=== PATIENT | female | born 1965 | race African-American/Black ===

== ENCOUNTER 2017-03-15 23:24 | Inpatient (IN) | payer MEDICARE, OTHER ==
[~2017-03-15] VITALS: Ht 180.3 cm; Wt 97.7 kg
[~2017-03-15 23:24] MED LIST: BUTA1CAP29 PO; CARV25TA2 PO; CLOP75TA PO; DIAZEPAM10 MG PO; FAMO20TA5 PO; FENO134C PO; HYDR-2666 PO; HYDR-971 PO; OXYC1TAB9 PO; PENI500T PO; PROM25TA10 PO
[2017-03-16 00:22] LABS: BASO # 0.1 x10^3/uL (0.0-0.2); BASO % 1 % (0-3); EOS % 1 % (0-3); HEMATOCRIT 33.8 % (36.0-47.0); HEMOGLOBIN 10.9 g/dL (12.0-15.5); LYMPH # 2.9 x10^3/uL (1.0-4.8); LYMPH % 29 % (24-48); MEAN CORPUSCULAR HEMOGLOBIN 25 pg (25-35); MEAN CORPUSCULAR HGB CONC 32 g/dL (31-37); MEAN CORPUSCULAR VOLUME 76 fL (79-100); MONO % 11 % (0-9); NEUT % 58 % (31-73); PLATELET COUNT 177 x10^3/uL (140-400); RED BLOOD COUNT 4.42 x10^6/uL (3.50-5.40); RED CELL DISTRIBUTION WIDTH 19.2 % (11.5-14.5); WHITE BLOOD COUNT 10.1 x10^3/uL (4.0-11.0)
[2017-03-16] MEDS ORDERED: HYDROmorphone 2 MG/ML VIAL IV ONE ×3 (00:30→07:45)
[2017-03-16] MEDS ORDERED: IV NORMAL SALINE 1000ML BAG 1,000 ML IV ONE (00:30)
[2017-03-16] MEDS ORDERED: ONDANSETRON PF 4 MG/2 ML VIAL. IV ONE (00:30)
[2017-03-16 00:36] LABS: CALCIUM 8.9 mg/dL (8.5-10.1); CREATININE 0.8 mg/dL (0.6-1.0); GFR 91.9; POTASSIUM 3.9 mmol/L (3.5-5.1)
[2017-03-16 00:44] LABS: ALBUMIN 3.5 g/dL (3.4-5.0); ALBUMIN/GLOBULIN RATIO 0.9 (1.0-1.7); TOTAL BILIRUBIN 0.2 mg/dL (0.2-1.0); TOTAL PROTEIN 7.5 g/dL (6.4-8.2)
[2017-03-16] MEDS ORDERED: NITROGLYCERIN SUBLINGUAL 0.4 MG BOTTLE OF 25. SL PRN (01:30)
[2017-03-16] MEDS ORDERED: ASPIRIN CHEWABLE 81 MG TABLET. PO ONE (01:30)
[2017-03-16] MEDS ORDERED: ONDANSETRON PF 4 MG/2 ML VIAL. IV PRN (01:30)
[2017-03-16] MEDS ORDERED: ACETAMINOPHEN 325 MG TABLET. PO PRN (01:30)
[2017-03-16 02:48] VITALS: BP 138/97
--- NOTE | 2017-03-16 03:15 | PHYS DOC ---
Past Medical History Past Medical History: CAD, High Cholesterol, Hypertension, PA, Other Additional Past Medical Histor: DJD Past Surgical History: , Other Additional Past Surgical Histo: BREAST BIOPSY, stent placement with mi nov 2015 Alcohol Use: None Drug Use: None Adult General Chief Complaint Chief Complaint: CHEST PAIN-CARDIAC NATURE HPI HPI Patient is a 52 year old female who presents here today complaining of chest pain. Patient reports the pain that she's having today is similar to her prior PA type pain. Patient has any fevers shakes chills. Patient has a cough melena bright red blood per rectum dysuria frequency or urgency. Patient reports her primary care physician is Dr. Jiménez. Patient reports she has a history of coronary artery disease hypertension diabetes and CHF. Patient reports she is a smoker. Patient reports that she had an abnormal catheter in the past. Patient denies any other surgeries. Patient reports her last sexual activity was approximately 2 years ago last menstrual period was last week. Patient reports pain to the mid sternum increases with exertion. Positive shortness of breath positive diaphoresis. Positive nausea. Physical exam was unremarkable. Patient has some reputes tenderness to palpation to her midsternal area however she reports that the pain that she can complaining of. Patient's heart was regular rate and rhythm lungs are clear abdomen benign. His EKG revealed normal sinus rhythm without any evidence of STEMI. Patient's labs were all within normal limits. Plan is a 52-year-old female with significant cardiac risk factors for hypertension diabetes CHF and coronary artery disease. Patient will be admitted to the hospital for further cardiac evaluation. Case was discussed with the hospitalist and they're in agreement. Review of Systems Review of Systems Constitutional: Denies fever or chills [] Eyes: Denies change in visual acuity, redness, or eye pain [] HENT: Denies nasal congestion or sore throat [] All other review systems are negative except as documented in history of present illness portion. Current Medications Current Medications Current Medications Medications (Trade) Dose Ordered Sig/Santos Start Time Stop Time Status Last Admin Dose Admin Hydromorphone HCl (Dilaudid) 1 mg 1X ONCE 03/16/17 00:30 03/16/17 00:31 DC 03/16/17 00:30 1 MG Ondansetron HCl (Zofran) 4 mg 1X ONCE 03/16/17 00:30 03/16/17 00:31 DC 03/16/17 00:30 4 MG Sodium Chloride 1,000 ml @ 1,000 mls/hr 1X ONCE 03/16/17 00:30 03/16/17 01:29 DC 03/16/17 00:30 1,000 MLS/HR Allergies Allergies Allergies Coded Allergies Type Severity Reaction Last Updated Verified atorvastatin Allergy Intermediate 05/11/16 Yes codeine Allergy Intermediate 03/16/17 Yes heparin Allergy Intermediate 05/11/16 Yes morphine Allergy Intermediate 05/11/16 Yes oxycodone Allergy Intermediate 03/16/17 Yes Physical Exam Physical Exam Constitutional: Well developed, well nourished, no acute distress, non-toxic appearance. [] HENT: Normocephalic, atraumatic, bilateral external ears normal, oropharynx moist, no oral exudates, nose normal. [] Eyes: PERRLA, EOMI, conjunctiva normal, no discharge. [] Neck: Normal range of motion, no tenderness, supple, no stridor. [] Cardiovascular:Heart rate regular rhythm, Lungs & Thorax: Bilateral breath sounds clear to auscultation [] Abdomen: Bowel sounds normal, soft, no tenderness, no masses, no pulsatile masses. [] Skin: Warm, dry, no erythema, no rash. [] Back: No tenderness, no CVA tenderness. [] Extremities: No tenderness, no cyanosis, no clubbing, ROM intact, no edema. [] Neurologic: Alert and oriented X 3, normal motor function, normal sensory function, no focal deficits noted. [] Psychologic: Affect normal, judgement normal, mood normal. [] Current Patient Data Vital Signs Vital Signs Date Time Temp Pulse Resp B/P (MAP) Pulse Ox O2 Delivery O2 Flow Rate FiO2 03/16/17 00:00 98.3 74 14 140/93 (109) 97 Room Air 98.3 Lab Values Laboratory Tests Test 03/16/17 00:13 White Blood Count 10.1 x10^3/uL (4.0-11.0) Red Blood Count 4.42 x10^6/uL (3.50-5.40) Hemoglobin 10.9 g/dL (12.0-15.5) L Hematocrit 33.8 % (36.0-47.0) L Mean Corpuscular Volume 76 fL (79-100) L Mean Corpuscular Hemoglobin 25 pg (25-35) Mean Corpuscular Hemoglobin Concent 32 g/dL (31-37) Red Cell Distribution Width 19.2 % (11.5-14.5) H Platelet Count 177 x10^3/uL (140-400) Neutrophils (%) (Auto) 58 % (31-73) Lymphocytes (%) (Auto) 29 % (24-48) Monocytes (%) (Auto) 11 % (0-9) H Eosinophils (%) (Auto) 1 % (0-3) Basophils (%) (Auto) 1 % (0-3) Neutrophils # (Auto) 5.8 x10^3uL (1.8-7.7) Lymphocytes # (Auto) 2.9 x10^3/uL (1.0-4.8) Monocytes # (Auto) 1.1 x10^3/uL (0.0-1.1) Eosinophils # (Auto) 0.1 x10^3/uL (0.0-0.7) Basophils # (Auto) 0.1 x10^3/uL (0.0-0.2) Sodium Level 140 mmol/L (136-145) Potassium Level 3.9 mmol/L (3.5-5.1) Chloride Level 105 mmol/L (98-107) Carbon Dioxide Level 26 mmol/L (21-32) Anion Gap 9 (6-14) Blood Urea Nitrogen 8 mg/dL (7-20) Creatinine 0.8 mg/dL (0.6-1.0) Estimated GFR (Cockcroft-Gault) 91.9 BUN/Creatinine Ratio 10 (6-20) Glucose Level 131 mg/dL (70-99) H Calcium Level 8.9 mg/dL (8.5-10.1) Total Bilirubin 0.2 mg/dL (0.2-1.0) Aspartate Amino Transferase (AST) 11 U/L (15-37) L Alanine Aminotransferase (ALT) 13 U/L (14-59) L Alkaline Phosphatase 74 U/L (46-116) Troponin I Quantitative 0.109 ng/mL (0.000-0.055) OS-Lbv-H-Type Natriuretic Peptide 280 pg/mL (0-124) H Total Protein 7.5 g/dL (6.4-8.2) Albumin 3.5 g/dL (3.4-5.0) Albumin/Globulin Ratio 0.9 (1.0-1.7) L Laboratory Tests 03/16/17 00:13 Laboratory Tests 03/16/17 00:13 EKG EKG [] Radiology/Procedures Radiology/Procedures [] Course & Med Decision Making Course & Med Decision Making Pertinent Labs and Imaging studies reviewed. (See chart for details) [] Dragon Disclaimer Dragon Disclaimer This electronic medical record was generated, in whole or in part, using a voice recognition dictation system. Departure Departure Impression: Primary Impression: Chest pain Additional Impressions: Elevated troponin Non-STEMI (non-ST elevated myocardial infarction) Disposition: ADMITTED INPATIENT Admitting Physician: Shilpa Cortes Condition: STABLE Referrals: RUPESH JIMÉNEZ (PCP) Problem Qualifiers ALEXUS VELÁSQUEZ MD March 16, 2017 03:15
[2017-03-16] MEDS ORDERED: AMLO10TA4 PO (03:40)
[2017-03-16] MEDS ORDERED: POTA20TA4 PO (03:40)
[2017-03-16] MEDS ORDERED: CRESTOR20 MG PO (03:40)
[2017-03-16] MEDS ORDERED: CLON0.2T PO (03:40)
[2017-03-16] MEDS ORDERED: OXYC1TAB8 (03:44)
[2017-03-16] MEDS ORDERED: DIAZ5TAB4 (03:44)
[2017-03-16 07:00] VITALS: BP 146/92
--- NOTE | 2017-03-16 08:07 | RAD ---
Indication chest pain. A single view of the chest was obtained and is compared to an examination 10/27/2016. Heart size is mildly enlarged but unchanged. There is no congestive heart failure. There is a Cardiac stent. No acute finding in the chest is seen. The pulmonary vasculature is normal. There is no significant pleural fluid or pneumothorax. IMPRESSION: No acute or focal process seen in the chest
[2017-03-16] MEDS ORDERED: diazePAM 5 MG TABLET PO PRN (10:00)
[2017-03-16] MEDS ORDERED: BUTALB/APAP/CAFEIN 50/325/40MG TABLET. PO PRN (10:15)
[2017-03-16] MEDS ORDERED: PROMETHAZINE 12.5 MG TABLET. PO PRN (10:15)
[2017-03-16 11:00] VITALS: BP 133/80
[2017-03-16] MEDS: FENOFIBRATE,MICRONIZED 134 MG CAPSULE PO SCH (11:21)
[2017-03-16] MEDS: FAMOTIDINE 20 MG TABLET. PO SCH ×2 (11:21→21:37)
[2017-03-16] MEDS: cloNIDine HCL 0.2 MG TABLET PO SCH ×2 (11:22→21:38)
[2017-03-16] MEDS: CARVEDILOL 12.5 MG TABLET. PO SCH ×2 (11:22→16:59)
[2017-03-16] MEDS: POTASSIUM CHLORIDE 20 MEQ TABLET.ER. PO SCH (11:23)
--- NOTE | 2017-03-16 11:29 | PDOC ---
Provider Note Provider Note Pt seen.H&P dictated. #[id number]. SHARMAINE SAEED MD March 16, 2017 11:29
[2017-03-16 11:35] LABS: CHOLESTEROL/HDL RATIO 3.5
[2017-03-16] MEDS: HYDROcodone/APAP 5/325MG 1 TAB TABLET PO PRN ×2 (11:46→17:57)
--- NOTE | 2017-03-16 12:09 | EKG ---
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
--- NOTE | 2017-03-16 13:27 | PDOC2 ---
CONSULT Date of Consult Date of Consult DATE: 03/16/17 TIME: 13:21 Reason for Consult Reason for Consult: chest pain Referring Physician Referring Physician: Dr. Cortes Identification/Chief Complaint Chief Complaint chest pain Source Source: Patient History of Present Illness Reason for Visit: The patient is a 52-year-old female who was admitted through the emergency room for episodes of chest pain. She states she has had several episodes of pain usually with exertion over the past 3 weeks. Her EKG has shown no acute changes. Troponin peak was 0.179. She has been pain-free overnight. She states she receives her cardiac care at and received a stent in early 2015 after a heart attack. She also states that she had a reportedly normal stress test at last week. Past Medical History Cardiovascular: CAD, HTN, [place], Hyperlipidemia Pulmonary: COPD CENTRAL NERVOUS SYSTEM: Other GI: Peptic Ulcer disease Heme/Onc: No pertinent hx Hepatobiliary: No pertinent hx Psych: No pertinent hx Musculoskeletal: Osteoarthritis Rheumatologic: No pertinent hx Renal/: No pertinent hx, Other Endocrine: No pertinent hx Past Surgical History Past Surgical History: , Other (coronary stent at in 2015) Family History Family History: Coronary Artery Disease Social History No ALCOHOL: none Drugs: None Lives: with Family Domestic Violence: Neg Current Problem List Problem List Problems Medical Problems: (1) Chest pain Status: Acute (2) Elevated troponin Status: Acute (3) Non-STEMI (non-ST elevated myocardial infarction) Status: Acute Current Medications Current Medications Current Medications Hydromorphone HCl (Dilaudid) 1 mg 1X ONCE IV Last administered on 03/16/17 00: 30; Start 03/16/17 at 00:30; Stop 03/16/17 at 00:31; Status DC Ondansetron HCl (Zofran) 4 mg 1X ONCE IV Last administered on 03/16/17 00:30; Start 03/16/17 at 00:30; Stop 03/16/17 at 00:31; Status DC Sodium Chloride 1,000 ml @ 1,000 mls/hr 1X ONCE IV Last administered on 00:30; Start 03/16/17 at 00:30; Stop 03/16/17 at 01:29; Status DC Ondansetron HCl (Zofran) 4 mg PRN Q8HRS PRN IV NAUSEA/VOMITING; Start 03/16/17 at 01:30; Stop 03/17/17 at 01:29 Acetaminophen (Tylenol) 650 mg PRN Q4HRS PRN PO FEVER; Start 03/16/17 at 01:30; Stop 03/17/17 at 01:29 Nitroglycerin (Nitrostat) 0.4 mg PRN Q5MIN PRN SL CHEST PAIN Last administered on 03/16/17 02:01; Start 03/16/17 at 01:30; Stop 03/17/17 at 01:29 Aspirin (Children'S Aspirin) 324 mg 1X ONCE PO Last administered on 03/16/17 01:30; Start 03/16/17 at 01:30; Stop 03/16/17 at 01:31; Status DC Hydromorphone HCl (Dilaudid) 1 mg 1X ONCE IV Last administered on 03/16/17 03: 03; Start 03/16/17 at 02:30; Stop 03/16/17 at 02:31; Status DC Hydromorphone HCl (Dilaudid) 1 mg 1X ONCE IV Last administered on 03/16/17 08: 15; Start 03/16/17 at 07:45; Stop 03/16/17 at 07:46; Status DC Amlodipine Besylate (Norvasc) 10 mg BID PO ; Start 03/16/17 at 21:00 Clonidine HCl (Catapres) 0.2 mg BID PO Last administered on 03/16/17 11:22; Start 03/16/17 at 10:00 Clopidogrel Bisulfate (Plavix) 75 mg DAILY PO ; Start 03/17/17 at 09:00 Diazepam (Valium) 5 mg PRN BID PRN PO ANXIETY; Start 03/16/17 at 10:00 Famotidine (Pepcid) 20 mg BID PO Last administered on 03/16/17 11:21; Start 03/16/17 at 10:00 Fenofibrate (Lofibra) 134 mg DAILY PO Last administered on 03/16/17 11:21; Start 03/16/17 at 10:00 Acetaminophen/ Hydrocodone Bitart (Lortab 5/325) 1 tab PRN Q6HRS PRN PO PAIN Last administered on 03/16/17 11:46; Start 03/16/17 at 10:00 Potassium Chloride (Klor-Con) 20 meq DAILYWBKFT PO Last administered on 11:23; Start 03/16/17 at 11:00 Acetaminophen/ Butalbital/ Caffeine (Fioricet) 1 tab PRN Q4HRS PRN PO MIGRAINE HEADACHE; Start 03/16/17 at 10:15 Carvedilol (Coreg) 25 mg BIDWMEALS PO Last administered on 03/16/17 11:22; Start 03/16/17 at 10:15 Promethazine HCl (Phenergan) 25 mg PRN Q6HRS PRN PO NAUSEA/VOMITING; Start 03/16 at 10:15 Non-Formulary Medication 1 tab DAILY PO ; Start 03/17/17 at 09:00; Status UNV Active Scripts Active Fioricet 50-300-40 Mg Capsule (Butalb/Acetaminophen/Caffeine) 1 Each Capsule 1 Each PO PRN Q4HRS PRN Penicillin V Potassium 500 Mg Tablet 500 Mg PO TID [place] 5-325 Tablet (Acetaminophen/Hydrocodone Bitart) 1 Each Tablet 1 Tab PO PRN Q6HRS PRN [place] 5-325 Tablet (Acetaminophen/Hydrocodone Bitart) 1 Each Tablet 1 Tab PO PRN Q6HRS PRN Famotidine 20 Mg Tablet 20 Mg PO BID Promethazine Hcl 25 Mg Tablet 1 Tab PO PRN Q6HRS Penicillin V Potassium 500 Mg Tablet 1 Tab PO TID Reported Oxycodon-Acetaminophen 7.5-325 (Oxycodone Hcl/Acetaminophen) 1 Each Tablet Diazepam 5 Mg Tablet Norvasc (Amlodipine Besylate) 10 Mg Tablet 10 Mg PO BID Clonidine Hcl 0.2 Mg Tablet 1 Tab PO BID Crestor (Rosuvastatin Calcium) 20 Mg Tablet 1 Tab PO DAILY Klor-Con M20 (Potassium Chloride) 20 Meq Tab.er.prt 1 Tab PO DAILYWBKFT Oxycodone-Acetaminophen 10-325 (Oxycodone Hcl/Acetaminophen) 1 Each Tablet 1 Each PO PRN Q6HRS PRN Carvedilol 25 Mg Tablet 1 Tab PO BID Diazepam 10 Mg Tablet 1 Tab PO BID PRN Clopidogrel (Clopidogrel Bisulfate) 75 Mg Tablet 1 Tab PO DAILY Fenofibrate (Fenofibrate,Micronized) 134 Mg Capsule 1 Cap PO DAILY Allergies Allergies: Coded Allergies: atorvastatin (Verified Allergy, Intermediate, 05/11/16) codeine (Verified Allergy, Intermediate, 03/16/17) heparin (Verified Allergy, Intermediate, 05/11/16) morphine (Verified Allergy, Intermediate, 05/11/16) Tolerates hydromorphone oxycodone (Verified Allergy, Intermediate, 03/16/17) ROS Cardiovascular: yes Chest Pain, yes Palpitations Physical Exam General: No acute distress HEENT: Atraumatic Lungs: Clear to auscultation Heart: Regular rate Abdomen: Normal bowel sounds Extremities: No clubbing Vitals VITALS Vital Signs Date Time Temp Pulse Resp B/P (MAP) Pulse Ox O2 Delivery O2 Flow Rate FiO2 03/16/17 13:07 98 Room Air 03/16/17 11:22 77 133/80 03/16/17 11:00 99.5 17 99.5 Labs Labs Laboratory Tests Test 03/16/17 00:13 03/16/17 10:25 White Blood Count 10.1 x10^3/uL (4.0-11.0) Red Blood Count 4.42 x10^6/uL (3.50-5.40) Hemoglobin 10.9 g/dL (12.0-15.5) Hematocrit 33.8 % (36.0-47.0) Mean Corpuscular Volume 76 fL (79-100) Mean Corpuscular Hemoglobin 25 pg (25-35) Mean Corpuscular Hemoglobin Concent 32 g/dL (31-37) Red Cell Distribution Width 19.2 % (11.5-14.5) Platelet Count 177 x10^3/uL (140-400) Neutrophils (%) (Auto) 58 % (31-73) Lymphocytes (%) (Auto) 29 % (24-48) Monocytes (%) (Auto) 11 % (0-9) Eosinophils (%) (Auto) 1 % (0-3) Basophils (%) (Auto) 1 % (0-3) Neutrophils # (Auto) 5.8 x10^3uL (1.8-7.7) Lymphocytes # (Auto) 2.9 x10^3/uL (1.0-4.8) Monocytes # (Auto) 1.1 x10^3/uL (0.0-1.1) Eosinophils # (Auto) 0.1 x10^3/uL (0.0-0.7) Basophils # (Auto) 0.1 x10^3/uL (0.0-0.2) Sodium Level 140 mmol/L (136-145) Potassium Level 3.9 mmol/L (3.5-5.1) Chloride Level 105 mmol/L (98-107) Carbon Dioxide Level 26 mmol/L (21-32) Anion Gap 9 (6-14) Blood Urea Nitrogen 8 mg/dL (7-20) Creatinine 0.8 mg/dL (0.6-1.0) Estimated GFR (Cockcroft-Gault) 91.9 BUN/Creatinine Ratio 10 (6-20) Glucose Level 131 mg/dL (70-99) Calcium Level 8.9 mg/dL (8.5-10.1) Total Bilirubin 0.2 mg/dL (0.2-1.0) Aspartate Amino Transf (AST/SGOT) 11 U/L (15-37) Alanine Aminotransferase (ALT/SGPT) 13 U/L (14-59) Alkaline Phosphatase 74 U/L (46-116) Troponin I Quantitative 0.109 ng/mL (0.000-0.055) 0.179 ng/mL (0.000-0.055) CF-Wop-O-Type Natriuretic Peptide 280 pg/mL (0-124) Total Protein 7.5 g/dL (6.4-8.2) Albumin 3.5 g/dL (3.4-5.0) Albumin/Globulin Ratio 0.9 (1.0-1.7) Triglycerides Level 141 mg/dL (0-150) Cholesterol Level 111 mg/dL (0-200) LDL Cholesterol, Calculated 51 mg/dL (0-100) VLDL Cholesterol, Calculated 28 mg/dL (0-40) Non-HDL Cholesterol Calculated 79 mg/dL (0-129) HDL Cholesterol 32 mg/dL (40-60) Cholesterol/HDL Ratio 3.5 Thyroid Stimulating Hormone (TSH) 0.671 uIU/mL (0.358-3.74) Laboratory Tests Test 03/16/17 00:13 03/16/17 10:25 White Blood Count 10.1 x10^3/uL (4.0-11.0) Red Blood Count 4.42 x10^6/uL (3.50-5.40) Hemoglobin 10.9 g/dL (12.0-15.5) Hematocrit 33.8 % (36.0-47.0) Mean Corpuscular Volume 76 fL (79-100) Mean Corpuscular Hemoglobin 25 pg (25-35) Mean Corpuscular Hemoglobin Concent 32 g/dL (31-37) Red Cell Distribution Width 19.2 % (11.5-14.5) Platelet Count 177 x10^3/uL (140-400) Neutrophils (%) (Auto) 58 % (31-73) Lymphocytes (%) (Auto) 29 % (24-48) Monocytes (%) (Auto) 11 % (0-9) Eosinophils (%) (Auto) 1 % (0-3) Basophils (%) (Auto) 1 % (0-3) Neutrophils # (Auto) 5.8 x10^3uL (1.8-7.7) Lymphocytes # (Auto) 2.9 x10^3/uL (1.0-4.8) Monocytes # (Auto) 1.1 x10^3/uL (0.0-1.1) Eosinophils # (Auto) 0.1 x10^3/uL (0.0-0.7) Basophils # (Auto) 0.1 x10^3/uL (0.0-0.2) Sodium Level 140 mmol/L (136-145) Potassium Level 3.9 mmol/L (3.5-5.1) Chloride Level 105 mmol/L (98-107) Carbon Dioxide Level 26 mmol/L (21-32) Anion Gap 9 (6-14) Blood Urea Nitrogen 8 mg/dL (7-20) Creatinine 0.8 mg/dL (0.6-1.0) Estimated GFR (Cockcroft-Gault) 91.9 BUN/Creatinine Ratio 10 (6-20) Glucose Level 131 mg/dL (70-99) Calcium Level 8.9 mg/dL (8.5-10.1) Total Bilirubin 0.2 mg/dL (0.2-1.0) Aspartate Amino Transf (AST/SGOT) 11 U/L (15-37) Alanine Aminotransferase (ALT/SGPT) 13 U/L (14-59) Alkaline Phosphatase 74 U/L (46-116) Troponin I Quantitative 0.109 ng/mL (0.000-0.055) 0.179 ng/mL (0.000-0.055) VD-Evz-E-Type Natriuretic Peptide 280 pg/mL (0-124) Total Protein 7.5 g/dL (6.4-8.2) Albumin 3.5 g/dL (3.4-5.0) Albumin/Globulin Ratio 0.9 (1.0-1.7) Triglycerides Level 141 mg/dL (0-150) Cholesterol Level 111 mg/dL (0-200) LDL Cholesterol, Calculated 51 mg/dL (0-100) VLDL Cholesterol, Calculated 28 mg/dL (0-40) Non-HDL Cholesterol Calculated 79 mg/dL (0-129) HDL Cholesterol 32 mg/dL (40-60) Cholesterol/HDL Ratio 3.5 Thyroid Stimulating Hormone (TSH) 0.671 uIU/mL (0.358-3.74) Images Images Chest x-ray with no acute changes. Assessment/Plan Assessment/Plan 1. Chest pain. Patient has been pain-free overnight. She has no acute ischemic EKG changes. Peak troponin 0.179. Reports a history of coronary artery disease with stenting at in 2016. She also reports a normal stress test at last week. At the present time the patient appears clinically stable. We'll continue present medical treatment. Will obtain records from . We will keep nothing by mouth overnight. We'll reevaluate in the morning to determine if the patient would most appropriately be treated with a repeat heart catheterization. This was discussed with the patient. 2. Hyperlipidemia. Continue statin medication. Check lipid panel. 3. Hypertension. We'll continue on medical treatment. Thank you for allowing us to participate in the care of your patient. HAYDEN IRAHETA MD March 16, 2017 13:26
[2017-03-16 14:35] LABS: BILIRUBIN,URINE NEGATIVE (NEG); GLUCOSE,URINE NEGATIVE (NEG); NITRITE,URINE POSITIVE (NEG); PH,URINE 6.5; PROTEIN,URINE NEGATIVE (NEG-TRACE); UROBILINOGEN,URINE 0.2 mg/dL (0.2 mg/dL)
[2017-03-16 14:41] LABS: BACTERIA,URINE MANY /HPF (0-FEW); RBC,URINE 0 /HPF (0-2); SQUAMOUS EPITHELIAL CELL,UR MANY /LPF
[2017-03-16 15:00] VITALS: BP 133/89
--- NOTE | 2017-03-16 15:29 | HP ---
ADMIT DATE: 03/16/2017 LOCATION: 209. REASON FOR ADMISSION TO THE HOSPITAL: Chest pain. The patient has a known history of coronary artery disease, slightly elevated troponin. HISTORY OF PRESENT ILLNESS: The patient is a 52-year-old female, patient of Dr. Douglas with history of hypertension, hyperlipidemia, coronary artery disease. She had a total of 5 stents so far, the last stent was 1 year ago. The patient in fact was admitted to [facility] last week, Dr. Bernard. The patient had a stress test and MRI of the chest as per the patient and she was told there were no blockages. She did not have heart catheterization at that time. She came because she noticed chest pain with retrosternal going to the back, was seen by the ER and was admitted to the hospital. The patient is scheduled to see Cardiology today, may be taken to cardiac catheterization. PAST MEDICAL HISTORY: As mentioned, CAD, hypertension, hyperlipidemia, DC. PAST SURGICAL HISTORY: Stents at least 5, last one 1 year ago, had a breast biopsy, had a . ALLERGIES: ATORVASTATIN, CODEINE, HEPARIN, MORPHINE AND OXYCODONE. MEDICATIONS AT HOME: Hydrocodone q. 6, amlodipine 10 mg daily, Fioricet 1 q. 6, Coreg 25 mg twice a day, clonidine 0.2 twice a day, Plavix 75 mg daily, Pepcid 20 mg twice a day, fenofibrate 135 mg daily, hydrocodone p.r.n., potassium 20 mEq daily, Phenergan daily and Crestor 20 mg daily. PERSONAL HISTORY: Smoked half a pack to 1 pack for 30 years, trying to cut down. Denies alcohol or street drugs. FAMILY HISTORY: Positive for hypertension and heart disease. REVIEW OF SYMPTOMS: CARDIAC: Chest pain, easing up now. GASTROINTESTINAL: No nausea or vomiting. NEUROLOGICAL: No weakness. The rest of the 14-system was reviewed and negative. PHYSICAL EXAMINATION: VITAL SIGNS: At the time of admission shows temperature 98, pulse 74, respirations 14, blood pressure 140/93, 97 on room air. HEENT: Head is atraumatic. Pupils equal. Oral cavity: No congestion. NECK: Supple. Thyroid not enlarged. JVD not elevated. IV in the neck. CHEST: Symmetrical. CARDIOVASCULAR: S1, S2. LUNGS: Clear to auscultation. ABDOMEN: Soft, bowel sounds present, no mass palpable. EXTERNAL GENITALIA: No De Sou[place]. RECTAL: Deferred. EXTREMITIES: No calf tenderness or edema. Pulses 1+. NEUROLOGIC: Cranial nerves intact. Power 5/5 in all extremities. LABORATORY DATA: Shows a white count of 10, hemoglobin 11, platelets 177. Electrolytes show sodium 140, potassium 3.9, chloride 105, bicarbonate 26, BUN 8, creatinine 0.8, glucose 131 and troponin was 0.10, second was 0.179. Chest x-ray was negative. EKG done, report is not available. FINAL IMPRESSION: 1. Chest pain. The patient has a known history of coronary artery disease,h/o 5 cardiac stents so far. 2. Slightly elevated troponin, possible non-ST elevation myocardial infarction. 3. The patient was recently discharged from , had extensive workup including MRI of the chest as well as stress test, as per the patient it was negative for any ischemia. 4. Hypertension. 5. Hyperlipidemia. 6. Smoking addiction. PLAN: At this time, admit to the hospital. The patient cannot take heparin. Lovenox. Serial cardiac enzymes. Cardiology is consulted and the patient may probably go to cardiac catheterization and see how the patient's condition improves. Smoking counseling was done and continue aspirin and check cholesterol and thyroid. SHARMAINE SAEED MD DR: YURIY/trent JOB#: [id number] / [id number] RUPESH Amezcua
[2017-03-16 19:59] VITALS: BP 153/97
[2017-03-16] MEDS ORDERED: ROSUVASTATIN 20 MG PO SCH (21:00)
[2017-03-16] MEDS: amLODIPine BESYLATE 10 MG TABLET PO SCH (21:38)
[2017-03-16 23:06] VITALS: BP 155/97
[2017-03-17] MEDS: HYDROcodone/APAP 5/325MG 1 TAB TABLET PO PRN (02:29)
[2017-03-17 03:17] VITALS: BP 136/89
[2017-03-17 04:06] LABS: BASO # 0.1 x10^3/uL (0.0-0.2); BASO % 1 % (0-3); EOS % 1 % (0-3); HEMATOCRIT 33.4 % (36.0-47.0); HEMOGLOBIN 10.5 g/dL (12.0-15.5); LYMPH % 38 % (24-48); MEAN CORPUSCULAR HEMOGLOBIN 24 pg (25-35); MEAN CORPUSCULAR HGB CONC 31 g/dL (31-37); MEAN CORPUSCULAR VOLUME 77 fL (79-100); MONO % 12 % (0-9); NEUT % 49 % (31-73); PLATELET COUNT 172 x10^3/uL (140-400); RED BLOOD COUNT 4.35 x10^6/uL (3.50-5.40); RED CELL DISTRIBUTION WIDTH 18.9 % (11.5-14.5); WHITE BLOOD COUNT 7.8 x10^3/uL (4.0-11.0)
[2017-03-17 04:19] LABS: CREATININE 0.8 mg/dL (0.6-1.0); GFR 91.9; POTASSIUM 3.8 mmol/L (3.5-5.1)
--- NOTE | 2017-03-17 04:45 | ACF ---
Admission Forms Criteria MYOCARDIAL INFARCTION Clinical Indications for Admission to Inpatient Care (Place 'X' for any and all applicable criteria): Admission is indicated for 1 or more of the following (1)(2)(3)(4): [X]I. Acute MS [ ]II. Contraindications and/or Inappropriate clinical situations for Observational Care in patients with Myocardial Infarction, when ANY ONE of the following is required: [ ]a) Patient with High risk of cardiac embolism (e.g, patients with previous cardiac embolism, LVEF < 40%, age >75 and patients with prosthetic valve) 18 [ ]b) Patient with Moderate risk including DM patient, CAD and patient aged 65-75 18 [ ]c) Patient with any change in cardiac biomarker especially troponin should be managed as high risk in an inpatient setting 19 [ ]d) Physician judgement irrespective of ECG and other diagnostic findings 20 [ ]III.General contraindications and/or Inappropriate clinical situations for Observational Care in patients with Myocardial Infarction, when ANY ONE of the following is required: [ ]a) Prediction of prolongation of LOS based on ANY ONE of the following may be considered as a contraindication for observational care 2, 3, 4, 5, 6, 7, 8, 9, 10, 11 [ ]i) Age > 65 yrs. [ ]ii) Patient arriving by ambulance [ ]iii) Patient with high acuity [ ]iv) Patient requiring vital sign monitoring [ ]v) Patient on IV medication [ ]b) Systolic blood pressures greater than or equal to 180mmHg 3,12 [ ]c) Patient with altered mental status including delirium and other alteration of consciousness, (3) [ ]d) Patient whose discharge disposition will be to a fdc home or rehabilitation home should not be managed in Emergency Department Observation Unit. CMS rule requires 3 days hospital stay before such placement. 3,13 [ ]e) Patient with failure to thrive due to broad array of etiologies 3 ,16,17 [ ]f) Inability to ambulate 3,14 Extended stay beyond goal length of stay may be needed for (1)(18)(20)(24)(25): [ ]a) Hemodynamic instability, persisting symptoms after intensive medical management, or recurring severe, prolonged symptoms [ ]b) Intravascular procedural complications such as acute vessel closure, stent thrombosis, stent malposition, or vessel dissection (26)(27)(28) [ ]c) Extravascular procedural complications such as retroperitoneal hematoma , pericardial effusion, or cardiac tamponade [ ]d) Entry site complications causing bleeding, hematoma or distal ischemia and requiring ongoing monitoring, surgical repair or surgical thrombectomy. Dangerous arrhythmia [ ]e) Complicated percutaneous coronary intervention (e.g., unsuccessful percutaneous coronary intervention or percutaneous coronary intervention of non- gambell vessel) [ ]f) Urgent or emergent surgery for complications of MS (e.g., ventricular rupture, valvular insufficiency) [ ]g) Surgical revascularization via coronary artery bypass graft [ ]h) Heart failure (e.g., pulmonary edema) [ ]i) Unstable pulmonary comorbidities, including COPD or pneumonia (31) [ ]j) Acute renal failure The original [employer] content created by [employer] has been revised. The portions of the content which have been revised are identified through the use of italic text or in bold, and [facility] [email or web address] has neither reviewed nor approved the modified material. All other unmodified content is copyright [facility] [email or web address] Please see references footnoted in the original [employer] [facility] edition 2016 Admission Criteria Met?: Yes CRYS COLON March 17, 2017 04:45
[2017-03-17 07:56] VITALS: BP 142/89
[2017-03-17] MEDS: FAMOTIDINE 20 MG TABLET. PO SCH (08:41)
[2017-03-17] MEDS: cloNIDine HCL 0.2 MG TABLET PO SCH (08:42)
[2017-03-17] MEDS: POTASSIUM CHLORIDE 20 MEQ TABLET.ER. PO SCH (08:42)
[2017-03-17] MEDS: FENOFIBRATE,MICRONIZED 134 MG CAPSULE PO SCH (08:42)
[2017-03-17] MEDS: amLODIPine BESYLATE 10 MG TABLET PO SCH (08:42)
[2017-03-17] MEDS: CARVEDILOL 12.5 MG TABLET. PO SCH (08:43)
[2017-03-17] MEDS ORDERED: CLOPIDOGREL BISULFATE 75 MG TABLET PO SCH (09:00)
--- NOTE | 2017-03-17 10:17 | PDOC ---
PROGRESS NOTES Subjective Subjective feels better ,want to go home, no chest pain Objective Objective Vital Signs Date Time Temp Pulse Resp B/P (MAP) Pulse Ox O2 Delivery O2 Flow Rate FiO2 03/17/17 08:43 77 142/89 03/17/17 08:10 Room Air 03/17/17 07:56 99.3 18 96 99.3 Intake and Output 03/17/17 07:00 Intake Total 1140 ml Balance 1140 ml Intake Oral 1140 ml # Voids 2 Physical Exam Abdomen: Normal bowel sounds Heart: Regular rate, Normal S1, Normal S2 Extremities: No clubbing General: No acute distress HEENT: Atraumatic Lungs: Clear to auscultation MUSCULOSKELETAL: Osteoarthritic changes both hands Neck: Supple Neuro: Normal speech Psych/Mental Status: Mental status NL Skin: No breakdown Diagnosis Problem List Problems Medical Problems: (1) Chest pain Status: Acute (2) Elevated troponin Status: Acute (3) Non-STEMI (non-ST elevated myocardial infarction) Status: Acute Assessment Assessment Problems Medical Problems: (1) Chest pain Status: Acute (2) Elevated troponin Status: Acute (3) Non-STEMI (non-ST elevated myocardial infarction) Status: Acute FINAL IMPRESSION: 1. Chest pain. The patient has a known history of coronary artery disease 5 stents so far. 2. Slightly elevated troponin, possible non-ST elevation myocardial infarction.troponin same,not trending up or down 3. The patient was recently discharged from , had extensive workup including MRI of the chest as well as stress test, as per the patient it was negative for any ischemia. 4. Hypertension. 5. Hyperlipidemia. 6. Smoking addiction. PLAN: seen by cardiology . pt donot want heart cath, want to go home and f/u cardiology today. labs ok. At this time, admit to the hospital. The patient cannot take heparin. Lovenox. Serial cardiac enzymes. Cardiology is consulted and the patient may probably go to cardiac catheterization and see how the patient's condition improves. Smoking counseling was done and continue aspirin and check cholesterol and thyroid. Problems: Plan Plan of Care Problems Medical Problems: (1) Chest pain Status: Acute (2) Elevated troponin Status: Acute (3) Non-STEMI (non-ST elevated myocardial infarction) Status: Acute Comment Review of Relevant I have reviewed the following items dina (where applicable) has been applied. Labs Laboratory Tests Test 03/16/17 10:25 5/8/17 03:22 Troponin I Quantitative 0.179 ng/mL (0.000-0.055) 0.169 ng/mL (0.000-0.055) Triglycerides Level 141 mg/dL (0-150) Cholesterol Level 111 mg/dL (0-200) LDL Cholesterol, Calculated 51 mg/dL (0-100) VLDL Cholesterol, Calculated 28 mg/dL (0-40) Non-HDL Cholesterol Calculated 79 mg/dL (0-129) HDL Cholesterol 32 mg/dL (40-60) Cholesterol/HDL Ratio 3.5 Thyroid Stimulating Hormone (TSH) 0.671 uIU/mL (0.358-3.74) White Blood Count 7.8 x10^3/uL (4.0-11.0) Red Blood Count 4.35 x10^6/uL (3.50-5.40) Hemoglobin 10.5 g/dL (12.0-15.5) Hematocrit 33.4 % (36.0-47.0) Mean Corpuscular Volume 77 fL (79-100) Mean Corpuscular Hemoglobin 24 pg (25-35) Mean Corpuscular Hemoglobin Concent 31 g/dL (31-37) Red Cell Distribution Width 18.9 % (11.5-14.5) Platelet Count 172 x10^3/uL (140-400) Neutrophils (%) (Auto) 49 % (31-73) Lymphocytes (%) (Auto) 38 % (24-48) Monocytes (%) (Auto) 12 % (0-9) Eosinophils (%) (Auto) 1 % (0-3) Basophils (%) (Auto) 1 % (0-3) Neutrophils # (Auto) 3.8 x10^3uL (1.8-7.7) Lymphocytes # (Auto) 3.0 x10^3/uL (1.0-4.8) Monocytes # (Auto) 0.9 x10^3/uL (0.0-1.1) Eosinophils # (Auto) 0.1 x10^3/uL (0.0-0.7) Basophils # (Auto) 0.1 x10^3/uL (0.0-0.2) Sodium Level 141 mmol/L (136-145) Potassium Level 3.8 mmol/L (3.5-5.1) Chloride Level 105 mmol/L (98-107) Carbon Dioxide Level 27 mmol/L (21-32) Anion Gap 9 (6-14) Blood Urea Nitrogen 8 mg/dL (7-20) Creatinine 0.8 mg/dL (0.6-1.0) Estimated GFR (Cockcroft-Gault) 91.9 Glucose Level 105 mg/dL (70-99) Calcium Level 9.0 mg/dL (8.5-10.1) Medications Current Medications Acetaminophen/ Butalbital/ Caffeine (Fioricet) 1 tab PRN Q4HRS PRN PO MIGRAINE HEADACHE; Start 03/16/17 at 10:15 Amlodipine Besylate (Norvasc) 10 mg BID PO Last administered on 03/17/17 08:42 ; Start 03/16/17 at 21:00 Carvedilol (Coreg) 25 mg BIDWMEALS PO Last administered on 03/17/17 08:43; Start 03/16/17 at 10:15 Clopidogrel Bisulfate (Plavix) 75 mg DAILY PO Last administered on 03/17/17 08: 42; Start 03/17/17 at 09:00 Non-Formulary Medication 1 tab QHS PO Last administered on 03/16/17 21:38; Start 03/16/17 at 21:00 Potassium Chloride (Klor-Con) 20 meq DAILYWBKFT PO Last administered on 08:42; Start 03/16/17 at 11:00 Promethazine HCl (Phenergan) 25 mg PRN Q6HRS PRN PO NAUSEA/VOMITING; Start 03/16 at 10:15 Vitals/I & O Vital Sign - Last 24 Hours 03/16/17 03/16/17 03/16/17 03/16/17 11:00 11:22 11:22 11:46 Temp 99.5 99.5 Pulse 73 77 77 Resp 17 B/P (MAP) 133/80 (97) 146/92 133/80 Pulse Ox 98 98 O2 Delivery Room Air Room Air 03/16/17 03/16/17 03/16/17 03/16/17 15:00 16:59 17:57 19:10 Temp 99.2 99.2 Pulse 85 85 Resp 18 B/P (MAP) 133/89 (104) 133/89 Pulse Ox 96 96 96 O2 Delivery Room Air Room Air 03/16/17 03/16/17 03/16/17 03/16/17 19:59 20:00 21:38 21:38 Temp 99.8 99.8 Pulse 85 85 Resp 17 B/P (MAP) 153/97 (115) 153/97 153/97 Pulse Ox 97 O2 Delivery Room Air Room Air 03/16/17 03/17/17 03/17/17 03/17/17 23:06 02:29 03:17 03:29 Temp 99.6 99.4 99.6 99.4 Pulse 80 69 Resp 18 18 20 16 B/P (MAP) 155/97 (116) 136/89 (105) Pulse Ox 96 97 O2 Delivery Room Air Room Air Room Air Room Air 03/17/17 03/17/17 03/17/17 03/17/17 07:56 08:10 08:42 08:42 Temp 99.3 99.3 Pulse 77 77 77 Resp 18 B/P (MAP) 142/89 (106) 142/89 142/89 Pulse Ox 96 O2 Delivery Room Air Room Air 03/17/17 08:43 Pulse 77 B/P (MAP) 142/89 Intake and Output 03/16/17 03/16/17 03/17/17 15:00 23:00 07:00 Intake Total 900 ml 240 ml Balance 900 ml 240 ml SHARMAINE SAEED MD March 17, 2017 10:17
[2017-03-17 10:48] VITALS: BP 127/93
--- NOTE | 2017-03-17 15:28 | PDOC ---
Provider Note Provider Note Discharge summary dictated. #[id number]. SHARMAINE SAEED MD March 17, 2017 15:28
--- NOTE | 2017-03-18 | DS ---
DATE OF DISCHARGE: 03/17/2017 REASON FOR ADMISSION TO THE HOSPITAL: Chest pain. The patient has a known history of coronary artery disease, had cardiac stents at least 5. CONSULTATIONS: . PROCEDURES DONE: None. COMPLICATIONS NOTED: None. HOSPITAL COURSE: The patient is a 52-year-old female patient who has a history of coronary artery disease, had a couple of cardiac stents, at least five, the last one was 1 year ago, goes to see Dr. Bernard of Cardiology. In fact, she was at [facility] earlier this week, was admitted, and was in the hospital, had an MRI and stress test as per the patient and was told no blockages and the patient was discharged. The patient was having chest discomfort, retrosternal, going to the back. EKG was negative for ischemia. Chest x-ray was negative. Troponin was just borderline at 0.1, elevated. THE PATIENT IS ALLERGIC TO HEPARIN AND DERIVATIVES AND CHOLESTEROL MEDICATIONS. The patient was seen by Cardiology. The patient was chest pain-free, and since she got most of her treatment at , she is wanting to be discharged from here and she is going to check with her shoe sprayer in the next 24 hours and for further recommendations. We tried to get records from [facility], but so far none was available. Discussed with Dr. Bernard, her primary shoe sprayer, and he is going to set up to see her in the next 24-48 hours. FINAL DIAGNOSES: 1. Chest pain.?GERD. 2. Slight elevation of troponin.(0.1) 3. Known history of coronary artery disease, previous cardiac stents, at least 5 4. Hypertension. 5. Hyperlipidemia. 6. Smoking history. PLAN: At this time, discharged home. Activity as tolerated, not to do rigorous activity, and continue to follow up with primary shoe sprayer at , Dr. Bernard in the next 24 hours and to come to the ER at [place] or if continues to have chest pain. SHARMAINE SAEED MD DR: YURIY/trent JOB#: [id number] / [id number] RUPESH Amezcua
== END 2017-03-17 10:50 | disposition home or self-care (01) | DRG 392 ==
LOC: ER 23:24 → 2 NORTH 03-16 01:19
PROVIDERS: ADMIT Internal Medicine; ATTEND Internal Medicine
DX: K21.9 Gastro-esophageal reflux disease without esophagitis (principal); I25.10 Atherosclerotic heart disease of native coronary artery without angina pectoris; I10 Essential (primary) hypertension; M19.90 Unspecified osteoarthritis, unspecified site; E78.5 Hyperlipidemia, unspecified; J44.9 Chronic obstructive pulmonary disease, unspecified; I25.2 Old myocardial infarction; Z88.6 Allergy status to analgesic agent; Z88.8 Allergy status to other drugs, medicaments and biological substances; Z95.5 Presence of coronary angioplasty implant and graft; Z82.49 Family history of ischemic heart disease and other diseases of the circulatory system; Z87.11 Personal history of peptic ulcer disease; Z87.891 Personal history of nicotine dependence; E78.00 Pure hypercholesterolemia, unspecified
CPT/HCPCS: 36415; 71010; 80048; 80053; 80061; 81001; 83880; 84443; 84484; 85027; 87086; 87186; 93005; 96361; 96374; 96375; 99406; J1170; J2405; J7030; 99285-25

== ENCOUNTER 2019-07-10 17:14 | Emergency (ER) | payer MEDICARE, OTHER ==
[~2019-07-10] VITALS: Ht 180.3 cm; Wt 96.6 kg
[~2019-07-10 17:14] MED LIST changes: +AMLO10TA4 PO; +CLON0.2T PO; +CRESTOR20 MG PO; +DIAZ5TAB4; -HYDR-2666 PO; +HYDR-2761 PO; +HYDR-3164 PO; -HYDR-971 PO; +OXYC-411 PO; +OXYC1TAB8; -OXYC1TAB9 PO; +POTA20TA4 PO
[2019-07-10] MEDS ORDERED: DEXAMETHASONE SOD PHOS 20 MG/5 ML VIAL. IV ONE (18:15)
[2019-07-10] MEDS ORDERED: IV NORMAL SALINE 1000ML BAG 1,000 ML IV ONE (18:15)
[2019-07-10] MEDS ORDERED: diphenhydrAMINE 50 MG/ML VIAL IVP ONE (18:15)
[2019-07-10] MEDS ORDERED: KETOROLAC 15 MG/ML VIAL. IV ONE (18:15)
[2019-07-10] MEDS ORDERED: ONDANSETRON PF 4 MG/2 ML VIAL. IV ONE (18:15)
[2019-07-10 18:32] LABS: BASO # 0.1 x10^3/uL (0.0-0.2); BASO % 1 % (0-3); EOS # 0.1 x10^3/uL (0.0-0.7); EOS % 1 % (0-3); HEMATOCRIT 42.2 % (36.0-47.0); HEMOGLOBIN 14.2 g/dL (12.0-15.5); LYMPH # 2.9 x10^3/uL (1.0-4.8); LYMPH % 35 % (24-48); MEAN CORPUSCULAR HEMOGLOBIN 30 pg (25-35); MEAN CORPUSCULAR HGB CONC 34 g/dL (31-37); MEAN CORPUSCULAR VOLUME 89 fL (79-100); MONO # 0.8 x10^3/uL (0.0-1.1); MONO % 10 % (0-9); NEUT # 4.5 x10^3/uL (1.8-7.7); NEUT % 54 % (31-73); PLATELET COUNT 143 x10^3/uL (140-400); RED BLOOD COUNT 4.77 x10^6/uL (3.50-5.40); RED CELL DISTRIBUTION WIDTH 13.7 % (11.5-14.5); WHITE BLOOD COUNT 8.3 x10^3/uL (4.0-11.0)
[2019-07-10 18:52] LABS: CREATINE KINASE 81 U/L (26-192)
--- NOTE | 2019-07-10 18:55 | PHYS DOC ---
Past Medical History Past Medical History: CAD, High Cholesterol, Hypertension, [place], Other Additional Past Medical Histor: DJD. CARDIAC STENTS X 5, Past Surgical History: , Other Additional Past Surgical Histo: BREAST BIOPSY, stent placement with mi nov 2015 Smoking: Cigarettes Alcohol Use: None Drug Use: None Adult General Chief Complaint Chief Complaint: DIZZY/LIGHT HEADED HPI HPI Patient is a 54 year old female with hx of migraine and ACS s/p PCI who presents with dizziness and arm shakiness. Pt reports having dizziness for about a month. Her PCP diagnosed her with otitis media and prescribed her Ciprofloxacin 2 weeks ago and changed to Augmentin last week. Pt's symptom has not improved since her course of antibiotics. Pt continues having some left air pain and trouble hearing out of her left ear. Around 2pm today pt experiences some left arm shakiness for the first time while sitting in her chair. She also has a generalized LOO and photophobia symptom. She rates her LOO as 8/10. Her dizziness is worsen with lying flat and has prevented her from getting a good night sleep. Denies any LOC, trauma or hx of seizure. She also denies any chest pain, SOB, N/V, UTI symptoms. [] Review of Systems Review of Systems Constitutional: Denies fever or chills Eyes: Denies redness or eye pain HENT: Denies nasal congestion or sore throat. Positive decrease in hearing in left ear Respiratory: Denies cough or shortness of breath Cardiovascular: Denies chest pain or palpitations GI: Denies abdominal pain, nausea, or vomiting : Denies dysuria or hematuria Musculoskeletal: Denies back pain or joint pain Integument: Denies rash or skin lesions Neurologic: Denies headache, focal weakness or sensory changes Complete systems were reviewed and found to be within normal limits, except as documented in this note. Current Medications Current Medications Current Medications Medications (Trade) Dose Ordered Sig/Santos Start Time Stop Time Status Last Admin Dose Admin Dexamethasone Sodium Phosphate (Decadron) 10 mg 1X ONCE 07/10/19 18:15 07/10/19 18:30 DC 07/10/19 18:32 10 MG Diphenhydramine HCl (Benadryl) 25 mg 1X ONCE 07/10/19 18:15 07/10/19 18:29 DC 07/10/19 18:32 25 MG Hydralazine HCl (Apresoline Inj) 10 mg 1X ONCE 07/10/19 20:00 07/10/19 20:03 DC 07/10/19 20:08 10 MG Ketorolac Tromethamine (Toradol 15mg Vial) 15 mg 1X ONCE 07/10/19 18:15 07/10/19 18:30 DC 07/10/19 18:31 15 MG Ondansetron HCl (Zofran) 4 mg 1X ONCE 07/10/19 18:15 07/10/19 18:30 DC 07/10/19 18:31 4 MG Potassium Chloride (Klor-Con) 40 meq 1X ONCE 07/10/19 20:30 07/10/19 20:31 DC 07/10/19 20:25 40 MEQ Sodium Chloride 1,000 ml @ 1,000 mls/hr 1X ONCE 07/10/19 18:15 07/10/19 19:14 DC 07/10/19 18:31 1,000 MLS/HR Allergies Allergies Allergies Coded Allergies Type Severity Reaction Last Updated Verified atorvastatin Allergy Intermediate 07/10/19 Yes codeine Allergy Intermediate 07/10/19 Yes heparin Allergy Intermediate 07/10/19 Yes morphine Allergy Intermediate 07/10/19 Yes oxycodone Allergy Intermediate 07/10/19 Yes Physical Exam Physical Exam Constitutional: Well developed, well nourished, no acute distress, non-toxic appearance HENT: Normocephalic, atraumatic, oropharynx moist. TM intact, mild erythema in left ear canal. Eyes: PERRL, EOMI, conjunctiva normal, no discharge Neck: Normal range of motion, no tenderness, supple Cardiovascular: Heart rate normal, regular rhythm Lungs & Thorax: Bilateral breath sounds clear to auscultation, no wheezing Abdomen: Soft, no tenderness Skin: Warm, dry, no erythema, no rash Back: No tenderness, no CVA tenderness Extremities: No tenderness, ROM intact, no edema Neurologic: Alert and oriented X 3, normal motor function, normal sensory function, no focal deficits noted Psychologic: Affect normal, judgement normal, mood normal Current Patient Data Vital Signs Vital Signs Date Time Temp Pulse Resp B/P (MAP) Pulse Ox O2 Delivery O2 Flow Rate FiO2 07/10/19 20:27 80 18 97 07/10/19 20:08 191/112 07/10/19 17:23 99.4 99.4 Lab Values Laboratory Tests Test 07/10/19 17:25 07/10/19 17:30 07/10/19 18:47 White Blood Count 8.3 x10^3/uL (4.0-11.0) Red Blood Count 4.77 x10^6/uL (3.50-5.40) Hemoglobin 14.2 g/dL (12.0-15.5) Hematocrit 42.2 % (36.0-47.0) Mean Corpuscular Volume 89 fL (79-100) Mean Corpuscular Hemoglobin 30 pg (25-35) Mean Corpuscular Hemoglobin Concent 34 g/dL (31-37) Red Cell Distribution Width 13.7 % (11.5-14.5) Platelet Count 143 x10^3/uL (140-400) Neutrophils (%) (Auto) 54 % (31-73) Lymphocytes (%) (Auto) 35 % (24-48) Monocytes (%) (Auto) 10 % (0-9) H Eosinophils (%) (Auto) 1 % (0-3) Basophils (%) (Auto) 1 % (0-3) Neutrophils # (Auto) 4.5 x10^3/uL (1.8-7.7) Lymphocytes # (Auto) 2.9 x10^3/uL (1.0-4.8) Monocytes # (Auto) 0.8 x10^3/uL (0.0-1.1) Eosinophils # (Auto) 0.1 x10^3/uL (0.0-0.7) Basophils # (Auto) 0.1 x10^3/uL (0.0-0.2) Creatine Kinase 81 U/L (26-192) Creatine Kinase MB (Mass) < 0.5 ng/mL (0.0-3.6) Creatine Kinase MB Relative Index % (0-4) Troponin I Quantitative < 0.017 ng/mL (0.000-0.055) Glucose (Fingerstick) 136 mg/dL (70-99) H Sodium Level 144 mmol/L (136-145) Potassium Level 3.2 mmol/L (3.5-5.1) L Chloride Level 106 mmol/L (98-107) Carbon Dioxide Level 29 mmol/L (21-32) Anion Gap 9 (6-14) Blood Urea Nitrogen 14 mg/dL (7-20) Creatinine 0.9 mg/dL (0.6-1.0) Estimated GFR (Cockcroft-Gault) 79.6 BUN/Creatinine Ratio 16 (6-20) Glucose Level 127 mg/dL (70-99) H Calcium Level 8.3 mg/dL (8.5-10.1) L Magnesium Level 1.9 mg/dL (1.8-2.4) Total Bilirubin 0.2 mg/dL (0.2-1.0) Aspartate Amino Transferase (AST) 8 U/L (15-37) L Alanine Aminotransferase (ALT) 11 U/L (14-59) L Alkaline Phosphatase 80 U/L (46-116) Total Protein 7.0 g/dL (6.4-8.2) Albumin 3.1 g/dL (3.4-5.0) L Albumin/Globulin Ratio 0.8 (1.0-1.7) L Laboratory Tests 07/10/19 17:25 Laboratory Tests 07/10/19 18:47 EKG EKG []17:21 Sinus rhythm with the rate of 76. Left axis deviation. Inverted T waves noted in I, aVL. Inverted p waves in V1. [] 19:09 Sinus rhythm with the rate of 68. Left axia deviation. Inverted p waves in V1. and T waves inverted in I Radiology/Procedures Radiology/Procedures [] Course & Med Decision Making Course & Med Decision Making Pertinent Labs and Imaging studies reviewed. (See chart for details) [] Dragon Disclaimer Dragon Disclaimer This electronic medical record was generated, in whole or in part, using a voice recognition dictation system. Departure Departure Impression: Primary Impression: Head ache Additional Impressions: Hypokalemia Otitis externa Dizziness Disposition: 01 HOME, SELF-CARE Condition: STABLE Referrals: RUPESH JIMÉNEZ (PCP) MERCEDES PALMER MD Patient Instructions: Dizziness, Lehf-dz-Chtz, General Headache Without Cause, Dbat-zh-Bsno, Hypokalemia-Brief, Otitis Externa, Wnzl-hw-Lply, Potassium Content of Foods Additional Instructions: For Systolic BP >185 or Diastolic BP >110, take additional 0.1mg dose of Clonidine. Please keep a record of your daily BP to give it to your primary care physician. Scripts Butalb/Acetaminophen/Caffeine (WEMLLS-CDERTYJX-TZQR 50-325-40) 1 Each Tablet 1 EACH PO Q6HRS PRN for HEADACHE, #10 TAB Prov: LILIBETH HAYWOOD DO 07/10/19 Neomycin/Polymyxin B Sulf/Hc (MGTIIKOA-YDBIEQWKO-BW EAR SUSP) 10 Ml Drops.susp 4 DROP LEFT EAR QID, #10 ML Prov: LILIBETH HAYWOOD DO 07/10/19 Problem Qualifiers LILIBETH HAYWOOD DO Jul 10, 2019 18:55
[2019-07-10 19:05] LABS: CALCIUM 8.3 mg/dL (8.5-10.1); CREATININE 0.9 mg/dL (0.6-1.0); GFR 79.6; POTASSIUM 3.2 mmol/L (3.5-5.1)
[2019-07-10 19:11] LABS: ALBUMIN 3.1 g/dL (3.4-5.0); ALBUMIN/GLOBULIN RATIO 0.8 (1.0-1.7); MAGNESIUM 1.9 mg/dL (1.8-2.4); TOTAL BILIRUBIN 0.2 mg/dL (0.2-1.0)
[2019-07-10] MEDS ORDERED: hydrALAZINE 20 MG/ML VIAL. IVP ONE (20:00)
--- NOTE | 2019-07-10 20:03 | RAD ---
INDICATION: Dizziness and headache with weakness and left-sided tremor COMPARISON: October 24, 2016 TECHNIQUE: Axial CT images obtained through the head. One or more of the following individualized dose reduction techniques were utilized for this examination: 1. Automated exposure control; 2. Adjustment of the mA and/or kV according to patient size; 3. Use of iterative reconstruction technique. FINDINGS: No midline shift. Suprasellar cistern is not effaced. Scattered foci of low density within the white matter. Calcific atherosclerosis. No acute intracranial hemorrhage. There is some S-shaped curvature of the nasal septum. IMPRESSION: 1. No acute intracranial hemorrhage. 2. Mild scattered foci of low density of the white matter. Nonspecific but frequently from chronic small vessel ischemic disease. This is a common finding. Electronically signed by: Bora Goramn MD (07/10/2019 8:00 PM) [id number]
[2019-07-10 20:27] VITALS: BP 170/112
[2019-07-10] MEDS ORDERED: POTASSIUM CHLORIDE 20 MEQ TABLET.ER. PO ONE (20:30)
[2019-07-10] MEDS ORDERED: BUTA1TAB23 PO (20:44)
[2019-07-10] MEDS ORDERED: NEOM10DR32 LEFT EAR (20:44)
--- NOTE | 2019-07-12 04:41 | EKG ---
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
--- NOTE | 2019-07-12 04:44 | EKG ---
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
== END 2019-07-10 20:56 | disposition home or self-care (01) ==
LOC: ER 17:14
DX: R42 Dizziness and giddiness (principal); E87.6 Hypokalemia; H60.92 Unspecified otitis externa, left ear; R51 Headache; E78.00 Pure hypercholesterolemia, unspecified; I10 Essential (primary) hypertension; I25.10 Atherosclerotic heart disease of native coronary artery without angina pectoris; I25.2 Old myocardial infarction; F17.210 Nicotine dependence, cigarettes, uncomplicated; Z95.5 Presence of coronary angioplasty implant and graft; Z88.5 Allergy status to narcotic agent; Z88.8 Allergy status to other drugs, medicaments and biological substances
CPT/HCPCS: 36415; 70450; 80053; 82553; 82962; 83735; 84484; 85025; 93005; 96361; 96374; 96375; 99285; J0360; J1100; J1200; J1885; J2405; J7030

== ENCOUNTER 2019-08-01 17:44 | Emergency (ER) | payer MEDICARE, OTHER ==
[~2019-08-01 17:44] MED LIST changes: +BUTA1TAB23 PO; +NEOM10DR32 LEFT EAR
[2019-08-02] MEDS ORDERED: SULF1TAB24 PO (17:11)
== END 2019-08-01 19:08 | disposition left against medical advice (07) ==
LOC: ER 17:44
DX: H92.09 Otalgia, unspecified ear (principal); Z53.21 Procedure and treatment not carried out due to patient leaving prior to being seen by health care provider

== ENCOUNTER 2019-08-02 13:13 | Inpatient (IN) | payer MEDICARE, OTHER ==
[~2019-08-02] VITALS: Ht 180.3 cm; Wt 96.6 kg
[2019-08-02] MEDS ORDERED: IV NORMAL SALINE 1000ML BAG 1,000 ML IV ONE (13:30)
[2019-08-02 13:46] LABS: BILIRUBIN,URINE SMALL (NEG); CLARITY,URINE TURBID; NITRITE,URINE POSITIVE (NEG); PROTEIN,URINE >=300 mg/dL (NEG-TRACE)
--- NOTE | 2019-08-02 13:49 | RAD ---
Examination: PORTABLE CHEST 1V History: Dizziness and headache Comparison/Correlation: 03/16/2017 AP view of the chest Findings: Portable upright frontal view of the chest was obtained. Heart size is enlarged but this may be in part technique related. Pulmonary vasculature is normal. No pneumothorax. Bony structures are unremarkable. Impression: No active disease. Electronically signed by: Osito Martinez MD (08/02/2019 1:46 PM) [facility]
[2019-08-02 13:53] LABS: COLOR,URINE DK YELLOW
[2019-08-02 13:55] LABS: RBC,URINE TNTC /HPF (0-2)
[2019-08-02 13:56] LABS: BACTERIA,URINE MANY /HPF (0-FEW); SQUAMOUS EPITHELIAL CELL,UR MANY /LPF; WBC,URINE TNTC /HPF (0-4)
[2019-08-02 14:00] LABS: BARBITURATES NEG (NEG); BENZODIAZEPINES NEG (NEG); CANNABINOIDS NEG (NEG); COCAINE NEG (NEG); METHADONE NEG (NEG); OPIATES POS (NEG); PHENCYCLIDINE NEG (NEG)
[2019-08-02 14:01] LABS: AMPHETAMINE/METHAMPHETAMINE NEG (NEG)
[2019-08-02 14:16] LABS: BASO # 0.1 x10^3/uL (0.0-0.2); BASO % 1 % (0-3); EOS # 0.1 x10^3/uL (0.0-0.7); EOS % 1 % (0-3); HEMATOCRIT 45.8 % (36.0-47.0); HEMOGLOBIN 15.2 g/dL (12.0-15.5); LYMPH # 2.8 x10^3/uL (1.0-4.8); LYMPH % 35 % (24-48); MEAN CORPUSCULAR HEMOGLOBIN 29 pg (25-35); MEAN CORPUSCULAR HGB CONC 33 g/dL (31-37); MEAN CORPUSCULAR VOLUME 88 fL (79-100); MONO # 0.6 x10^3/uL (0.0-1.1); MONO % 8 % (0-9); NEUT # 4.4 x10^3/uL (1.8-7.7); NEUT % 56 % (31-73); PLATELET COUNT 156 x10^3/uL (140-400); RED BLOOD COUNT 5.23 x10^6/uL (3.50-5.40); WHITE BLOOD COUNT 7.9 x10^3/uL (4.0-11.0)
[2019-08-02 14:27] LABS: PROTHROMBIN TIME PATIENT 12.4 SEC (11.7-14.0)
[2019-08-02 14:33] LABS: CALCIUM 9.4 mg/dL (8.5-10.1); GFR 70.5; POTASSIUM 3.7 mmol/L (3.5-5.1)
--- NOTE | 2019-08-02 14:34 | RAD ---
Examination: CT HEAD WO CONTRAST History: Dizziness and headache Comparison/Correlation: 07/10/2019 CT head without contrast Findings: Axial images of the head were obtained without contrast. Coronal reformatted images were provided. Ventricles are normal size. No intracranial hemorrhage, shift, or mass effect. Globes appears unremarkable. Mucosal thickening of ethmoid air cells noted. Impression: No suspicious process. PQRS Compliance Statement: One or more of the following individualized dose reduction techniques were utilized for this examination: 1. Automated exposure control 2. Adjustment of the mA and/or kV according to patient size 3. Use of iterative reconstruction technique Electronically signed by: Osito Martinez MD (08/02/2019 2:31 PM) [facility]
[2019-08-02 14:40] LABS: ALBUMIN 3.7 g/dL (3.4-5.0); TOTAL BILIRUBIN 0.5 mg/dL (0.2-1.0); TOTAL PROTEIN 7.5 g/dL (6.4-8.2)
--- NOTE | 2019-08-02 15:07 | EKG ---
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
[2019-08-02] MEDS ORDERED: cefTRIAXone IV Push 1 GM VIAL. IVP ONE (15:45)
[2019-08-02] MEDS ORDERED: fentaNYL PF VIAL 100 MCG/2 ML VIAL IV ONE (15:45)
--- NOTE | 2019-08-02 15:46 | PHYS DOC ---
Past Medical History Past Medical History: CAD, High Cholesterol, Hypertension, [place], Other Additional Past Medical Histor: DJD. CARDIAC STENTS X 5, Past Surgical History: , Other Additional Past Surgical Histo: BREAST BIOPSY, stent placement with mi nov 2015 Alcohol Use: None Drug Use: None Adult General Chief Complaint Chief Complaint: HEADACHE HPI HPI Patient is a 54 year old female who presents with complaining of headache and dizziness. Patient complaining of left frontal headache for months as a constant pain associated constant dizziness that getting worse with standing up and change of position. Patient complaining of change of hearing of left ear without drainage. Patient denies head injury, fever and chills, neck pain, vomiting and diarrhea, urinary symptoms, focal neuro deficit. Patient had negative CT of head on 07/11/2019 and sent by her primary care physician for treatment of dehydration. Review of Systems Review of Systems Constitutional: Denies fever or chills [] Eyes: Denies change in visual acuity, redness, or eye pain [] HENT: Denies nasal congestion or sore throat [] Respiratory: Denies cough or shortness of breath [] Cardiovascular: No additional information not addressed in HPI [] GI: Denies abdominal pain, nausea, vomiting, bloody stools or diarrhea [] : Denies dysuria or hematuria [] Musculoskeletal: Denies back pain or joint pain [] Integument: Denies rash or skin lesions [] Neurologic: Reports dizziness and headache, denies focal weakness or sensory changes [] Endocrine: Denies polyuria or polydipsia [] All other systems were reviewed and found to be within normal limits, except as documented in this note. Current Medications Current Medications Current Medications Medications (Trade) Dose Ordered Sig/Santos Start Time Stop Time Status Last Admin Dose Admin Ceftriaxone Sodium (Rocephin) 1 gm 1X ONCE 08/02/19 15:45 08/02/19 15:46 DC 08/02/19 15:43 1 GM Fentanyl Citrate (Fentanyl 2ml Vial) 50 mcg 1X ONCE 08/02/19 15:45 08/02/19 15:46 DC 08/02/19 15:44 50 MCG Sodium Chloride 1,000 ml @ 1,000 mls/hr 1X ONCE 08/02/19 13:30 08/02/19 14:29 DC 08/02/19 14:09 1,000 MLS/HR Allergies Allergies Allergies Coded Allergies Type Severity Reaction Last Updated Verified atorvastatin Allergy Intermediate 07/10/19 Yes codeine Allergy Intermediate 07/10/19 Yes heparin Allergy Intermediate 07/10/19 Yes morphine Allergy Intermediate 07/10/19 Yes oxycodone Allergy Intermediate 07/10/19 Yes spironolactone Allergy Unknown 08/02/19 Yes Physical Exam Physical Exam Constitutional: Well developed, well nourished, mild distress, non-toxic appearance. [] HENT: Normocephalic, atraumatic. Eyes: PERRLA, EOMI, conjunctiva normal, no discharge. [] Neck: Normal range of motion, no tenderness, supple, no stridor. [] Cardiovascular:Heart rate regular rhythm, no murmur [] Lungs & Thorax: Bilateral breath sounds clear to auscultation [] Abdomen: Bowel sounds normal, soft, no tenderness, no masses, no pulsatile masses. [] Skin: Warm, dry, no erythema, no rash. [] Back: No tenderness, no CVA tenderness. [] Extremities: No tenderness, no cyanosis, no clubbing, ROM intact, no edema. [] Neurologic: Alert and oriented X 3, no focal deficits noted. [] Psychologic: Affect anxious, judgement normal, mood normal. [] Current Patient Data Vital Signs Vital Signs Date Time Temp Pulse Resp B/P (MAP) Pulse Ox O2 Delivery O2 Flow Rate FiO2 08/02/19 15:44 16 94 Room Air 08/02/19 13:20 98.6 82 149/71 (97) 98.6 Lab Values Laboratory Tests Test 08/02/19 13:27 08/02/19 13:58 Urine Collection Type Void Urine Color Dk yellow Urine Clarity Turbid Urine pH 6.0 Urine Specific [place] 1.020 Urine Protein >=300 mg/dL (NEG-TRACE) Urine Glucose (UA) Negative mg/dL (NEG) Urine Ketones (Stick) Negative mg/dL (NEG) Urine Blood Large (NEG) Urine Nitrite Positive (NEG) Urine Bilirubin Small (NEG) Urine Urobilinogen Dipstick 1.0 mg/dL (0.2 mg/dL) Urine Leukocyte Esterase Large (NEG) Urine RBC Tntc /HPF (0-2) Urine WBC Tntc /HPF (0-4) Urine Squamous Epithelial Cells Many /LPF Urine Bacteria Many /HPF (0-FEW) Urine Mucus Marked /LPF Urine Opiates Screen Pos (NEG) Urine Methadone Screen Neg (NEG) Urine Barbiturates Neg (NEG) Urine Phencyclidine Screen Neg (NEG) Urine Amphetamine/Methamphetamine Neg (NEG) Urine Benzodiazepines Screen Neg (NEG) Urine Cocaine Screen Neg (NEG) Urine Cannabinoids Screen Neg (NEG) Urine Ethyl Alcohol Neg (NEG) White Blood Count 7.9 x10^3/uL (4.0-11.0) Red Blood Count 5.23 x10^6/uL (3.50-5.40) Hemoglobin 15.2 g/dL (12.0-15.5) Hematocrit 45.8 % (36.0-47.0) Mean Corpuscular Volume 88 fL (79-100) Mean Corpuscular Hemoglobin 29 pg (25-35) Mean Corpuscular Hemoglobin Concent 33 g/dL (31-37) Red Cell Distribution Width 14.0 % (11.5-14.5) Platelet Count 156 x10^3/uL (140-400) Neutrophils (%) (Auto) 56 % (31-73) Lymphocytes (%) (Auto) 35 % (24-48) Monocytes (%) (Auto) 8 % (0-9) Eosinophils (%) (Auto) 1 % (0-3) Basophils (%) (Auto) 1 % (0-3) Neutrophils # (Auto) 4.4 x10^3/uL (1.8-7.7) Lymphocytes # (Auto) 2.8 x10^3/uL (1.0-4.8) Monocytes # (Auto) 0.6 x10^3/uL (0.0-1.1) Eosinophils # (Auto) 0.1 x10^3/uL (0.0-0.7) Basophils # (Auto) 0.1 x10^3/uL (0.0-0.2) Prothrombin Time 12.4 SEC (11.7-14.0) Prothrombin Time INR 1.0 (0.8-1.1) Sodium Level 142 mmol/L (136-145) Potassium Level 3.7 mmol/L (3.5-5.1) Chloride Level 104 mmol/L (98-107) Carbon Dioxide Level 26 mmol/L (21-32) Anion Gap 12 (6-14) Blood Urea Nitrogen 10 mg/dL (7-20) Creatinine 1.0 mg/dL (0.6-1.0) Estimated GFR (Cockcroft-Gault) 70.5 BUN/Creatinine Ratio 10 (6-20) Glucose Level 119 mg/dL (70-99) H Lactic Acid Level 1.6 mmol/L (0.4-2.0) Calcium Level 9.4 mg/dL (8.5-10.1) Magnesium Level 2.0 mg/dL (1.8-2.4) Total Bilirubin 0.5 mg/dL (0.2-1.0) Aspartate Amino Transferase (AST) 10 U/L (15-37) L Alanine Aminotransferase (ALT) 13 U/L (14-59) L Alkaline Phosphatase 93 U/L (46-116) Creatine Kinase 36 U/L (26-192) Troponin I Quantitative < 0.017 ng/mL (0.000-0.055) LL-Nol-U-Type Natriuretic Peptide 273 pg/mL (0-124) H Total Protein 7.5 g/dL (6.4-8.2) Albumin 3.7 g/dL (3.4-5.0) Albumin/Globulin Ratio 1.0 (1.0-1.7) Laboratory Tests 08/02/19 13:58 Laboratory Tests 08/02/19 13:58 EKG EKG EKG interpreted by me. EKG at 1344 showed normal sinus rhythm at rate of 76, left atrial abnormality, left brown axis, LVH with repolarization abnormality, no acute ST and T-wave elevation., Unchanged EKG from previous EKG dated 07/10/2019 Radiology/Procedures Radiology/Procedures [][facility] [address] [place], [place] [id number] IMAGING REPORT Signed PATIENT: VENU PALMER JACCOUNT: [id number] : 1965 LOCATION: ER AGE: 54 SEX: F EXAM STATUS: PRE ER ORD. PHYSICIAN: KRYTSLE TORRES MD REASON: dizziness and headache PROCEDURE: PORTABLE CHEST 1V Examination: PORTABLE CHEST 1V History: Dizziness and headache Comparison/Correlation: 03/16/2017 AP view of the chest Findings: Portable upright frontal view of the chest was obtained. Heart size is enlarged but this may be in part technique related. Pulmonary vasculature is normal. No pneumothorax. Bony structures are unremarkable. Impression: No active disease. Electronically signed by: Osito Bender MD (08/02/2019 1:46 PM) [facility] DICTATED and SIGNED BY: OSITO BENDER MD DATE: 08/02/19 1346 [facility] [address] [place] [address] IMAGING REPORT Signed PATIENT: VENU PALMER JACCOUNT: [id number] : 1965 LOCATION: ER AGE: 54 SEX: F EXAM STATUS: PRE ER ORD. PHYSICIAN: KRYSTLE TORRES MD REASON: dizziness and headache PROCEDURE: CT HEAD WO CONTRAST Examination: CT HEAD WO CONTRAST History: Dizziness and headache Comparison/Correlation: 07/10/2019 CT head without contrast Findings: Axial images of the head were obtained without contrast. Coronal reformatted images were provided. Ventricles are normal size. No intracranial hemorrhage, shift, or mass effect. Globes appears unremarkable. Mucosal thickening of ethmoid air cells noted. Impression: No suspicious process. PQRS Compliance Statement: One or more of the following individualized dose reduction techniques were utilized for this examination: 1. Automated exposure control 2. Adjustment of the mA and/or kV according to patient size 3. Use of iterative reconstruction technique Electronically signed by: Osito Bender MD (08/02/2019 2:31 PM) [facility] DICTATED and SIGNED BY: OSITO BENDER MD DATE: 08/02/19 1431 Course & Med Decision Making Course & Med Decision Making Pertinent Labs and Imaging studies reviewed. (See chart for details) [] Dragon Disclaimer Dragon Disclaimer This electronic medical record was generated, in whole or in part, using a voice recognition dictation system. Departure Departure Impression: Primary Impression: Dizziness Additional Impressions: Headache UTI (urinary tract infection) Anxiety about health Disposition: ADMITTED INPATIENT (at 1601) Admitting Physician: Madi. Hopper (accepted admission at 1600) Condition: IMPROVED Referrals: RUPESH JIMÉNEZ (PCP) Problem Qualifiers Additional Impressions: Headache Headache type: unspecified Headache chronicity pattern: unspecified pattern Intractability: not intractable Qualified Codes: R51 - Headache UTI (urinary tract infection) Urinary tract infection type: site unspecified Hematuria presence: without hematuria Qualified Codes: N39.0 - Urinary tract infection, site not specified KRYSTLE TORRES MD Aug 02, 2019 15:46
[2019-08-02] MEDS ORDERED: IV NORMAL SALINE 1000ML BAG 1,000 ML IV SCH (16:43)
[2019-08-02] MEDS ORDERED: SULF1TAB24 PO (17:11)
[2019-08-02 17:18] VITALS: BP 137/70
== END 2019-08-02 18:00 | disposition left against medical advice (07) | DRG 690 ==
LOC: ER 13:13 → 6 SOUTH 15:43
PROVIDERS: ADMIT Internal Medicine; ATTEND Internal Medicine
DX: N39.0 Urinary tract infection, site not specified (principal); R51 Headache; E78.00 Pure hypercholesterolemia, unspecified; F41.9 Anxiety disorder, unspecified; I10 Essential (primary) hypertension; M19.90 Unspecified osteoarthritis, unspecified site; I25.10 Atherosclerotic heart disease of native coronary artery without angina pectoris; Z53.21 Procedure and treatment not carried out due to patient leaving prior to being seen by health care provider; I25.2 Old myocardial infarction; Z95.5 Presence of coronary angioplasty implant and graft
CPT/HCPCS: 36415; 70450; 71045; 80053; 80307; 81001; 82550; 83605; 83735; 83880; 84484; 85025; 85610; 87086; 93005; 96374; 96375; J0696; J3010; J7030; 99285-25; G0378

== ENCOUNTER 2019-12-29 17:37 | Emergency (ER) | payer MEDICARE, OTHER ==
[~2019-12-29] VITALS: Ht 180.3 cm; Wt 97.0 kg
[~2019-12-29 17:37] MED LIST changes: +SULF1TAB24 PO
[2019-12-29] MEDS ORDERED: IV NORMAL SALINE 1000ML BAG 1,000 ML IV SCH (18:43)
--- NOTE | 2019-12-29 18:57 | PHYS DOC ---
Past Medical History Past Medical History: CAD, High Cholesterol, Hypertension, [place], Other Additional Past Medical Histor: DJD. CARDIAC STENTS X 5, Past Surgical History: , Other Additional Past Surgical Histo: BREAST BIOPSY, stent placement with mi nov 2015 Smoking Status: Current Every Day Smoker Alcohol Use: None Drug Use: None Adult General Chief Complaint Chief Complaint: FLU SYMPTOM HPI HPI 54-year-old female with history of hypertension, hyperlipidemia, history of stent placement in November 2019 presents to the emergency Department complaints of cough chest pain worse with deep breath and cough, nasal congestion, fever, nausea, vomiting, shortness of breath 2 days. Anus sharp again increases with deep breath and cough. She denies any abdominal pain or diarrhea. She denies any headache or visual changes on examination. Heart rate is 102, blood pressure 171/138. Patient states she has had sick contacts primarily with her family, her grandkids are here as well to be seen. Nothing makes her symptoms better. Patient is febrile in the ER. Review of Systems Review of Systems Constitutional: + fever/chills HENT: + nasal congestion Respiratory: + Cough/SOB Cardiovascular: No additional information not addressed in HPI [] GI: Denies abdominal pain, nausea, vomiting, bloody stools or diarrhea [] : Denies dysuria or hematuria [] Musculoskeletal: Denies back pain or joint pain [] Integument: Denies rash or skin lesions [] Neurologic: Denies headache, focal weakness or sensory changes [] All other systems were reviewed and found to be within normal limits, except as documented in this note. Current Medications Current Medications Current Medications Medications (Trade) Dose Ordered Sig/Santos Start Time Stop Time Status Last Admin Dose Admin Acetaminophen (Tylenol) 1,000 mg 1X ONCE 12/29/19 19:00 12/29/19 19:01 DC 12/29/19 19:31 1,000 MG Potassium Chloride (Klor-Con) 40 meq 1X ONCE 12/29/19 19:45 12/29/19 19:46 DC 12/29/19 19:48 40 MEQ Sodium Chloride 1,000 ml @ 1,000 mls/hr Q1H 12/29/19 18:43 12/29/19 19:42 DC 12/29/19 19:08 1,000 MLS/HR Allergies Allergies Allergies Coded Allergies Type Severity Reaction Last Updated Verified atorvastatin Allergy Intermediate 07/10/19 Yes codeine Allergy Intermediate 07/10/19 Yes heparin Allergy Intermediate 07/10/19 Yes morphine Allergy Intermediate 07/10/19 Yes oxycodone Allergy Intermediate 07/10/19 Yes spironolactone Allergy Unknown 08/02/19 Yes Physical Exam Physical Exam Constitutional: Well developed, well nourished, no acute distress, non-toxic appearance. [] HENT: Normocephalic, atraumatic, bilateral external ears normal, oropharynx moist, no oral exudates, nose normal. [] Eyes: PERRLA, EOMI, conjunctiva normal, no discharge. [] Neck: Normal range of motion, no tenderness, supple, no stridor. [] Cardiovascular: Tachycardia Lungs & Thorax: Bilateral breath sounds clear to auscultation [] Abdomen: Bowel sounds normal, soft, no tenderness, no masses, no pulsatile masses. [] Skin: Warm, dry, no erythema, no rash. [] Back: No tenderness, no CVA tenderness. [] Extremities: No tenderness, no edema. [] Neurologic: Alert and oriented X 3, no focal deficits noted. [] Psychologic: Affect normal, judgement normal, mood normal. [] Current Patient Data Vital Signs Vital Signs Date Time Temp Pulse Resp B/P (MAP) Pulse Ox O2 Delivery O2 Flow Rate FiO2 12/29/19 18:42 103.2 100 20 156/111 (126) 92 Room Air 103.2 Lab Values Laboratory Tests Test 12/29/19 18:41 12/29/19 18:52 Influenza Type A Antigen Positive (NEGATIVE) Influenza Type B Antigen Negative (NEGATIVE) White Blood Count 8.1 x10^3/uL (4.0-11.0) Red Blood Count 4.95 x10^6/uL (3.50-5.40) Hemoglobin 13.9 g/dL (12.0-15.5) Hematocrit 42.2 % (36.0-47.0) Mean Corpuscular Volume 85 fL (79-100) Mean Corpuscular Hemoglobin 28 pg (25-35) Mean Corpuscular Hemoglobin Concent 33 g/dL (31-37) Red Cell Distribution Width 14.0 % (11.5-14.5) Platelet Count 139 x10^3/uL (140-400) L Neutrophils (%) (Auto) 70 % (31-73) Lymphocytes (%) (Auto) 14 % (24-48) L Monocytes (%) (Auto) 15 % (0-9) H Eosinophils (%) (Auto) 0 % (0-3) Basophils (%) (Auto) 1 % (0-3) Neutrophils # (Auto) 5.7 x10^3/uL (1.8-7.7) Lymphocytes # (Auto) 1.1 x10^3/uL (1.0-4.8) Monocytes # (Auto) 1.2 x10^3/uL (0.0-1.1) H Eosinophils # (Auto) 0.0 x10^3/uL (0.0-0.7) Basophils # (Auto) 0.1 x10^3/uL (0.0-0.2) Sodium Level 137 mmol/L (136-145) Potassium Level 3.4 mmol/L (3.5-5.1) L Chloride Level 99 mmol/L (98-107) Carbon Dioxide Level 26 mmol/L (21-32) Anion Gap 12 (6-14) Blood Urea Nitrogen 11 mg/dL (7-20) Creatinine 1.0 mg/dL (0.6-1.0) Estimated GFR (Cockcroft-Gault) 70.5 BUN/Creatinine Ratio 11 (6-20) Glucose Level 126 mg/dL (70-99) H Lactic Acid Level 0.8 mmol/L (0.4-2.0) Calcium Level 8.8 mg/dL (8.5-10.1) Total Bilirubin 0.4 mg/dL (0.2-1.0) Aspartate Amino Transferase (AST) 19 U/L (15-37) Alanine Aminotransferase (ALT) 16 U/L (14-59) Alkaline Phosphatase 91 U/L (46-116) Troponin I Quantitative < 0.017 ng/mL (0.000-0.055) Total Protein 7.9 g/dL (6.4-8.2) Albumin 3.5 g/dL (3.4-5.0) Albumin/Globulin Ratio 0.8 (1.0-1.7) L Laboratory Tests 12/29/19 18:52 Laboratory Tests 12/29/19 18:52 EKG EKG EKG 1904, Sinus Tachycardia, LAD, No STEMI, HR 100[] Radiology/Procedures Radiology/Procedures [facility] [address] [place] [address] IMAGING REPORT Signed PATIENT: VENU PALMERUNT: [id number] : 1965 LOCATION: ER AGE: 54 SEX: F EXAM STATUS: REG ER ORD. PHYSICIAN: JEFERSON DAVIS MD REASON: Cough/Chest Pain PROCEDURE: PORTABLE CHEST 1V PORTABLE CHEST 1V INDICATION: Cough, chest pain. COMPARISON STUDY: 08/02/2019. CT chest 04/25/2008 FINDINGS: Lungs: Normal lung volume. No pulmonary mass or consolidation. The tracheobronchial tree and hilar structures are normal. Pleura: No pleural effusion or pneumothorax. Heart and Mediastinum: Cardiomegaly. Mild tortuosity of the thoracic aorta. Stable mild fullness of the superior mediastinum, probably related to patient's enlarged thyroid. IMPRESSION: No acute cardiopulmonary process. Electronically signed by: Melonie Arias MD (12/29/2019 7:21 PM) [id number] DICTATED and SIGNED BY: MELONIE ARIAS MD DATE: 12/29/191920 [] Course & Med Decision Making Course & Med Decision Making Pertinent Labs and Imaging studies reviewed. (See chart for details) []54-year-old female with history of hypertension, hyperlipidemia, history of stent placement in November 2019 presents to the emergency Department complaints of cough chest pain worse with deep breath and cough, nasal congestion, fever, nausea, vomiting, shortness of breath 2 days. Anus sharp again increases with deep breath and cough. She denies any abdominal pain or diarrhea. She denies any headache or visual changes on examination. Heart rate is 102, blood pressure 171/138. Patient states she has had sick contacts primarily with her family, her grandkids are here as well to be seen. Nothing makes her symptoms better. Patient is febrile in the ER. Labs/Imaging reveiwed Influenza A + Trop negative, K 3.4 with replacement in the ER Lactic Acid negative Recommend Tamiflu 75mg BID Ambulatory oxygenation 93% on RA Discussed dc home Return precautions provided Discussed with family Marialuisa Disclaimer Marialuisa Disclaimer This electronic medical record was generated, in whole or in part, using a voice recognition dictation system. Departure Departure Impression: Primary Impression: Influenza A Disposition: HOME, SELF-CARE Condition: IMPROVED Referrals: RUPESH JIMÉNEZ (PCP) Patient Instructions: Influenza, Adult Additional Instructions: Recommend Tamiflu 75mg BID Recommend follow up with PCP in 3 days Chest xray without evidence of acute process Labs reviewed with hypokalemia - replaced in the ER Ambulatory oxygenation 93% Tylenol/Motrin as needed for fever/pain Scripts Oseltamivir Phosphate (TAMIFLU) 75 Mg Capsule 1 CAP PO BID, #10 CAP Prov: JEFERSON DAVIS MD 12/29/19 JEFERSON DAVIS MD Dec 29, 2019 18:57
[2019-12-29] MEDS ORDERED: ACETAMINOPHEN 500 MG TABLET PO ONE (19:00)
[2019-12-29 19:04] LABS: BASO # 0.1 x10^3/uL (0.0-0.2); BASO % 1 % (0-3); EOS % 0 % (0-3); HEMATOCRIT 42.2 % (36.0-47.0); HEMOGLOBIN 13.9 g/dL (12.0-15.5); LYMPH # 1.1 x10^3/uL (1.0-4.8); LYMPH % 14 % (24-48); MEAN CORPUSCULAR HEMOGLOBIN 28 pg (25-35); MEAN CORPUSCULAR HGB CONC 33 g/dL (31-37); MEAN CORPUSCULAR VOLUME 85 fL (79-100); MONO # 1.2 x10^3/uL (0.0-1.1); MONO % 15 % (0-9); NEUT # 5.7 x10^3/uL (1.8-7.7); NEUT % 70 % (31-73); PLATELET COUNT 139 x10^3/uL (140-400); RED BLOOD COUNT 4.95 x10^6/uL (3.50-5.40); WHITE BLOOD COUNT 8.1 x10^3/uL (4.0-11.0)
--- NOTE | 2019-12-29 19:23 | RAD ---
PORTABLE CHEST 1V INDICATION: Cough, chest pain. COMPARISON STUDY: 08/02/2019. CT chest 04/25/2008 FINDINGS: Lungs: Normal lung volume. No pulmonary mass or consolidation. The tracheobronchial tree and hilar structures are normal. Pleura: No pleural effusion or pneumothorax. Heart and Mediastinum: Cardiomegaly. Mild tortuosity of the thoracic aorta. Stable mild fullness of the superior mediastinum, probably related to patient's enlarged thyroid. IMPRESSION: No acute cardiopulmonary process. Electronically signed by: London Arias MD (12/29/2019 7:21 PM) [id number]
[2019-12-29 19:29] LABS: CALCIUM 8.8 mg/dL (8.5-10.1); GFR 70.5; POTASSIUM 3.4 mmol/L (3.5-5.1)
[2019-12-29 19:35] LABS: ALBUMIN 3.5 g/dL (3.4-5.0); ALBUMIN/GLOBULIN RATIO 0.8 (1.0-1.7); TOTAL BILIRUBIN 0.4 mg/dL (0.2-1.0); TOTAL PROTEIN 7.9 g/dL (6.4-8.2)
[2019-12-29 19:36] LABS: INFLUENZA A PATIENT POSITIVE (NEGATIVE)
[2019-12-29 19:37] LABS: INFLUENZA B PATIENT NEGATIVE (NEGATIVE)
[2019-12-29] MEDS ORDERED: POTASSIUM CHLORIDE 20 MEQ TABLET.ER. PO ONE (19:45)
[2019-12-29 20:33] VITALS: BP 162/80
[2019-12-29] MEDS ORDERED: OSEL75CA PO (20:47)
--- NOTE | 2019-12-30 06:10 | EKG ---
[facility] [address] [place] [address] Test Date: 2019-12-29 Test Time: 19:01:15 Pat Name: VENU PALMER Department: Room: Gender: F Android Developer: : 1965 Requested By: JEFERSON DAVIS Order Number: [id number] Reading MD: Measurements Intervals [place] Rate: 98 P: 49 [place]: 172 QRS: -26 QRSD: 104 T: 100 QT: 334 QTc: 428 Interpretive Statements SINUS RHYTHM LEFT ATRIAL ABNORMALITY LEFTWARD AXIS LVH WITH REPOLARIZATION ABNORMALITY ABNORMAL ECG No previous ECG available for comparison
== END 2019-12-29 20:55 | disposition home or self-care (01) ==
LOC: ER 17:37
DX: J10.1 Influenza due to other identified influenza virus with other respiratory manifestations (principal); R11.2 Nausea with vomiting, unspecified; I10 Essential (primary) hypertension; E78.00 Pure hypercholesterolemia, unspecified; I25.10 Atherosclerotic heart disease of native coronary artery without angina pectoris; I25.2 Old myocardial infarction; F17.200 Nicotine dependence, unspecified, uncomplicated; Z95.5 Presence of coronary angioplasty implant and graft; Z88.5 Allergy status to narcotic agent; Z88.8 Allergy status to other drugs, medicaments and biological substances
CPT/HCPCS: 36415; 71045; 80053; 83605; 84484; 85025; 87040; 87804; 93005; 96360; 96361; 99285; J7030

== ENCOUNTER 2020-03-15 08:25 | Outpatient (CLI) | payer MEDICARE, OTHER ==
[2020-03-15] VITALS (16 sets, daily range): BP systolic 125–176; BP diastolic 84–112
[~2020-03-15] VITALS: Ht 180.3 cm; Wt 95.3 kg
[~2020-03-15 08:25] MED LIST changes: +ACET500T68 PO; +AMLO5TAB10 PO; +ASPI-630 PO; +D-ME473S14 PO; +DIPH25CA23 PO; +HYDR-2868 PO; +ISOS60TA2 PO; +NITR0.4T22 SL; +OSEL75CA PO; +OXYC-317 PO; +TORS20TA2 PO
[2020-03-15] MEDS ORDERED: ASPI-630 PO (08:56)
[2020-03-15] MEDS ORDERED: CLOP75TA PO (08:57)
[2020-03-15 09:09] LABS: BASO % 1 % (0-3); EOS % 0 % (0-3); HEMATOCRIT 39.2 % (36.0-47.0); HEMOGLOBIN 12.8 g/dL (12.0-15.5); LYMPH # 1.6 x10^3/uL (1.0-4.8); LYMPH % 15 % (24-48); MEAN CORPUSCULAR HEMOGLOBIN 26 pg (25-35); MEAN CORPUSCULAR HGB CONC 33 g/dL (31-37); MEAN CORPUSCULAR VOLUME 81 fL (79-100); MONO # 0.7 x10^3/uL (0.0-1.1); MONO % 7 % (0-9); NEUT # 8.1 x10^3/uL (1.8-7.7); NEUT % 77 % (31-73); PLATELET COUNT 271 x10^3/uL (140-400); RED BLOOD COUNT 4.88 x10^6/uL (3.50-5.40); WHITE BLOOD COUNT 10.6 x10^3/uL (4.0-11.0)
[2020-03-15 09:22] LABS: PROTHROMBIN TIME PATIENT 12.6 SEC (11.7-14.0)
[2020-03-15] MEDS ORDERED: fentaNYL PF VIAL 100 MCG/2 ML VIAL ONE ×2 (09:43→10:00)
[2020-03-15] MEDS ORDERED: LIDOCAINE WITH 8.4% SOD BICARB 3 ML DISP.SYRIN. ONE (09:57)
[2020-03-15] MEDS ORDERED: MIDAZOLAM HCL/PF 5 MG/5 ML VIAL. ONE (09:59)
[2020-03-15] MEDS ORDERED: NALOXONE 0.4 MG/ML VIAL. ONE (10:00)
[2020-03-15] MEDS ORDERED: FLUMAZENIL 0.5 MG/5 ML VIAL. IV ONE (10:00)
[2020-03-15] MEDS ORDERED: fentaNYL PF VIAL 100 MCG/2 ML VIAL IV ONE ×2 (10:00→10:30)
[2020-03-15] MEDS ORDERED: MIDAZOLAM HCL/PF 5 MG/5 ML VIAL. IV ONE (10:30)
[2020-03-15] MEDS ORDERED: LIDOCAINE WITH 8.4% SOD BICARB 3 ML DISP.SYRIN. IJ ONE (10:30)
[2020-03-15] MEDS ORDERED: GELATIN SPONGE SIZE 12-7MM SPONGE. ONE (10:41)
[2020-03-15] MEDS ORDERED: oxyCODONE/APAP 5/325 1 TAB TABLET ONE (11:05)
[2020-03-15] MEDS ORDERED: oxyCODONE/APAP 5/325 1 TAB TABLET PO ONE (11:15)
--- NOTE | 2020-03-15 11:30 | RAD ---
03/15/2020 9:24 AM Procedure: CT-guided biopsy, left adrenal mass. Clinical Indication: 55-year-old female with left lung mass, mediastinal adenopathy, and new left adrenal mass, most likely metastatic lung cancer. L LUNG MASS/L ADRENAL MASS Discussion: The procedure was explained in its entirety to the patient or the patients designated territory service representative by a member of the treatment team, including a discussion of the risks, benefits and commonly accepted alternatives to the procedure, as well as the expected consequences of no therapy whatsoever. Discussion of the risks included, but was not limited to, those that are most frequent and those that are rare but possibly severe or life-threatening, as well as the possibility of unforeseen complications. All elements of maximal sterile barrier technique including the use of a cap, mask, sterile gown, sterile gloves, large sterile sheet, appropriate hand hygiene, and 2% chlorhexidine for cutaneous antisepsis (or acceptable alternative antiseptic per current guidelines) were followed for this procedure. The procedures performed under conscious sedation including continuous cardiopulmonary monitoring via dedicated sedation nurse. [id number] sedation time: 30 minutes. The left flank was prepped and draped using sterile barrier technique as described. 1% lidocaine was administered for local anesthesia. Under intermittent CT guidance 17-gauge needles advanced into left renal mass. Core biopsy samples were obtained. The needle was removed. Manual pressure was held. No immediate complications were identified. Impression: CT-guided biopsy left adrenal mass PQRS Compliance Statement: One or more of the following individualized dose reduction techniques were utilized for this examination: 1. Automated exposure control 2. Adjustment of the mA and/or kV according to patient size 3. Use of iterative reconstruction technique
[2020-03-15] MEDS ORDERED: OXYC1TAB15 PO (12:55)
--- NOTE | 2020-03-15 13:10 | NUR ---
Discharge Note: VENU PALMER Discharge instructions and discharge home medications reviewed with Patient and a copy given. All questions have been answered and understanding verbalized. Dressing site remains clean and dry RX for Percocet and colace provided to pt The following instructions and handouts were given: biopsy care and moderate sedation Discontinued lines and drains: Peripheral IV intact. Patient discharged to Home or Self Care with Family Member via Wheelchair OTONIEL HERNÁNDEZ Addendum: 03/15/20 at 1357 by SABA PALOMINO RN Amended: Links added.
--- NOTE | 2020-03-16 18:06 | PATHOLOGY ---
[facility] Accession Number: [id number] . 01 Material submitted: . adrenal gland - LEFT ADRENAL MASS CORE BX. Modifiers: left . 01 Clinical history: . Left lung mass; left adrenal mass . 02 Diagnosis: Adrenal tissue, left adrenal mass CT guided needle biopsies: - METASTATIC SQUAMOUS CELL CARCINOMA, POORLY DIFFERENTIATED. SEE COMMENT. (JPM:henrique; 03/16/2020) S 03/16/2020 0935 Local . 02 Comment: Sections of the left adreal mass CT guided needle biopsy show near complete replacement of adrenal tissue by a malignant epithelial neoplasm. The malignant cells are present in irregular solid nests within a reactive desmoplastic stroma. The malignant cells have a polygonal squamoid appearance and have ample amounts of eosinophilic to focally clear cytoplasm. There are intercellular bridges. The malignant cells show focal marked nuclear pleomorphism. There are malignant dyskeratotic cells present. Mitotic figures are readily demonstrated. There is no evidence of glandular differentiation. There are strands of attenuated adrenocortical cells at one end of one of the biopsies. The morphologic findings are supportive of the diagnosis of metastatic poorly differentiated squamous cell carcinoma. The case is also examined by Dr. Dorantes, who concurs with the diagnosis. (JPM:henrique; 03/16/2020) . 02 Electronically signed: . Cheko Roque MD, Pathologist NPI- [id number] . 01 Gross description: . The specimen is received in formalin, labeled "Sarah Gorman, left adrenal mass". Received are two needle cores of pale beal soft tissue ranging in length from 0.8 to 1.4 cm in length by 0.1 cm in diameter. The specimen is submitted entirely in cassette A1 and A2. (CAA; 03/15/2020) QAC/QAC 03/15/2020 1507 [facility] . 02 Pathologist provided ICD-10: C79.72 . 02 CPT . 192842 Specimen Comment: A courtesy copy of this report has been sent to [phone], [phone] Specimen Comment: [id number] Specimen Comment: Report sent to / DR JIMÉNEZ Performed at: 01 [facility] [address] [place] [address] [address], [place], [place] [id number] MD Tino Doan MD Phone: [phone] Performed at: 02 [facility] [address] [place], [place] [id number] MD Cheko Roque MD Phone: [phone]
== END 2020-03-15 13:10 | disposition home or self-care (01) ==
LOC: INTRAD 08:25
PROVIDERS: ATTEND Family Medicine
DX: E27.8 Other specified disorders of adrenal gland (principal); C79.72 Secondary malignant neoplasm of left adrenal gland; R59.9 Enlarged lymph nodes, unspecified; Z85.118 Personal history of other malignant neoplasm of bronchus and lung; Z88.8 Allergy status to other drugs, medicaments and biological substances; Z88.6 Allergy status to analgesic agent; Z79.82 Long term (current) use of aspirin; Z79.899 Other long term (current) drug therapy
CPT/HCPCS: 36415; 49180; 77012; 85025; 85610; J2250; J3010; J3490; 88305; 99152; 99153

== ENCOUNTER → 2020-03-24 | Outpatient (CLI) | payer MEDICARE, OTHER ==
[2020-03-15 13:00] VITALS: BP 146/101
[~2020-03-24] MED LIST changes: +OXYC1TAB15 PO
--- NOTE | 2020-03-24 13:23 | RAD ---
Examination: Bone Scintigraphy - Whole Body: . Radiopharmaceutical: 25.8 mCi Tc-99m HDP I.V. History: Lung cancer. Findings: Delayed anterior and posterior whole body bone scintigraphy was performed. There is faint radiotracer uptake identified in the medial cortex of the distal femur. Foci of radiotracer uptake identified in the right knee region. IMPRESSION: 1. Faint radiotracer uptake identified in the medial cortex of the distal femur, nonspecific could be stress reactive changes or metastasis. Recommend plain film radiographs or MRI for better evaluation. 2. Foci of radiotracer uptake identified in the right knee region probably degenerative changes. Electronically signed by: Nigel Farias MD (03/24/2020 1:20 PM) [id number]
== END ==
LOC: NM 08:26
PROVIDERS: ATTEND Family Medicine
DX: C34.92 Malignant neoplasm of unspecified part of left bronchus or lung (principal)
CPT/HCPCS: 78306; A9503

== ENCOUNTER 2020-04-07 20:50 | Emergency (ER) | payer MEDICARE, OTHER ==
[~2020-04-07] VITALS: Ht 180.3 cm; Wt 87.2 kg
[~2020-04-07 20:50] MED LIST changes: +CEFP200T PO; +HYDR2TAB31 PO; +HYDR4TAB45 PO; +ONDA8TAB9 PO
[2020-04-07] MEDS ORDERED: IV NORMAL SALINE 1000ML BAG 1,000 ML IV SCH (21:30)
[2020-04-07] MEDS ORDERED: HYDROmorphone 2 MG/ML VIAL IV ONE ×2 (21:30→22:45)
[2020-04-07] MEDS ORDERED: ONDANSETRON PF 4 MG/2 ML VIAL. IVP ONE (21:30)
[2020-04-07 21:34] LABS: BASO # 0.1 x10^3/uL (0.0-0.2); BASO % 1 % (0-3); EOS % 0 % (0-3); HEMATOCRIT 39.7 % (36.0-47.0); HEMOGLOBIN 12.9 g/dL (12.0-15.5); LYMPH # 1.9 x10^3/uL (1.0-4.8); LYMPH % 20 % (24-48); MEAN CORPUSCULAR HEMOGLOBIN 26 pg (25-35); MEAN CORPUSCULAR HGB CONC 33 g/dL (31-37); MEAN CORPUSCULAR VOLUME 79 fL (79-100); MONO # 0.9 x10^3/uL (0.0-1.1); MONO % 9 % (0-9); NEUT # 6.9 x10^3/uL (1.8-7.7); NEUT % 70 % (31-73); PLATELET COUNT 278 x10^3/uL (140-400); RED BLOOD COUNT 5.02 x10^6/uL (3.50-5.40); RED CELL DISTRIBUTION WIDTH 17.4 % (11.5-14.5); WHITE BLOOD COUNT 9.8 x10^3/uL (4.0-11.0)
[2020-04-07 23:23] LABS: BILIRUBIN,URINE NEGATIVE (NEG); CLARITY,URINE CLEAR; COLOR,URINE YELLOW; NITRITE,URINE NEGATIVE (NEG); PH,URINE 6.5 (<5.0-8.0); PROTEIN,URINE NEGATIVE (NEG-TRACE)
[2020-04-07 23:32] LABS: CALCIUM 8.4 mg/dL (8.5-10.1); CREATININE 0.8 mg/dL (0.6-1.0); GFR 90.8; POTASSIUM 3.3 mmol/L (3.5-5.1)
[2020-04-07 23:37] LABS: ALBUMIN 2.5 g/dL (3.4-5.0); ALBUMIN/GLOBULIN RATIO 0.5 (1.0-1.7); TOTAL BILIRUBIN 0.3 mg/dL (0.2-1.0); TOTAL PROTEIN 7.1 g/dL (6.4-8.2)
[2020-04-07 23:37] LABS: BACTERIA,URINE MODERATE /HPF (0-FEW); RBC,URINE RARE /HPF (0-2); SQUAMOUS EPITHELIAL CELL,UR MANY /LPF
[2020-04-08] MEDS ORDERED: METO10TA81 PO (00:21)
--- NOTE | 2020-04-08 00:21 | PHYS DOC ---
Past Medical History Past Medical History: CAD, CHF, High Cholesterol, Hypertension Additional Past Medical Histor: DJD. CARDIAC STENTS X 5, Past Surgical History: Other Additional Past Surgical Histo: cardiac stent, Smoking Status: Former Smoker Alcohol Use: None Drug Use: None General Adult EDM: Chief Complaint: BACK PAIN - NO INJURY HPI: HPI: Patient is a 55 year old female who presents with complaint of continued lower back pain. Patient had been admitted a few days ago with acute exacerbation of chronic back pain and was discharged yesterday. Patient states that she was prescribed Dilaudid and last took her dose about 6 hours ago. She states that she does not like taking it because it tears her stomach up. Patient states that her pain is at a 10 out of 10 again. She denies any radiation of the pain. She denies any loss of bowel or bladder control. She denies any saddle anesthesia. [] Review of Systems: Review of Systems: Constitutional: Denies fever or chills. [] Respiratory: Denies cough or shortness of breath. [] Cardiovascular: Denies chest pain or edema. [] GI: Denies abdominal pain, nausea, vomiting or diarrhea. [] Musculoskeletal: Complains of lower back pain. [] Integument: Denies rash. [] Neurologic: Denies headache, focal weakness or sensory changes. [] Heart Score: Risk Factors: Risk Factors: DM, Current or recent (<one month) smoker, HTN, HLP, family history of CAD, obesity. Risk Scores: Score 0 - 3: 2.5% MACE over next 6 weeks - Discharge Home Score 4 - 6: 20.3% MACE over next 6 weeks - Admit for Clinical Observation Score 7 - 10: 72.7% MACE over next 6 weeks - Early Invasive Strategies Current Medications: Current Medications Medications (Trade) Dose Ordered Sig/Santos Start Time Stop Time Status Last Admin Dose Admin Hydromorphone HCl (Dilaudid) 1 mg 1X ONCE 04/07/20 22:45 04/07/20 22:46 DC 04/07/20 22:55 1 MG Ondansetron HCl (Zofran) 4 mg 1X ONCE 04/07/20 21:30 04/07/20 21:31 DC 04/07/20 21:29 4 MG Sodium Chloride 1,000 ml @ 1,000 mls/hr Q1H 04/07/20 21:30 04/07/20 22:29 DC 04/07/20 21:29 1,000 MLS/HR Allergies: Allergies: Allergies Coded Allergies Type Severity Reaction Last Updated Verified atorvastatin Allergy Intermediate 04/03/20 Yes codeine Allergy Intermediate 04/03/20 Yes heparin Allergy Intermediate 04/03/20 Yes morphine Allergy Intermediate 04/03/20 Yes spironolactone Allergy Intermediate 04/03/20 Yes fentanyl Adverse Reaction Intermediate "makes me burn" 04/03/20 Yes Physical Exam: PE: Constitutional: Well developed, well nourished, no acute distress, non-toxic appearance. [] HENT: Normocephalic, atraumatic, bilateral external ears normal, oropharynx moist, no oral exudates, nose normal. [] Eyes: PERRLA, EOMI, conjunctiva normal, no discharge. [] Neck: Normal range of motion, no tenderness, supple, no stridor. [] Cardiovascular: Regular rate and rhythm [] Lungs & Thorax: Bilateral breath sounds clear to auscultation [] Abdomen: Bowel sounds normal, soft, no tenderness. [] Skin: Warm, dry, no erythema, no rash. [] Back: There is tenderness to palpation in the lower lumbar paraspinal musculature primarily on the left. [] Extremities: No tenderness, no cyanosis, no clubbing, ROM intact. [] Neurologic: Alert and oriented X 3, no focal deficits noted. [] Current Patient Data: Labs: Laboratory Tests Test 04/07/20 21:20 04/07/20 23:08 04/07/20 23:15 White Blood Count 9.8 x10^3/uL (4.0-11.0) Red Blood Count 5.02 x10^6/uL (3.50-5.40) Hemoglobin 12.9 g/dL (12.0-15.5) Hematocrit 39.7 % (36.0-47.0) Mean Corpuscular Volume 79 fL (79-100) Mean Corpuscular Hemoglobin 26 pg (25-35) Mean Corpuscular Hemoglobin Concent 33 g/dL (31-37) Red Cell Distribution Width 17.4 % (11.5-14.5) H Platelet Count 278 x10^3/uL (140-400) Neutrophils (%) (Auto) 70 % (31-73) Lymphocytes (%) (Auto) 20 % (24-48) L Monocytes (%) (Auto) 9 % (0-9) Eosinophils (%) (Auto) 0 % (0-3) Basophils (%) (Auto) 1 % (0-3) Neutrophils # (Auto) 6.9 x10^3/uL (1.8-7.7) Lymphocytes # (Auto) 1.9 x10^3/uL (1.0-4.8) Monocytes # (Auto) 0.9 x10^3/uL (0.0-1.1) Eosinophils # (Auto) 0.0 x10^3/uL (0.0-0.7) Basophils # (Auto) 0.1 x10^3/uL (0.0-0.2) Sodium Level 141 mmol/L (136-145) Potassium Level 3.3 mmol/L (3.5-5.1) L Chloride Level 101 mmol/L (98-107) Carbon Dioxide Level 32 mmol/L (21-32) Anion Gap 8 (6-14) Blood Urea Nitrogen 7 mg/dL (7-20) Creatinine 0.8 mg/dL (0.6-1.0) Estimated GFR (Cockcroft-Gault) 90.8 BUN/Creatinine Ratio 9 (6-20) Glucose Level 107 mg/dL (70-99) H Calcium Level 8.4 mg/dL (8.5-10.1) L Total Bilirubin 0.3 mg/dL (0.2-1.0) Aspartate Amino Transferase (AST) 13 U/L (15-37) L Alanine Aminotransferase (ALT) 10 U/L (14-59) L Alkaline Phosphatase 92 U/L (46-116) Total Protein 7.1 g/dL (6.4-8.2) Albumin 2.5 g/dL (3.4-5.0) L Albumin/Globulin Ratio 0.5 (1.0-1.7) L Lipase 71 U/L (73-393) L Urine Collection Type Unknown Urine Color Yellow Urine Clarity Clear Urine pH 6.5 (<5.0-8.0) Urine Specific [place] 1.010 (1.000-1.030) Urine Protein Negative mg/dL (NEG-TRACE) Urine Glucose (UA) Negative mg/dL (NEG) Urine Ketones (Stick) Negative mg/dL (NEG) Urine Blood Negative (NEG) Urine Nitrite Negative (NEG) Urine Bilirubin Negative (NEG) Urine Urobilinogen Dipstick 1.0 mg/dL (0.2 mg/dL) Urine Leukocyte Esterase Negative (NEG) Urine RBC Rare /HPF (0-2) Urine WBC 5-10 /HPF (0-4) Urine Squamous Epithelial Cells Many /LPF Urine Bacteria Moderate /HPF (0-FEW) Urine Mucus Slight /LPF Laboratory Tests 04/07/20 21:20 Laboratory Tests 04/07/20 23:08 Vital Signs: Vital Signs Date Time Temp Pulse Resp B/P (MAP) Pulse Ox O2 Delivery O2 Flow Rate FiO2 04/07/20 22:55 20 95 Room Air 04/07/20 21:30 98.5 94 127/89 (102) 98.5 EKG: EKG: [] Radiology/Procedures: Radiology/Procedures: [] Course & Med Decision Making: Course & Med Decision Making Pertinent Labs and Imaging studies reviewed. (See chart for details) [] Dragon Disclaimer: Dragon Disclaimer: This electronic medical record was generated, in whole or in part, using a voice recognition dictation system. Departure Departure Impression: Primary Impression: Acute exacerbation of chronic low back pain Disposition: HOME, SELF-CARE Condition: STABLE Referrals: RUPESH JIMÉNEZ (PCP) Patient Instructions: Chronic Back Pain Scripts Metoclopramide Hcl (REGLAN) 10 Mg Tablet 1 TAB PO TID PRN for NAUSEA for 5 Days, #15 TAB 0 Refills before food and bedtime Prov: REECE BUSH Jr. DO 04/08/20 REECE BUSH Jr. DO April 08, 2020 00:21
[2020-04-08 00:39] VITALS: BP 133/73
== END 2020-04-08 00:46 | disposition home or self-care (01) ==
LOC: ER 20:50
DX: G89.29 Other chronic pain (principal); M54.5 Low back pain; I11.0 Hypertensive heart disease with heart failure; I50.9 Heart failure, unspecified; E78.00 Pure hypercholesterolemia, unspecified; I25.10 Atherosclerotic heart disease of native coronary artery without angina pectoris; Z98.890 Other specified postprocedural states; Z87.891 Personal history of nicotine dependence; Z88.5 Allergy status to narcotic agent; Z88.6 Allergy status to analgesic agent; Z88.8 Allergy status to other drugs, medicaments and biological substances; Z88.1 Allergy status to other antibiotic agents
CPT/HCPCS: 36415; 80053; 81001; 83690; 85025; 87086; 96374; 96375; 96376; 99285; J1170; J2405; J7030

== ENCOUNTER 2020-04-14 01:50 | Emergency (ER) | payer MEDICARE, OTHER ==
[~2020-04-14] VITALS: Ht 180.3 cm; Wt 86.8 kg
[~2020-04-14 01:50] MED LIST changes: +METO10TA81 PO
--- NOTE | 2020-04-14 02:07 | PHYS DOC ---
Past Medical History Past Medical History: CAD, CHF, High Cholesterol, Hypertension Additional Past Medical Histor: DJD. CARDIAC STENTS X 5, Past Surgical History: Other Additional Past Surgical Histo: cardiac stent, Smoking Status: Former Smoker Alcohol Use: None Drug Use: None General Adult EDM: Chief Complaint: ABDOMINAL PAIN HPI: HPI: Patient is a 55 year old female presenting to the ED with chief complaint of left abdominal tenderness. Patient states that she was recently diagnosed with lung cancer which has metastasized to the left adrenal gland. Patient states that she had a thyroid radiation treatment yesterday. Patient states that she was sent home with Zofran and hydrocodone with the pain medicine and the nausea medicine is not working. Patient states that she has another appointment for radiation treatment today morning. Patient states that she had a good bowel movement this evening. Patient states that she has low-grade fever 99.5F. Review of Systems: Review of Systems: Constitutional: Denies fever or chills. [] Eyes: Denies change in visual acuity. [] HENT: Denies nasal congestion or sore throat. [] Respiratory: Denies cough or shortness of breath. [] Cardiovascular: Denies chest pain or edema. [] GI: Complains of left abdominal tenderness [] : Denies dysuria. [] Musculoskeletal: Denies back pain or joint pain. [] Neurologic: Denies headache, focal weakness or sensory changes. [] Heart Score: Risk Factors: Risk Factors: DM, Current or recent (<one month) smoker, HTN, HLP, family history of CAD, obesity. Risk Scores: Score 0 - 3: 2.5% MACE over next 6 weeks - Discharge Home Score 4 - 6: 20.3% MACE over next 6 weeks - Admit for Clinical Observation Score 7 - 10: 72.7% MACE over next 6 weeks - Early Invasive Strategies Allergies: Allergies: Allergies Coded Allergies Type Severity Reaction Last Updated Verified atorvastatin Allergy Intermediate 04/03/20 Yes codeine Allergy Intermediate 04/03/20 Yes heparin Allergy Intermediate 04/03/20 Yes morphine Allergy Intermediate 04/03/20 Yes spironolactone Allergy Intermediate 04/03/20 Yes fentanyl Adverse Reaction Intermediate "makes me burn" 04/03/20 Yes Physical Exam: PE: Constitutional: Well developed, well nourished, no acute distress, non-toxic appearance. [] HENT: Normocephalic, atraumatic Eyes: EOMI Neck: Normal range of motion, Supple Cardiovascular:Heart rate regular rhythm Lungs & Thorax: Bilateral breath sounds clear to auscultation [] Abdomen: Left abdominal tenderness. No focal abdominal tenderness. Extremities: No tenderness, ROM intact Neurologic: Alert and oriented X 3 EKG: EKG: [] Radiology/Procedures: Radiology/Procedures: [] Course & Med Decision Making: Course & Med Decision Making Pertinent Labs and Imaging studies reviewed. (See chart for details) Ordered labs, UA, IV fluids, IV Dilaudid 1 mg, Zofran 4 mg IV. Labs are within normal limits. Patient is given a second dose of Dilaudid 1 mg IV. Also ordered a second liter IV fluids. Still awaiting UA results. Patient is given oral [place] tablet. Patient can be discharged for outpatient follow-up. Discussed results and plan of care with patient. Patient is instructed to follow up with PCP in one to 2 days. Appropriate discharge instructions given to patient to return to the ED or to seek immediate medical evaluation. Patient is instructed to return to the ED if symptoms worsen or if any concerns. Dragon Disclaimer: Dragon Disclaimer: This electronic medical record was generated, in whole or in part, using a voice recognition dictation system. Departure Departure Impression: Primary Impression: Pain in the abdomen Referrals: RUPESH JIMÉNEZ (PCP) Patient Instructions: Abdominal Pain (Nonspecific) Additional Instructions: Please return to the ED if symptoms worsen or if any concerns. Please follow-up with PCP in 1 to 2 days. Justicifation of Admission Dx: Justifications for Admission: Justification of Admission Dx: VICK Gomez DO Apr 14, 2020 02:07
[2020-04-14] MEDS ORDERED: IV NORMAL SALINE 1000ML BAG 1,000 ML IV ONE ×2 (02:30→04:30)
[2020-04-14] MEDS ORDERED: HYDROmorphone 2 MG/ML VIAL IV ONE ×2 (02:30→03:30)
[2020-04-14] MEDS ORDERED: ONDANSETRON PF 4 MG/2 ML VIAL. IVP ONE (02:30)
[2020-04-14 02:59] LABS: BASO # 0.1 x10^3/uL (0.0-0.2); BASO % 1 % (0-3); EOS % 1 % (0-3); HEMATOCRIT 35.2 % (36.0-47.0); HEMOGLOBIN 11.5 g/dL (12.0-15.5); LYMPH # 0.9 x10^3/uL (1.0-4.8); LYMPH % 11 % (24-48); MEAN CORPUSCULAR HEMOGLOBIN 26 pg (25-35); MEAN CORPUSCULAR HGB CONC 33 g/dL (31-37); MEAN CORPUSCULAR VOLUME 79 fL (79-100); MONO # 0.8 x10^3/uL (0.0-1.1); MONO % 10 % (0-9); NEUT # 6.2 x10^3/uL (1.8-7.7); NEUT % 78 % (31-73); PLATELET COUNT 215 x10^3/uL (140-400); RED BLOOD COUNT 4.44 x10^6/uL (3.50-5.40); RED CELL DISTRIBUTION WIDTH 16.8 % (11.5-14.5); WHITE BLOOD COUNT 7.9 x10^3/uL (4.0-11.0)
[2020-04-14 03:07] LABS: CALCIUM 8.6 mg/dL (8.5-10.1); CREATININE 0.8 mg/dL (0.6-1.0); GFR 90.8; POTASSIUM 3.4 mmol/L (3.5-5.1)
[2020-04-14 03:13] LABS: ALBUMIN 2.7 g/dL (3.4-5.0); ALBUMIN/GLOBULIN RATIO 0.6 (1.0-1.7); TOTAL BILIRUBIN 0.3 mg/dL (0.2-1.0); TOTAL PROTEIN 7.5 g/dL (6.4-8.2)
[2020-04-14 04:51] LABS: BILIRUBIN,URINE SMALL (NEG); CLARITY,URINE TURBID; COLOR,URINE YELLOW; NITRITE,URINE NEGATIVE (NEG); PH,URINE 5.5 (<5.0-8.0); PROTEIN,URINE 100 mg/dL (NEG-TRACE)
[2020-04-14 04:57] LABS: BACTERIA,URINE FEW /HPF (0-FEW); RBC,URINE 0 /HPF (0-2); SQUAMOUS EPITHELIAL CELL,UR MANY /LPF
[2020-04-14 04:58] LABS: AMORPHOUS SEDIMENT,UR PRESENT /HPF
[2020-04-14] MEDS ORDERED: HYDROcodone/APAP 5/325MG 1 TAB TABLET PO ONE (05:00)
[2020-04-14 05:01] VITALS: BP 162/83
== END 2020-04-14 05:10 | disposition home or self-care (01) ==
LOC: ER 01:50
DX: R10.32 Left lower quadrant pain (principal); R50.9 Fever, unspecified; I11.0 Hypertensive heart disease with heart failure; I50.9 Heart failure, unspecified; E78.00 Pure hypercholesterolemia, unspecified; Z98.890 Other specified postprocedural states; Z87.891 Personal history of nicotine dependence; Z85.118 Personal history of other malignant neoplasm of bronchus and lung; Z88.5 Allergy status to narcotic agent; Z88.6 Allergy status to analgesic agent; Z88.8 Allergy status to other drugs, medicaments and biological substances; Z88.2 Allergy status to sulfonamides
CPT/HCPCS: 36415; 80053; 81001; 83605; 83690; 85025; 87086; 96374; 96375; 96376; 99285; J1170; J2405; J7030

== ENCOUNTER → 2020-04-21 | Outpatient (CLI) | payer MEDICARE, OTHER ==
[2020-04-14 05:01] VITALS: BP 162/83
[~2020-04-21] MED LIST changes: +ACET325T9 PO; +OXYC10TA PO
[2020-04-21 10:26] LABS: BASO # 0.1 x10^3/uL (0.0-0.2); BASO % 1 % (0-3); EOS % 1 % (0-3); HEMATOCRIT 33.9 % (36.0-47.0); HEMOGLOBIN 10.9 g/dL (12.0-15.5); LYMPH # 0.6 x10^3/uL (1.0-4.8); LYMPH % 7 % (24-48); MEAN CORPUSCULAR HEMOGLOBIN 25 pg (25-35); MEAN CORPUSCULAR HGB CONC 32 g/dL (31-37); MEAN CORPUSCULAR VOLUME 78 fL (79-100); MONO # 0.8 x10^3/uL (0.0-1.1); MONO % 10 % (0-9); NEUT # 6.4 x10^3/uL (1.8-7.7); NEUT % 81 % (31-73); PLATELET COUNT 250 x10^3/uL (140-400); RED BLOOD COUNT 4.33 x10^6/uL (3.50-5.40); RED CELL DISTRIBUTION WIDTH 17.3 % (11.5-14.5); WHITE BLOOD COUNT 7.8 x10^3/uL (4.0-11.0)
[2020-04-21 10:35] LABS: CALCIUM 8.8 mg/dL (8.5-10.1); CREATININE 0.9 mg/dL (0.6-1.0); GFR 79.3; POTASSIUM 3.7 mmol/L (3.5-5.1)
[2020-04-21 10:41] LABS: ALBUMIN 2.4 g/dL (3.4-5.0); DIRECT BILIRUBIN 0.1 mg/dL (0.0-0.2); TOTAL BILIRUBIN 0.2 mg/dL (0.2-1.0); TOTAL PROTEIN 7.6 g/dL (6.4-8.2)
--- NOTE | 2020-04-21 18:21 | RAD ---
EXAM: PET W CT SKULL TO MIDTHIGH EXAM DATE: 04/21/2020 INDICATION: Initial staging squamous cell lung cancer. RADIOPHARMACEUTICAL: 14.6 mCi of F-18 Fluorodeoxyglucose (FDG) I.V. via the right wrist. TECHNIQUE: Patient weight: 190 pounds. Following at least four-hour fasting, the patient's blood glucose was 146 mg/dl. Approximately 1 hour after administration of FDG, overlapping emission scanning was performed from the orbital meatal line through the pelvis. A low-dose CT was performed for attenuation correction purposes and anatomic localization. Fused images of PET and CT were reviewed. Any standardized uptake values (SUV) reported are maximum values within a volume region of interest, expressed in gm/ml. COMPARISON: CT guided retroperitoneal mass biopsy of 03/15/2020, CT abdomen and pelvis with IV contrast of 04/03/2020, and CT angiogram chest of 02/27/2020. FINDINGS: PET: In the head and neck, no abnormal FDG uptake is identified. In the chest, the lobulated left upper lobe lung mass showing cavitation demonstrates abnormal FDG uptake to max SUV of 4.00. There is left hilar and mediastinal adenopathy at multiple cristiane stations showing abnormal FDG uptake. These include aortopulmonary window lymph nodes showing FDG uptake to max SUV of 5.51, an enlarged prevascular node superficial to the main pulmonary artery that shows FDG uptake to max SUV of 6.3. Subcarinal lymph node show FDG uptake to max SUV of 4.5 and left hilar nodes show FDG uptake to max SUV of 8.28. Background mediastinal FDG activity measures 2.48. In the abdomen and pelvis, there is peripheral uptake in the left adrenal mass to a max SUV of 5.36. Focal uptake in the cecum to a max SUV of 6.81. A mesenteric lymph node posterior to the distal transverse colon (best illustrated on fused axial image 54 of series 603) shows FDG uptake to a max SUV of 2.64. There is background activity in the liver to a max SUV of 2.52. No abnormal FDG uptake identified in the osseous structures. CT: Images of the head and neck show a diffusely enlarged thyroid gland. No cervical adenopathy. The chest shows the lobulated left upper lobe lung mass measures 3.3 x 2.2 cm essentially unchanged from 2.8 x 2.7 cm previously, allowing for motion artifact and variability in measurement between exams. A small left pleural effusion has developed in the interval. Ectasia of the ascending thoracic aorta to 4.4 cm is noted along with cardiomegaly and dense multivessel coronary calcifications or stents. The abdomen and pelvis again show a centrally necrotic mass in the left suprarenal fossa previously targeted for biopsy. On this exam, it appears to have enlarged from 7. 8 x 4.9 cm prebiopsy to 8.4 x 6.2 cm currently (approximately 8.3 x 5.8 cm post biopsy on 04/03/2020). Atherosclerotic calcifications in the abdominal aorta are present with ectasia of the infrarenal abdominal aorta to 3.9 cm AP. No periaortic soft tissue stranding or evidence of intramural hematoma. No aggressive appearing osseous lesions. IMPRESSION: Left upper lobe hypermetabolic lung mass with mediastinal adenopathy that is FDG avid in the large necrotic left adrenal mass which also shows peripheral abnormal FDG uptake. Electronically signed by: Avel Hernandez MD (04/21/2020 6:18 PM) [id number]
== END ==
LOC: PETSC 09:59
PROVIDERS: ATTEND Internal Medicine Hematology & Oncology
DX: C78.00 Secondary malignant neoplasm of unspecified lung (principal); R91.8 Other nonspecific abnormal finding of lung field; I70.0 Atherosclerosis of aorta; I77.811 Abdominal aortic ectasia; R59.0 Localized enlarged lymph nodes; N28.89 Other specified disorders of kidney and ureter
CPT/HCPCS: 36415; 78815; 80048; 80076; 83615; 85025; A9552

== ENCOUNTER 2020-04-25 06:48 | Outpatient (CLI) | payer MEDICARE, OTHER ==
[~2020-04-25] VITALS: Ht 180.3 cm; Wt 86.2 kg
[2020-04-25] VITALS (8 sets, daily range): BP systolic 113–134; BP diastolic 79–90
[~2020-04-25 06:48] MED LIST changes: -ACET325T9 PO; -MAGN296S68 PO; -METH4TAB PO; -OXYC10TA PO
[2020-04-25 07:30] LABS: BASO % 1 % (0-3); EOS % 1 % (0-3); HEMATOCRIT 32.3 % (36.0-47.0); HEMOGLOBIN 10.4 g/dL (12.0-15.5); LYMPH # 0.4 x10^3/uL (1.0-4.8); LYMPH % 5 % (24-48); MEAN CORPUSCULAR HEMOGLOBIN 25 pg (25-35); MEAN CORPUSCULAR HGB CONC 32 g/dL (31-37); MEAN CORPUSCULAR VOLUME 78 fL (79-100); MONO # 0.7 x10^3/uL (0.0-1.1); MONO % 10 % (0-9); NEUT # 5.7 x10^3/uL (1.8-7.7); NEUT % 84 % (31-73); PLATELET COUNT 248 x10^3/uL (140-400); RED BLOOD COUNT 4.13 x10^6/uL (3.50-5.40); RED CELL DISTRIBUTION WIDTH 17.5 % (11.5-14.5); WHITE BLOOD COUNT 6.9 x10^3/uL (4.0-11.0)
[2020-04-25 07:45] LABS: PROTHROMBIN TIME PATIENT 13.5 SEC (11.7-14.0)
[2020-04-25] MEDS ORDERED: ACET325T9 PO (07:59)
[2020-04-25] MEDS ORDERED: OXYC10TA PO (07:59)
[2020-04-25] MEDS ORDERED: HYDROmorphone 2 MG/ML VIAL IV ONE (08:15)
[2020-04-25] MEDS ORDERED: MIDAZOLAM HCL/PF 2 MG/2 ML VIAL. ONE (08:29)
[2020-04-25] MEDS ORDERED: LIDOCAINE 1%/EPI 1:100,000 20 ML VIAL. SQ ONE (08:30)
[2020-04-25] MEDS ORDERED: MIDAZOLAM HCL/PF 2 MG/2 ML VIAL. IV ONE (08:30)
[2020-04-25] MEDS ORDERED: LIDOCAINE 1%/EPI 1:100,000 20 ML VIAL. ONE (08:37)
--- NOTE | 2020-04-25 11:00 | NUR ---
pt A&O x4. denies pain or nausea. VSS. tolerating po well. ambulated to BR w/o problem. rt chest port remains accessed at this time. pt is going from here to her oncology appt over in the [facility]. d/c instructions reviewed. out to vehicle per w/c- pt's daughter to drive her over to [facility]
--- NOTE | 2020-04-25 14:02 | RAD ---
Procedure: Ultrasound and fluoroscopically guided placement of right internal jugular power port.. 04/25/2020 11:58 AM Clinical Indication: CHEMOTHERAPY Sedation: Conscious sedation was administered for 30 minutes. The patient was monitored by a qualified independent observer throughout the time of sedation. Please refer to the medical record for exact doses of medications utilized to achieve moderate sedation. Fluoroscopy time: 0.4 minutes Dose area product: 1 Gycm2 Consent: The procedure was explained in its entirety to the patient or the patients designated agency sales representative by a member of the treatment team, including a discussion of the risks, benefits and commonly accepted alternatives to the procedure, as well as the expected consequences of no therapy whatsoever. Discussion of the risks included, but was not limited to, those that are most frequent and those that are rare but possibly severe or life-threatening, as well as the possibility of unforeseen complications. Technique and Findings: All elements of maximal sterile barrier technique including the use of a cap, mask, sterile gown, sterile gloves, large sterile sheet, appropriate hand hygiene, and 2% chlorhexidine for cutaneous antisepsis (or acceptable alternative antiseptic per current guidelines) were followed for this procedure. Following informed consent, and a timeout procedure, the patient was prepped and draped in the usual sterile fashion. Ultrasound interrogation of the right neck revealed patency and compressibility of the right internal jugular vein. A 21-gauge micropuncture was then used to gain access to this vein under ultrasound guidance. A hard copy ultrasound image was recorded. The needle was exchanged over a wire for a sheath. A 1 inch incision was made several centimeters inferior to the venotomy site. A catheter was tunneled from this site dermatotomy site in the neck. Catheter was advanced through peel-away sheath such that its tip was in the proximal right atrium with the patient supine. The catheter was trimmed to length and connected to the port reservoir. The port was found to flush and aspirate normally. The wound was closed in layers using 4-0 Vicryl suture. Sterile dressings were applied. Impression: Successful ultrasound and fluoroscopically guided placement of a right internal jugular PowerPort
[2020-05-05] MEDS ORDERED: METH4TAB PO (10:18)
[2020-05-09] MEDS ORDERED: MAGN296S68 PO (14:55)
== END 2020-04-25 11:00 | disposition home or self-care (01) ==
LOC: INTRAD 06:48
PROVIDERS: ATTEND Internal Medicine Hematology & Oncology
DX: Z45.2 Encounter for adjustment and management of vascular access device (principal); Z79.01 Long term (current) use of anticoagulants; C34.90 Malignant neoplasm of unspecified part of unspecified bronchus or lung
CPT/HCPCS: 36415; 36561; 76937; 77001; 85025; 85610; 99152; 99153; C1751; C1892; J0696; J1170; J2250; J3490; J0690

== ENCOUNTER → 2020-04-25 | Outpatient (CLI) | payer MEDICARE, OTHER ==
[~2020-04-25] MED LIST changes: +MAGN296S68 PO; +METH4TAB PO
[2020-04-25 10:36] VITALS: BP 113/81
[2020-04-25 12:10] LABS: CALCIUM 8.7 mg/dL (8.5-10.1); GFR 70.2; POTASSIUM 3.2 mmol/L (3.5-5.1)
[2020-04-25 12:17] LABS: ALBUMIN 2.2 g/dL (3.4-5.0); DIRECT BILIRUBIN 0.1 mg/dL (0.0-0.2); TOTAL BILIRUBIN 0.1 mg/dL (0.2-1.0); TOTAL PROTEIN 7.3 g/dL (6.4-8.2)
[2020-04-25 12:20] LABS: BASO % 0 % (0-3); EOS % 0 % (0-3); HEMATOCRIT 31.2 % (36.0-47.0); HEMOGLOBIN 9.9 g/dL (12.0-15.5); LYMPH # 0.4 x10^3/uL (1.0-4.8); LYMPH % 7 % (24-48); MEAN CORPUSCULAR HEMOGLOBIN 25 pg (25-35); MEAN CORPUSCULAR HGB CONC 32 g/dL (31-37); MEAN CORPUSCULAR VOLUME 79 fL (79-100); MONO # 0.6 x10^3/uL (0.0-1.1); MONO % 10 % (0-9); NEUT # 4.9 x10^3/uL (1.8-7.7); NEUT % 82 % (31-73); PLATELET COUNT 166 x10^3/uL (140-400); RED BLOOD COUNT 3.96 x10^6/uL (3.50-5.40); RED CELL DISTRIBUTION WIDTH 17.5 % (11.5-14.5)
[2020-04-25 13:31] LABS: BILIRUBIN,URINE NEGATIVE (NEG); CLARITY,URINE CLOUDY; COLOR,URINE YELLOW; NITRITE,URINE POSITIVE (NEG); PH,URINE 5.5 (<5.0-8.0); PROTEIN,URINE 30 mg/dL (NEG-TRACE); UROBILINOGEN,URINE 0.2 mg/dL (0.2 mg/dL)
[2020-04-25 13:38] LABS: GRANULAR CASTS,URINE OCCASIONAL /HPF; HYALINE CASTS, URINE FEW /HPF; SQUAMOUS EPITHELIAL CELL,UR MOD /LPF
[2020-04-25 13:39] LABS: BACTERIA,URINE MODERATE /HPF (0-FEW); RBC,URINE 0 /HPF (0-2); WBC,URINE >40 /HPF (0-4)
== END | disposition home or self-care (01) ==
LOC: SPEC 11:17
PROVIDERS: ATTEND Physician Assistant
DX: C34.82 Malignant neoplasm of overlapping sites of left bronchus and lung (principal); Z79.899 Other long term (current) drug therapy
CPT/HCPCS: 36415; 80048; 80076; 81001; 83615; 85025; 87086

== ENCOUNTER → 2020-05-09 | Emergency (ER) | payer MEDICARE, OTHER ==
[~2020-05-09] VITALS: Ht 180.3 cm; Wt 81.4 kg
[~2020-05-09] MED LIST changes: +ACET325T9 PO; +HYDROmorphone 2 MG/ML VIAL IV ONE; +MAGN296S68 PO; +METH4TAB PO; +OXYC10TA PO
--- NOTE | 2020-05-09 13:37 | RAD ---
Examination: Acute abdomen series HISTORY: History of abdominal pain, chest pain, constipation COMPARISON: None available. FINDINGS: The cardiomediastinal silhouette grossly appears unremarkable. Right-sided Port-A-Cath is identified. There is focal airspace opacity identified in the left upper lobe of the lung. No evidence of free air noted under the hemidiaphragms. The bowel gas pattern appears unremarkable. Diffuse amount of stool identified throughout the colon. IMPRESSION: 1. Diffuse amount of stool identified throughout the colon. Correlate for constipation. 2. Focal airspace opacity identified in the left upper lobe lung likely atelectasis or infiltrate or neoplasm. Close interval follow-up examination is recommended. Electronically signed by: Nigel Farias MD (05/09/2020 1:34 PM) [id number]
--- NOTE | 2020-05-09 13:46 | PHYS DOC ---
Past Medical History Past Medical History: CAD, CHF, High Cholesterol, Hypertension Additional Past Medical Histor: DJD. CARDIAC STENTS X 5, LUNG AND ADRENAL CANCER, ON RAIDATION THERAPY Past Surgical History: Other Additional Past Surgical Histo: cardiac stent, Smoking Status: Former Smoker Alcohol Use: None Drug Use: None General Adult EDM: Chief Complaint: SHORTNESS OF BREATH HPI: HPI: Patient is a 55 year old female who presents with pain in her abdomen that increases when she takes a deep breath this making her feel like she is short of breath. Patient states she woke up yesterday feeling abdominal pain all over that has slowly increased today to where it makes her feel short of breath and increases in pain to a 9 out of 10 when she takes a deep breath. Patient states otherwise she does not feel short of breath when she is laying down at rest. Patient reports having left lung cancer, left kidney cancer, left adrenal cancer. Patient reports being on radiation therapy her last radiation was 2 weeks ago. Patient was told that they burned her stomach during radiation and she may have problems with abdominal pain over the next several weeks. Patient reports vomiting yesterday x3 noting frothy phlegm in her vomitus, patient denies seeing blood or dark brown substance in her vomitus. Patient reports feeling constipated for the past week stating her last normal bowel movement was over a week ago. Patient states yesterday she had a hard nugget of stool. Patient denies other people living in her home having the same symptoms. Patient also complains of generalized body aches and joint pain that she associates after starting radiation therapy. Patient states that these joint pain and body aches is not her main concern today. Review of Systems: Review of Systems: Constitutional: Denies fever or chills. [] Eyes: Denies change in visual acuity. [] HENT: Denies nasal congestion or sore throat. [] Respiratory: Denies cough, reports shortness of breath with deep breathing that she associates with abdominal pain. [] Cardiovascular: Denies chest pain or edema. [] GI: Complains of abdominal pain all over, denies nausea, reports vomiting 3 times yesterday, denies bloody stools or diarrhea, reports constipation for the past week. [] : Denies dysuria. [] Musculoskeletal: Reports generalized body aches since starting radiation therapy. [] Integument: Denies rash. [] Neurologic: Denies headache, focal weakness or sensory changes. [] Endocrine: Denies polyuria or polydipsia. [] Lymphatic: Denies swollen glands. [] Psychiatric: Denies depression or anxiety. [] Heart Score: Risk Factors: Risk Factors: DM, Current or recent (<one month) smoker, HTN, HLP, family history of CAD, obesity. Risk Scores: Score 0 - 3: 2.5% MACE over next 6 weeks - Discharge Home Score 4 - 6: 20.3% MACE over next 6 weeks - Admit for Clinical Observation Score 7 - 10: 72.7% MACE over next 6 weeks - Early Invasive Strategies Family History: Family History: No significant family history of study associated with this visit Current Medications: Current Medications Medications (Trade) Dose Ordered Sig/Santos Start Time Stop Time Status Last Admin Dose Admin Hydromorphone HCl (Dilaudid) 1 mg 1X ONCE 05/09/20 13:00 05/09/20 13:01 DC Allergies: Allergies: Allergies Coded Allergies Type Severity Reaction Last Updated Verified atorvastatin Allergy Intermediate 04/03/20 Yes codeine Allergy Intermediate 04/03/20 Yes heparin Allergy Intermediate 04/03/20 Yes morphine Allergy Intermediate 04/03/20 Yes spironolactone Allergy Intermediate 04/03/20 Yes fentanyl Adverse Reaction Intermediate "makes me burn" 04/03/20 Yes Physical Exam: PE: Constitutional: Well developed, well nourished, no acute distress, non-toxic appearance. [] HENT: Normocephalic, atraumatic, bilateral external ears normal, oropharynx moist, no oral exudates, nose normal. [] Eyes: PERRLA, EOMI, conjunctiva normal, no discharge. [] Neck: Normal range of motion, no tenderness, supple, no stridor. [] Cardiovascular:Heart rate regular rhythm, no murmur [] Lungs & Thorax: Bilateral breath sounds clear to auscultation [] Abdomen: Bowel sounds hypoactive, soft, generalized tenderness to palpation, no masses, no pulsatile masses. [] Skin: Warm, dry, no erythema, no rash. [] Back: No tenderness, no CVA tenderness. [] Extremities: No tenderness, no cyanosis, no clubbing, ROM intact, no edema. [] Neurologic: Alert and oriented X 3, normal motor function, normal sensory function, no focal deficits noted. [] Psychologic: Affect normal, judgement normal, mood normal. [] Current Patient Data: Vital Signs: Vital Signs Date Time Temp Pulse Resp B/P (MAP) Pulse Ox O2 Delivery O2 Flow Rate FiO2 05/09/20 12:15 98.1 85 22 99/67 (78) 96 Room Air 98.1 EKG: EKG: EKG performed at 1416 today shows normal sinus rhythm with occasional premature ventricular complexes no STEMI noted reviewed by Dr. Rudolph Rees Radiology/Procedures: Radiology/Procedures: Examination: Acute abdomen series HISTORY: History of abdominal pain, chest pain, constipation COMPARISON: None available. FINDINGS: The cardiomediastinal silhouette grossly appears unremarkable. Right-sided Port-A-Cath is identified. There is focal airspace opacity identified in the left upper lobe of the lung. No evidence of free air noted under the hemidiaphragms. The bowel gas pattern appears unremarkable. Diffuse amount of stool identified throughout the colon. IMPRESSION: 1. Diffuse amount of stool identified throughout the colon. Correlate for constipation. 2. Focal airspace opacity identified in the left upper lobe lung likely atelectasis or infiltrate or neoplasm. Close interval follow-up examination is recommended. Electronically signed by: Nigel Farias MD (05/09/2020 1:34 PM) [id number] DICTATED and SIGNED BY: NIGEL FARIAS MD DATE: 05/09/20 1334 Course & Med Decision Making: Course & Med Decision Making Pertinent Labs and Imaging studies reviewed. (See chart for details) 55-year-old female arrived to the ER today with complaints of generalized diffuse abdominal pain that increases with deep breathing which made her feel as if she was short of breath otherwise when she does not deep breathe she has no problems breathing. Patient states that she vomited yesterday 3 times noting frothy phlegm in her vomitus, otherwise no blood or dark substances noted. Patient states she feels she is constipated as she has not had a normal bowel movement in over a week. Noting a hard single stool yesterday she described as a nugget. Patient has a recent history of left lung left kidney and left adrenal gland CA which she is currently under radiation therapy. Patient reports her last radiation was 2 weeks ago and was told they burned her stomach and to expect some abdominal problems over the next several weeks. Patient rated her pain a 9 out of 10 upon arrival. Patient Port-A-Cath was accessed and she was given 1 mg of Dilaudid which brought her pain from a 9/10 down to a 2/10. An acute abdomen series was ordered and read by radiologist to show concerns for constipation.Labs were also ordered, her CBC, CMP, lipase, and magnesium were unremarkable. A 12-lead EKG was done and reviewed by Dr. Rees, the EKG showed a sinus rhythm with occasional PVCs, no STEMI was noted. Patien t's BUN and creatinine were not concerning for acute renal failure. Plan of care is to discharge patient home with a prescription for magnesium citrate, follow-up with her primary care physician soon, return to ER for increased pain or any new problems. Reviewed discharge plan of care with patient, patient is agreeable to plan of care. Patient had no further questions. Dragon Disclaimer: Dragon Disclaimer: This electronic medical record was generated, in whole or in part, using a voice recognition dictation system. Departure Departure Impression: Primary Impression: Constipation Qualified Codes: K59.00 - Constipation, unspecified Additional Impression: Abdominal pain Qualified Codes: R10.84 - Generalized abdominal pain Disposition: HOME, SELF-CARE Condition: GOOD Referrals: RUPESH JIMÉNEZ (PCP) Patient Instructions: Abdominal Pain, Constipation, Adult Additional Instructions: Please take prescribed medication as directed, call your doctor to tell him your were here in the ER and are constipated and to see him soon. Return to the ER if problems worsen. Scripts Magnesium Citrate (MAGNESIUM CITRATE) 296 Ml Solution 296 ML PO ONCE for constipation, #296 ML 0 Refills Prov: LILIBETH HDEZ APRN 05/09/20 Justicifation of Admission Dx: Justifications for Admission: Justification of Admission Dx: N/A LILIBETH HDEZ APRN May 09, 2020 13:45
[2020-05-09 13:47] LABS: BASO # 0.1 x10^3/uL (0.0-0.2); BASO % 1 % (0-3); EOS # 0.1 x10^3/uL (0.0-0.7); EOS % 1 % (0-3); HEMATOCRIT 33.2 % (36.0-47.0); HEMOGLOBIN 10.7 g/dL (12.0-15.5); LYMPH # 0.8 x10^3/uL (1.0-4.8); LYMPH % 11 % (24-48); MEAN CORPUSCULAR HEMOGLOBIN 25 pg (25-35); MEAN CORPUSCULAR HGB CONC 32 g/dL (31-37); MEAN CORPUSCULAR VOLUME 78 fL (79-100); MONO # 0.9 x10^3/uL (0.0-1.1); MONO % 13 % (0-9); NEUT # 5.2 x10^3/uL (1.8-7.7); NEUT % 74 % (31-73); PLATELET COUNT 244 x10^3/uL (140-400); RED BLOOD COUNT 4.26 x10^6/uL (3.50-5.40); RED CELL DISTRIBUTION WIDTH 17.8 % (11.5-14.5)
[2020-05-09 13:55] LABS: CALCIUM 9.2 mg/dL (8.5-10.1); CREATININE 1.2 mg/dL (0.6-1.0); GFR 56.9; POTASSIUM 3.5 mmol/L (3.5-5.1)
[2020-05-09 14:02] LABS: ALBUMIN 2.6 g/dL (3.4-5.0); ALBUMIN/GLOBULIN RATIO 0.5 (1.0-1.7); MAGNESIUM 2.3 mg/dL (1.8-2.4); TOTAL BILIRUBIN 0.3 mg/dL (0.2-1.0)
--- NOTE | 2020-05-09 14:33 | EKG ---
[facility] [address] [place] [address] Test Date: 2020-05-09 Test Time: 14:16:53 Pat Name: VENU PALMER Department: Room: Gender: F Technology Administrator: : 1965 Requested By: LILIBETH HDEZ Order Number: [id number] Reading MD: Measurements Intervals [place] Rate: 83 P: 30 PA: 162 QRS: -23 QRSD: 102 T: 58 QT: 382 QTc: 449 Interpretive Statements SINUS RHYTHM VENTRICULAR PREMATURE COMPLEX(ES) LEFT ATRIAL ABNORMALITY LEFTWARD AXIS LEFT VENTRICULAR HYPERTROPHY ABNORMAL ECG RI6.02 No previous ECG available for comparison
[2020-05-09 15:18] VITALS: BP 96/64
== END ==
LOC: ER 12:00
DX: K59.00 Constipation, unspecified (principal); R10.84 Generalized abdominal pain; R11.2 Nausea with vomiting, unspecified; R06.02 Shortness of breath; I11.0 Hypertensive heart disease with heart failure; I50.9 Heart failure, unspecified; I25.10 Atherosclerotic heart disease of native coronary artery without angina pectoris; Z98.890 Other specified postprocedural states; Z87.891 Personal history of nicotine dependence; Z85.9 Personal history of malignant neoplasm, unspecified; Z88.5 Allergy status to narcotic agent; Z88.6 Allergy status to analgesic agent; Z88.8 Allergy status to other drugs, medicaments and biological substances
CPT/HCPCS: 36415; 74022; 80053; 83690; 83735; 85025; 93005; 96374; 99285; J1170

== ENCOUNTER → 2020-05-18 | Outpatient (CLI) | payer MEDICARE, OTHER ==
[2020-05-09 15:18] VITALS: BP 96/64
[~2020-05-18] MED LIST changes: -HYDROmorphone 2 MG/ML VIAL IV ONE
[2020-05-18 08:55] LABS: BASO % 1 % (0-3); EOS # 0.1 x10^3/uL (0.0-0.7); EOS % 2 % (0-3); HEMATOCRIT 35.1 % (36.0-47.0); HEMOGLOBIN 11.1 g/dL (12.0-15.5); LYMPH # 0.8 x10^3/uL (1.0-4.8); LYMPH % 14 % (24-48); MEAN CORPUSCULAR HEMOGLOBIN 25 pg (25-35); MEAN CORPUSCULAR HGB CONC 32 g/dL (31-37); MEAN CORPUSCULAR VOLUME 78 fL (79-100); MONO # 0.7 x10^3/uL (0.0-1.1); MONO % 13 % (0-9); NEUT # 4.2 x10^3/uL (1.8-7.7); NEUT % 71 % (31-73); PLATELET COUNT 192 x10^3/uL (140-400); RED CELL DISTRIBUTION WIDTH 18.5 % (11.5-14.5); WHITE BLOOD COUNT 5.9 x10^3/uL (4.0-11.0)
[2020-05-18 09:04] LABS: CALCIUM 8.9 mg/dL (8.5-10.1); CREATININE 1.1 mg/dL (0.6-1.0); GFR 62.9; POTASSIUM 3.6 mmol/L (3.5-5.1)
[2020-05-18 09:11] LABS: ALBUMIN 2.4 g/dL (3.4-5.0); ALBUMIN/GLOBULIN RATIO 0.4 (1.0-1.7); TOTAL BILIRUBIN 0.3 mg/dL (0.2-1.0); TOTAL PROTEIN 7.8 g/dL (6.4-8.2)
[2020-05-18 17:09] LABS: RHEUMATOID FACTOR 10.4 IU/mL (0.0-13.9)
[2020-05-19 13:13] LABS: KAPPA FREE 100.5 mg/L (3.3-19.4); KAPPA LAMBDA RATIO 2.45 (0.26-1.65); LAMBDA FREE 41.1 mg/L (5.7-26.3)
[2020-05-22 17:08] LABS: COMMENT IMMUNOFIX SERUM Note: (.); IMMUNOGLOBULIN A 266 mg/dL (87-352); IMMUNOGLOBULIN G 1822 mg/dL (586-1602); IMMUNOGLOBULIN M 68 mg/dL (26-217)
[2020-05-22 18:07] LABS: ALBUM 2.5 g/dL (2.9-4.4); ALPHA 1 0.3 g/dL (0.0-0.4); ALPHA 2 0.9 g/dL (0.4-1.0); BETA 1.1 g/dL (0.7-1.3); GAMMA 1.7 g/dL (0.4-1.8); PROTEIN TOTAL 6.5 g/dL (6.0-8.5); SPEP AG RATIO 0.6 (0.7-1.7)
[2020-05-22 19:07] LABS: ANA INTERP Negative (.)
== END ==
LOC: ONCLAB 08:41
PROVIDERS: ATTEND Internal Medicine Hematology & Oncology
DX: C34.82 Malignant neoplasm of overlapping sites of left bronchus and lung (principal); D89.2 Hypergammaglobulinemia, unspecified; M25.50 Pain in unspecified joint
CPT/HCPCS: 36415; 80053; 82024; 82533; 82784; 83520; 83615; 84165; 85025; 86038; 86334; 86431

== ENCOUNTER 2020-05-22 15:49 | Inpatient (IN) | payer MEDICARE, OTHER ==
[~2020-05-22] VITALS: Ht 154.9 cm; Wt 76.2 kg
[~2020-05-22 15:49] MED LIST changes: -OXYC-411 PO; +OXYC1TAB20 PO
[2020-05-22] MEDS ORDERED: IV NORMAL SALINE 1000ML BAG 1,000 ML IV ONE ×2 (16:00→18:30)
[2020-05-22] MEDS ORDERED: FAMOTIDINE 20 MG/2 ML VIAL IVP ONE (16:15)
[2020-05-22] MEDS ORDERED: diphenhydrAMINE 50 MG/ML VIAL IVP ONE (16:15)
[2020-05-22] MEDS ORDERED: METOCLOPRAMIDE HCL 10 MG/2 ML VIAL. IVP ONE (16:15)
[2020-05-22 16:26] LABS: BASO # 0.1 x10^3/uL (0.0-0.2); BASO % 1 % (0-3); EOS % 1 % (0-3); HEMATOCRIT 34.3 % (36.0-47.0); HEMOGLOBIN 10.9 g/dL (12.0-15.5); LYMPH % 15 % (24-48); MEAN CORPUSCULAR HEMOGLOBIN 25 pg (25-35); MEAN CORPUSCULAR HGB CONC 32 g/dL (31-37); MEAN CORPUSCULAR VOLUME 77 fL (79-100); MONO # 0.8 x10^3/uL (0.0-1.1); MONO % 12 % (0-9); NEUT # 4.7 x10^3/uL (1.8-7.7); NEUT % 71 % (31-73); PLATELET COUNT 167 x10^3/uL (140-400); RED BLOOD COUNT 4.45 x10^6/uL (3.50-5.40); RED CELL DISTRIBUTION WIDTH 18.6 % (11.5-14.5); WHITE BLOOD COUNT 6.5 x10^3/uL (4.0-11.0)
[2020-05-22 16:37] LABS: CALCIUM 8.6 mg/dL (8.5-10.1); CREATININE 1.1 mg/dL (0.6-1.0); GFR 62.9; POTASSIUM 4.3 mmol/L (3.5-5.1)
[2020-05-22 16:42] LABS: ALBUMIN 2.5 g/dL (3.4-5.0); ALBUMIN/GLOBULIN RATIO 0.5 (1.0-1.7); MAGNESIUM 2.1 mg/dL (1.8-2.4); TOTAL BILIRUBIN 0.4 mg/dL (0.2-1.0); TOTAL PROTEIN 7.6 g/dL (6.4-8.2)
[2020-05-22] MEDS ORDERED: HYDROmorphone 2 MG/ML VIAL IV ONE (16:45)
[2020-05-22 16:53] LABS: CREATINE KINASE 17 U/L (26-192)
[2020-05-22 17:13] LABS: PROTHROMBIN TIME PATIENT 13.6 SEC (11.7-14.0)
[2020-05-22] MEDS ORDERED: ONDANSETRON PF 4 MG/2 ML VIAL. IV PRN (17:45)
--- NOTE | 2020-05-22 17:45 | PHYS DOC ---
Past Medical History Past Medical History: CAD, Cancer, CHF, High Cholesterol, Hypertension Additional Past Medical Histor: DJD. CARDIAC STENTS X 5, LUNG AND ADRENAL CANCER, ON IMMUNO.THERPY Past Surgical History: Other Additional Past Surgical Histo: cardiac stent, PORT Smoking Status: Current Every Day Smoker Alcohol Use: None Drug Use: None General Adult EDM: Chief Complaint: NAUSEA/VOMITING/DIARRHA HPI: HPI: Patient is a 55 year old female presents with worsening chronic left lower abdominal pain with associated nausea and vomiting x 2 days. Hx of metastatic adenocarcinoma and is currently receiving immunotherapy. Reports some additional dizziness. Denies fever/chills. Denies known sick contacts. Denies trauma. Denies known exposure to COVID19. Patient had initially been seen at Cancer center, who requested patient present to ED for further evaluation and treatment. Review of Systems: Review of Systems: Constitutional: Denies fever or chills Eyes: Denies change in visual acuity, redness, or eye pain HENT: Denies nasal congestion or sore throat Respiratory: Denies cough or shortness of breath Cardiovascular: Denies chest pain or palpitations GI: Reports abdominal pain, nausea, and vomiting : Denies dysuria or hematuria Musculoskeletal: Denies back pain or joint pain Integument: Denies rash or skin lesions Neurologic: Denies headache, focal weakness or sensory changes; reports dizzi ness Complete systems were reviewed and found to be within normal limits, except as documented in this note. Current Medications: Current Medications Medications (Trade) Dose Ordered Sig/Santos Start Time Stop Time Status Last Admin Dose Admin Diphenhydramine HCl (Benadryl) 25 mg 1X ONCE 05/22/20 16:15 05/22/20 16:16 DC 05/22/20 16:47 25 MG Famotidine (Pepcid Vial) 20 mg 1X ONCE 05/22/20 16:15 05/22/20 16:16 DC 05/22/20 16:47 20 MG Hydromorphone HCl (Dilaudid) 0.5 mg 1X ONCE 05/22/20 16:45 05/22/20 16:46 DC 05/22/20 16:48 0.5 MG Metoclopramide HCl (Reglan Vial) 10 mg 1X ONCE 05/22/20 16:15 05/22/20 16:16 DC 05/22/20 16:47 10 MG Sodium Chloride 1,000 ml @ 1,000 mls/hr 1X ONCE 05/22/20 16:00 05/22/20 16:59 DC 05/22/20 16:47 1,000 MLS/HR Allergies: Allergies: Allergies Coded Allergies Type Severity Reaction Last Updated Verified atorvastatin Allergy Intermediate 04/03/20 Yes codeine Allergy Intermediate 04/03/20 Yes heparin Allergy Intermediate 04/03/20 Yes morphine Allergy Intermediate 04/03/20 Yes spironolactone Allergy Intermediate 04/03/20 Yes fentanyl Adverse Reaction Intermediate "makes me burn" 04/03/20 Yes Physical Exam: PE: Constitutional: Well developed, well nourished, no acute distress, non-toxic appearance HENT: Normocephalic, atraumatic Eyes: Conjunctiva normal, no discharge Neck: Normal range of motion, no tenderness, supple, no meningeal signs Lungs & Thorax: Equal chest rise and fall, no respiratory distress Abdomen: Soft, no tenderness Skin: Warm, dry, no erythema, no rash Back: No tenderness, no CVA tenderness Extremities: No tenderness, ROM intact, no edema Neurologic: Alert and oriented X 3, no focal deficits noted Psychologic: Affect normal, judgment normal Current Patient Data: Labs: Laboratory Tests Test 05/22/20 16:15 White Blood Count 6.5 x10^3/uL (4.0-11.0) Red Blood Count 4.45 x10^6/uL (3.50-5.40) Hemoglobin 10.9 g/dL (12.0-15.5) L Hematocrit 34.3 % (36.0-47.0) L Mean Corpuscular Volume 77 fL (79-100) L Mean Corpuscular Hemoglobin 25 pg (25-35) Mean Corpuscular Hemoglobin Concent 32 g/dL (31-37) Red Cell Distribution Width 18.6 % (11.5-14.5) H Platelet Count 167 x10^3/uL (140-400) Neutrophils (%) (Auto) 71 % (31-73) Lymphocytes (%) (Auto) 15 % (24-48) L Monocytes (%) (Auto) 12 % (0-9) H Eosinophils (%) (Auto) 1 % (0-3) Basophils (%) (Auto) 1 % (0-3) Neutrophils # (Auto) 4.7 x10^3/uL (1.8-7.7) Lymphocytes # (Auto) 1.0 x10^3/uL (1.0-4.8) Monocytes # (Auto) 0.8 x10^3/uL (0.0-1.1) Eosinophils # (Auto) 0.0 x10^3/uL (0.0-0.7) Basophils # (Auto) 0.1 x10^3/uL (0.0-0.2) Prothrombin Time 13.6 SEC (11.7-14.0) Prothrombin Time INR 1.1 (0.8-1.1) Activated Partial Thromboplast Time 32 SEC (24-38) Sodium Level 138 mmol/L (136-145) Potassium Level 4.3 mmol/L (3.5-5.1) Chloride Level 103 mmol/L (98-107) Carbon Dioxide Level 27 mmol/L (21-32) Anion Gap 8 (6-14) Blood Urea Nitrogen 13 mg/dL (7-20) Creatinine 1.1 mg/dL (0.6-1.0) H Estimated GFR (Cockcroft-Gault) 62.9 BUN/Creatinine Ratio 12 (6-20) Glucose Level 90 mg/dL (70-99) Calcium Level 8.6 mg/dL (8.5-10.1) Magnesium Level 2.1 mg/dL (1.8-2.4) Total Bilirubin 0.4 mg/dL (0.2-1.0) Aspartate Amino Transferase (AST) 11 U/L (15-37) L Alanine Aminotransferase (ALT) 7 U/L (14-59) L Alkaline Phosphatase 99 U/L (46-116) Creatine Kinase 17 U/L (26-192) L Creatine Kinase MB (Mass) < 0.5 ng/mL (0.0-3.6) Creatine Kinase MB Relative Index % (0-4) Troponin I Quantitative < 0.017 ng/mL (0.000-0.055) Total Protein 7.6 g/dL (6.4-8.2) Albumin 2.5 g/dL (3.4-5.0) L Albumin/Globulin Ratio 0.5 (1.0-1.7) L Lipase 45 U/L (73-393) L Laboratory Tests 05/22/20 16:15 Laboratory Tests 05/22/20 16:15 Vital Signs: Vital Signs Date Time Temp Pulse Resp B/P (MAP) Pulse Ox O2 Delivery O2 Flow Rate FiO2 05/22/20 16:48 14 99 Room Air 05/22/20 15:56 99.0 76 159/107 (124) 99.0 EKG: EKG: @1608 NSR at 87bpm, NO ST elevation, QRS 94ms, QT/QTc 370/451ms Radiology/Procedures: Radiology/Procedures: [] Course & Med Decision Making: Course & Med Decision Making Pertinent Lab studies reviewed. 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 Patient with continued nausea and vomiting and exacerbation of chronic abdominal pain. Symptomatic treatment provided. Labs obtained and posted to chart. Patient requiring admission for further evaluation and treatment. Discussed with Dr. Brennna (covering for Dr. Cortes, who admits for PCP) who is in agreement with admission. Discussed findings and plan with patient, who acknowledges under standing and agreement. Dragon Disclaimer: Dragon Disclaimer: This electronic medical record was generated, in whole or in part, using a voice recognition dictation system. Departure Departure Impression: Primary Impression: Intractable nausea and vomiting Additional Impression: Metastatic squamous cell carcinoma Disposition: ADMITTED INPATIENT Admitting Physician: Madi. Hopper (Covering for Dr. Cortse, who admits for PCP) Condition: STABLE Referrals: RUPESH JIMÉNEZ (PCP) Justicifation of Admission Dx: Justifications for Admission: Justification of Admission Dx: Yes Comments: Intractable N/V, Metastatic squamous cell carcinoma LILIBETH HAYWOOD DO May 22, 2020 17:45
[2020-05-22] MEDS: HYDROmorphone 2 MG/ML VIAL IV PRN ×2 (18:32→22:34)
[2020-05-22 21:30] VITALS: BP 188/121
[2020-05-22 23:00] VITALS: BP 185/114
[2020-05-22] MEDS: hydrALAZINE 20 MG/ML VIAL. IVP PRN (23:10)
[2020-05-23] MEDS: HYDROmorphone 2 MG/ML VIAL IV PRN ×4 (01:45→18:27)
[2020-05-23 01:49] LABS: BILIRUBIN,URINE NEGATIVE (NEG); CLARITY,URINE CLEAR; COLOR,URINE YELLOW; NITRITE,URINE NEGATIVE (NEG); PROTEIN,URINE NEGATIVE (NEG-TRACE)
[2020-05-23 01:51] LABS: BACTERIA,URINE MANY /HPF (0-FEW); HYALINE CASTS, URINE FEW /HPF; RBC,URINE OCC /HPF (0-2); SQUAMOUS EPITHELIAL CELL,UR MANY /LPF; WBC,URINE TNTC /HPF (0-4)
[2020-05-23 03:00] VITALS: BP 178/113
[2020-05-23] MEDS: hydrALAZINE 20 MG/ML VIAL. IVP PRN ×3 (08:53→20:42)
--- NOTE | 2020-05-23 10:02 | NUR ---
SW following. Discussed with RN, pt from home with daughter, room air, clear liquid diet. Pt getting pain meds and IV hydralazine for BP. RN advised no SW needs at this time. SW will continue to follow.
[2020-05-23 11:00] VITALS: BP 148/99
[2020-05-23] MEDS: PROCHLORPERAZINE 10 MG/2 ML VIAL. IV PRN ×2 (11:10→20:39)
[2020-05-23] MEDS ORDERED: FLUTICASONE 50MCG/NASAL SPRAY 16GM BOTTLE. NS PRN (12:15)
[2020-05-23] MEDS ORDERED: DOCUSATE SODIUM 283 MG/5 ML ENEMA. PR PRN (12:15)
[2020-05-23] MEDS ORDERED: IOHEXOL 350 MG/ML 100 ML VIAL. IV ONE (13:00)
--- NOTE | 2020-05-23 13:05 | PN ---
DATE: SUBJECTIVE: The patient is sitting slightly propped up in bed, in no apparent respiratory distress. She continued to complain of shortness of breath, also feeling dizzy and lightheaded. She apparently managed to take some of her clear liquid diet this morning, but has not been able to eat, has not eaten anything for lunch. PHYSICAL EXAMINATION: GENERAL: When I examined her this afternoon, she looked pale, no jaundice, cyanosis or thyromegaly. No jugular venous distention. No limb edema. VITAL SIGNS: Her heart rate was 86, blood pressure 159/108, her temperature was 98.5, respiratory rate was 18 and oxygen saturation was 96 percent on room air. HEAD, EYES, EARS, NOSE AND THROAT: Showed she is normocephalic, atraumatic. NECK: Supple. HEART: Showed normal first and second heart sounds. No gallop or murmur. CHEST: Clear to auscultation. No crepitation or rhonchi. There is reduced air entry on the left side seemed to be more than the right side. I could not appreciate any crepitation or rhonchi. ABDOMEN: Slight distended, soft, nontender. NEUROLOGIC: She is awake, alert, responding appropriately. All cranial nerves intact. She moves her extremities without difficulty. Her intake and output were incompletely recorded. LABORATORY DATA: She has no lab work done this morning except that her urine was yellow, clear with a pH of 7, specific gravity of 1.010. The urine was negative for protein, glucose, ketones, trace of blood, negative for nitrite, moderate amount of leukocyte esterase, occasional rbc's, too numerous to count wbc's and many bacteria. ASSESSMENT: 1. In summary, this is a 55-year-old -[place] female patient who was admitted with intractable nausea and vomiting and abdominal pain. She is known to have lung cancer with stage 4 with metastasis to adrenal gland that apparently has increased in size. 2. Urinary tract infection. 3. Shortness of breath, which could be multifactorial. PLAN: According to her daughter, she is mostly bedbound. So, I decided to arrange for her to have a CT scan of the chest for pulmonary embolism. Other medical problems include coronary artery disease, status post PCI with stent deployment, hypertension, hyperlipidemia. I did start her on procalamine, IV Rocephin for urinary tract infection, increased hydromorphone to 1 mg every 3 hours. I will repeat all her lab works tomorrow and dependent on the finding on CT angio of the chest, will decide whether the shortness of breath because of the enlarging lung cancer, PE or pneumonia. RUPESH RICH MD DR: ELGIN/trent JOB#: [id number] / [id number]
[2020-05-23] MEDS: cefTRIAXone IV Push 1 GM VIAL. IVP SCH (13:20)
[2020-05-23] MEDS: AMINO AC 3%/ELECTROLYTE/GLYCER 1,000 ML IV SCH (13:24)
--- NOTE | 2020-05-23 13:40 | HP ---
ADMIT DATE: HISTORY OF PRESENT ILLNESS: The patient is a 55-year-old -Iranian female patient who apparently was at the oncologist's office. She apparently was admitted intractable nausea and vomiting and there was a plan for her to have a CT scan of the head, but she was not feeling well and because she continued to be nauseous and vomiting constantly she was transferred [facility] she was evaluated. She apparently is known to have metastatic squamous cell cancer of the lung to adrenal gland, which was diagnosed in 03/2020 and therefore, the patient was admitted for pain management as well as treatment of her nausea and vomiting. PAST MEDICAL HISTORY: Significant for coronary artery disease, status post PCI with stent deployment, hypertension, hyperlipidemia, cancer of the lung with adrenal metastasis. PAST SURGICAL HISTORY: Significant for PCI with stent deployment. She apparently had and cardiac stenting. FAMILY HISTORY: Significant for cancer in her father with leukemia, sister with breast cancer and other family members have coronary artery disease. SOCIAL HISTORY: She apparently smokes a pack a day for 20 days, quit 1 year ago. She does not drink alcohol or use recreational drugs. She lives with her family. REVIEW OF SYSTEMS: The patient did apparently complained of shortness of breath and feeling dizzy. PHYSICAL EXAMINATION: GENERAL: On arrival to the Emergency Room, she apparently looked pale, no jaundice, cyanosis or thyromegaly. No jugular venous distention. No lower limb edema. VITAL SIGNS: Her heart rate was 76, blood pressure 159/107, temperature was 99, respiratory rate was 14 and oxygen saturation was 99%. HEAD, EYES, EARS, NOSE AND THROAT: Normocephalic, atraumatic. NECK: Supple. HEART: Showed normal first and second heart sounds. No gallop or murmur. CHEST: Clear to auscultation. No crepitation or rhonchi. ABDOMEN: Distended, soft, nontender. No guarding or rigidity. No organomegaly. All hernial orifice intact. Bowel sounds normal. NEUROLOGIC: She was awake, alert, responding appropriately. All cranial nerves intact. EXTREMITIES: She moves extremities without difficulty. LABORATORY DATA: Her lab work on arrival showed a white cell count of 6500, hemoglobin was 11, hematocrit 34, MCV 77 and platelet count of 167,000. Her chemistry showed a serum sodium of 138, potassium 4.3, chloride 103, bicarbonate 27, anion gap of 8, BUN 13, creatinine 1.1, estimated GFR was 62 mL per minute. Her glucose was 90, calcium was 8.6, magnesium was 2.1. Total bilirubin, AST, ALT, alkaline phosphatase were normal. Total protein was 7.6, albumin was 2.5. Lipase was 45. Her prothrombin time was 13.6, INR 1.1, aPTT was 32. Urinalysis showed the urine was yellow, clear with a pH of 7, specific gravity of 1.010. The urine was negative for protein, glucose, ketones. There was trace of blood, negative for nitrite, moderate amount of leukocyte esterase, occasional rbc's, too numerous to count wbc's and many bacteria. ASSESSMENT AND PLAN: The patient was admitted, given IV fluid and started on hydromorphone, IV fluid, and antiemetic. I will also start her on antibiotic as her urinalysis showed that she has too numerous to count wbc's and many bacteria. RUPESH RICH MD DR: ELGIN/trent JOB#: [id number] / [id number]
--- NOTE | 2020-05-23 14:06 | RAD ---
Examination: CT ANGIOGRAPHY CHEST History: Reason: worsening shortness of breath / Spl. Instructions: IV OMNI 350 100 MLS / History: Comparison/Correlation: 04/21/2020 PET/CT exam, 05/01/2020 CT abdomen and pelvis with contrast Findings: Axial images of the chest were obtained following IV contrast according to pulmonary therapy protocol. Sagittal and coronal reformatted images were provided. Maximum intensity projection images were provided. Motion limits evaluation at the lung bases. Thyroid gland is diffusely enlarged greater on the right. Right-sided infusion port catheter is identified with its tip terminating at the superior cavoatrial junction. Significant coronary calcification is noted diffusely. Pulmonary arterial vasculature is normal with no thromboembolic disease. Interval development of right lower lobe 0.8 cm diameter nodule is present on axial image 87 of series 3. Left upper lobe spiculated mass is present and extends towards the anterolateral left upper pleural and to the left hilum. Interval cavitation of this mass is noted. The mass measures 3.3 cm transverse by 2.3 cm anteroposterior mass. Aorticopulmonary window lymphadenopathy and left hilar as well as subcarinal lymphadenopathy are again seen without significant change. Very small left pleural effusion is present. Thoracic aorta is unremarkable. Large necrotic appearing left adrenal mass is again identified without significant change considering differences in measurement technique measuring approximately 8 cm x 5.6 cm. Bony structures are grossly unremarkable. Impression: No pulmonary arterial thromboembolic disease although evaluation is limited the lung bases due to motion. New right lower lobe pulmonary nodule presumably representing metastasis. Interval partial cavitation of the left upper lobe mass. Thoracic lymphadenopathy is unchanged. Left adrenal mass again seen without significant change. PQRS Compliance Statement: One or more of the following individualized dose reduction techniques were utilized for this examination: 1. Automated exposure control 2. Adjustment of the mA and/or kV according to patient size 3. Use of iterative reconstruction technique Electronically signed by: Osito Martinez MD (05/23/2020 2:03 PM) [id number]
--- NOTE | 2020-05-23 14:14 | PDOC2 ---
CONSULT Date of Consult Date of Consult DATE: 05/23/20 TIME: 14:08 Reason for Consult Reason for Consult: Squamous cell carcinoma, admitted to the hospital with intractable nausea and vomiting Referring Physician Referring Physician: Dr. Brennan Identification/Chief Complaint Chief Complaint Nausea and vomiting Problems: (1) Metastatic squamous cell carcinoma (2) Intractable nausea and vomiting (3) Epigastric abdominal pain Source Source: Chart review, Patient History of Present Illness Reason for Visit: Sarah Gorman is a 55-year-old -[place]ian female who has been admitted to the hospital after presenting to the clinic yesterday with intractable nausea and vomiting. 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 She had been started on systemic therapy with ipilimumab and nivolumab in April 2020. She had also completed palliative radiation to bulky adrenal metastasis. She has had multiple hospitalizations and emergency room visits over the past month due to similar complaints of abdominal pain and nausea as well as vomiting. She had called the oncology office on 05/22/2020 reporting nausea and was seen in our clinic. Due to persistent dizziness, nausea after hydration and administration of IV antiemetics, she was sent to the emergency room for further evaluation. She has been admitted to the hospital and received further hydration overnight. She reports that she continues to feel dizzy but overall feels better. Her daughter was at her outpatient visit yesterday but was not at bedside today. Sarah does not report any new symptoms since yesterday. She denies fever or chills. She denies diarrhea. She has yet to have a bowel movement in several days. Past Medical History Cardiovascular: CAD, HTN, [place], Hyperlipidemia, Other Pulmonary: COPD, Other CENTRAL NERVOUS SYSTEM: Other GI: Peptic Ulcer disease Heme/Onc: No pertinent hx, Cancer Hepatobiliary: No pertinent hx Psych: No pertinent hx Musculoskeletal: Osteoarthritis Rheumatologic: No pertinent hx Renal/: No pertinent hx, Other Endocrine: No pertinent hx Past Surgical History Past Surgical History: , Other Family History Family History: Coronary Artery Disease Social History ALCOHOL: none Drugs: None Lives: with Family Domestic Violence: Neg Current Problem List Problem List Problems Medical Problems: (1) Intractable nausea and vomiting Status: Acute (2) Metastatic squamous cell carcinoma Status: Acute Current Medications Current Medications Current Medications Sodium Chloride 1,000 ml @ 1,000 mls/hr 1X ONCE IV Last administered on 05/22/20at 16:47; Start 05/22/20 at 16:00; Stop 05/22/20 at 16:59; Status DC Famotidine (Pepcid Vial) 20 mg 1X ONCE IVP Last administered on 05/22/20at 16:47; Start 05/22/20 at 16:15; Stop 05/22/20 at 16:16; Status DC Metoclopramide HCl (Reglan Vial) 10 mg 1X ONCE IVP Last administered on 05/22/20at 16:47; Start 05/22/20 at 16:15; Stop 05/22/20 at 16:16; Status DC Diphenhydramine HCl (Benadryl) 25 mg 1X ONCE IVP Last administered on 05/22/20at 16:47; Start 05/22/20 at 16:15; Stop 05/22/20 at 16:16; Status DC Hydromorphone HCl (Dilaudid) 0.5 mg 1X ONCE IV Last administered on 05/22/20at 16:48; Start 05/22/20 at 16:45; Stop 05/22/20 at 16:46; Status DC Ondansetron HCl (Zofran) 4 mg PRN Q8HRS PRN IV NAUSEA/VOMITING; Start 05/22/20 at 17:45; Stop 05/23/20 at 10:51; Status DC Hydromorphone HCl (Dilaudid) 0.5 mg PRN Q4HRS PRN IV PAIN Last administered on 05/22/20at 22:34; Start 05/22/20 at 17:45; Stop 05/22/20 at 22:51; Status DC Sodium Chloride 1,000 ml @ 100 mls/hr 1X ONCE IV Last administered on 05/22/20at 18:31; Start 05/22/20 at 18:30; Stop 05/23/20 at 04:29; Status DC Hydralazine HCl (Apresoline Inj) 10 mg PRN Q4HRS PRN IVP ELEVATED BP, SEE COMMENTS Last administered on 05/22/20at 23:10; Start 05/22/20 at 22:45 Hydromorphone HCl (Dilaudid) 0.5 mg PRN Q3HRS PRN IV PAIN Last administered on 05/23/20at 11:10; Start 05/22/20 at 23:00; Stop 05/23/20 at 12:42; Status DC Hydralazine HCl (Apresoline Inj) 20 mg PRN Q4HRS PRN IVP ELEVATED BP, SEE COMMENTS Last administered on 05/23/20at 08:53; Start 05/23/20 at 08:45 Ondansetron HCl (Zofran) 4 mg PRN Q4HRS PRN IV NAUSEA/VOMITING; Start 05/23/20 at 11:00 Prochlorperazine Edisylate (Compazine) 10 mg PRN Q6HRS PRN IV NAUSEA/VOMITING Last administered on 05/23/20at 11:10; Start 05/23/20 at 11:00 Fluticasone Propionate (Flonase) 2 spray PRN DAILY PRN NS ALLERGIES; Start 05/23/20 at 12:15 Docusate Sodium (Enemeez) 283 mg 1X PRN NC CONSTIPATION; Start 05/23/20 at 12:15 Ceftriaxone Sodium (Rocephin) 1 gm Q24H IVP Last administered on 05/23/20at 13:20; Start 05/23/20 at 12:45 Hydromorphone HCl (Dilaudid) 1 mg PRN Q3HRS PRN IV PAIN; Start 05/23/20 at 12:45 Amino Acids/ Glycerin/ Electrolytes 1,000 ml @ 80 mls/hr [id number] IV Last administered on 05/23/20at 13:24; Start 05/23/20 at 13:00 Iohexol (Omnipaque 350 Mg/ml) 100 ml 1X ONCE IV Last administered on 05/23/20at 13:13; Start 05/23/20 at 13:00; Stop 05/23/20 at 13:03; Status DC Active Scripts Active Medrol (Methylprednisolone) 4 Mg Tablet 4 Mg PO BID 7 Days Reglan (Metoclopramide Hcl) 10 Mg Tablet 1 Tab PO TID PRN 5 Days before food and bedtime Klor-Con M20 (Potassium Chloride) 20 Meq Tab.er.prt 20 Meq PO DAILYWBKFT 30 Days Zofran (Ondansetron Hcl) 8 Mg Tablet 1 Tab PO Q8HRS Reported Tylenol (Acetaminophen) 325 Mg Tablet 500 Mg PO PRN Q4-6HRS PRN Oxycodone Hcl Immed.release (Oxycodone Hcl) 10 Mg Tablet 1 Tab PO QIDPRN PRN MDD 4 Tablet(s) 30 Days Clopidogrel (Clopidogrel Bisulfate) 75 Mg Tablet 75 Mg PO DAILY HOLD til 05/25 Aspirin 81 Mg Tab.chew 1 Tab PO DAILY HOLD til 05/25 NITROGLYCERIN SubLingual (Nitroglycerin) 0.4 Mg Tab.subl 0.4 Mg SL PRN Q5MIN PRN Hydralazine Hcl 25 Mg Tablet 1 Tab PO TID Diphenhydramine Hcl 25 Mg Capsule 1 Tab PO PRN DAILY PRN Amlodipine Besylate 5 Mg Tablet 10 Mg PO DAILY Isosorbide Mononitrate Er (Isosorbide Mononitrate) 60 Mg Tab.er.24h 1 Tab PO DAILY Torsemide 20 Mg Tablet 60 Mg PO DAILY Crestor (Rosuvastatin Calcium) 20 Mg Tablet 2 Tab PO DAILY Carvedilol 25 Mg Tablet 2 Tab PO BID Allergies Allergies: Coded Allergies: atorvastatin (Verified Allergy, Intermediate, 04/03/20) codeine (Verified Allergy, Intermediate, 04/03/20) heparin (Verified Allergy, Intermediate, 04/03/20) morphine (Verified Allergy, Intermediate, 04/03/20) Tolerates hydromorphone spironolactone (Verified Allergy, Intermediate, 04/03/20) fentanyl (Verified Adverse Reaction, Intermediate, "makes me burn", 04/03/20) ROS General: YES: Chills, Appetite (Decreased appetite) PSYCHOLOGICAL ROS: YES: Anxiety HEENT: YES: Heacaches, Nasal congestion Physical Exam General: Alert, Oriented X3, mild distress HEENT: Atraumatic Lungs: Clear to auscultation Heart: Regular rate, No murmurs Abdomen: Normal bowel sounds, Soft, Other (Tender to palpation, no rebound) Extremities: No clubbing, No edema Skin: No rashes Psych/Mental Status: Mental status NL MUSCULOSKELETAL: No swelling Vitals VITALS Vital Signs Date Time Temp Pulse Resp B/P (MAP) Pulse Ox O2 Delivery O2 Flow Rate FiO2 05/23/20 11:40 100 Room Air 05/23/20 11:00 98.5 95 18 148/99 (115) 98.5 Labs Labs Laboratory Tests Test 05/22/20 16:15 05/23/20 01:10 White Blood Count 6.5 x10^3/uL (4.0-11.0) Red Blood Count 4.45 x10^6/uL (3.50-5.40) Hemoglobin 10.9 g/dL (12.0-15.5) Hematocrit 34.3 % (36.0-47.0) Mean Corpuscular Volume 77 fL (79-100) Mean Corpuscular Hemoglobin 25 pg (25-35) Mean Corpuscular Hemoglobin Concent 32 g/dL (31-37) Red Cell Distribution Width 18.6 % (11.5-14.5) Platelet Count 167 x10^3/uL (140-400) Neutrophils (%) (Auto) 71 % (31-73) Lymphocytes (%) (Auto) 15 % (24-48) Monocytes (%) (Auto) 12 % (0-9) Eosinophils (%) (Auto) 1 % (0-3) Basophils (%) (Auto) 1 % (0-3) Neutrophils # (Auto) 4.7 x10^3/uL (1.8-7.7) Lymphocytes # (Auto) 1.0 x10^3/uL (1.0-4.8) Monocytes # (Auto) 0.8 x10^3/uL (0.0-1.1) Eosinophils # (Auto) 0.0 x10^3/uL (0.0-0.7) Basophils # (Auto) 0.1 x10^3/uL (0.0-0.2) Prothrombin Time 13.6 SEC (11.7-14.0) Prothromb Time International Ratio 1.1 (0.8-1.1) Activated Partial Thromboplast Time 32 SEC (24-38) Sodium Level 138 mmol/L (136-145) Potassium Level 4.3 mmol/L (3.5-5.1) Chloride Level 103 mmol/L (98-107) Carbon Dioxide Level 27 mmol/L (21-32) Anion Gap 8 (6-14) Blood Urea Nitrogen 13 mg/dL (7-20) Creatinine 1.1 mg/dL (0.6-1.0) Estimated GFR (Cockcroft-Gault) 62.9 BUN/Creatinine Ratio 12 (6-20) Glucose Level 90 mg/dL (70-99) Calcium Level 8.6 mg/dL (8.5-10.1) Magnesium Level 2.1 mg/dL (1.8-2.4) Total Bilirubin 0.4 mg/dL (0.2-1.0) Aspartate Amino Transf (AST/SGOT) 11 U/L (15-37) Alanine Aminotransferase (ALT/SGPT) 7 U/L (14-59) Alkaline Phosphatase 99 U/L (46-116) Creatine Kinase 17 U/L (26-192) Creatine Kinase MB (Mass) < 0.5 ng/mL (0.0-3.6) Creatine Kinase MB Relative Index % (0-4) Troponin I Quantitative < 0.017 ng/mL (0.000-0.055) Total Protein 7.6 g/dL (6.4-8.2) Albumin 2.5 g/dL (3.4-5.0) Albumin/Globulin Ratio 0.5 (1.0-1.7) Lipase 45 U/L (73-393) Urine Collection Type Unknown Urine Color Yellow Urine Clarity Clear Urine pH 7.0 (<5.0-8.0) Urine Specific [place] 1.010 (1.000-1.030) Urine Protein Negative mg/dL (NEG-TRACE) Urine Glucose (UA) Negative mg/dL (NEG) Urine Ketones (Stick) Negative mg/dL (NEG) Urine Blood Trace (NEG) Urine Nitrite Negative (NEG) Urine Bilirubin Negative (NEG) Urine Urobilinogen Dipstick 1.0 mg/dL (0.2 mg/dL) Urine Leukocyte Esterase Moderate (NEG) Urine RBC Occ /HPF (0-2) Urine WBC Tntc /HPF (0-4) Urine Squamous Epithelial Cells Many /LPF Urine Bacteria Many /HPF (0-FEW) Urine Hyaline Casts Few /HPF Urine Mucus Mod /LPF Laboratory Tests Test 05/22/20 16:15 05/23/20 01:10 White Blood Count 6.5 x10^3/uL (4.0-11.0) Red Blood Count 4.45 x10^6/uL (3.50-5.40) Hemoglobin 10.9 g/dL (12.0-15.5) Hematocrit 34.3 % (36.0-47.0) Mean Corpuscular Volume 77 fL (79-100) Mean Corpuscular Hemoglobin 25 pg (25-35) Mean Corpuscular Hemoglobin Concent 32 g/dL (31-37) Red Cell Distribution Width 18.6 % (11.5-14.5) Platelet Count 167 x10^3/uL (140-400) Neutrophils (%) (Auto) 71 % (31-73) Lymphocytes (%) (Auto) 15 % (24-48) Monocytes (%) (Auto) 12 % (0-9) Eosinophils (%) (Auto) 1 % (0-3) Basophils (%) (Auto) 1 % (0-3) Neutrophils # (Auto) 4.7 x10^3/uL (1.8-7.7) Lymphocytes # (Auto) 1.0 x10^3/uL (1.0-4.8) Monocytes # (Auto) 0.8 x10^3/uL (0.0-1.1) Eosinophils # (Auto) 0.0 x10^3/uL (0.0-0.7) Basophils # (Auto) 0.1 x10^3/uL (0.0-0.2) Prothrombin Time 13.6 SEC (11.7-14.0) Prothromb Time International Ratio 1.1 (0.8-1.1) Activated Partial Thromboplast Time 32 SEC (24-38) Sodium Level 138 mmol/L (136-145) Potassium Level 4.3 mmol/L (3.5-5.1) Chloride Level 103 mmol/L (98-107) Carbon Dioxide Level 27 mmol/L (21-32) Anion Gap 8 (6-14) Blood Urea Nitrogen 13 mg/dL (7-20) Creatinine 1.1 mg/dL (0.6-1.0) Estimated GFR (Cockcroft-Gault) 62.9 BUN/Creatinine Ratio 12 (6-20) Glucose Level 90 mg/dL (70-99) Calcium Level 8.6 mg/dL (8.5-10.1) Magnesium Level 2.1 mg/dL (1.8-2.4) Total Bilirubin 0.4 mg/dL (0.2-1.0) Aspartate Amino Transf (AST/SGOT) 11 U/L (15-37) Alanine Aminotransferase (ALT/SGPT) 7 U/L (14-59) Alkaline Phosphatase 99 U/L (46-116) Creatine Kinase 17 U/L (26-192) Creatine Kinase MB (Mass) < 0.5 ng/mL (0.0-3.6) Creatine Kinase MB Relative Index % (0-4) Troponin I Quantitative < 0.017 ng/mL (0.000-0.055) Total Protein 7.6 g/dL (6.4-8.2) Albumin 2.5 g/dL (3.4-5.0) Albumin/Globulin Ratio 0.5 (1.0-1.7) Lipase 45 U/L (73-393) Urine Collection Type Unknown Urine Color Yellow Urine Clarity Clear Urine pH 7.0 (<5.0-8.0) Urine Specific [place] 1.010 (1.000-1.030) Urine Protein Negative mg/dL (NEG-TRACE) Urine Glucose (UA) Negative mg/dL (NEG) Urine Ketones (Stick) Negative mg/dL (NEG) Urine Blood Trace (NEG) Urine Nitrite Negative (NEG) Urine Bilirubin Negative (NEG) Urine Urobilinogen Dipstick 1.0 mg/dL (0.2 mg/dL) Urine Leukocyte Esterase Moderate (NEG) Urine RBC Occ /HPF (0-2) Urine WBC Tntc /HPF (0-4) Urine Squamous Epithelial Cells Many /LPF Urine Bacteria Many /HPF (0-FEW) Urine Hyaline Casts Few /HPF Urine Mucus Mod /LPF Images Images Reviewed radiology Assessment/Plan Assessment/Plan Sarah Gorman is a 55-year-old -[place] female with metastatic squamous cell carcinoma of the lung who has been admitted for further evaluation and management of intractable nausea and vomiting Problems: Metastatic squamous cell carcinoma with adrenal metastasis Intractable nausea and vomiting Abdominal pain Generalized weakness Dizziness Opiate-induced constipation Recommendations: Agree with hydration and supportive care per hospitalist physician Would recommend MRI brain for further evaluation for brain metastasis given dizziness and nausea and known diagnosis of non-small cell lung cancer Would recommend orthostatic vital signs to determine need for further hydration given ongoing dizziness Recommend Fleet enema given constipation Can consider CT abdomen for evaluation of abdominal pain if persistent We will arrange for oncology follow-up at the time of dismissal from hospital Venancio Prescott MD Medical Oncology/Hematology Ph: [phone] SANDRA PRESCOTT MD May 23, 2020 14:14
[2020-05-23 15:00] VITALS: BP 181/115
[2020-05-23 16:30] VITALS: BP 153/102
[2020-05-23] MEDS ORDERED: METHYLNALTREXONE 12 MG/0.6 ML VIAL. SQ ONE (16:30)
[2020-05-23] MEDS: ONDANSETRON PF 4 MG/2 ML VIAL. IV PRN (17:01)
--- NOTE | 2020-05-23 18:23 | NUR ---
Patient complaining of stuffy nose, difficulty breathing, and constipation today. Per oncology, flonase spray was ordered and an enema which patient refused since she states she doesnt want to sit up long enough to take the enema. Dr Brennan also notified. Order for CT chest done and read back to Dr Brennan with no new orders. New order for Relistor subQ ordered X1 and given for constipation in which patient was able to have a bowel movement. Pain medication increased and given when due/upon request. PRN zofran and compazine given as well. Will continue to monitor.
[2020-05-23 19:00] VITALS: BP 198/150
--- NOTE | 2020-05-23 20:33 | NUR ---
pt refusing hydralazine @ this time
[2020-05-23 23:00] VITALS: BP 164/116
[2020-05-24] VITALS (8 sets, daily range): BP systolic 106–204; BP diastolic 76–117
[2020-05-24] MEDS: HYDROmorphone 2 MG/ML VIAL IV PRN ×8 (00:10→23:00)
[2020-05-24] MEDS: AMINO AC 3%/ELECTROLYTE/GLYCER 1,000 ML IV SCH ×2 (00:14→12:47)
[2020-05-24 08:25] LABS: HEMOGLOBIN 11.5 g/dL (12.0-15.5); RED BLOOD COUNT 4.63 x10^6/uL (3.50-5.40); RED CELL DISTRIBUTION WIDTH 19.4 % (11.5-14.5); WHITE BLOOD COUNT 8.2 x10^3/uL (4.0-11.0)
[2020-05-24] MEDS ORDERED: cloNIDine TTS-2 1 PATCH PATCH TD SCH (09:00)
[2020-05-24 09:13] LABS: ALBUMIN 2.4 g/dL (3.4-5.0); ALBUMIN/GLOBULIN RATIO 0.5 (1.0-1.7); CALCIUM 8.9 mg/dL (8.5-10.1); CREATININE 1.2 mg/dL (0.6-1.0); GFR 56.9; POTASSIUM 3.2 mmol/L (3.5-5.1); TOTAL BILIRUBIN 0.6 mg/dL (0.2-1.0); TOTAL PROTEIN 7.6 g/dL (6.4-8.2)
[2020-05-24] MEDS: hydrALAZINE 20 MG/ML VIAL. IVP PRN (09:50)
--- NOTE | 2020-05-24 10:14 | EKG ---
[facility] [address] [place] [address] Test Date: 2020-05-22 Test Time: 16:08:11 Pat Name: VENU PALMER Department: Room: Gender: F Erp Analyst: : 1965 Requested By: LILIBETH HAYWOOD Order Number: [id number] Reading MD: Measurements Intervals Martinez Rate: 87 P: 41 OK: 150 QRS: -20 QRSD: 94 T: 35 QT: 370 QTc: 451 Interpretive Statements SINUS RHYTHM LEFT ATRIAL ABNORMALITY LEFTWARD AXIS CONSIDER LEFT VENTRICULAR HYPERTROPHY ABNORMAL ECG RI6.01 No previous ECG available for comparison
--- NOTE | 2020-05-24 11:13 | NUR ---
SW following. Discussed with RN, oncology recommending to follow up after discharge, possibly recommending MRI. SW awaiting confirmation of whether MRI for inpatient or outpatient. RN advised no SW needs at this time. SW will continue to follow should any discharge planning needs arise.
[2020-05-24] MEDS: cefTRIAXone IV Push 1 GM VIAL. IVP SCH (12:47)
--- NOTE | 2020-05-24 13:19 | PN ---
DATE: 05/24/2020 SUBJECTIVE: The patient is resting, slightly propped up in bed, in no apparent respiratory distress. She continued to complain of intractable nausea and vomiting, continued to feel dizzy and lightheaded. The CT scan of the chest with PE protocol showed no evidence of pulmonary embolism. She has a new right lower lobe pulmonary nodule, presumably representing metastases. PHYSICAL EXAMINATION: GENERAL: When I examined her, she was resting. She looked pale, cachectic, but no jaundice, cyanosis or thyromegaly. No jugular venous distention. No lower limb edema. VITAL SIGNS: Her heart rate was 86, blood pressure 147/98, temperature was 98.2, respiratory rate was 18, and oxygen saturation was 100% on 1 liter of oxygen. HEAD, EYES, EARS, NOSE AND THROAT: Showed normocephalic, atraumatic. NECK: Supple. HEART: Showed normal first and second heart sounds. No gallop or murmur. CHEST: Clear to auscultation. No crepitation or rhonchi. ABDOMEN: Distended, soft, nontender. NEUROLOGIC: She was awake, alert, responding appropriately. All cranial nerves intact. She moves extremities without difficulty. She ambulates without assistance or assistive devices. Her intake over the last 24 hours was 1120, no output was recorded. LABORATORY DATA: Her lab work as of this morning showed a serum sodium 138, potassium 3.2, chloride 102, bicarbonate 23, anion gap of 13, BUN 18, creatinine 1.2, estimated GFR was 56 mL per minute. Her calcium was 8.9. Total bilirubin, AST, ALT, alkaline phosphatase were normal. Total protein 7.6, albumin was 2.4. Her morning cortisol was 28. White cell count was 8200, hemoglobin 11.5, hematocrit 35, MCV 76 and platelet count of 190,000. ASSESSMENT: 1. This is a 55-year-old -[place] female patient who was admitted with intractable nausea, vomiting, abdominal pain. 2. She is known to have lung cancer with stage 4 metastatic adrenal gland that apparently has increased in size. 3. Urinary tract infection. 4. Shortness of breath that could be multifactorial. CT scan showed no evidence of pulmonary embolism. She has a new nodule in the right lower lobe and crepitation of her left upper lobe. She had also a large left adrenal mass with metastasis. She was seen by the oncologist, recommended doing an MRI of the brain. She continued to feel dizzy, so I will discontinue hydralazine and start her on clonidine patch and she needs obviously her potassium to be replenished. I would also consult Dr. Sandhu to assist with her management. RUPESH RICH MD DR: ELGIN/trent JOB#: [id number] / [id number]
[2020-05-24] MEDS: POTASSIUM CL 40MEQ D5-0.45NACL 1,000 ML IV SCH ×2 (14:05→23:22)
--- NOTE | 2020-05-24 14:12 | NUR ---
Pt. asking about more pain meds. Pt. educated on pain med frequency. Pt. verbalized understanding at this time but reinforcement may be needed.
--- NOTE | 2020-05-24 14:17 | PDOC ---
PULMONARY PROGRESS NOTES Vitals Vital Signs Date Time Temp Pulse Resp B/P (MAP) Pulse Ox O2 Delivery O2 Flow Rate FiO2 05/24/20 12:45 100 Room Air 1.0 05/24/20 11:00 98.2 86 18 147/98 (114) 98.2 General: Alert, No acute distress Lungs: Clear Cardiovascular: S1 Abdomen: Soft Extremities: No Edema Labs Laboratory Tests Test 05/22/20 16:15 05/23/20 01:10 05/24/20 08:10 White Blood Count 6.5 x10^3/uL (4.0-11.0) 8.2 x10^3/uL (4.0-11.0) Red Blood Count 4.45 x10^6/uL (3.50-5.40) 4.63 x10^6/uL (3.50-5.40) Hemoglobin 10.9 g/dL (12.0-15.5) 11.5 g/dL (12.0-15.5) Hematocrit 34.3 % (36.0-47.0) 35.0 % (36.0-47.0) Mean Corpuscular Volume 77 fL (79-100) 76 fL (79-100) Mean Corpuscular Hemoglobin 25 pg (25-35) 25 pg (25-35) Mean Corpuscular Hemoglobin Concent 32 g/dL (31-37) 33 g/dL (31-37) Red Cell Distribution Width 18.6 % (11.5-14.5) 19.4 % (11.5-14.5) Platelet Count 167 x10^3/uL (140-400) 190 x10^3/uL (140-400) Neutrophils (%) (Auto) 71 % (31-73) Lymphocytes (%) (Auto) 15 % (24-48) Monocytes (%) (Auto) 12 % (0-9) Eosinophils (%) (Auto) 1 % (0-3) Basophils (%) (Auto) 1 % (0-3) Neutrophils # (Auto) 4.7 x10^3/uL (1.8-7.7) Lymphocytes # (Auto) 1.0 x10^3/uL (1.0-4.8) Monocytes # (Auto) 0.8 x10^3/uL (0.0-1.1) Eosinophils # (Auto) 0.0 x10^3/uL (0.0-0.7) Basophils # (Auto) 0.1 x10^3/uL (0.0-0.2) Prothrombin Time 13.6 SEC (11.7-14.0) Prothromb Time International Ratio 1.1 (0.8-1.1) Activated Partial Thromboplast Time 32 SEC (24-38) Sodium Level 138 mmol/L (136-145) 138 mmol/L (136-145) Potassium Level 4.3 mmol/L (3.5-5.1) 3.2 mmol/L (3.5-5.1) Chloride Level 103 mmol/L (98-107) 102 mmol/L (98-107) Carbon Dioxide Level 27 mmol/L (21-32) 23 mmol/L (21-32) Anion Gap 8 (6-14) 13 (6-14) Blood Urea Nitrogen 13 mg/dL (7-20) 18 mg/dL (7-20) Creatinine 1.1 mg/dL (0.6-1.0) 1.2 mg/dL (0.6-1.0) Estimated GFR (Cockcroft-Gault) 62.9 56.9 BUN/Creatinine Ratio 12 (6-20) 15 (6-20) Glucose Level 90 mg/dL (70-99) 117 mg/dL (70-99) Calcium Level 8.6 mg/dL (8.5-10.1) 8.9 mg/dL (8.5-10.1) Magnesium Level 2.1 mg/dL (1.8-2.4) Total Bilirubin 0.4 mg/dL (0.2-1.0) 0.6 mg/dL (0.2-1.0) Aspartate Amino Transf (AST/SGOT) 11 U/L (15-37) 15 U/L (15-37) Alanine Aminotransferase (ALT/SGPT) 7 U/L (14-59) 9 U/L (14-59) Alkaline Phosphatase 99 U/L (46-116) 87 U/L (46-116) Creatine Kinase 17 U/L (26-192) Creatine Kinase MB (Mass) < 0.5 ng/mL (0.0-3.6) Creatine Kinase MB Relative Index % (0-4) Troponin I Quantitative < 0.017 ng/mL (0.000-0.055) Total Protein 7.6 g/dL (6.4-8.2) 7.6 g/dL (6.4-8.2) Albumin 2.5 g/dL (3.4-5.0) 2.4 g/dL (3.4-5.0) Albumin/Globulin Ratio 0.5 (1.0-1.7) 0.5 (1.0-1.7) Lipase 45 U/L (73-393) Urine Collection Type Unknown Urine Color Yellow Urine Clarity Clear Urine pH 7.0 (<5.0-8.0) Urine Specific [place] 1.010 (1.000-1.030) Urine Protein Negative mg/dL (NEG-TRACE) Urine Glucose (UA) Negative mg/dL (NEG) Urine Ketones (Stick) Negative mg/dL (NEG) Urine Blood Trace (NEG) Urine Nitrite Negative (NEG) Urine Bilirubin Negative (NEG) Urine Urobilinogen Dipstick 1.0 mg/dL (0.2 mg/dL) Urine Leukocyte Esterase Moderate (NEG) Urine RBC Occ /HPF (0-2) Urine WBC Tntc /HPF (0-4) Urine Squamous Epithelial Cells Many /LPF Urine Bacteria Many /HPF (0-FEW) Urine Hyaline Casts Few /HPF Urine Mucus Mod /LPF Cortisol AM Sample 28.2 ug/dL (4.3-22.4) Laboratory Tests Test 05/24/20 08:10 White Blood Count 8.2 x10^3/uL (4.0-11.0) Red Blood Count 4.63 x10^6/uL (3.50-5.40) Hemoglobin 11.5 g/dL (12.0-15.5) Hematocrit 35.0 % (36.0-47.0) Mean Corpuscular Volume 76 fL (79-100) Mean Corpuscular Hemoglobin 25 pg (25-35) Mean Corpuscular Hemoglobin Concent 33 g/dL (31-37) Red Cell Distribution Width 19.4 % (11.5-14.5) Platelet Count 190 x10^3/uL (140-400) Sodium Level 138 mmol/L (136-145) Potassium Level 3.2 mmol/L (3.5-5.1) Chloride Level 102 mmol/L (98-107) Carbon Dioxide Level 23 mmol/L (21-32) Anion Gap 13 (6-14) Blood Urea Nitrogen 18 mg/dL (7-20) Creatinine 1.2 mg/dL (0.6-1.0) Estimated GFR (Cockcroft-Gault) 56.9 BUN/Creatinine Ratio 15 (6-20) Glucose Level 117 mg/dL (70-99) Calcium Level 8.9 mg/dL (8.5-10.1) Total Bilirubin 0.6 mg/dL (0.2-1.0) Aspartate Amino Transf (AST/SGOT) 15 U/L (15-37) Alanine Aminotransferase (ALT/SGPT) 9 U/L (14-59) Alkaline Phosphatase 87 U/L (46-116) Total Protein 7.6 g/dL (6.4-8.2) Albumin 2.4 g/dL (3.4-5.0) Albumin/Globulin Ratio 0.5 (1.0-1.7) Cortisol AM Sample 28.2 ug/dL (4.3-22.4) Medications Active Scripts Medications Dose Route/Sig Max Daily Dose Days Date Category Dose Instructions Medrol (Methylprednisolone) 4 Mg Tablet 4 Mg PO BID 7 05/05/20 Rx Tylenol (Acetaminophen) 325 Mg Tablet 500 Mg PO PRN Q4-6HRS PRN 04/25/20 Reported Oxycodone Hcl Immed.release (Oxycodone Hcl) 10 Mg Tablet 1 Tab PO QIDPRN PRN MDD 4 Tablet(s) 30 04/25/20 Reported Reglan (Metoclopramide Hcl) 10 Mg Tablet 1 Tab PO TID PRN 5 04/08/20 Rx before food and bedtime Klor-Con M20 (Potassium Chloride) 20 Meq Tab.er.prt 20 Meq PO DAILYWBKFT 30 04/05/20 Rx Zofran (Ondansetron Hcl) 8 Mg Tablet 1 Tab PO Q8HRS 04/05/20 Rx Clopidogrel (Clopidogrel Bisulfate) 75 Mg Tablet 75 Mg PO DAILY 03/15/20 Reported HOLD til 05/25 Aspirin 81 Mg Tab.chew 1 Tab PO DAILY 03/15/20 Reported HOLD til 05/25 NITROGLYCERIN SubLingual (Nitroglycerin) 0.4 Mg Tab.subl 0.4 Mg SL PRN Q5MIN PRN 02/28/20 Reported Hydralazine Hcl 25 Mg Tablet 1 Tab PO TID 02/28/20 Reported Diphenhydramine Hcl 25 Mg Capsule 1 Tab PO PRN DAILY PRN 02/28/20 Reported Amlodipine Besylate 5 Mg Tablet 10 Mg PO DAILY 02/28/20 Reported Isosorbide Mononitrate Er (Isosorbide Mononitrate) 60 Mg Tab.er.24h 1 Tab PO DAILY 02/27/20 Reported Torsemide 20 Mg Tablet 60 Mg PO DAILY 02/27/20 Reported Crestor (Rosuvastatin Calcium) 20 Mg Tablet 2 Tab PO DAILY 03/16/17 Reported Carvedilol 25 Mg Tablet 2 Tab PO BID 08/07/15 Reported Impression . Full note dictated Metastatic lung cancer new nodule right lower lobe No additional work-up needed at this time continue supportive care RAJNA SALAZAR MD May 24, 2020 14:17
[2020-05-24 14:35] LABS: CALCIUM 8.9 mg/dL (8.5-10.1); CREATININE 1.1 mg/dL (0.6-1.0); GFR 62.9
[2020-05-24 14:37] LABS: POTASSIUM 2.9 mmol/L (3.5-5.1)
--- NOTE | 2020-05-24 14:42 | CONS ---
DATE OF CONSULTATION: 05/24/2020 ATTENDING PHYSICIAN: Ruchi Brennan MD REASON FOR CONSULTATION: The patient seen in pulmonary consultation at the request of Dr. Brennan for abnormal CT chest revealing metastatic lung cancer. HISTORY OF PRESENT ILLNESS: The patient is a 55-year-old who was admitted to the hospital from clinic. She had intractable nausea, vomiting, receiving IV antiemetics, IV fluids. 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 She was started on systemic therapy with ipilimumab and nivolumab in 04/2020. She also completed radiation to the bulky adrenal metastases. The patient over the last several months has had several admissions to the Emergency Room complaining of predominant nausea, vomiting. She called the clinic on 05/22/2020, was seen in the Hematology Clinic. She was dizzy. She was dehydrated. She had orthostatic hypotension. She was admitted. Part of her workup included CT chest that was reviewed. There is known lung cancer and left upper lobe mass is now partially cavitating. There is no thoracic lymphadenopathy which is unchanged. There is a new right lower lobe pulmonary nodule. I was consulted for further evaluation and management. The patient denies any current increasing shortness of breath. No hemoptysis. No chest pain or pressure. Denies fever or chills. No COVID-19 exposures. PAST MEDICAL HISTORY: 1. 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 2. Coronary artery disease. 3. Hypertension. 4. Hyperlipidemia. 5. COPD 6. Tobacco dependence, in remission. PAST SURGICAL HISTORY: Previous . FAMILY HISTORY: Coronary artery disease. SOCIAL HISTORY: She is currently not smoking. REVIEW OF SYSTEMS: CONSTITUTIONAL: No fever or chills. EYES: No change in visual acuity. HENT: No nasal congestion or sore throat. PULMONARY: As indicated above. CARDIOVASCULAR: No chest pain or pressure. GASTROINTESTINAL: As indicated above. GENITOURINARY: No dysuria or frequency. MUSCULOSKELETAL: No localized muscle aches or joint pains. SKIN: No new skin rashes. NEUROLOGIC: No headaches, diplopia or blurred vision. PHYSICAL EXAMINATION: VITAL SIGNS: Stable. O2 saturation was greater than 92%. Since admission, she has been afebrile. HEENT: Eyes, the sclerae were nonicteric. NECK: Jugular venous distention was not elevated. No lymphadenopathy. CHEST: Full expansion. LUNGS: Adequate flow with no wheezes. CARDIOVASCULAR: Regular rate and rhythm with S1, S2, no S3. ABDOMEN: Soft, nontender, nondistended. EXTREMITIES: No clubbing, cyanosis, or edema. LABORATORY DATA: Reviewed. White count was normal. Hemoglobin and hematocrit were noted. Electrolytes were noted. Potassium was low. BUN and creatinine were noted. Albumin was low. IMPRESSION: 1. Progressive dyspnea, hypoxemia multifactorial secondary to stage 4 lung cancer with metastasis to the adrenal gland. 2. Possible new metastases to the right lower lobe. 3. Intractable nausea, vomiting, requiring IV antiemetics, IV fluids. 4. Progressive dyspnea with CT showing no evidence of pulmonary emboli, now revealing cavitation of the left upper lobe with known lung mass. 5. Multiple other comorbidities including hypertension, previous myocardial infarction, hyperlipidemia and coronary artery disease. PLAN: 1. From a pulmonary standpoint of view, I recommend no additional workup. 2. The patient has been seen by the medical oncologist, follow their recommendations. 3. Possible outpatient MRI of the brain to rule out metastases. 4. Continue IV antiemetics and IV fluids. I do appreciate the privilege in sharing in the patient's care. RAJAN SALAZAR MD DR: TOMASA/trent JOB#: [id number] / [id number]
[2020-05-24] MEDS ORDERED: POTASSIUM CHLORIDE 20 MEQ TABLET.ER. PO ONE (15:00)
[2020-05-24] MEDS: ONDANSETRON PF 4 MG/2 ML VIAL. IV PRN ×2 (15:31→23:03)
[2020-05-25] VITALS (7 sets, daily range): BP systolic 155–181; BP diastolic 100–122
[2020-05-25] MEDS: HYDROmorphone 2 MG/ML VIAL IV PRN ×7 (02:04→22:15)
[2020-05-25 05:39] LABS: CALCIUM 8.5 mg/dL (8.5-10.1); CREATININE 1.3 mg/dL (0.6-1.0); GFR 51.8; POTASSIUM 3.5 mmol/L (3.5-5.1)
[2020-05-25] MEDS: POTASSIUM CL 40MEQ D5-0.45NACL 1,000 ML IV SCH ×2 (09:25→20:00)
--- NOTE | 2020-05-25 10:02 | NUR ---
SW following. Discussed with RN, pt should be having a brain MRI today. RN advised no SW needs at this time, SW will continue to follow.
--- NOTE | 2020-05-25 10:30 | PDOC ---
PULMONARY PROGRESS NOTES Subjective Patient still somewhat nauseated weak on the right side Vitals Vital Signs Date Time Temp Pulse Resp B/P (MAP) Pulse Ox O2 Delivery O2 Flow Rate FiO2 05/25/20 09:21 Room Air 05/25/20 07:00 98.9 91 18 163/114 (130) 99 1.0 98.9 ROS: No Chest Pain, No Abdominal Pain, No Increase Cough General: Alert, No acute distress Lungs: Clear Cardiovascular: S1 Abdomen: Soft Extremities: No Edema Labs Laboratory Tests Test 05/24/20 08:10 05/24/20 14:05 05/25/20 05:00 White Blood Count 8.2 x10^3/uL (4.0-11.0) Red Blood Count 4.63 x10^6/uL (3.50-5.40) Hemoglobin 11.5 g/dL (12.0-15.5) Hematocrit 35.0 % (36.0-47.0) Mean Corpuscular Volume 76 fL (79-100) Mean Corpuscular Hemoglobin 25 pg (25-35) Mean Corpuscular Hemoglobin Concent 33 g/dL (31-37) Red Cell Distribution Width 19.4 % (11.5-14.5) Platelet Count 190 x10^3/uL (140-400) Sodium Level 138 mmol/L (136-145) 137 mmol/L (136-145) 137 mmol/L (136-145) Potassium Level 3.2 mmol/L (3.5-5.1) 2.9 mmol/L (3.5-5.1) 3.5 mmol/L (3.5-5.1) Chloride Level 102 mmol/L (98-107) 101 mmol/L (98-107) 103 mmol/L (98-107) Carbon Dioxide Level 23 mmol/L (21-32) 22 mmol/L (21-32) 22 mmol/L (21-32) Anion Gap 13 (6-14) 14 (6-14) 12 (6-14) Blood Urea Nitrogen 18 mg/dL (7-20) 19 mg/dL (7-20) 15 mg/dL (7-20) Creatinine 1.2 mg/dL (0.6-1.0) 1.1 mg/dL (0.6-1.0) 1.3 mg/dL (0.6-1.0) Estimated GFR (Cockcroft-Gault) 56.9 62.9 51.8 BUN/Creatinine Ratio 15 (6-20) Glucose Level 117 mg/dL (70-99) 123 mg/dL (70-99) 114 mg/dL (70-99) Calcium Level 8.9 mg/dL (8.5-10.1) 8.9 mg/dL (8.5-10.1) 8.5 mg/dL (8.5-10.1) Total Bilirubin 0.6 mg/dL (0.2-1.0) Aspartate Amino Transf (AST/SGOT) 15 U/L (15-37) Alanine Aminotransferase (ALT/SGPT) 9 U/L (14-59) Alkaline Phosphatase 87 U/L (46-116) Total Protein 7.6 g/dL (6.4-8.2) Albumin 2.4 g/dL (3.4-5.0) Albumin/Globulin Ratio 0.5 (1.0-1.7) Cortisol AM Sample 28.2 ug/dL (4.3-22.4) Laboratory Tests Test 05/24/20 14:05 05/25/20 05:00 Sodium Level 137 mmol/L (136-145) 137 mmol/L (136-145) Potassium Level 2.9 mmol/L (3.5-5.1) 3.5 mmol/L (3.5-5.1) Chloride Level 101 mmol/L (98-107) 103 mmol/L (98-107) Carbon Dioxide Level 22 mmol/L (21-32) 22 mmol/L (21-32) Anion Gap 14 (6-14) 12 (6-14) Blood Urea Nitrogen 19 mg/dL (7-20) 15 mg/dL (7-20) Creatinine 1.1 mg/dL (0.6-1.0) 1.3 mg/dL (0.6-1.0) Estimated GFR (Cockcroft-Gault) 62.9 51.8 Glucose Level 123 mg/dL (70-99) 114 mg/dL (70-99) Calcium Level 8.9 mg/dL (8.5-10.1) 8.5 mg/dL (8.5-10.1) Medications Active Scripts Medications Dose Route/Sig Max Daily Dose Days Date Category Dose Instructions Medrol (Methylprednisolone) 4 Mg Tablet 4 Mg PO BID 7 05/05/20 Rx Tylenol (Acetaminophen) 325 Mg Tablet 500 Mg PO PRN Q4-6HRS PRN 04/25/20 Reported Oxycodone Hcl Immed.release (Oxycodone Hcl) 10 Mg Tablet 1 Tab PO QIDPRN PRN MDD 4 Tablet(s) 30 04/25/20 Reported Reglan (Metoclopramide Hcl) 10 Mg Tablet 1 Tab PO TID PRN 5 04/08/20 Rx before food and bedtime Klor-Con M20 (Potassium Chloride) 20 Meq Tab.er.prt 20 Meq PO DAILYWBKFT 30 04/05/20 Rx Zofran (Ondansetron Hcl) 8 Mg Tablet 1 Tab PO Q8HRS 04/05/20 Rx Clopidogrel (Clopidogrel Bisulfate) 75 Mg Tablet 75 Mg PO DAILY 03/15/20 Reported HOLD til 05/25 Aspirin 81 Mg Tab.chew 1 Tab PO DAILY 03/15/20 Reported HOLD til 05/25 NITROGLYCERIN SubLingual (Nitroglycerin) 0.4 Mg Tab.subl 0.4 Mg SL PRN Q5MIN PRN 02/28/20 Reported Hydralazine Hcl 25 Mg Tablet 1 Tab PO TID 02/28/20 Reported Diphenhydramine Hcl 25 Mg Capsule 1 Tab PO PRN DAILY PRN 02/28/20 Reported Amlodipine Besylate 5 Mg Tablet 10 Mg PO DAILY 02/28/20 Reported Isosorbide Mononitrate Er (Isosorbide Mononitrate) 60 Mg Tab.er.24h 1 Tab PO DAILY 02/27/20 Reported Torsemide 20 Mg Tablet 60 Mg PO DAILY 02/27/20 Reported Crestor (Rosuvastatin Calcium) 20 Mg Tablet 2 Tab PO DAILY 03/16/17 Reported Carvedilol 25 Mg Tablet 2 Tab PO BID 08/07/15 Reported Impression . IMPRESSION: 1. Progressive dyspnea, hypoxemia multifactorial secondary to stage 4 lung cancer with metastasis to the adrenal gland. 2. Possible new metastases to the right lower lobe. 3. Intractable nausea, vomiting, requiring IV antiemetics, IV fluids. 4. Progressive dyspnea with CT showing no evidence of pulmonary emboli, now revealing cavitation of the left upper lobe with known lung mass. 5. Multiple other comorbidities including hypertension, previous myocardial infarction, hyperlipidemia and coronary artery disease. 6. Acute cerebral infarct MRI of the brain IMPRESSION: 1. Moderate to large area of acute infarct in the right cerebellum and to lesser extent along the medial aspect of the left cerebellum. No acute hemorrhage. Edema and mass effect with partial effacement of the fourth ventricle. Lateral and third ventricles are not dilated. 2. Abnormal signal in the vertebral and basilar arteries, which may indicate slow flow or occlusion. CTA head and neck is recommended. 3. Multiple additional chronic bilateral cerebellar lacunar infarcts. 4. No evidence of intracranial metastatic disease. Plan . Consult neurology, already performed Continue current support IV fluids, case discussed with Dr. Brennan this morning RAJAN SALAZAR MD May 25, 2020 10:30
--- NOTE | 2020-05-25 13:06 | NUR ---
Attempt made to contact Dr. Brennan re: pain meds. No answer at this time.
[2020-05-25] MEDS: cefTRIAXone IV Push 1 GM VIAL. IVP SCH (13:39)
[2020-05-25] MEDS ORDERED: GADOTERATE 7.5 MMOL/15ML VIAL. IVP ONE (15:00)
[2020-05-25] MEDS ORDERED: cloNIDine TTS-3 1 PATCH PATCH.TDWK TD SCH (15:00)
[2020-05-25] MEDS ORDERED: amLODIPine BESYLATE 5 MG TABLET PO ONE (15:00)
--- NOTE | 2020-05-25 15:10 | RAD ---
BRAIN WO/W CONTRAST Date: 05/25/2020 12:58 PM Indication: worsening dizziness and ?? brain metastasis from lung cancer Comparison: CT head 08/02/2019. Technique: Multiplanar multisequence MRI of the brain was performed with and without intravenous contrast using the standard protocol. 15 cc Dotarem contrast was administered intravenously during the exam. Findings: Moderate to large area of restricted diffusion in the right inferior cerebellum. Additional foci of restricted diffusion in the right central robert and along the medial aspect of the left cerebellum. Edema with sulcal effacement and slight effacement of the fourth ventricle. Lateral and third ventricles are not dilated. Additional chronic bilateral cerebellar lacunar infarcts. Mild scattered FLAIR hyperintensities in the subcortical and periventricular deep white matter, a nonspecific finding, most commonly seen with chronic small vessel ischemic disease. No acute hemorrhage. Punctate focus of gradient within the left cerebellum consistent No abnormal enhancement. The scalp and calvarium are normal. The pituitary and sella are normal. No Chiari malformation. The visualized upper cervical spine is normal. The visualized orbits and globes are normal. The visualized paranasal sinuses are clear. The mastoid air cells are clear. Abnormal flow voids involving the vertebral and basilar arteries. IMPRESSION: 1. Moderate to large area of acute infarct in the right cerebellum and to lesser extent along the medial aspect of the left cerebellum. No acute hemorrhage. Edema and mass effect with partial effacement of the fourth ventricle. Lateral and third ventricles are not dilated. 2. Abnormal signal in the vertebral and basilar arteries, which may indicate slow flow or occlusion. CTA head and neck is recommended. 3. Multiple additional chronic bilateral cerebellar lacunar infarcts. 4. No evidence of intracranial metastatic disease. Findings and recommendations were called to the patient's nurse at 3:04 PM on 05/25/2020. FOR INTERNAL CODING PURPOSES RESULT CODE: (C) Electronically signed by: London Arias MD (05/25/2020 3:07 PM) [id number]
--- NOTE | 2020-05-25 15:11 | PN ---
DATE: 05/25/2020 SUBJECTIVE: The patient is resting, slightly propped up in bed, in no apparent respiratory distress. She continued to complain of severe pain and asking for pain medication for almost 72 hours. Her blood pressure continued to be poorly controlled; however, she is now able to eat more and has less nausea and vomiting. PHYSICAL EXAMINATION: GENERAL: When I examined her, she looked pale, but no jaundice, cyanosis, or thyromegaly. No jugular venous distention. No limb edema. VITAL SIGNS: Her heart rate was 93, blood pressure was 165/122, temperature was 98, respiratory rate 16, and oxygen saturation was 97%. The rest of clinical exam is stable, has not really changed. Her intake over the last 24 hours was 1120, no output was recorded. LABORATORY DATA: As of this morning, her serum sodium 137, potassium is up to 3.5, chloride 103, bicarbonate 22, anion gap of 12, BUN 15, creatinine 1.3, estimated GFR was 52 mL per minute. Her glucose 114, calcium was 8.5. Her hemoglobin 11, hematocrit 35 with normal white cell count and platelets. ASSESSMENT: 1. The patient was admitted with intractable nausea, vomiting and abdominal pain, had nausea and vomiting slightly, better improved. 2. She is known to have lung cancer stage 4, metastasis to adrenal glands, questionable metastasis to the brain. 3. Urinary tract infection with growth of more than 100,000 colony forming units of Escherichia coli for shortness of breath, could be multifactorial; however, CT scan of the chest showed no evidence of pulmonary emboli. She has new nodule in the right lower lobe and crepitation of her left upper lobe. She also has large left adrenal mass with metastases. Oncologist saw her yesterday and recommended MRI. She is scheduled to have it done today. PLAN: Obviously, await the result of MRI. I will increase her clonidine to TTS-3 and I will also add oral amlodipine and decide on further management accordingly. RUPESH RICH MD DR: ELGIN/trent JOB#: [id number] / [id number]
[2020-05-25] MEDS ORDERED: ACETAMINOPHEN 325 MG TABLET. PO PRN (15:30)
[2020-05-25] MEDS ORDERED: ASPIRIN RECTAL 300 MG SUPP. PR PRN (15:30)
[2020-05-25] MEDS ORDERED: ACETAMINOPHEN 650 MG SUPP.RECT. PR PRN (15:30)
[2020-05-25] MEDS ORDERED: IOHEXOL 350 MG/ML 100 ML VIAL. IV ONE (16:00)
[2020-05-25] MEDS ORDERED: CONTRAST GIVEN. MC PRN (16:15)
[2020-05-25] MEDS: ASPIRIN ENTERIC COATED 325 MG TABLET.DR. PO SCH (16:35)
--- NOTE | 2020-05-25 17:06 | NUR ---
Pt. transferred to , report given to EDGAR Shipley. WC, cell phone/amusement park ride mechanic and clothing taken down with pt.
--- NOTE | 2020-05-25 17:37 | RAD ---
Exam: CTA head and neck INDICATION: CVA TECHNIQUE: Sequential axial images through the head and neck obtained following the administration of 60 mL of Isovue-370 IV contrast. Sagittal and coronal reformatted images were reconstructed from the axial data and reviewed. 3-D reformatted images were reconstructed from the axial data and reviewed. Comparisons: MRI 05/25/2020 FINDINGS: CTA neck: Thoracic aorta is unremarkable. Standard three-vessel aortic arch anatomy. Right common carotid artery is patent without evidence of stenosis, occlusion or aneurysm. Cervical segment of the right internal carotid artery is patent without evidence of stenosis, occlusion or aneurysm. Left common carotid artery is patent without evidence of stenosis, occlusion or aneurysm. Mild calcified plaque at the origin of the left internal carotid artery without significant stenosis. Right vertebral artery is patent to the basilar confluence. Left vertebral artery occludes at the V4 segment. Redemonstration of a left upper lobe mass measuring approximately 2.9 x 2.4 cm enlarged rounded appearance of the thyroid gland. CTA HEAD: Mild calcified plaque at the cavernous segment of the right internal carotid artery without significant stenosis. Right MCA is patent. Right JOHAN is patent. Mild calcified plaque at the cavernous segment of the left internal carotid artery without significant stenosis. Left MCA is patent. Left JOHAN is patent. Basilar artery is occluded throughout its course. Opacification of the basilar artery at the tip with coal inspector patent bilaterally. IMPRESSION: 1. 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 3 opacification at the distal tibia likely secondary to collateral flow. coal inspector are patent 2. Occlusion of the V4 segment of the left vertebral artery. 3. Mild calcified plaque at origin of the internal carotid arteries bilaterally without significant stenosis. 4. Redemonstration of a left upper lobe mass. 5. Diffuse enlargement heterogenous appearance of the thyroid gland. Exposure: One or more of the following in the visualized dose reduction techniques were utilized for this examination: 1. Automated exposure control 2. Adjustment of the MA and/or KV according to patient size 3. Use of iterative of reconstructive technique Electronically signed by: Gunnar Garcia MD (05/25/2020 5:35 PM) [id number]
[2020-05-25] MEDS: hydrALAZINE 20 MG/ML VIAL. IVP PRN (17:46)
[2020-05-25] MEDS: IV NORMAL SALINE 1000ML BAG 1,000 ML IV SCH (17:48)
[2020-05-25] MEDS: LACTOBACILLUS RHAMNOSUS GG 1 CAPSULE. PO SCH (20:23)
[2020-05-25] MEDS: oxyCODONE IR 5 MG TABLET PO PRN (20:24)
[2020-05-26] MEDS: HYDROmorphone 2 MG/ML VIAL IV PRN ×7 (01:55→22:51)
[2020-05-26] MEDS: IV NORMAL SALINE 1000ML BAG 1,000 ML IV SCH ×2 (01:56→11:34)
[2020-05-26 03:30] VITALS: BP 158/107
[2020-05-26] MEDS: oxyCODONE IR 5 MG TABLET PO PRN ×3 (05:02→21:50)
[2020-05-26 05:23] LABS: HEMATOCRIT 31.9 % (36.0-47.0); HEMOGLOBIN 10.2 g/dL (12.0-15.5); RED BLOOD COUNT 4.14 x10^6/uL (3.50-5.40); RED CELL DISTRIBUTION WIDTH 18.7 % (11.5-14.5); WHITE BLOOD COUNT 4.2 x10^3/uL (4.0-11.0)
[2020-05-26 05:49] LABS: ALBUMIN 2.3 g/dL (3.4-5.0); ALBUMIN/GLOBULIN RATIO 0.5 (1.0-1.7); CALCIUM 8.3 mg/dL (8.5-10.1); GFR 70.2; POTASSIUM 3.5 mmol/L (3.5-5.1); TOTAL BILIRUBIN 0.5 mg/dL (0.2-1.0); TOTAL PROTEIN 6.9 g/dL (6.4-8.2)
[2020-05-26 05:56] LABS: CHOLESTEROL/HDL RATIO 10.2
[2020-05-26] MEDS: POTASSIUM CL 40MEQ D5-0.45NACL 1,000 ML IV SCH (06:00)
[2020-05-26 07:00] VITALS: BP 169/101
[2020-05-26] MEDS: LACTOBACILLUS RHAMNOSUS GG 1 CAPSULE. PO SCH (08:45)
[2020-05-26] MEDS: ASPIRIN ENTERIC COATED 325 MG TABLET.DR. PO SCH (08:45)
[2020-05-26] MEDS ORDERED: amLODIPine BESYLATE 5 MG TABLET PO SCH (09:00)
--- NOTE | 2020-05-26 09:48 | PDOC2 ---
NEUROLOGY CONSULT Date of Admission Date of Admission DATE: 05/26/20 TIME: 09:42 History of Present Illness History of Present Illness The patient is a 57-year-old right-handed female admitted from her oncologist office with intractable nausea and vomiting and difficulty walking. She had an MRI of the brain yesterday, as reviewed below, showing cerebellar stroke. She has been taking aspirin and Plavix already. There is no prior history of stroke, seizure, or head injury. She is feeling better today. She never had any limb ataxia, just gated ataxia, nausea, and vomiting. Past Medical History Cardiovascular: CAD, CHF, HTN, Hyperlipidemia Pulmonary: COPD GI: GERD, Peptic Ulcer disease Heme/Onc: Cancer ( lung) Musculoskeletal: low back pain ( degenerative disc disease), Osteoarthritis, Other ( left ankle, knee, wrist sprain, fall on ice 09/25, left ankle fracture) Renal/: UTI, Renal Ca. Endocrine: Other ( thyroid gland enlargement) Past Surgical History Past Surgical History: , Tubal Ligation, Other (Coronary stents) Family History Family History: Cancer, Other (Myasthenia gravis) Social History Social History , quit using alcohol and tobacco Current Medications Current Medications Current Medications Sodium Chloride 1,000 ml @ 1,000 mls/hr 1X ONCE IV Last administered on 05/22/20at 16:47; Start 05/22/20 at 16:00; Stop 05/22/20 at 16:59; Status DC Famotidine (Pepcid Vial) 20 mg 1X ONCE IVP Last administered on 05/22/20at 16:47; Start 05/22/20 at 16:15; Stop 05/22/20 at 16:16; Status DC Metoclopramide HCl (Reglan Vial) 10 mg 1X ONCE IVP Last administered on 05/22/20at 16:47; Start 05/22/20 at 16:15; Stop 05/22/20 at 16:16; Status DC Diphenhydramine HCl (Benadryl) 25 mg 1X ONCE IVP Last administered on 05/22/20at 16:47; Start 05/22/20 at 16:15; Stop 05/22/20 at 16:16; Status DC Hydromorphone HCl (Dilaudid) 0.5 mg 1X ONCE IV Last administered on 05/22/20at 16:48; Start 05/22/20 at 16:45; Stop 05/22/20 at 16:46; Status DC Ondansetron HCl (Zofran) 4 mg PRN Q8HRS PRN IV NAUSEA/VOMITING; Start 05/22/20 at 17:45; Stop 05/23/20 at 10:51; Status DC Hydromorphone HCl (Dilaudid) 0.5 mg PRN Q4HRS PRN IV PAIN Last administered on 05/22/20at 22:34; Start 05/22/20 at 17:45; Stop 05/22/20 at 22:51; Status DC Sodium Chloride 1,000 ml @ 100 mls/hr 1X ONCE IV Last administered on 05/22/20at 18:31; Start 05/22/20 at 18:30; Stop 05/23/20 at 04:29; Status DC Hydralazine HCl (Apresoline Inj) 10 mg PRN Q4HRS PRN IVP ELEVATED BP, SEE COMMENTS Last administered on 05/25/20at 17:46; Start 05/22/20 at 22:45 Hydromorphone HCl (Dilaudid) 0.5 mg PRN Q3HRS PRN IV PAIN Last administered on 05/23/20at 11:10; Start 05/22/20 at 23:00; Stop 05/23/20 at 12:42; Status DC Hydralazine HCl (Apresoline Inj) 20 mg PRN Q4HRS PRN IVP ELEVATED BP, SEE COMMENTS Last administered on 05/24/20at 09:50; Start 05/23/20 at 08:45; Stop 05/24/20 at 13:02; Status DC Ondansetron HCl (Zofran) 4 mg PRN Q4HRS PRN IV NAUSEA/VOMITING Last administered on 05/24/20at 23:03; Start 05/23/20 at 11:00 Prochlorperazine Edisylate (Compazine) 10 mg PRN Q6HRS PRN IV NAUSEA/VOMITING 2ND CHOICE Last administered on 05/23/20at 20:39; Start 05/23/20 at 11:00 Fluticasone Propionate (Flonase) 2 spray PRN DAILY PRN NS ALLERGIES; Start 05/23/20 at 12:15 Docusate Sodium (Enemeez) 283 mg 1X PRN MT CONSTIPATION; Start 05/23/20 at 12:15 Ceftriaxone Sodium (Rocephin) 1 gm Q24H IVP Last administered on 05/25/20at 13:39; Start 05/23/20 at 12:45 Hydromorphone HCl (Dilaudid) 1 mg PRN Q3HRS PRN IV PAIN Last administered on 05/25/20at 19:14; Start 05/23/20 at 12:45; Stop 05/25/20 at 20:07; Status DC Amino Acids/ Glycerin/ Electrolytes 1,000 ml @ 80 mls/hr [id number] IV Last administered on 05/24/20at 12:47; Start 05/23/20 at 13:00; Stop 05/24/20 at 13:09; Status DC Iohexol (Omnipaque 350 Mg/ml) 100 ml 1X ONCE IV Last administered on 05/23/20at 13:13; Start 05/23/20 at 13:00; Stop 05/23/20 at 13:03; Status DC Methylnaltrexone [place] (Relistor) 12 mg PRN 1X ONCE SQ Last administered on 05/23/20at 16:27; Start 05/23/20 at 16:30; Stop 05/23/20 at 16:31; Status DC Clonidine HCl (Catapres Tts-2) 1 patch WEEKLY TD Last administered on 05/24/20at 14:07; Start 05/24/20 at 09:00; Stop 05/25/20 at 14:32; Status DC Potassium Chloride/Dextrose/ Sod Cl 1,000 ml @ 100 mls/hr Q10H IV Last administered on 05/25/20at 09:25; Start 05/24/20 at 14:00 Potassium Chloride (Klor-Con) 40 meq 1X ONCE PO Last administered on 05/24/20at 15:29; Start 05/24/20 at 15:00; Stop 05/24/20 at 15:05; Status DC Gadoterate Meglumine (Dotarem) 15 ml 1X ONCE IVP Last administered on 05/25/20at 14:43; Start 05/25/20 at 15:00; Stop 05/25/20 at 15:01; Status DC Clonidine HCl (Catapres Tts-3) 1 patch WEEKLY TD Last administered on 05/25/20at 15:10; Start 05/25/20 at 15:00 Amlodipine Besylate (Norvasc) 5 mg 1X ONCE PO Last administered on 05/25/20at 15:10; Start 05/25/20 at 15:00; Stop 05/25/20 at 15:01; Status DC Amlodipine Besylate (Norvasc) 5 mg DAILY PO Last administered on 05/26/20at 08:45; Start 05/26/20 at 09:00 Sodium Chloride 1,000 ml @ 100 mls/hr Q10H IV Last administered on 05/26/20at 01:56; Start 05/25/20 at 16:00 Acetaminophen (Tylenol) 650 mg PRN Q6HRS PRN PO TEMP > 100.4F Last administered on 05/25/20at 17:45; Start 05/25/20 at 15:30 Acetaminophen (Tylenol Supp) 650 mg PRN Q4HRS PRN MT TEMP > 100.4F; Start 05/25/20 at 15:30 Aspirin (Ecotrin) 325 mg DAILYWBKFT PO Last administered on 05/26/20at 08:45; Start 05/25/20 at 16:00 Aspirin (Aspirin Rectal Supp) 300 mg PRN DAILY PRN MT IF UNABLE TO TAKE PO; Start 05/25/20 at 15:30 Iohexol (Omnipaque 350 Mg/ml) 60 ml 1X ONCE IV Last administered on 05/25/20at 16:00; Start 05/25/20 at 16:00; Stop 05/25/20 at 16:06; Status DC Info (CONTRAST GIVEN -- Rx MONITORING) 1 each PRN DAILY PRN MC SEE COMMENTS; Start 05/25/20 at 16:15; Stop 05/27/20 at 16:14 Lactobacillus Rhamnosus (Culturelle) 1 cap BID PO Last administered on 05/26/20at 08:45; Start 05/25/20 at 21:00 Hydromorphone HCl (Dilaudid) 2 mg PRN Q3HRS PRN IV PAIN Last administered on 05/26/20at 09:36; Start 05/25/20 at 22:15 Oxycodone HCl (Roxicodone) 10 mg PRN Q6HRS PRN PO PAIN Last administered on 05/26/20at 05:02; Start 05/25/20 at 20:15 Active Scripts Active Medrol (Methylprednisolone) 4 Mg Tablet 4 Mg PO BID 7 Days Reglan (Metoclopramide Hcl) 10 Mg Tablet 1 Tab PO TID PRN 5 Days before food and bedtime Klor-Con M20 (Potassium Chloride) 20 Meq Tab.er.prt 20 Meq PO DAILYWBKFT 30 Days Zofran (Ondansetron Hcl) 8 Mg Tablet 1 Tab PO Q8HRS Reported Tylenol (Acetaminophen) 325 Mg Tablet 500 Mg PO PRN Q4-6HRS PRN Oxycodone Hcl Immed.release (Oxycodone Hcl) 10 Mg Tablet 1 Tab PO QIDPRN PRN MDD 4 Tablet(s) 30 Days Clopidogrel (Clopidogrel Bisulfate) 75 Mg Tablet 75 Mg PO DAILY HOLD til 05/25 Aspirin 81 Mg Tab.chew 1 Tab PO DAILY HOLD til 05/25 NITROGLYCERIN SubLingual (Nitroglycerin) 0.4 Mg Tab.subl 0.4 Mg SL PRN Q5MIN PRN Hydralazine Hcl 25 Mg Tablet 1 Tab PO TID Diphenhydramine Hcl 25 Mg Capsule 1 Tab PO PRN DAILY PRN Amlodipine Besylate 5 Mg Tablet 10 Mg PO DAILY Isosorbide Mononitrate Er (Isosorbide Mononitrate) 60 Mg Tab.er.24h 1 Tab PO DAILY Torsemide 20 Mg Tablet 60 Mg PO DAILY Crestor (Rosuvastatin Calcium) 20 Mg Tablet 2 Tab PO DAILY Carvedilol 25 Mg Tablet 2 Tab PO BID Allergies Allergies: Coded Allergies: atorvastatin (Verified Allergy, Intermediate, 04/03/20) codeine (Verified Allergy, Intermediate, 04/03/20) heparin (Verified Allergy, Intermediate, 04/03/20) morphine (Verified Allergy, Intermediate, 04/03/20) Tolerates hydromorphone spironolactone (Verified Allergy, Intermediate, 04/03/20) fentanyl (Verified Adverse Reaction, Intermediate, "makes me burn", 04/03/20) ROS Review of System Negative for fever, chills, weight loss, shortness of breath, chest pain, indigestion, hematochezia, melena, and dysuria. Full 14-point review of systems is negative. Physical Exam Physical Examination General: Well-developed, well-nourished black female in no acute distress HEENT: Normocephalic andatraumatic. Tympanic membranes clear.Temporal arteriespulsatile and nontender.Fundoscopic exam unremarkable Neck: Supple without bruit, no meningismus Musculoskeletal: Stability:see neurologic. Gait exam:see neurologic. Tone:see neurologic.Strength:see neurologic. Neurological: Mental Status:intact, orientation, memory, attention span/concentration, language, fund of knowledge normal. Cranial Nerves:Pupils equal and reactive to light, extraocular movements areintact, visual pena are full to confron tation. Facial sensation is normal. There is no facial asymmetry. Vestibulo- ocular reflex is intact. Palate elevates and tongue protrudes in midline. All other cranial related problems are negative except as mentioned before.Reflexes:2+ and symmetric with flexor plantar responses. Motor:5/5 strength with normal tone and bulk. Coordination:Finger-nose finger and hvtd-mi-ikor testing are normal. Rapid alternating movements and fine finger movements are intact. Gait:not tested, says she can't walk. Sensory:left hemihypesthesia Vitals VITALS Vital Signs Date Time Temp Pulse Resp B/P (MAP) Pulse Ox O2 Delivery O2 Flow Rate FiO2 05/26/20 08:45 73 169/101 05/26/20 07:00 97.5 20 99 Nasal Cannula 1.0 97.5 Labs Labs Laboratory Tests Test 05/24/20 14:05 05/25/20 05:00 05/26/20 05:12 Sodium Level 137 mmol/L (136-145) 137 mmol/L (136-145) 140 mmol/L (136-145) Potassium Level 2.9 mmol/L (3.5-5.1) 3.5 mmol/L (3.5-5.1) 3.5 mmol/L (3.5-5.1) Chloride Level 101 mmol/L (98-107) 103 mmol/L (98-107) 107 mmol/L (98-107) Carbon Dioxide Level 22 mmol/L (21-32) 22 mmol/L (21-32) 22 mmol/L (21-32) Anion Gap 14 (6-14) 12 (6-14) 11 (6-14) Blood Urea Nitrogen 19 mg/dL (7-20) 15 mg/dL (7-20) 13 mg/dL (7-20) Creatinine 1.1 mg/dL (0.6-1.0) 1.3 mg/dL (0.6-1.0) 1.0 mg/dL (0.6-1.0) Estimated GFR (Cockcroft-Gault) 62.9 51.8 70.2 Glucose Level 123 mg/dL (70-99) 114 mg/dL (70-99) 86 mg/dL (70-99) Calcium Level 8.9 mg/dL (8.5-10.1) 8.5 mg/dL (8.5-10.1) 8.3 mg/dL (8.5-10.1) White Blood Count 4.2 x10^3/uL (4.0-11.0) Red Blood Count 4.14 x10^6/uL (3.50-5.40) Hemoglobin 10.2 g/dL (12.0-15.5) Hematocrit 31.9 % (36.0-47.0) Mean Corpuscular Volume 77 fL (79-100) Mean Corpuscular Hemoglobin 25 pg (25-35) Mean Corpuscular Hemoglobin Concent 32 g/dL (31-37) Red Cell Distribution Width 18.7 % (11.5-14.5) Platelet Count 149 x10^3/uL (140-400) BUN/Creatinine Ratio 13 (6-20) Total Bilirubin 0.5 mg/dL (0.2-1.0) Aspartate Amino Transf (AST/SGOT) 12 U/L (15-37) Alanine Aminotransferase (ALT/SGPT) 8 U/L (14-59) Alkaline Phosphatase 79 U/L (46-116) Total Protein 6.9 g/dL (6.4-8.2) Albumin 2.3 g/dL (3.4-5.0) Albumin/Globulin Ratio 0.5 (1.0-1.7) Triglycerides Level 203 mg/dL (0-150) Cholesterol Level 163 mg/dL (0-200) LDL Cholesterol, Calculated 106 mg/dL (0-100) VLDL Cholesterol, Calculated 41 mg/dL (0-40) Non-HDL Cholesterol Calculated 147 mg/dL (0-129) HDL Cholesterol 16 mg/dL (40-60) Cholesterol/HDL Ratio 10.2 Laboratory Tests Test 05/26/20 05:12 White Blood Count 4.2 x10^3/uL (4.0-11.0) Red Blood Count 4.14 x10^6/uL (3.50-5.40) Hemoglobin 10.2 g/dL (12.0-15.5) Hematocrit 31.9 % (36.0-47.0) Mean Corpuscular Volume 77 fL (79-100) Mean Corpuscular Hemoglobin 25 pg (25-35) Mean Corpuscular Hemoglobin Concent 32 g/dL (31-37) Red Cell Distribution Width 18.7 % (11.5-14.5) Platelet Count 149 x10^3/uL (140-400) Sodium Level 140 mmol/L (136-145) Potassium Level 3.5 mmol/L (3.5-5.1) Chloride Level 107 mmol/L (98-107) Carbon Dioxide Level 22 mmol/L (21-32) Anion Gap 11 (6-14) Blood Urea Nitrogen 13 mg/dL (7-20) Creatinine 1.0 mg/dL (0.6-1.0) Estimated GFR (Cockcroft-Gault) 70.2 BUN/Creatinine Ratio 13 (6-20) Glucose Level 86 mg/dL (70-99) Calcium Level 8.3 mg/dL (8.5-10.1) Total Bilirubin 0.5 mg/dL (0.2-1.0) Aspartate Amino Transf (AST/SGOT) 12 U/L (15-37) Alanine Aminotransferase (ALT/SGPT) 8 U/L (14-59) Alkaline Phosphatase 79 U/L (46-116) Total Protein 6.9 g/dL (6.4-8.2) Albumin 2.3 g/dL (3.4-5.0) Albumin/Globulin Ratio 0.5 (1.0-1.7) Triglycerides Level 203 mg/dL (0-150) Cholesterol Level 163 mg/dL (0-200) LDL Cholesterol, Calculated 106 mg/dL (0-100) VLDL Cholesterol, Calculated 41 mg/dL (0-40) Non-HDL Cholesterol Calculated 147 mg/dL (0-129) HDL Cholesterol 16 mg/dL (40-60) Cholesterol/HDL Ratio 10.2 Images Images BRAIN WO/W CONTRAST Date: 05/25/2020 12:58 PM Indication: worsening dizziness and ?? brain metastasis from lung cancer Comparison: CT head 08/02/2019. Technique: Multiplanar multisequence MRI of the brain was performed with and without intravenous contrast using the standard protocol. 15 cc Dotarem contrast was administered intravenously during the exam. Findings: Moderate to large area of restricted diffusion in the right inferior cerebellum. Additional foci of restricted diffusion in the right central robert and along the medial aspect of the left cerebellum. Edema with sulcal effacement and slight effacement of the fourth ventricle. Lateral and third ventricles are not dilated. Additional chronic bilateral cerebellar lacunar infarcts. Mild scattered FLAIR hyperintensities in the subcortical and periventricular deep white matter, a nonspecific finding, most commonly seen with chronic small vessel ischemic disease. No acute hemorrhage. Punctate focus of gradient within the left cerebellum consistent No abnormal enhancement. The scalp and calvarium are normal. The pituitary and sella are normal. No Chiari malformation. The visualized upper cervical spine is normal. The visualized orbits and globes are normal. The visualized paranasal sinuses are clear. The mastoid air cells are clear. Abnormal flow voids involving the vertebral and basilar arteries. IMPRESSION: 1. Moderate to large area of acute infarct in the right cerebellum and to lesser extent along the medial aspect of the left cerebellum. No acute hemorrhage. Edema and mass effect with partial effacement of the fourth ventricle. Lateral and third ventricles are not dilated. 2. Abnormal signal in the vertebral and basilar arteries, which may indicate slow flow or occlusion. CTA head and neck is recommended. 3. Multiple additional chronic bilateral cerebellar lacunar infarcts. 4. No evidence of intracranial metastatic disease. CTA head and neck INDICATION: CVA TECHNIQUE: Sequential axial images through the head and neck obtained following the administration of 60 mL of Isovue-370 IV contrast. Sagittal and coronal reformatted images were reconstructed from the axial data and reviewed. 3-D reformatted images were reconstructed from the axial data and reviewed. Comparisons: MRI 05/25/2020 FINDINGS: CTA neck: Thoracic aorta is unremarkable. Standard three-vessel aortic arch anatomy. Right common carotid artery is patent without evidence of stenosis, occlusion or aneurysm. Cervical segment of the right internal carotid artery is patent without evidence of stenosis, occlusion or aneurysm. Left common carotid artery is patent without evidence of stenosis, occlusion or aneurysm. Mild calcified plaque at the origin of the left internal carotid artery without significant stenosis. Right vertebral artery is patent to the basilar confluence. Left vertebral artery occludes at the V4 segment. Redemonstration of a left upper lobe mass measuring approximately 2.9 x 2.4 cm enlarged rounded appearance of the thyroid gland. CTA HEAD: Mild calcified plaque at the cavernous segment of the right internal carotid artery without significant stenosis. Right MCA is patent. Right JOHAN is patent. Mild calcified plaque at the cavernous segment of the left internal carotid artery without significant stenosis. Left MCA is patent. Left JOHAN is patent. Basilar artery is occluded throughout its course. Opacification of the basilar artery at the tip with map and chart mounter patent bilaterally. IMPRESSION: 1. 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 3 opacification at the distal tibia likely secondary to collateral flow. map and chart mounter are patent 2. Occlusion of the V4 segment of the left vertebral artery. 3. Mild calcified plaque at origin of the internal carotid arteries bilaterally without significant stenosis. 4. Redemonstration of a left upper lobe mass. 5. Diffuse enlargement heterogenous appearance of the thyroid gland. Assessment/Plan Assessment/Plan Impression: Right cerebellum and medial aspect of the left cerebellum infarcts, without hydrocephalus Severe vertebrobasilar atherosclerotic disease, patient on maximum therapy with aspirin, Plavix, statin Metastatic lung cancer, making her a poor candidate for some sort of interventional radiology procedure which is probably impossible anyway. Recommendations: I resumed the Plavix, continue aspirin and statin Rehabilitation modalities Await echocardiogram Also see stroke orders. Thank you for letting me help at the patient's care. YEFRI KERN MD May 26, 2020 09:48
[2020-05-26] MEDS ORDERED: diphenhydrAMINE HCL 25 MG CAPSULE PO PRN (10:00)
[2020-05-26] MEDS ORDERED: ONDANSETRON ODT 4 MG TAB.RAPDIS. PO PRN (10:00)
[2020-05-26] MEDS ORDERED: METOCLOPRAMIDE 10 MG TABLET. PO PRN (10:00)
[2020-05-26] MEDS ORDERED: oxyCODONE IR 5 MG TABLET PO PRN (10:00)
[2020-05-26] MEDS ORDERED: NITROGLYCERIN SUBLINGUAL 0.4 MG BOTTLE OF 25. SL PRN (10:00)
--- NOTE | 2020-05-26 10:18 | NUR ---
SS following up with discharge planning. SS reviewed pt chart and discussed with pt RN. Pt is from home with daughter and is currently requiring oxygen. Pt on IV Rocephin. PT/OT/ST ordered. SS will continue to follow for discharge planning.
[2020-05-26 11:00] VITALS: BP 169/112
[2020-05-26] MEDS ORDERED: POTASSIUM CHLORIDE 20 MEQ TABLET.ER. PO SCH (11:00)
--- NOTE | 2020-05-26 11:30 | NUR ---
SS following up with discharge planning. SS discussed with physician. SS met with pt and contacted pt's daughter via phone to discuss discharge planning. Pt reported that her daughter is her decision maker. SS discussed discharge options with pt's daughter to include halfway unit, hospice services, and home healthcare. Pt's daughter reported that pt will NOT go to halfway unit. 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 She reported that she will discuss home healthcare and hospice options with pt and Dr. Cortes and would notify SS of discharge decision. SS will continue to follow for discharge planning.
[2020-05-26] MEDS: CLOPIDOGREL BISULFATE 75 MG TABLET PO SCH (11:31)
[2020-05-26] MEDS: TORSEMIDE 20 MG TABLET. PO SCH (11:32)
[2020-05-26] MEDS: methylPREDNISolone 4 MG TABLET. PO SCH ×2 (11:32→19:53)
[2020-05-26] MEDS: CARVEDILOL 12.5 MG TABLET. PO SCH ×2 (11:33→17:23)
[2020-05-26] MEDS: cefTRIAXone IV Push 1 GM VIAL. IVP SCH (12:50)
[2020-05-26] MEDS: ISOSORBIDE MONONITRATE 20 MG TABLET PO SCH (14:05)
[2020-05-26] MEDS: hydrALAZINE 25 MG TABLET PO SCH ×2 (14:06→19:53)
[2020-05-26 15:00] VITALS: BP 138/91
--- NOTE | 2020-05-26 15:14 | CARD ---
MR#: [id number] Date of Study: 05/26/2020 Ordering Physician: YEFRI KERN, Referring Physician: YEFRI KERN, Tech: Tracy Brown APPROVED REPORT EXAM: Two-dimensional and M-mode echocardiogram with Doppler and color Doppler. Other Information HR: 74bpm INDICATION CVA/TIA Chest Pain 2D DIMENSIONS Left Atrium(2D)3.7 (1.6-4.0cm)IVSd1.3 (0.7-1.1cm) Aortic Root(2D)3.3 (2.0-3.7cm)LVDd6.1 (3.9-5.9cm) LVOT Diameter2.1 (1.8-2.4cm)PWd1.2 (0.7-1.1cm) LVDs4.7 (2.5-4.0cm)FS (%) 23.0 % SV85.6 mlLVEF(%)45.3 (>50%) Aortic Valve AoV Peak Dioni.149.6cm/sAoV VTI25.7cm AO Peak GR.8.9mmHgLVOT VTI 17.03cm AO Mean GR.6mmHg Mitral Valve MV E Jujgnqgv14.3cm/sMV E Peak Gr.4mmHg MV DECEL [id number] A Seworlfk252.4cm/s MV E Mean Gr.2mmHgE/A Ratio0.7 TDI Lateral E' P. V4.57cm/sMedial E' P. V4.18cm/s E/Lateral E'14.3E/Medial E'15.6 Tricuspid Valve TR P. [id number]/sRAP [id number] TR Peak Gr.[id number] LEFT VENTRICLE The left ventricle is normal size. There is borderline to mild concentric left ventricular hypertroph y. The left ventricular systolic function is normal. The Ejection Fraction is 55%. There is normal LV segmental wall motion. Transmitral Doppler flow pattern is Grade I-abnormal relaxation pattern. RIGHT VENTRICLE The right ventricle is normal size. There is normal right ventricular wall thickness. The right ventr icular systolic function is normal. ATRIA The left atrium size is normal. The right atrium size is normal. The interatrial septum is intact wit h no evidence for an atrial septal defect or patent foramen ovale as noted on 2-D or Doppler imaging. AORTIC VALVE The aortic valve is thickened but opens well. Doppler and Color Flow revealed no significant aortic r egurgitation. There is no significant aortic valvular stenosis. Calculated aortic valve area is 2.23 cm2 with maximum pressure gradient of 12 mmHg and mean pressure gradient of 6 mmHg. MITRAL VALVE The mitral valve is normal in structure and function. There is no evidence of mitral valve prolapse. There is no mitral valve stenosis. Doppler and Color-flow revealed trace mitral regurgitation. TRICUSPID VALVE The tricuspid valve is normal in structure and function. Doppler and Color Flow revealed trace tricus pid regurgitation with an estimated PAP of 31 mmHg. There is no tricuspid valve stenosis. PULMONIC VALVE The pulmonic valve is not well visualized. Doppler and Color Flow revealed no pulmonic valvular regur gitation. GREAT VESSELS The aortic root is normal in size. The IVC is normal in size and collapses >50% with inspiration. PERICARDIAL EFFUSION There is no evidence of significant pericardial effusion. Critical Notification Critical Value: No <Conclusion> The left ventricular systolic function is normal. The Ejection Fraction is 55%. There is normal LV segmental wall motion. Transmitral Doppler flow pattern is Grade I-abnormal relaxation pattern. Trace mitral regurgitation. Trace tricuspid regurgitation with an estimated PAP of 31 mmHg. There is no evidence of significant pericardial effusion. Signed by : Seth Mabry, Electronically Approved : 05/26/2020 15:13:44
[2020-05-26] MEDS: POTASSIUM CHLORIDE 20 MEQ TABLET.ER. PO SCH (17:23)
[2020-05-26 19:50] VITALS: BP 133/83
[2020-05-26] MEDS: CEFDINIR 300 MG CAPSULE PO SCH (19:53)
[2020-05-26] MEDS: ROSUVASTATIN 40MG PO SCH (19:54)
--- NOTE | 2020-05-26 20:17 | PN ---
DATE: 05/26/2020 SUBJECTIVE: The patient is resting, slightly propped up in bed, no apparent distress. She continued to complain of being nauseous, although she is not vomiting, continued to feel dizzy. Her MRI done yesterday showed that she has moderate to large area of acute infarct in the right cerebellum and to a lesser extent the medial aspect of the left cerebellum. No acute hemorrhage, edema or mass effect with partial effacement of the fourth ventricle, the lateral and third ventricles are not dilated. She does have abnormal signal in the vertebral and basilar arteries, which may indicate slow flow or occlusion. CT angio of the head and neck is recommended. Apparently, she has had CT angio of the head and neck, which showed near complete occlusion of the basilar artery throughout its course and opacification at the distal tibia, likely secondary to collateral flow from the posterior cerebral artery, occlusion in the V4 segment of the left vertebral artery, mild calcified plaque at the origin of the internal carotid arteries bilaterally without significant stenosis. Redemonstration of left upper lobe mass, diffuse enlargement and heterogeneous appearing thyroid gland. She apparently was seen in consultation by Dr. Kim who basically recommended treatment with aspirin, Plavix as well as statin. He also ordered an echocardiogram and apparently it was done, but it was not available yet. PHYSICAL EXAMINATION: GENERAL: When I examined her this afternoon, she was sitting slightly propped up in bed, in no apparent distress, pale, but no jaundice, cyanosis, or thyromegaly. No jugular venous distension. No lower limb edema. VITAL SIGNS: Her heart rate was 80, blood pressure was 169/112, temperature was 97.7, respiratory rate 20, and oxygen saturation was 100% on 1 liter of oxygen. The rest of clinical exam is stable. Her intake and output were incompletely recorded. LABORATORY DATA: Her lab work this morning showed a white cell count 4200, hemoglobin 10, hematocrit 32, MCV 77 and platelet count of 149,000. Her serum sodium was 140, potassium 3.5, chloride 107, bicarbonate 22, anion gap of 11, BUN 13, creatinine 1, estimated GFR was 70 mL per minute. Her glucose was 86, calcium was 8.3. Total bilirubin, AST, ALT, alkaline phosphatase were normal. Total protein was 6.9, albumin was 2.3. Her serum triglycerides were 203, total cholesterol 163, LDL was 106, VLDL was 41, HDL was 16, and the ratio was 10. ASSESSMENT: In summary, 1. This patient has metastatic lung cancer. 2. Right cerebellum and medial aspect of the left cerebellum infarct without hydrocephalus. 3. Severe vertebrobasilar atherosclerotic disease. PLAN: She is now on Plavix, aspirin and statin. She has also urinary tract infection for which she has now ceftriaxone and her culture has grown more than 100,000 colony forming units/mL Escherichia coli sensitive to all cephalosporins. I will switch her to oral cefdinir. She will be seen tomorrow by Dr. Santiago. RUPESH RICH MD DR: ELGIN/trent JOB#: [id number] / [id number]
[2020-05-26 23:05] VITALS: BP 129/85
[2020-05-27] MEDS: HYDROmorphone 2 MG/ML VIAL IV PRN ×7 (02:23→23:34)
[2020-05-27 03:20] VITALS: BP 152/98
[2020-05-27] MEDS: oxyCODONE IR 5 MG TABLET PO PRN ×4 (04:04→23:01)
--- NOTE | 2020-05-27 05:49 | PDOC ---
PULMONARY PROGRESS NOTES Subjective weak, on home 02 2 lpm, has some sob, no cough, Vitals Vital Signs Date Time Temp Pulse Resp B/P (MAP) Pulse Ox O2 Delivery O2 Flow Rate FiO2 05/27/20 05:04 20 100 Nasal Cannula 1.0 05/27/20 03:20 98.1 80 152/98 (116) 98.1 ROS: No Chest Pain, No Abdominal Pain, No Increase Cough General: Alert, No acute distress Lungs: Clear Cardiovascular: S1 Abdomen: Soft Neuro Exam: Alert Extremities: No Edema Skin: Warm Labs Laboratory Tests Test 05/26/20 05:12 White Blood Count 4.2 x10^3/uL (4.0-11.0) Red Blood Count 4.14 x10^6/uL (3.50-5.40) Hemoglobin 10.2 g/dL (12.0-15.5) Hematocrit 31.9 % (36.0-47.0) Mean Corpuscular Volume 77 fL (79-100) Mean Corpuscular Hemoglobin 25 pg (25-35) Mean Corpuscular Hemoglobin Concent 32 g/dL (31-37) Red Cell Distribution Width 18.7 % (11.5-14.5) Platelet Count 149 x10^3/uL (140-400) Sodium Level 140 mmol/L (136-145) Potassium Level 3.5 mmol/L (3.5-5.1) Chloride Level 107 mmol/L (98-107) Carbon Dioxide Level 22 mmol/L (21-32) Anion Gap 11 (6-14) Blood Urea Nitrogen 13 mg/dL (7-20) Creatinine 1.0 mg/dL (0.6-1.0) Estimated GFR (Cockcroft-Gault) 70.2 BUN/Creatinine Ratio 13 (6-20) Glucose Level 86 mg/dL (70-99) Calcium Level 8.3 mg/dL (8.5-10.1) Total Bilirubin 0.5 mg/dL (0.2-1.0) Aspartate Amino Transf (AST/SGOT) 12 U/L (15-37) Alanine Aminotransferase (ALT/SGPT) 8 U/L (14-59) Alkaline Phosphatase 79 U/L (46-116) Total Protein 6.9 g/dL (6.4-8.2) Albumin 2.3 g/dL (3.4-5.0) Albumin/Globulin Ratio 0.5 (1.0-1.7) Triglycerides Level 203 mg/dL (0-150) Cholesterol Level 163 mg/dL (0-200) LDL Cholesterol, Calculated 106 mg/dL (0-100) VLDL Cholesterol, Calculated 41 mg/dL (0-40) Non-HDL Cholesterol Calculated 147 mg/dL (0-129) HDL Cholesterol 16 mg/dL (40-60) Cholesterol/HDL Ratio 10.2 Medications Active Scripts Medications Dose Route/Sig Max Daily Dose Days Date Category Dose Instructions Medrol (Methylprednisolone) 4 Mg Tablet 4 Mg PO BID 7 05/05/20 Rx Tylenol (Acetaminophen) 325 Mg Tablet 500 Mg PO PRN Q4-6HRS PRN 04/25/20 Reported Oxycodone Hcl Immed.release (Oxycodone Hcl) 10 Mg Tablet 1 Tab PO QIDPRN PRN MDD 4 Tablet(s) 30 04/25/20 Reported Reglan (Metoclopramide Hcl) 10 Mg Tablet 1 Tab PO TID PRN 5 04/08/20 Rx before food and bedtime Klor-Con M20 (Potassium Chloride) 20 Meq Tab.er.prt 20 Meq PO DAILYWBKFT 30 04/05/20 Rx Zofran (Ondansetron Hcl) 8 Mg Tablet 1 Tab PO Q8HRS 04/05/20 Rx Clopidogrel (Clopidogrel Bisulfate) 75 Mg Tablet 75 Mg PO DAILY 03/15/20 Reported HOLD til 05/25 Aspirin 81 Mg Tab.chew 1 Tab PO DAILY 03/15/20 Reported HOLD til 05/25 NITROGLYCERIN SubLingual (Nitroglycerin) 0.4 Mg Tab.subl 0.4 Mg SL PRN Q5MIN PRN 02/28/20 Reported Hydralazine Hcl 25 Mg Tablet 1 Tab PO TID 02/28/20 Reported Diphenhydramine Hcl 25 Mg Capsule 1 Tab PO PRN DAILY PRN 02/28/20 Reported Amlodipine Besylate 5 Mg Tablet 10 Mg PO DAILY 02/28/20 Reported Isosorbide Mononitrate Er (Isosorbide Mononitrate) 60 Mg Tab.er.24h 1 Tab PO DAILY 02/27/20 Reported Torsemide 20 Mg Tablet 60 Mg PO DAILY 02/27/20 Reported Crestor (Rosuvastatin Calcium) 20 Mg Tablet 2 Tab PO DAILY 03/16/17 Reported Carvedilol 25 Mg Tablet 2 Tab PO BID 08/07/15 Reported Impression . IMPRESSION: 1. Progressive dyspnea, hypoxemia multifactorial secondary to stage 4 lung cancer with metastasis to the adrenal gland. 2. Possible new metastases to the right lower lobe. 3. Intractable nausea, vomiting, requiring IV antiemetics, IV fluids. 4. Progressive dyspnea with CT showing no evidence of pulmonary emboli, now revealing cavitation of the left upper lobe with known lung mass. 5. Multiple other comorbidities including hypertension, previous myocardial infarction, hyperlipidemia and coronary artery disease. 6. Acute cerebral infarct MRI of the brain IMPRESSION: 1. Moderate to large area of acute infarct in the right cerebellum and to lesser extent along the medial aspect of the left cerebellum. No acute hemorrhage. Edema and mass effect with partial effacement of the fourth ventricle. Lateral and third ventricles are not dilated. 2. Abnormal signal in the vertebral and basilar arteries, which may indicate slow flow or occlusion. CTA head and neck is recommended. 3. Multiple additional chronic bilateral cerebellar lacunar infarcts. 4. No evidence of intracranial metastatic disease. Plan . follow neuro rec 02 BD Continue current support IV fluids, case discussed with ELMER Crawford MD May 27, 2020 05:49
[2020-05-27 06:49] LABS: CALCIUM 8.4 mg/dL (8.5-10.1); CREATININE 1.5 mg/dL (0.6-1.0); POTASSIUM 4.3 mmol/L (3.5-5.1)
[2020-05-27 07:00] VITALS: BP 151/97
[2020-05-27] MEDS ORDERED: CLOPIDOGREL BISULFATE 75 MG TABLET PO SCH (09:00)
[2020-05-27] MEDS: CEFDINIR 300 MG CAPSULE PO SCH ×2 (09:41→20:35)
[2020-05-27] MEDS: ISOSORBIDE MONONITRATE 20 MG TABLET PO SCH ×2 (09:42→13:51)
[2020-05-27] MEDS: ASPIRIN ENTERIC COATED 325 MG TABLET.DR. PO SCH (09:42)
[2020-05-27] MEDS: POTASSIUM CHLORIDE 20 MEQ TABLET.ER. PO SCH ×3 (09:42→16:22)
[2020-05-27] MEDS: CARVEDILOL 12.5 MG TABLET. PO SCH ×2 (09:42→16:23)
[2020-05-27] MEDS: amLODIPine BESYLATE 10 MG TABLET PO SCH (09:43)
[2020-05-27] MEDS: TORSEMIDE 20 MG TABLET. PO SCH (09:43)
[2020-05-27] MEDS: methylPREDNISolone 4 MG TABLET. PO SCH ×2 (09:44→20:35)
[2020-05-27] MEDS: hydrALAZINE 25 MG TABLET PO SCH ×3 (09:44→20:36)
[2020-05-27] MEDS: CLOPIDOGREL BISULFATE 75 MG TABLET PO SCH (09:52)
--- NOTE | 2020-05-27 09:58 | PN ---
DATE: 05/27/2020 SUBJECTIVE: The patient is sitting slightly propped up in bed, in no apparent distress. She continued to complain of nausea, but no vomiting. She has eaten her breakfast this morning and she managed to walk with a walker with standby assist by the physical therapist. She continued to complain of dizziness. PHYSICAL EXAMINATION: GENERAL: When I examined her this morning, she looked well and was clearly in no apparent respiratory distress, pale, but no jaundice, cyanosis or thyromegaly. No jugular venous distention. No limb edema. VITAL SIGNS: Her heart rate was 75, blood pressure 151/97, temperature was 98.5, respiratory rate was 16, and oxygen saturation was 100% on 2 liters of oxygen. HEAD, EYES, EARS, NOSE AND THROAT: Showed normocephalic, atraumatic. NECK: Supple. HEART: Showed normal first and second heart sounds. No gallop or murmur. CHEST: Clear to auscultation. No crepitation or rhonchi. ABDOMEN: Distended, soft, nontender. NEUROLOGIC: She is definitely more awake, alert, responding appropriately. All cranial nerves are intact. She moves extremities without difficulty. Her intake was 1100, output was 800. LABORATORY DATA: As of this morning, her white cell count was 4200, hemoglobin 10, hematocrit 32, MCV 77 and platelet count of 149,000. Her chemistry showed a serum sodium 139, potassium 4.3, chloride 105, bicarbonate 25, anion gap of 9, BUN 19, creatinine 1.5, estimated GFR was 44 mL per minute. Her glucose 117 and calcium was 8.4. ASSESSMENT: 1. Stage 4 lung cancer with metastasis to left adrenal gland and the right lower lobe. 2. Right cerebellar and medial aspect of left cerebellar infarct without hydrocephalus. 3. Severe vertebrobasilar atherosclerotic disease. 4. Hypertension. 5. Coronary artery disease, status post PCI with stent deployment. 6. Hyperlipidemia. PLAN: Continue with pain management. She has urinary tract infection with growth of more than 100,000 colony forming units per mL of Escherichia coli, sensitive to cephalosporins. She was treated with IV Rocephin and she is now on oral cefdinir. Continue with antiemetic. Continue with DVT prophylaxis. RUPESH RICH MD DR: ELGIN/trent JOB#: [id number] / [id number]
[2020-05-27 11:00] VITALS: BP 130/95
[2020-05-27 15:00] VITALS: BP 118/76
[2020-05-27 18:31] VITALS: BP 112/64
[2020-05-27] MEDS ORDERED: MAGNESIUM CITRATE 296 ML SOLUTION. PO PRN (19:30)
[2020-05-27] MEDS ORDERED: METHYLNALTREXONE 12 MG/0.6 ML VIAL. SQ ONE (20:00)
[2020-05-27] MEDS: DOCUSATE SODIUM 100 MG CAPSULE. PO SCH (20:36)
[2020-05-27] MEDS: ROSUVASTATIN 40MG PO SCH (20:45)
[2020-05-27] MEDS ORDERED: LACTOBACILLUS RHAMNOSUS GG 1 CAPSULE. PO SCH (21:00)
[2020-05-27 23:00] VITALS: BP 127/86
[2020-05-28 03:00] VITALS: BP 126/81
[2020-05-28] MEDS: HYDROmorphone 2 MG/ML VIAL IV PRN ×6 (03:10→20:29)
[2020-05-28 05:36] LABS: CALCIUM 8.7 mg/dL (8.5-10.1); CREATININE 1.5 mg/dL (0.6-1.0)
[2020-05-28] MEDS: oxyCODONE IR 5 MG TABLET PO PRN ×3 (06:28→21:57)
[2020-05-28 07:00] VITALS: BP 125/86
--- NOTE | 2020-05-28 07:42 | PDOC ---
PULMONARY PROGRESS NOTES Subjective on home 02 2 lpm, sob better, no cough, feels slightly better Vitals Vital Signs Date Time Temp Pulse Resp B/P (MAP) Pulse Ox O2 Delivery O2 Flow Rate FiO2 05/28/20 06:28 18 98 Room Air 2.0 05/28/20 03:00 98.2 78 126/81 (96) 98.2 ROS: No Chest Pain, No Abdominal Pain, No Increase Cough General: Alert, No acute distress HEENT: Other (nc at perrl ) Lungs: Clear Cardiovascular: S1, S2 Abdomen: Soft Neuro Exam: Alert Extremities: No Edema Skin: Warm Labs Laboratory Tests Test 05/27/20 06:13 05/28/20 05:00 Sodium Level 139 mmol/L (136-145) 140 mmol/L (136-145) Potassium Level 4.3 mmol/L (3.5-5.1) 4.0 mmol/L (3.5-5.1) Chloride Level 105 mmol/L (98-107) 103 mmol/L (98-107) Carbon Dioxide Level 25 mmol/L (21-32) 28 mmol/L (21-32) Anion Gap 9 (6-14) 9 (6-14) Blood Urea Nitrogen 19 mg/dL (7-20) 23 mg/dL (7-20) Creatinine 1.5 mg/dL (0.6-1.0) 1.5 mg/dL (0.6-1.0) Estimated GFR (Cockcroft-Gault) 44.0 44.0 Glucose Level 117 mg/dL (70-99) 117 mg/dL (70-99) Calcium Level 8.4 mg/dL (8.5-10.1) 8.7 mg/dL (8.5-10.1) Laboratory Tests Test 05/28/20 05:00 Sodium Level 140 mmol/L (136-145) Potassium Level 4.0 mmol/L (3.5-5.1) Chloride Level 103 mmol/L (98-107) Carbon Dioxide Level 28 mmol/L (21-32) Anion Gap 9 (6-14) Blood Urea Nitrogen 23 mg/dL (7-20) Creatinine 1.5 mg/dL (0.6-1.0) Estimated GFR (Cockcroft-Gault) 44.0 Glucose Level 117 mg/dL (70-99) Calcium Level 8.7 mg/dL (8.5-10.1) Medications Active Scripts Medications Dose Route/Sig Max Daily Dose Days Date Category Dose Instructions Medrol (Methylprednisolone) 4 Mg Tablet 4 Mg PO BID 7 05/05/20 Rx Tylenol (Acetaminophen) 325 Mg Tablet 500 Mg PO PRN Q4-6HRS PRN 04/25/20 Reported Oxycodone Hcl Immed.release (Oxycodone Hcl) 10 Mg Tablet 1 Tab PO QIDPRN PRN MDD 4 Tablet(s) 30 04/25/20 Reported Reglan (Metoclopramide Hcl) 10 Mg Tablet 1 Tab PO TID PRN 5 04/08/20 Rx before food and bedtime Klor-Con M20 (Potassium Chloride) 20 Meq Tab.er.prt 20 Meq PO DAILYWBKFT 30 04/05/20 Rx Zofran (Ondansetron Hcl) 8 Mg Tablet 1 Tab PO Q8HRS 04/05/20 Rx Clopidogrel (Clopidogrel Bisulfate) 75 Mg Tablet 75 Mg PO DAILY 03/15/20 Reported HOLD til 05/25 Aspirin 81 Mg Tab.chew 1 Tab PO DAILY 03/15/20 Reported HOLD til 05/25 NITROGLYCERIN SubLingual (Nitroglycerin) 0.4 Mg Tab.subl 0.4 Mg SL PRN Q5MIN PRN 02/28/20 Reported Hydralazine Hcl 25 Mg Tablet 1 Tab PO TID 02/28/20 Reported Diphenhydramine Hcl 25 Mg Capsule 1 Tab PO PRN DAILY PRN 02/28/20 Reported Amlodipine Besylate 5 Mg Tablet 10 Mg PO DAILY 02/28/20 Reported Isosorbide Mononitrate Er (Isosorbide Mononitrate) 60 Mg Tab.er.24h 1 Tab PO DAILY 02/27/20 Reported Torsemide 20 Mg Tablet 60 Mg PO DAILY 02/27/20 Reported Crestor (Rosuvastatin Calcium) 20 Mg Tablet 2 Tab PO DAILY 03/16/17 Reported Carvedilol 25 Mg Tablet 2 Tab PO BID 08/07/15 Reported Impression . IMPRESSION: 1. Progressive dyspnea, hypoxemia multifactorial secondary to stage 4 lung cancer with metastasis to the adrenal gland. 2. Possible new metastases to the right lower lobe. 3. Intractable nausea, vomiting, requiring IV antiemetics, IV fluids. 4. Progressive dyspnea with CT showing no evidence of pulmonary emboli, now revealing cavitation of the left upper lobe with known lung mass. 5. Multiple other comorbidities including hypertension, previous myocardial infarction, hyperlipidemia and coronary artery disease. 6. Acute cerebral infarct MRI of the brain IMPRESSION: 1. Moderate to large area of acute infarct in the right cerebellum and to lesser extent along the medial aspect of the left cerebellum. No acute hemorrhage. Edema and mass effect with partial effacement of the fourth ventricle. Lateral and third ventricles are not dilated. 2. Abnormal signal in the vertebral and basilar arteries, which may indicate slow flow or occlusion. CTA head and neck is recommended. 3. Multiple additional chronic bilateral cerebellar lacunar infarcts. 4. No evidence of intracranial metastatic disease. Plan . follow neuro rec 02 BD Continue current support case discussed with ELMER Crawford MD May 28, 2020 07:42
[2020-05-28] MEDS ORDERED: METHYLNALTREXONE 12 MG/0.6 ML VIAL. SQ ONE (09:45)
[2020-05-28] MEDS: ASPIRIN ENTERIC COATED 325 MG TABLET.DR. PO SCH (09:50)
[2020-05-28] MEDS: CLOPIDOGREL BISULFATE 75 MG TABLET PO SCH (09:50)
[2020-05-28] MEDS: DOCUSATE SODIUM 100 MG CAPSULE. PO SCH ×2 (09:50→20:30)
[2020-05-28] MEDS: ISOSORBIDE MONONITRATE 20 MG TABLET PO SCH ×2 (09:50→14:11)
[2020-05-28] MEDS: methylPREDNISolone 4 MG TABLET. PO SCH ×2 (09:51→20:30)
[2020-05-28] MEDS: CARVEDILOL 12.5 MG TABLET. PO SCH ×2 (09:51→17:27)
[2020-05-28] MEDS: hydrALAZINE 25 MG TABLET PO SCH ×3 (09:51→20:33)
[2020-05-28] MEDS: POTASSIUM CHLORIDE 20 MEQ TABLET.ER. PO SCH ×3 (09:52→17:27)
[2020-05-28] MEDS: POLYETHYLENE GLYCOL 3350 17 GM PACKET. PO SCH (09:52)
[2020-05-28] MEDS: amLODIPine BESYLATE 10 MG TABLET PO SCH (09:52)
[2020-05-28] MEDS: CEFDINIR 300 MG CAPSULE PO SCH ×2 (09:52→20:29)
[2020-05-28] MEDS: TORSEMIDE 20 MG TABLET. PO SCH (09:52)
--- NOTE | 2020-05-28 10:28 | PN ---
DATE: 05/28/2020 SUBJECTIVE: The patient is resting, slightly propped up in bed, in no apparent distress, awake, alert. On questioning her, she continued to complain of feeling dizzy and unsteady on her feet, but has had no further episodes of nausea and vomiting. She is tolerating her diet without difficulty. She continued to have constipation despite treatment with Colace, MiraLax, mag citrate as well as Relistor. PHYSICAL EXAMINATION: GENERAL: When I saw her this morning, she looked pale, but no jaundice, cyanosis or thyromegaly. No jugular venous distention. No lower limb edema. VITAL SIGNS: Her heart rate was 70, blood pressure was 125/86, temperature was 98.2, respiratory rate was 16, and oxygen saturation was 100% on 2 liters of oxygen. HEAD, EYES, EARS, NOSE AND THROAT: Showed normocephalic, atraumatic. NECK: Supple. HEART: Normal first and second heart sounds. No gallop or murmur. CHEST: Clear to auscultation. No crepitation or rhonchi. ABDOMEN: Distended, soft, nontender. NEUROLOGIC: She is definitely awake, alert, responding appropriately. All cranial nerves are intact. She moves extremities without difficulty. Her intake over the last 24 hours was 800, output was 1700. LABORATORY DATA: As of this morning, her serum sodium 140, potassium 4, chloride 103, bicarbonate 28, anion gap of 9, BUN 23, creatinine 1.5, estimated GFR was 44 mL per minute. Her glucose was ____ and calcium was 8.7. Her white cell count was 4200, hemoglobin 10, hematocrit 31, MCV 77, and platelet count of 149,000. ASSESSMENT: 1. Stage 4 lung cancer, metastasis to the left adrenal gland on the right lower lobe. 2. 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 3. Severe vertebrobasilar atherosclerotic disease. 4. Hypertension. 5. Coronary artery disease, status post PCI with stent deployment. 6. Hyperlipidemia. 7. Severe opioid-induced constipation. 8. Normochromic normocytic anemia. 9. Urinary tract infection with growth of more than 100,000 colony forming units per mL of Escherichia coli, treated initially with Rocephin and now she is on oral cefdinir. PLAN: To continue with pain management. Continue with oral antibiotic. Continue DVT prophylaxis. Continue with antiemetic. She is now also on MiraLax, Colace, mag citrate and Relistor and hopefully she can be discharged home tomorrow to follow with her oncologist as an outpatient to continue the chemo and radiation therapy. RUPESH RICH MD DR: ELGIN/trent JOB#: [id number] / [id number]
[2020-05-28 11:00] VITALS: BP 126/90
--- NOTE | 2020-05-28 11:45 | PDOC ---
PROGRESS NOTES Assessment Problems Medical Problems: (1) Intractable nausea and vomiting Status: Acute (2) Metastatic squamous cell carcinoma Status: Acute Plan CVA right cerebellum, medial aspect of left cerebellum CVA no hydrocephalus. On aspirin, Plavix. Hyperlipidemia on statin. No exam stable. Rehab modalities. Stage IV lung cancer. Echo nonrevealing. Continue medical management. Plan discussed with patient at length. Subjective Patient is feeling better. No acute events. Objective Vital Signs Date Time Temp Pulse Resp B/P (MAP) Pulse Ox O2 Delivery O2 Flow Rate FiO2 05/28/20 10:23 Nasal Cannula 2.0 05/28/20 09:52 70 125/86 05/28/20 07:00 98.2 16 100 98.2 Intake and Output 05/28/20 07:00 Intake Total 650 ml Output Total 1800 ml Balance -1150 ml Intake Oral 650 ml Output Urine Total 1800 ml PHYSICAL EXAM General no acute distress. HEENT: Normocephalic and atraumatic. NECK: Supple without bruit Respiratory: Clear to auscultation bilaterally Heart: Regular rate and rhythm, S1S2 normal NEUROLOGIC: Mental status Alert oriented. Cranial nerve equally reactive pupils, and intact extraocular movements. No facial asymmetry. Palate elevates and tongue protrudes in midline. Reflexes are 1-2 with flexor plantar responses. Coordination no dysmetria Strength able to move all exts equally limited by pains Gait in bed. Review of Relevant I have reviewed the following items dina (where applicable) has been applied. Labs Laboratory Tests Test 05/27/20 06:13 05/28/20 05:00 Sodium Level 139 mmol/L (136-145) 140 mmol/L (136-145) Potassium Level 4.3 mmol/L (3.5-5.1) 4.0 mmol/L (3.5-5.1) Chloride Level 105 mmol/L (98-107) 103 mmol/L (98-107) Carbon Dioxide Level 25 mmol/L (21-32) 28 mmol/L (21-32) Anion Gap 9 (6-14) 9 (6-14) Blood Urea Nitrogen 19 mg/dL (7-20) 23 mg/dL (7-20) Creatinine 1.5 mg/dL (0.6-1.0) 1.5 mg/dL (0.6-1.0) Estimated GFR (Cockcroft-Gault) 44.0 44.0 Glucose Level 117 mg/dL (70-99) 117 mg/dL (70-99) Calcium Level 8.4 mg/dL (8.5-10.1) 8.7 mg/dL (8.5-10.1) Laboratory Tests Test 05/28/20 05:00 Sodium Level 140 mmol/L (136-145) Potassium Level 4.0 mmol/L (3.5-5.1) Chloride Level 103 mmol/L (98-107) Carbon Dioxide Level 28 mmol/L (21-32) Anion Gap 9 (6-14) Blood Urea Nitrogen 23 mg/dL (7-20) Creatinine 1.5 mg/dL (0.6-1.0) Estimated GFR (Cockcroft-Gault) 44.0 Glucose Level 117 mg/dL (70-99) Calcium Level 8.7 mg/dL (8.5-10.1) Microbiology 05/23/20 Urine Culture - Final, Complete 05/23/20 Antimicrobic Susceptibility - Final, Complete Medications Current Medications Sodium Chloride 1,000 ml @ 1,000 mls/hr 1X ONCE IV Last administered on 05/22/20 16:47; Start 05/22/20 at 16:00; Stop 05/22/20 at 16:59; Status DC Famotidine (Pepcid Vial) 20 mg 1X ONCE IVP Last administered on 05/22/20at 16:47; Start 05/22/20 at 16:15; Stop 05/22/20 at 16:16; Status DC Metoclopramide HCl (Reglan Vial) 10 mg 1X ONCE IVP Last administered on 05/22/20at 16:47; Start 05/22/20 at 16:15; Stop 05/22/20 at 16:16; Status DC Diphenhydramine HCl (Benadryl) 25 mg 1X ONCE IVP Last administered on 05/22/20at 16:47; Start 05/22/20 at 16:15; Stop 05/22/20 at 16:16; Status DC Hydromorphone HCl (Dilaudid) 0.5 mg 1X ONCE IV Last administered on 05/22/20at 16:48; Start 05/22/20 at 16:45; Stop 05/22/20 at 16:46; Status DC Ondansetron HCl (Zofran) 4 mg PRN Q8HRS PRN IV NAUSEA/VOMITING; Start 05/22/20 at 17:45; Stop 05/23/20 at 10:51; Status DC Hydromorphone HCl (Dilaudid) 0.5 mg PRN Q4HRS PRN IV PAIN Last administered on 05/22/20at 22:34; Start 05/22/20 at 17:45; Stop 05/22/20 at 22:51; Status DC Sodium Chloride 1,000 ml @ 100 mls/hr 1X ONCE IV Last administered on 05/22/20at 18:31; Start 05/22/20 at 18:30; Stop 05/23/20 at 04:29; Status DC Hydralazine HCl (Apresoline Inj) 10 mg PRN Q4HRS PRN IVP ELEVATED BP, SEE COMMENTS Last administered on 05/25/20at 17:46; Start 05/22/20 at 22:45 Hydromorphone HCl (Dilaudid) 0.5 mg PRN Q3HRS PRN IV PAIN Last administered on 05/23/20at 11:10; Start 05/22/20 at 23:00; Stop 05/23/20 at 12:42; Status DC Hydralazine HCl (Apresoline Inj) 20 mg PRN Q4HRS PRN IVP ELEVATED BP, SEE COMMENTS Last administered on 05/24/20at 09:50; Start 05/23/20 at 08:45; Stop 05/24/20 at 13:02; Status DC Ondansetron HCl (Zofran) 4 mg PRN Q4HRS PRN IV NAUSEA/VOMITING 1ST CHOICE Last administered on 05/24/20at 23:03; Start 05/23/20 at 11:00 Prochlorperazine Edisylate (Compazine) 10 mg PRN Q6HRS PRN IV NAUSEA/VOMITING 2ND CHOICE Last administered on 05/23/20at 20:39; Start 05/23/20 at 11:00 Fluticasone Propionate (Flonase) 2 spray PRN DAILY PRN NS ALLERGIES; Start 05/23/20 at 12:15 Docusate Sodium (Enemeez) 283 mg 1X PRN NM CONSTIPATION; Start 05/23/20 at 12:15 Ceftriaxone Sodium (Rocephin) 1 gm Q24H IVP Last administered on 05/26/20at 12:50; Start 05/23/20 at 12:45; Stop 05/26/20 at 15:03; Status DC Hydromorphone HCl (Dilaudid) 1 mg PRN Q3HRS PRN IV PAIN Last administered on 05/25/20at 19:14; Start 05/23/20 at 12:45; Stop 05/25/20 at 20:07; Status DC Amino Acids/ Glycerin/ Electrolytes 1,000 ml @ 80 mls/hr [id number] IV Last administered on 05/24/20at 12:47; Start 05/23/20 at 13:00; Stop 05/24/20 at 13:09; Status DC Iohexol (Omnipaque 350 Mg/ml) 100 ml 1X ONCE IV Last administered on 05/23/20at 13:13; Start 05/23/20 at 13:00; Stop 05/23/20 at 13:03; Status DC Methylnaltrexone [place] (Relistor) 12 mg PRN 1X ONCE SQ Last administered on 05/23/20at 16:27; Start 05/23/20 at 16:30; Stop 05/23/20 at 16:31; Status DC Clonidine HCl (Catapres Tts-2) 1 patch WEEKLY TD Last administered on 05/24/20at 14:07; Start 05/24/20 at 09:00; Stop 05/25/20 at 14:32; Status DC Potassium Chloride/Dextrose/ Sod Cl 1,000 ml @ 100 mls/hr Q10H IV Last administered on 05/25/20at 09:25; Start 05/24/20 at 14:00; Stop 05/26/20 at 15:03; Status DC Potassium Chloride (Klor-Con) 40 meq 1X ONCE PO Last administered on 05/24/20at 15:29; Start 05/24/20 at 15:00; Stop 05/24/20 at 15:05; Status DC Gadoterate Meglumine (Dotarem) 15 ml 1X ONCE IVP Last administered on 05/25/20at 14:43; Start 05/25/20 at 15:00; Stop 05/25/20 at 15:01; Status DC Clonidine HCl (Catapres Tts-3) 1 patch WEEKLY TD Last administered on 05/25/20at 15:10; Start 05/25/20 at 15:00 Amlodipine Besylate (Norvasc) 5 mg 1X ONCE PO Last administered on 05/25/20at 15:10; Start 05/25/20 at 15:00; Stop 05/25/20 at 15:01; Status DC Amlodipine Besylate (Norvasc) 5 mg DAILY PO Last administered on 05/26/20at 08:45; Start 05/26/20 at 09:00; Stop 05/26/20 at 10:14; Status DC Sodium Chloride 1,000 ml @ 100 mls/hr Q10H IV Last administered on 05/26/20at 11:34; Start 05/25/20 at 16:00; Stop 05/26/20 at 15:03; Status DC Acetaminophen (Tylenol) 650 mg PRN Q6HRS PRN PO TEMP > 100.4F Last administered on 05/25/20at 17:45; Start 05/25/20 at 15:30 Acetaminophen (Tylenol Supp) 650 mg PRN Q4HRS PRN NM TEMP > 100.4F; Start 05/25/20 at 15:30 Aspirin (Ecotrin) 325 mg DAILYWBKFT PO Last administered on 05/28/20at 09:50; Start 05/25/20 at 16:00 Aspirin (Aspirin Rectal Supp) 300 mg PRN DAILY PRN NM IF UNABLE TO TAKE PO; Start 05/25/20 at 15:30 Iohexol (Omnipaque 350 Mg/ml) 60 ml 1X ONCE IV Last administered on 05/25/20at 16:00; Start 05/25/20 at 16:00; Stop 05/25/20 at 16:06; Status DC Info (CONTRAST GIVEN -- Rx MONITORING) 1 each PRN DAILY PRN MC SEE COMMENTS; Start 05/25/20 at 16:15; Stop 05/27/20 at 16:14; Status DC Lactobacillus Rhamnosus (Culturelle) 1 cap BID PO Last administered on 05/26/20at 08:45; Start 05/25/20 at 21:00; Stop 05/26/20 at 15:56; Status DC Hydromorphone HCl (Dilaudid) 2 mg PRN Q3HRS PRN IV PAIN Last administered on 05/28/20at 09:53; Start 05/25/20 at 22:15 Oxycodone HCl (Roxicodone) 10 mg PRN Q6HRS PRN PO PAIN Last administered on 05/28/20at 06:28; Start 05/25/20 at 20:15 Clopidogrel Bisulfate (Plavix) 75 mg DAILYWBKFT PO Last administered on 05/28/20 09:50; Start 05/26/20 at 10:30 Amlodipine Besylate (Norvasc) 10 mg DAILY PO Last administered on 05/28/20 09:52; Start 05/27/20 at 09:00 Clopidogrel Bisulfate (Plavix) 75 mg DAILY PO ; Start 05/27/20 at 09:00; Status UNV Diphenhydramine HCl (Benadryl) 25 mg PRN DAILY PRN PO ALLERGIES; Start 05/26/20 at 10:00 Hydralazine HCl (Apresoline) 25 mg TID PO Last administered on 05/28/20 09:51; Start 05/26/20 at 14:00 Methylprednisolone (Medrol) 4 mg BID PO Last administered on 05/28/20 09:51; Start 05/26/20 at 11:00 Metoclopramide HCl (Reglan) 10 mg PRN TID PRN PO NAUSEA, 3RD CHOICE; Start 05/26/20 at 10:00 Nitroglycerin (Nitrostat) 0.4 mg PRN Q5MIN PRN SL CHEST PAIN; Start 05/26/20 at 10:00 Potassium Chloride (Klor-Con) 20 meq DAILYWBKFT PO Last administered on 05/26/20at 11:33; Start 05/26/20 at 11:00; Stop 05/26/20 at 15:09; Status DC Torsemide (Demadex) 60 mg DAILY PO Last administered on 05/28/20 09:52; Start 05/26/20 at 11:00 Carvedilol (Coreg) 12.5 mg BIDWMEALS PO Last administered on 05/28/20 09:51; Start 05/26/20 at 11:00 Isosorbide Mononitrate (Ismo) 20 mg BID92 PO Last administered on 05/28/20 09:50; Start 05/26/20 at 14:00 Ondansetron HCl (Zofran Odt) 8 mg PRN Q6HRS PRN PO NAUSEA/VOMITING Last administered on 05/27/20at 09:49; Start 05/26/20 at 10:00 Oxycodone HCl (Roxicodone) 10 mg PRN Q6HRS PRN PO PAIN; Start 05/26/20 at 10:00; Stop 05/27/20 at 09:04; Status DC Non-Formulary Medication 1 ea QHS PO Last administered on 05/27/20at 20:45; Start 05/26/20 at 21:00 Cefdinir (Omnicef) 300 mg BID PO Last administered on 05/28/20at 09:52; Start 05/26/20 at 21:00 Potassium Chloride (Klor-Con) 20 meq TIDWMEALS PO Last administered on 05/28/20at 09:52; Start 05/26/20 at 17:00 Lactobacillus Rhamnosus (Culturelle) 1 cap BID PO ; Start 05/27/20 at 21:00; Status Cancel Methylnaltrexone [place] (Relistor) 12 mg 1X ONCE SQ ; Start 05/27/20 at 20:00; Stop 05/27/20 at 20:01; Status DC Polyethylene Glycol (miraLAX PACKET) 17 gm DAILY PO Last administered on 05/28/20at 09:52; Start 05/28/20 at 09:00 Docusate Sodium (Colace) 100 mg BID PO Last administered on 05/28/20at 09:50; Start 05/27/20 at 21:00 Magnesium Citrate (Citroma) 296 ml PRN 1X PRN PO CONSTIPATION; Start 05/27/20 at 19:30 Methylnaltrexone [place] (Relistor) 12 mg 1X ONCE SQ ; Start 05/28/20 at 09:45; Stop 05/28/20 at 09:46; Status DC Lactobacillus Rhamnosus (Culturelle) 1 cap BID PO ; Start 05/28/20 at 21:00 Active Scripts Active Medrol (Methylprednisolone) 4 Mg Tablet 4 Mg PO BID 7 Days Reglan (Metoclopramide Hcl) 10 Mg Tablet 1 Tab PO TID PRN 5 Days before food and bedtime Klor-Con M20 (Potassium Chloride) 20 Meq Tab.er.prt 20 Meq PO DAILYWBKFT 30 Days Zofran (Ondansetron Hcl) 8 Mg Tablet 1 Tab PO Q8HRS Reported Tylenol (Acetaminophen) 325 Mg Tablet 500 Mg PO PRN Q4-6HRS PRN Oxycodone Hcl Immed.release (Oxycodone Hcl) 10 Mg Tablet 1 Tab PO QIDPRN PRN MDD 4 Tablet(s) 30 Days Clopidogrel (Clopidogrel Bisulfate) 75 Mg Tablet 75 Mg PO DAILY HOLD til 716 Aspirin 81 Mg Tab.chew 1 Tab PO DAILY HOLD til 716 NITROGLYCERIN SubLingual (Nitroglycerin) 0.4 Mg Tab.subl 0.4 Mg SL PRN Q5MIN PRN Hydralazine Hcl 25 Mg Tablet 1 Tab PO TID Diphenhydramine Hcl 25 Mg Capsule 1 Tab PO PRN DAILY PRN Amlodipine Besylate 5 Mg Tablet 10 Mg PO DAILY Isosorbide Mononitrate Er (Isosorbide Mononitrate) 60 Mg Tab.er.24h 1 Tab PO DAILY Torsemide 20 Mg Tablet 60 Mg PO DAILY Crestor (Rosuvastatin Calcium) 20 Mg Tablet 2 Tab PO DAILY Carvedilol 25 Mg Tablet 2 Tab PO BID Vitals/I & O Vital Sign - Last 24 Hours 05/27/20 05/27/20 05/27/20 05/27/20 13:51 13:51 13:55 15:00 Temp 98.3 98.3 Pulse 89 89 82 Resp 16 B/P (MAP) 130/95 130/95 118/76 (90) Pulse Ox 99 98 O2 Delivery Room Air Nasal Cannula O2 Flow Rate 1.0 2.0 05/27/20 05/27/20 05/27/20 05/27/20 15:24 16:23 16:23 16:25 Pulse 82 Resp 17 17 B/P (MAP) 118/76 Pulse Ox 98 O2 Delivery Room Air Nasal Cannula Nasal Cannula O2 Flow Rate 2.0 05/27/20 05/27/20 05/27/20 05/27/20 17:21 17:21 18:31 20:05 Temp 98.4 98.4 Pulse 81 Resp 16 B/P (MAP) 112/64 (80) Pulse Ox 98 98 98 O2 Delivery Room Air Room Air Room Air Room Air O2 Flow Rate 2.0 2.0 05/27/20 05/27/20 05/27/20 05/27/20 20:35 20:36 21:05 23:00 Temp 98.4 98.4 Pulse 81 81 Resp 20 17 17 B/P (MAP) 112/64 127/86 (100) Pulse Ox 98 98 98 O2 Delivery Nasal Cannula Room Air Room Air O2 Flow Rate 2.0 2.0 05/27/20 05/27/20 05/28/20 05/28/20 23:01 23:34 00:01 00:01 Resp 17 17 17 17 Pulse Ox 98 98 98 98 O2 Delivery Room Air Room Air Room Air Room Air O2 Flow Rate 2.0 2.0 2.0 2.0 05/28/20 05/28/20 05/28/20 05/28/20 03:00 03:10 03:40 06:28 Temp 98.2 98.2 Pulse 78 Resp 17 18 19 18 B/P (MAP) 126/81 (96) Pulse Ox 99 98 98 O2 Delivery Room Air Room Air Room Air O2 Flow Rate 2.0 2.0 05/28/20 05/28/20 05/28/20 05/28/20 06:28 06:58 07:00 07:28 Temp 98.2 98.2 Pulse 70 Resp 18 16 B/P (MAP) 125/86 (99) Pulse Ox 98 100 O2 Delivery Room Air Room Air Nasal Cannula Room Air O2 Flow Rate 2.0 2.0 2.0 2.0 05/28/20 05/28/20 05/28/20 05/28/20 08:00 09:50 09:51 09:51 Pulse 70 70 70 B/P (MAP) 125/86 125/86 125/86 O2 Delivery Nasal Cannula O2 Flow Rate 2.0 05/28/20 05/28/20 05/28/20 09:52 09:53 10:23 Pulse 70 B/P (MAP) 125/86 O2 Delivery Nasal Cannula Nasal Cannula O2 Flow Rate 2.0 2.0 Intake and Output 05/27/20 05/27/20 05/28/20 15:00 23:00 07:00 Intake Total 200 ml 450 ml Output Total 600 ml 1200 ml Balance -600 ml 200 ml -750 ml Justicifation of Admission Dx: Justifications for Admission: Justification of Admission Dx: Yes FATEMEH BLAKE MD May 28, 2020 11:45
[2020-05-28 15:00] VITALS: BP 120/82
[2020-05-28 18:42] VITALS: BP 107/70
[2020-05-28] MEDS: ROSUVASTATIN 40MG PO SCH (20:30)
[2020-05-28] MEDS ORDERED: LACTOBACILLUS RHAMNOSUS GG 1 CAPSULE. PO SCH (21:00)
[2020-05-28 23:00] VITALS: BP 132/64
[2020-05-29] VITALS (7 sets, daily range): BP systolic 100–137; BP diastolic 64–92
[2020-05-29] MEDS: HYDROmorphone 2 MG/ML VIAL IV PRN ×6 (00:21→21:27)
[2020-05-29] MEDS: oxyCODONE IR 5 MG TABLET PO PRN ×2 (03:37→18:01)
[2020-05-29 06:34] LABS: ALBUMIN 2.8 g/dL (3.4-5.0); ALBUMIN/GLOBULIN RATIO 0.6 (1.0-1.7); CALCIUM 8.6 mg/dL (8.5-10.1); CREATININE 1.5 mg/dL (0.6-1.0); TOTAL BILIRUBIN 0.3 mg/dL (0.2-1.0); TOTAL PROTEIN 7.8 g/dL (6.4-8.2)
[2020-05-29 06:54] LABS: HEMATOCRIT 32.6 % (36.0-47.0); HEMOGLOBIN 10.4 g/dL (12.0-15.5); RED BLOOD COUNT 4.19 x10^6/uL (3.50-5.40); RED CELL DISTRIBUTION WIDTH 19.4 % (11.5-14.5); WHITE BLOOD COUNT 5.6 x10^3/uL (4.0-11.0)
[2020-05-29] MEDS: CLOPIDOGREL BISULFATE 75 MG TABLET PO SCH (08:02)
[2020-05-29] MEDS: CEFDINIR 300 MG CAPSULE PO SCH ×2 (08:03→21:18)
[2020-05-29] MEDS: methylPREDNISolone 4 MG TABLET. PO SCH ×2 (08:03→21:18)
[2020-05-29] MEDS: ISOSORBIDE MONONITRATE 20 MG TABLET PO SCH ×2 (08:03→14:46)
[2020-05-29] MEDS: DOCUSATE SODIUM 100 MG CAPSULE. PO SCH ×2 (08:04→21:18)
[2020-05-29] MEDS: amLODIPine BESYLATE 10 MG TABLET PO SCH (08:06)
[2020-05-29] MEDS: TORSEMIDE 20 MG TABLET. PO SCH (08:07)
[2020-05-29] MEDS: hydrALAZINE 25 MG TABLET PO SCH ×3 (08:07→21:19)
[2020-05-29] MEDS: ASPIRIN ENTERIC COATED 325 MG TABLET.DR. PO SCH (08:07)
[2020-05-29] MEDS: POTASSIUM CHLORIDE 20 MEQ TABLET.ER. PO SCH ×3 (08:07→17:40)
[2020-05-29] MEDS: CARVEDILOL 12.5 MG TABLET. PO SCH ×2 (08:07→17:40)
[2020-05-29] MEDS: POLYETHYLENE GLYCOL 3350 17 GM PACKET. PO SCH (08:08)
--- NOTE | 2020-05-29 10:03 | PDOC ---
PROGRESS NOTES Subjective Subjective feels better today Objective Objective Vital Signs Date Time Temp Pulse Resp B/P (MAP) Pulse Ox O2 Delivery O2 Flow Rate FiO2 05/29/20 08:30 18 98 Nasal Cannula 2.0 05/29/20 08:07 75 137/92 05/29/20 07:00 98.3 98.3 Intake and Output 05/29/20 07:00 Intake Total 497 ml Output Total 1900 ml Balance -1403 ml Intake Oral 497 ml Output Urine Total 1900 ml # Voids 1 Physical Exam Abdomen: Normal bowel sounds, Soft, Other (Tender to palpation, no rebound) Heart: Regular rate, No murmurs Extremities: No clubbing, No edema General: Alert, Oriented X3, mild distress HEENT: Atraumatic Lungs: Clear to auscultation MUSCULOSKELETAL: No swelling Psych/Mental Status: Mental status NL Skin: No rashes Diagnosis Problem List Problems Medical Problems: (1) Intractable nausea and vomiting Status: Acute (2) Metastatic squamous cell carcinoma Status: Acute Assessment Assessment Problems Medical Problems: (1) Intractable nausea and vomiting Status: Acute (2) Metastatic squamous cell carcinoma Status: Acute ASSESSMENT: 1. Stage 4 lung cancer, metastasis to the left adrenal gland on the right lower lobe. 2. 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 3. Severe vertebrobasilar atherosclerotic disease. 4. Hypertension. 5. Coronary artery disease, status post PCI with stent deployment. 6. Hyperlipidemia. 7. Severe opioid-induced constipation. 8. Normochromic normocytic anemia. 9. Urinary tract infection with growth of more than 100,000 colony forming units per mL of Escherichia coli, treated initially with Rocephin and now she is on oral cefdinir. PLAN: pt/ot pt want to go home next immune treatment friday. [address]. labs cr 1.5 stable. recommended hospice ,pt not interested yet at this time. To continue with pain management. Continue with oral antibiotic. Continue DVT prophylaxis. Continue with antiemetic. She is now also on MiraLax, Colace, mag citrate and Relistor and hopefully she can be discharged home tomorrow to follow with her oncologist as an outpatient to continue the chemo and radiation therapy. Plan Plan of Care Problems Medical Problems: (1) Intractable nausea and vomiting Status: Acute (2) Metastatic squamous cell carcinoma Status: Acute Comment Review of Relevant I have reviewed the following items dina (where applicable) has been applied. Labs Laboratory Tests Test 05/29/20 06:00 White Blood Count 5.6 x10^3/uL (4.0-11.0) Red Blood Count 4.19 x10^6/uL (3.50-5.40) Hemoglobin 10.4 g/dL (12.0-15.5) Hematocrit 32.6 % (36.0-47.0) Mean Corpuscular Volume 78 fL (79-100) Mean Corpuscular Hemoglobin 25 pg (25-35) Mean Corpuscular Hemoglobin Concent 32 g/dL (31-37) Red Cell Distribution Width 19.4 % (11.5-14.5) Platelet Count 193 x10^3/uL (140-400) Sodium Level 140 mmol/L (136-145) Potassium Level 4.0 mmol/L (3.5-5.1) Chloride Level 101 mmol/L (98-107) Carbon Dioxide Level 32 mmol/L (21-32) Anion Gap 7 (6-14) Blood Urea Nitrogen 28 mg/dL (7-20) Creatinine 1.5 mg/dL (0.6-1.0) Estimated GFR (Cockcroft-Gault) 44.0 BUN/Creatinine Ratio 19 (6-20) Glucose Level 104 mg/dL (70-99) Calcium Level 8.6 mg/dL (8.5-10.1) Total Bilirubin 0.3 mg/dL (0.2-1.0) Aspartate Amino Transf (AST/SGOT) 12 U/L (15-37) Alanine Aminotransferase (ALT/SGPT) 14 U/L (14-59) Alkaline Phosphatase 94 U/L (46-116) Total Protein 7.8 g/dL (6.4-8.2) Albumin 2.8 g/dL (3.4-5.0) Albumin/Globulin Ratio 0.6 (1.0-1.7) Microbiology 05/23/20 Urine Culture - Final, Complete 05/23/20 Antimicrobic Susceptibility - Final, Complete Medications Current Medications Lactobacillus Rhamnosus (Culturelle) 1 cap BID PO ; Start 05/28/20 at 21:00; Stop 05/28/20 at 12:38; Status DC Vitals/I & O Vital Sign - Last 24 Hours 05/28/20 05/28/20 05/28/20 05/28/20 10:23 11:00 13:30 14:07 Temp 98.4 98.4 Pulse 75 Resp 16 18 B/P (MAP) 126/90 (102) Pulse Ox 100 100 O2 Delivery Nasal Cannula Nasal Cannula Nasal Cannula Nasal Cannula O2 Flow Rate 2.0 2.0 2.0 2.0 05/28/20 05/28/20 05/28/20 05/28/20 14:11 14:11 14:32 14:37 Pulse 75 75 Resp 18 18 B/P (MAP) 126/90 126/90 Pulse Ox 100 100 O2 Delivery Nasal Cannula Room Air O2 Flow Rate 2.0 2.0 05/28/20 05/28/20 05/28/20 05/28/20 15:00 15:32 17:26 17:27 Temp 97.6 97.6 Pulse 80 80 Resp 16 18 18 B/P (MAP) 120/82 (95) 120/82 Pulse Ox 100 100 100 O2 Delivery Nasal Cannula Room Air Room Air O2 Flow Rate 2.0 2.0 2.0 05/28/20 05/28/20 05/28/20 05/28/20 17:56 18:42 20:00 20:29 Temp 98.6 98.6 Pulse 87 Resp 18 16 B/P (MAP) 107/70 (82) Pulse Ox 100 96 96 O2 Delivery Room Air Nasal Cannula Room Air Room Air O2 Flow Rate 2.0 05/28/20 05/28/20 05/28/20 05/28/20 20:33 20:59 21:57 22:57 Pulse 87 Resp 16 16 16 B/P (MAP) 122/91 Pulse Ox 98 98 98 O2 Delivery Room Air Room Air Room Air 05/29/20 05/29/20 05/29/20 05/29/20 00:21 00:24 00:51 03:37 Temp 98.5 98.5 Pulse 81 Resp 16 16 16 16 B/P (MAP) 111/81 (91) Pulse Ox 98 98 98 98 O2 Delivery Room Air Room Air Room Air Room Air 05/29/20 05/29/20 05/29/20 05/29/20 03:46 04:37 07:00 08:00 Temp 98.3 98.3 98.3 98.3 Pulse 79 76 Resp 16 16 16 18 B/P (MAP) 131/91 (104) 137/92 (107) Pulse Ox 98 98 95 98 O2 Delivery Room Air Room Air Room Air Nasal Cannula O2 Flow Rate 2.0 05/29/20 05/29/20 05/29/20 05/29/20 08:00 08:03 08:06 08:07 Pulse 75 75 75 B/P (MAP) 137/92 137/92 137/92 O2 Delivery Nasal Cannula O2 Flow Rate 2.0 05/29/20 05/29/20 08:07 08:30 Pulse 75 Resp 18 B/P (MAP) 137/92 Pulse Ox 98 O2 Delivery Nasal Cannula O2 Flow Rate 2.0 Intake and Output 05/28/20 05/28/20 05/29/20 15:00 23:00 07:00 Intake Total 237 ml 260 ml Output Total 650 ml 1250 ml Balance -650 ml -1013 ml 260 ml Justicifation of Admission Dx: Justifications for Admission: Justification of Admission Dx: Yes Nutrition Consultation Dietary Evaluation: Recommendations by RD: Dietary education by RD Comments: rec diet as tolerated Expected Outcomes/Goals: to meet > 50% est nutr needs via po intake- not met, goal ongoing Malnutrition Findings: Food and Nutrition Intake (Mod: <75% est energy req 7days Weight Status: Appropriate SHARMAINE SAEED MD May 29, 2020 10:03
--- NOTE | 2020-05-29 11:39 | PDOC ---
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 Plan Plavix, aspirin, and statin Rehabilitation modalities Okay to go home with hospice, perhaps Subjective Feels better Objective Vital Signs Date Time Temp Pulse Resp B/P (MAP) Pulse Ox O2 Delivery O2 Flow Rate FiO2 05/29/20 11:14 18 98 Nasal Cannula 2.0 05/29/20 10:56 98.0 77 123/72 (89) 98.0 Intake and Output 05/29/20 07:00 Intake Total 497 ml Output Total 1900 ml Balance -1403 ml Intake Oral 497 ml Output Urine Total 1900 ml # Voids 1 PHYSICAL EXAM Alert. Oriented to time, place and person. PERRL. EOMI. CN: no focal findings. Muscle tone: normal. Muscle strength: DTR: 2+ Plantar reflex: flexor Gait: not examined. Sensory exam: no abnormal findings. No cerebellar signs elicited. Review of Relevant I have reviewed the following items dina (where applicable) has been applied. Labs Laboratory Tests Test 05/28/20 05:00 05/29/20 06:00 Sodium Level 140 mmol/L (136-145) 140 mmol/L (136-145) Potassium Level 4.0 mmol/L (3.5-5.1) 4.0 mmol/L (3.5-5.1) Chloride Level 103 mmol/L (98-107) 101 mmol/L (98-107) Carbon Dioxide Level 28 mmol/L (21-32) 32 mmol/L (21-32) Anion Gap 9 (6-14) 7 (6-14) Blood Urea Nitrogen 23 mg/dL (7-20) 28 mg/dL (7-20) Creatinine 1.5 mg/dL (0.6-1.0) 1.5 mg/dL (0.6-1.0) Estimated GFR (Cockcroft-Gault) 44.0 44.0 Glucose Level 117 mg/dL (70-99) 104 mg/dL (70-99) Calcium Level 8.7 mg/dL (8.5-10.1) 8.6 mg/dL (8.5-10.1) White Blood Count 5.6 x10^3/uL (4.0-11.0) Red Blood Count 4.19 x10^6/uL (3.50-5.40) Hemoglobin 10.4 g/dL (12.0-15.5) Hematocrit 32.6 % (36.0-47.0) Mean Corpuscular Volume 78 fL (79-100) Mean Corpuscular Hemoglobin 25 pg (25-35) Mean Corpuscular Hemoglobin Concent 32 g/dL (31-37) Red Cell Distribution Width 19.4 % (11.5-14.5) Platelet Count 193 x10^3/uL (140-400) BUN/Creatinine Ratio 19 (6-20) Total Bilirubin 0.3 mg/dL (0.2-1.0) Aspartate Amino Transf (AST/SGOT) 12 U/L (15-37) Alanine Aminotransferase (ALT/SGPT) 14 U/L (14-59) Alkaline Phosphatase 94 U/L (46-116) Total Protein 7.8 g/dL (6.4-8.2) Albumin 2.8 g/dL (3.4-5.0) Albumin/Globulin Ratio 0.6 (1.0-1.7) Laboratory Tests Test 05/29/20 06:00 White Blood Count 5.6 x10^3/uL (4.0-11.0) Red Blood Count 4.19 x10^6/uL (3.50-5.40) Hemoglobin 10.4 g/dL (12.0-15.5) Hematocrit 32.6 % (36.0-47.0) Mean Corpuscular Volume 78 fL (79-100) Mean Corpuscular Hemoglobin 25 pg (25-35) Mean Corpuscular Hemoglobin Concent 32 g/dL (31-37) Red Cell Distribution Width 19.4 % (11.5-14.5) Platelet Count 193 x10^3/uL (140-400) Sodium Level 140 mmol/L (136-145) Potassium Level 4.0 mmol/L (3.5-5.1) Chloride Level 101 mmol/L (98-107) Carbon Dioxide Level 32 mmol/L (21-32) Anion Gap 7 (6-14) Blood Urea Nitrogen 28 mg/dL (7-20) Creatinine 1.5 mg/dL (0.6-1.0) Estimated GFR (Cockcroft-Gault) 44.0 BUN/Creatinine Ratio 19 (6-20) Glucose Level 104 mg/dL (70-99) Calcium Level 8.6 mg/dL (8.5-10.1) Total Bilirubin 0.3 mg/dL (0.2-1.0) Aspartate Amino Transf (AST/SGOT) 12 U/L (15-37) Alanine Aminotransferase (ALT/SGPT) 14 U/L (14-59) Alkaline Phosphatase 94 U/L (46-116) Total Protein 7.8 g/dL (6.4-8.2) Albumin 2.8 g/dL (3.4-5.0) Albumin/Globulin Ratio 0.6 (1.0-1.7) Microbiology 05/23/20 Urine Culture - Final, Complete 05/23/20 Antimicrobic Susceptibility - Final, Complete Medications Current Medications Sodium Chloride 1,000 ml @ 1,000 mls/hr 1X ONCE IV Last administered on 05/22/20 16:47; Start 05/22/20 at 16:00; Stop 05/22/20 at 16:59; Status DC Famotidine (Pepcid Vial) 20 mg 1X ONCE IVP Last administered on 05/22/20at 16:47; Start 05/22/20 at 16:15; Stop 05/22/20 at 16:16; Status DC Metoclopramide HCl (Reglan Vial) 10 mg 1X ONCE IVP Last administered on 05/22/20at 16:47; Start 05/22/20 at 16:15; Stop 05/22/20 at 16:16; Status DC Diphenhydramine HCl (Benadryl) 25 mg 1X ONCE IVP Last administered on 05/22/20at 16:47; Start 05/22/20 at 16:15; Stop 05/22/20 at 16:16; Status DC Hydromorphone HCl (Dilaudid) 0.5 mg 1X ONCE IV Last administered on 05/22/20at 16:48; Start 05/22/20 at 16:45; Stop 05/22/20 at 16:46; Status DC Ondansetron HCl (Zofran) 4 mg PRN Q8HRS PRN IV NAUSEA/VOMITING; Start 05/22/20 at 17:45; Stop 05/23/20 at 10:51; Status DC Hydromorphone HCl (Dilaudid) 0.5 mg PRN Q4HRS PRN IV PAIN Last administered on 05/22/20at 22:34; Start 05/22/20 at 17:45; Stop 05/22/20 at 22:51; Status DC Sodium Chloride 1,000 ml @ 100 mls/hr 1X ONCE IV Last administered on 05/22/20at 18:31; Start 05/22/20 at 18:30; Stop 05/23/20 at 04:29; Status DC Hydralazine HCl (Apresoline Inj) 10 mg PRN Q4HRS PRN IVP ELEVATED BP, SEE COMMENTS Last administered on 05/25/20at 17:46; Start 05/22/20 at 22:45 Hydromorphone HCl (Dilaudid) 0.5 mg PRN Q3HRS PRN IV PAIN Last administered on 05/23/20at 11:10; Start 05/22/20 at 23:00; Stop 05/23/20 at 12:42; Status DC Hydralazine HCl (Apresoline Inj) 20 mg PRN Q4HRS PRN IVP ELEVATED BP, SEE COMMENTS Last administered on 05/24/20at 09:50; Start 05/23/20 at 08:45; Stop 05/24/20 at 13:02; Status DC Ondansetron HCl (Zofran) 4 mg PRN Q4HRS PRN IV NAUSEA/VOMITING 1ST CHOICE Last administered on 05/24/20at 23:03; Start 05/23/20 at 11:00 Prochlorperazine Edisylate (Compazine) 10 mg PRN Q6HRS PRN IV NAUSEA/VOMITING 2ND CHOICE Last administered on 05/23/20at 20:39; Start 05/23/20 at 11:00 Fluticasone Propionate (Flonase) 2 spray PRN DAILY PRN NS ALLERGIES; Start 05/23/20 at 12:15 Docusate Sodium (Enemeez) 283 mg 1X PRN IA CONSTIPATION; Start 05/23/20 at 12:15 Ceftriaxone Sodium (Rocephin) 1 gm Q24H IVP Last administered on 05/26/20at 12:50; Start 05/23/20 at 12:45; Stop 05/26/20 at 15:03; Status DC Hydromorphone HCl (Dilaudid) 1 mg PRN Q3HRS PRN IV PAIN Last administered on 05/25/20at 19:14; Start 05/23/20 at 12:45; Stop 05/25/20 at 20:07; Status DC Amino Acids/ Glycerin/ Electrolytes 1,000 ml @ 80 mls/hr [id number] IV Last administered on 05/24/20at 12:47; Start 05/23/20 at 13:00; Stop 05/24/20 at 13:09; Status DC Iohexol (Omnipaque 350 Mg/ml) 100 ml 1X ONCE IV Last administered on 05/23/20at 13:13; Start 05/23/20 at 13:00; Stop 05/23/20 at 13:03; Status DC Methylnaltrexone [place]ward (Relistor) 12 mg PRN 1X ONCE SQ Last administered on 05/23/20at 16:27; Start 05/23/20 at 16:30; Stop 05/23/20 at 16:31; Status DC Clonidine HCl (Catapres Tts-2) 1 patch WEEKLY TD Last administered on 05/24/20at 14:07; Start 05/24/20 at 09:00; Stop 05/25/20 at 14:32; Status DC Potassium Chloride/Dextrose/ Sod Cl 1,000 ml @ 100 mls/hr Q10H IV Last administered on 05/25/20at 09:25; Start 05/24/20 at 14:00; Stop 05/26/20 at 15:03; Status DC Potassium Chloride (Klor-Con) 40 meq 1X ONCE PO Last administered on 05/24/20at 15:29; Start 05/24/20 at 15:00; Stop 05/24/20 at 15:05; Status DC Gadoterate Meglumine (Dotarem) 15 ml 1X ONCE IVP Last administered on 05/25/20at 14:43; Start 05/25/20 at 15:00; Stop 05/25/20 at 15:01; Status DC Clonidine HCl (Catapres Tts-3) 1 patch WEEKLY TD Last administered on 05/25/20at 15:10; Start 05/25/20 at 15:00 Amlodipine Besylate (Norvasc) 5 mg 1X ONCE PO Last administered on 05/25/20at 15:10; Start 05/25/20 at 15:00; Stop 05/25/20 at 15:01; Status DC Amlodipine Besylate (Norvasc) 5 mg DAILY PO Last administered on 05/26/20at 08:45; Start 05/26/20 at 09:00; Stop 05/26/20 at 10:14; Status DC Sodium Chloride 1,000 ml @ 100 mls/hr Q10H IV Last administered on 05/26/20at 11:34; Start 05/25/20 at 16:00; Stop 05/26/20 at 15:03; Status DC Acetaminophen (Tylenol) 650 mg PRN Q6HRS PRN PO TEMP > 100.4F Last administered on 05/25/20at 17:45; Start 05/25/20 at 15:30 Acetaminophen (Tylenol Supp) 650 mg PRN Q4HRS PRN IA TEMP > 100.4F; Start 05/25/20 at 15:30 Aspirin (Ecotrin) 325 mg DAILYWBKFT PO Last administered on 05/29/20at 08:07; Start 05/25/20 at 16:00 Aspirin (Aspirin Rectal Supp) 300 mg PRN DAILY PRN IA IF UNABLE TO TAKE PO; Start 05/25/20 at 15:30 Iohexol (Omnipaque 350 Mg/ml) 60 ml 1X ONCE IV Last administered on 05/25/20at 16:00; Start 05/25/20 at 16:00; Stop 05/25/20 at 16:06; Status DC Info (CONTRAST GIVEN -- Rx MONITORING) 1 each PRN DAILY PRN MC SEE COMMENTS; Start 05/25/20 at 16:15; Stop 05/27/20 at 16:14; Status DC Lactobacillus Rhamnosus (Culturelle) 1 cap BID PO Last administered on 05/26/20at 08:45; Start 05/25/20 at 21:00; Stop 05/26/20 at 15:56; Status DC Hydromorphone HCl (Dilaudid) 2 mg PRN Q3HRS PRN IV PAIN Last administered on 05/29/20at 11:14; Start 05/25/20 at 22:15 Oxycodone HCl (Roxicodone) 10 mg PRN Q6HRS PRN PO PAIN Last administered on 05/29/20 03:37; Start 05/25/20 at 20:15 Clopidogrel Bisulfate (Plavix) 75 mg DAILYWBKFT PO Last administered on 05/29/20 08:02; Start 05/26/20 at 10:30 Amlodipine Besylate (Norvasc) 10 mg DAILY PO Last administered on 05/29/20 08:06; Start 05/27/20 at 09:00 Clopidogrel Bisulfate (Plavix) 75 mg DAILY PO ; Start 05/27/20 at 09:00; Status UNV Diphenhydramine HCl (Benadryl) 25 mg PRN DAILY PRN PO ALLERGIES; Start 05/26/20 at 10:00 Hydralazine HCl (Apresoline) 25 mg TID PO Last administered on 05/29/20 08:07; Start 05/26/20 at 14:00 Methylprednisolone (Medrol) 4 mg BID PO Last administered on 05/29/20 08:03; Start 05/26/20 at 11:00 Metoclopramide HCl (Reglan) 10 mg PRN TID PRN PO NAUSEA, 3RD CHOICE Last administered on 05/28/20 17:27; Start 05/26/20 at 10:00 Nitroglycerin (Nitrostat) 0.4 mg PRN Q5MIN PRN SL CHEST PAIN; Start 05/26/20 at 10:00 Potassium Chloride (Klor-Con) 20 meq DAILYWBKFT PO Last administered on 05/26/20at 11:33; Start 05/26/20 at 11:00; Stop 05/26/20 at 15:09; Status DC Torsemide (Demadex) 60 mg DAILY PO Last administered on 05/29/20 08:07; Start 05/26/20 at 11:00 Carvedilol (Coreg) 12.5 mg BIDWMEALS PO Last administered on 05/29/20 08:07; Start 05/26/20 at 11:00 Isosorbide Mononitrate (Ismo) 20 mg [id number] PO Last administered on 05/29/20 08:03; Start 05/26/20 at 14:00 Ondansetron HCl (Zofran Odt) 8 mg PRN Q6HRS PRN PO NAUSEA/VOMITING Last administered on 05/27/20at 09:49; Start 05/26/20 at 10:00 Oxycodone HCl (Roxicodone) 10 mg PRN Q6HRS PRN PO PAIN; Start 05/26/20 at 10:00; Stop 05/27/20 at 09:04; Status DC Non-Formulary Medication 1 ea QHS PO Last administered on 05/28/20at 20:30; Start 05/26/20 at 21:00 Cefdinir (Omnicef) 300 mg BID PO Last administered on 05/29/20at 08:03; Start 05/26/20 at 21:00 Potassium Chloride (Klor-Con) 20 meq TIDWMEALS PO Last administered on 05/29/20at 11:16; Start 05/26/20 at 17:00 Lactobacillus Rhamnosus (Culturelle) 1 cap BID PO ; Start 05/27/20 at 21:00; Status Cancel Methylnaltrexone Woodward (Relistor) 12 mg 1X ONCE SQ ; Start 05/27/20 at 20:00; Stop 05/27/20 at 20:01; Status DC Polyethylene Glycol (miraLAX PACKET) 17 gm DAILY PO Last administered on 05/29/20at 08:08; Start 05/28/20 at 09:00 Docusate Sodium (Colace) 100 mg BID PO Last administered on 05/29/20at 08:04; Start 05/27/20 at 21:00 Magnesium Citrate (Citroma) 296 ml PRN 1X PRN PO CONSTIPATION; Start 05/27/20 at 19:30 Methylnaltrexone [place]ward (Relistor) 12 mg 1X ONCE SQ ; Start 05/28/20 at 09:45; Stop 05/28/20 at 09:46; Status DC Lactobacillus Rhamnosus (Culturelle) 1 cap BID PO ; Start 05/28/20 at 21:00; Stop 05/28/20 at 12:38; Status DC Active Scripts Active Medrol (Methylprednisolone) 4 Mg Tablet 4 Mg PO BID 7 Days Reglan (Metoclopramide Hcl) 10 Mg Tablet 1 Tab PO TID PRN 5 Days before food and bedtime Klor-Con M20 (Potassium Chloride) 20 Meq Tab.er.prt 20 Meq PO DAILYWBKFT 30 Days Zofran (Ondansetron Hcl) 8 Mg Tablet 1 Tab PO Q8HRS Reported Tylenol (Acetaminophen) 325 Mg Tablet 500 Mg PO PRN Q4-6HRS PRN Oxycodone Hcl Immed.release (Oxycodone Hcl) 10 Mg Tablet 1 Tab PO QIDPRN PRN MDD 4 Tablet(s) 30 Days Clopidogrel (Clopidogrel Bisulfate) 75 Mg Tablet 75 Mg PO DAILY HOLD til 05/25 Aspirin 81 Mg Tab.chew 1 Tab PO DAILY HOLD til 05/25 NITROGLYCERIN SubLingual (Nitroglycerin) 0.4 Mg Tab.subl 0.4 Mg SL PRN Q5MIN PRN Hydralazine Hcl 25 Mg Tablet 1 Tab PO TID Diphenhydramine Hcl 25 Mg Capsule 1 Tab PO PRN DAILY PRN Amlodipine Besylate 5 Mg Tablet 10 Mg PO DAILY Isosorbide Mononitrate Er (Isosorbide Mononitrate) 60 Mg Tab.er.24h 1 Tab PO DAILY Torsemide 20 Mg Tablet 60 Mg PO DAILY Crestor (Rosuvastatin Calcium) 20 Mg Tablet 2 Tab PO DAILY Carvedilol 25 Mg Tablet 2 Tab PO BID Vitals/I & O Vital Sign - Last 24 Hours 05/28/20 05/28/20 05/28/20 05/28/20 13:30 14:07 14:11 14:11 Pulse 75 75 Resp 18 B/P (MAP) 126/90 126/90 Pulse Ox 100 O2 Delivery Nasal Cannula Nasal Cannula O2 Flow Rate 2.0 2.0 05/28/20 05/28/20 05/28/20 05/28/20 14:32 14:37 15:00 15:32 Temp 97.6 97.6 Pulse 80 Resp 18 18 16 18 B/P (MAP) 120/82 (95) Pulse Ox 100 100 100 100 O2 Delivery Nasal Cannula Room Air Nasal Cannula Room Air O2 Flow Rate 2.0 2.0 2.0 2.0 05/28/20 05/28/20 05/28/20 05/28/20 17:26 17:27 17:56 18:42 Temp 98.6 98.6 Pulse 80 87 Resp 18 18 16 B/P (MAP) 120/82 107/70 (82) Pulse Ox 100 100 96 O2 Delivery Room Air Room Air Nasal Cannula O2 Flow Rate 2.0 2.0 05/28/20 05/28/20 05/28/20 05/28/20 20:00 20:29 20:33 20:59 Pulse 87 Resp 16 B/P (MAP) 122/91 Pulse Ox 96 98 O2 Delivery Room Air Room Air Room Air 05/28/20 05/28/20 05/29/20 05/29/20 21:57 22:57 00:21 00:24 Temp 98.5 98.5 Pulse 81 Resp 16 16 16 16 B/P (MAP) 111/81 (91) Pulse Ox 98 98 98 98 O2 Delivery Room Air Room Air Room Air Room Air 05/29/20 05/29/20 05/29/20 05/29/20 00:51 03:37 03:46 04:37 Temp 98.3 98.3 Pulse 79 Resp 16 16 16 16 B/P (MAP) 131/91 (104) Pulse Ox 98 98 98 98 O2 Delivery Room Air Room Air Room Air Room Air 05/29/20 05/29/20 05/29/20 05/29/20 07:00 08:00 08:00 08:03 Temp 98.3 98.3 Pulse 76 75 Resp 16 18 B/P (MAP) 137/92 (107) 137/92 Pulse Ox 95 98 O2 Delivery Room Air Nasal Cannula Nasal Cannula O2 Flow Rate 2.0 2.0 05/29/20 05/29/20 05/29/20 05/29/20 08:06 08:07 08:07 08:30 Pulse 75 75 75 Resp 18 B/P (MAP) 137/92 137/92 137/92 Pulse Ox 98 O2 Delivery Nasal Cannula O2 Flow Rate 2.0 05/29/20 05/29/20 10:56 11:14 Temp 98.0 98.0 Pulse 77 Resp 16 18 B/P (MAP) 123/72 (89) Pulse Ox 98 98 O2 Delivery Room Air Nasal Cannula O2 Flow Rate 2.0 Intake and Output 05/28/20 05/28/20 05/29/20 15:00 23:00 07:00 Intake Total 237 ml 260 ml Output Total 650 ml 1250 ml Balance -650 ml -1013 ml 260 ml Images Echocardiogram, 05/26: LEFT VENTRICLE The left ventricle is normal size. There is borderline to mild concentric left ventricular hypertrophy. The left ventricular systolic function is normal. The Ejection Fraction is 55%. There is normal LV segmental wall motion. Transmitral Doppler flow pattern is Grade I-abnormal relaxation pattern. RIGHT VENTRICLE The right ventricle is normal size. There is normal right ventricular wall thickness. The right ventricular systolic function is normal. ATRIA The left atrium size is normal. The right atrium size is normal. The interatrial septum is intact with no evidence for an atrial septal defect or patent foramen ovale as noted on 2-D or Doppler imaging. AORTIC VALVE The aortic valve is thickened but opens well. Doppler and Color Flow revealed no significant aortic regurgitation. There is no significant aortic valvular stenosis. Calculated aortic valve area is 2.23 cm2 with maximum pressure gradient of 12 mmHg and mean pressure gradient of 6 mmHg. MITRAL VALVE The mitral valve is normal in structure and function. There is no evidence of mitral valve prolapse. There is no mitral valve stenosis. Doppler and Color-flow revealed trace mitral regurgitation. TRICUSPID VALVE The tricuspid valve is normal in structure and function. Doppler and Color Flow revealed trace tricuspid regurgitation with an estimated PAP of 31 mmHg. There is no tricuspid valve stenosis. PULMONIC VALVE The pulmonic valve is not well visualized. Doppler and Color Flow revealed no pulmonic valvular regurgitation. GREAT VESSELS The aortic root is normal in size. The IVC is normal in size and collapses >50% with inspiration. PERICARDIAL EFFUSION There is no evidence of significant pericardial effusion. Critical Notification Critical Value: No <Conclusion> The left ventricular systolic function is normal. The Ejection Fraction is 55%. There is normal LV segmental wall motion. Transmitral Doppler flow pattern is Grade I-abnormal relaxation pattern. Trace mitral regurgitation. Trace tricuspid regurgitation with an estimated PAP of 31 mmHg. There is no evidence of significant pericardial effusion. Justicifation of Admission Dx: Justifications for Admission: Justification of Admission Dx: Yes YEFRI KERN MD May 29, 2020 11:39
--- NOTE | 2020-05-29 11:43 | PDOC ---
PROGRESS NOTES Subjective Subjective Sarah reports feeling better today. She denies abdominal pain. She notes that she continues to feel dizzy when she stands up but is able to ambulate with assistance. She would like to be discharged home and continue rehab. She remains interested in continuing to receive cancer treatments Objective Objective Vital Signs Date Time Temp Pulse Resp B/P (MAP) Pulse Ox O2 Delivery O2 Flow Rate FiO2 05/29/20 11:14 18 98 Nasal Cannula 2.0 05/29/20 10:56 98.0 77 123/72 (89) 98.0 Intake and Output 05/29/20 07:00 Intake Total 497 ml Output Total 1900 ml Balance -1403 ml Intake Oral 497 ml Output Urine Total 1900 ml # Voids 1 Physical Exam Abdomen: Normal bowel sounds, Soft Heart: Regular rate, No murmurs Extremities: No edema General: Alert, Oriented X3 HEENT: Atraumatic Lungs: Clear to auscultation MUSCULOSKELETAL: No joint tenderness Neck: Supple Neuro: Other (Not assessed today) Skin: No rashes Diagnosis Problems: (1) Metastatic squamous cell carcinoma Assessment Assessment Problems Medical Problems: (1) Intractable nausea and vomiting Status: Acute (2) Metastatic squamous cell carcinoma Status: Acute Plan Plan of Care Recommendations: - Continue with supportive care and assessment of discharge disposition per hospitalist - Follow-up in hematology oncology clinic for consideration of resuming systemic therapy - Please call with questions Venancio Prescott MD Medical Oncology/Hematology Ph: [phone] Comment Review of Relevant I have reviewed the following items dina (where applicable) has been applied. Labs Laboratory Tests Test 05/28/20 05:00 05/29/20 06:00 Sodium Level 140 mmol/L (136-145) 140 mmol/L (136-145) Potassium Level 4.0 mmol/L (3.5-5.1) 4.0 mmol/L (3.5-5.1) Chloride Level 103 mmol/L (98-107) 101 mmol/L (98-107) Carbon Dioxide Level 28 mmol/L (21-32) 32 mmol/L (21-32) Anion Gap 9 (6-14) 7 (6-14) Blood Urea Nitrogen 23 mg/dL (7-20) 28 mg/dL (7-20) Creatinine 1.5 mg/dL (0.6-1.0) 1.5 mg/dL (0.6-1.0) Estimated GFR (Cockcroft-Gault) 44.0 44.0 Glucose Level 117 mg/dL (70-99) 104 mg/dL (70-99) Calcium Level 8.7 mg/dL (8.5-10.1) 8.6 mg/dL (8.5-10.1) White Blood Count 5.6 x10^3/uL (4.0-11.0) Red Blood Count 4.19 x10^6/uL (3.50-5.40) Hemoglobin 10.4 g/dL (12.0-15.5) Hematocrit 32.6 % (36.0-47.0) Mean Corpuscular Volume 78 fL (79-100) Mean Corpuscular Hemoglobin 25 pg (25-35) Mean Corpuscular Hemoglobin Concent 32 g/dL (31-37) Red Cell Distribution Width 19.4 % (11.5-14.5) Platelet Count 193 x10^3/uL (140-400) BUN/Creatinine Ratio 19 (6-20) Total Bilirubin 0.3 mg/dL (0.2-1.0) Aspartate Amino Transf (AST/SGOT) 12 U/L (15-37) Alanine Aminotransferase (ALT/SGPT) 14 U/L (14-59) Alkaline Phosphatase 94 U/L (46-116) Total Protein 7.8 g/dL (6.4-8.2) Albumin 2.8 g/dL (3.4-5.0) Albumin/Globulin Ratio 0.6 (1.0-1.7) Laboratory Tests Test 05/29/20 06:00 White Blood Count 5.6 x10^3/uL (4.0-11.0) Red Blood Count 4.19 x10^6/uL (3.50-5.40) Hemoglobin 10.4 g/dL (12.0-15.5) Hematocrit 32.6 % (36.0-47.0) Mean Corpuscular Volume 78 fL (79-100) Mean Corpuscular Hemoglobin 25 pg (25-35) Mean Corpuscular Hemoglobin Concent 32 g/dL (31-37) Red Cell Distribution Width 19.4 % (11.5-14.5) Platelet Count 193 x10^3/uL (140-400) Sodium Level 140 mmol/L (136-145) Potassium Level 4.0 mmol/L (3.5-5.1) Chloride Level 101 mmol/L (98-107) Carbon Dioxide Level 32 mmol/L (21-32) Anion Gap 7 (6-14) Blood Urea Nitrogen 28 mg/dL (7-20) Creatinine 1.5 mg/dL (0.6-1.0) Estimated GFR (Cockcroft-Gault) 44.0 BUN/Creatinine Ratio 19 (6-20) Glucose Level 104 mg/dL (70-99) Calcium Level 8.6 mg/dL (8.5-10.1) Total Bilirubin 0.3 mg/dL (0.2-1.0) Aspartate Amino Transf (AST/SGOT) 12 U/L (15-37) Alanine Aminotransferase (ALT/SGPT) 14 U/L (14-59) Alkaline Phosphatase 94 U/L (46-116) Total Protein 7.8 g/dL (6.4-8.2) Albumin 2.8 g/dL (3.4-5.0) Albumin/Globulin Ratio 0.6 (1.0-1.7) Microbiology 05/23/20 Urine Culture - Final, Complete 05/23/20 Antimicrobic Susceptibility - Final, Complete Medications Current Medications Sodium Chloride 1,000 ml @ 1,000 mls/hr 1X ONCE IV Last administered on 05/22/20at 16:47; Start 05/22/20 at 16:00; Stop 05/22/20 at 16:59; Status DC Famotidine (Pepcid Vial) 20 mg 1X ONCE IVP Last administered on 05/22/20at 16:47; Start 05/22/20 at 16:15; Stop 05/22/20 at 16:16; Status DC Metoclopramide HCl (Reglan Vial) 10 mg 1X ONCE IVP Last administered on 05/22/20at 16:47; Start 05/22/20 at 16:15; Stop 05/22/20 at 16:16; Status DC Diphenhydramine HCl (Benadryl) 25 mg 1X ONCE IVP Last administered on 05/22/20at 16:47; Start 05/22/20 at 16:15; Stop 05/22/20 at 16:16; Status DC Hydromorphone HCl (Dilaudid) 0.5 mg 1X ONCE IV Last administered on 05/22/20at 16:48; Start 05/22/20 at 16:45; Stop 05/22/20 at 16:46; Status DC Ondansetron HCl (Zofran) 4 mg PRN Q8HRS PRN IV NAUSEA/VOMITING; Start 05/22/20 at 17:45; Stop 05/23/20 at 10:51; Status DC Hydromorphone HCl (Dilaudid) 0.5 mg PRN Q4HRS PRN IV PAIN Last administered on 05/22/20at 22:34; Start 05/22/20 at 17:45; Stop 05/22/20 at 22:51; Status DC Sodium Chloride 1,000 ml @ 100 mls/hr 1X ONCE IV Last administered on 05/22/20at 18:31; Start 05/22/20 at 18:30; Stop 05/23/20 at 04:29; Status DC Hydralazine HCl (Apresoline Inj) 10 mg PRN Q4HRS PRN IVP ELEVATED BP, SEE COMMENTS Last administered on 05/25/20at 17:46; Start 05/22/20 at 22:45 Hydromorphone HCl (Dilaudid) 0.5 mg PRN Q3HRS PRN IV PAIN Last administered on 05/23/20at 11:10; Start 05/22/20 at 23:00; Stop 05/23/20 at 12:42; Status DC Hydralazine HCl (Apresoline Inj) 20 mg PRN Q4HRS PRN IVP ELEVATED BP, SEE COMMENTS Last administered on 05/24/20at 09:50; Start 05/23/20 at 08:45; Stop 05/24/20 at 13:02; Status DC Ondansetron HCl (Zofran) 4 mg PRN Q4HRS PRN IV NAUSEA/VOMITING 1ST CHOICE Last administered on 05/24/20at 23:03; Start 05/23/20 at 11:00 Prochlorperazine Edisylate (Compazine) 10 mg PRN Q6HRS PRN IV NAUSEA/VOMITING 2ND CHOICE Last administered on 05/23/20at 20:39; Start 05/23/20 at 11:00 Fluticasone Propionate (Flonase) 2 spray PRN DAILY PRN NS ALLERGIES; Start 05/23/20 at 12:15 Docusate Sodium (Enemeez) 283 mg 1X PRN MO CONSTIPATION; Start 05/23/20 at 12:15 Ceftriaxone Sodium (Rocephin) 1 gm Q24H IVP Last administered on 05/26/20at 12:50; Start 05/23/20 at 12:45; Stop 05/26/20 at 15:03; Status DC Hydromorphone HCl (Dilaudid) 1 mg PRN Q3HRS PRN IV PAIN Last administered on 05/25/20at 19:14; Start 05/23/20 at 12:45; Stop 05/25/20 at 20:07; Status DC Amino Acids/ Glycerin/ Electrolytes 1,000 ml @ 80 mls/hr [id number] IV Last administered on 05/24/20at 12:47; Start 05/23/20 at 13:00; Stop 05/24/20 at 13:09; Status DC Iohexol (Omnipaque 350 Mg/ml) 100 ml 1X ONCE IV Last administered on 05/23/20at 13:13; Start 05/23/20 at 13:00; Stop 05/23/20 at 13:03; Status DC Methylnaltrexone [place] (Relistor) 12 mg PRN 1X ONCE SQ Last administered on 05/23/20at 16:27; Start 05/23/20 at 16:30; Stop 05/23/20 at 16:31; Status DC Clonidine HCl (Catapres Tts-2) 1 patch WEEKLY TD Last administered on 05/24/20at 14:07; Start 05/24/20 at 09:00; Stop 05/25/20 at 14:32; Status DC Potassium Chloride/Dextrose/ Sod Cl 1,000 ml @ 100 mls/hr Q10H IV Last administered on 05/25/20at 09:25; Start 05/24/20 at 14:00; Stop 05/26/20 at 15:03; Status DC Potassium Chloride (Klor-Con) 40 meq 1X ONCE PO Last administered on 05/24/20at 15:29; Start 05/24/20 at 15:00; Stop 05/24/20 at 15:05; Status DC Gadoterate Meglumine (Dotarem) 15 ml 1X ONCE IVP Last administered on 05/25/20at 14:43; Start 05/25/20 at 15:00; Stop 05/25/20 at 15:01; Status DC Clonidine HCl (Catapres Tts-3) 1 patch WEEKLY TD Last administered on 05/25/20at 15:10; Start 05/25/20 at 15:00 Amlodipine Besylate (Norvasc) 5 mg 1X ONCE PO Last administered on 05/25/20at 15:10; Start 05/25/20 at 15:00; Stop 05/25/20 at 15:01; Status DC Amlodipine Besylate (Norvasc) 5 mg DAILY PO Last administered on 05/26/20at 08:45; Start 05/26/20 at 09:00; Stop 05/26/20 at 10:14; Status DC Sodium Chloride 1,000 ml @ 100 mls/hr Q10H IV Last administered on 05/26/20at 11:34; Start 05/25/20 at 16:00; Stop 05/26/20 at 15:03; Status DC Acetaminophen (Tylenol) 650 mg PRN Q6HRS PRN PO TEMP > 100.4F Last administered on 05/25/20at 17:45; Start 05/25/20 at 15:30 Acetaminophen (Tylenol Supp) 650 mg PRN Q4HRS PRN MO TEMP > 100.4F; Start 05/25/20 at 15:30 Aspirin (Ecotrin) 325 mg DAILYWBKFT PO Last administered on 05/29/20at 08:07; Start 05/25/20 at 16:00 Aspirin (Aspirin Rectal Supp) 300 mg PRN DAILY PRN MO IF UNABLE TO TAKE PO; Start 05/25/20 at 15:30 Iohexol (Omnipaque 350 Mg/ml) 60 ml 1X ONCE IV Last administered on 05/25/20at 16:00; Start 05/25/20 at 16:00; Stop 05/25/20 at 16:06; Status DC Info (CONTRAST GIVEN -- Rx MONITORING) 1 each PRN DAILY PRN MC SEE COMMENTS; Start 05/25/20 at 16:15; Stop 05/27/20 at 16:14; Status DC Lactobacillus Rhamnosus (Culturelle) 1 cap BID PO Last administered on 05/26/20at 08:45; Start 05/25/20 at 21:00; Stop 05/26/20 at 15:56; Status DC Hydromorphone HCl (Dilaudid) 2 mg PRN Q3HRS PRN IV PAIN Last administered on 05/29/20at 11:14; Start 05/25/20 at 22:15 Oxycodone HCl (Roxicodone) 10 mg PRN Q6HRS PRN PO PAIN Last administered on 05/29/20at 03:37; Start 05/25/20 at 20:15 Clopidogrel Bisulfate (Plavix) 75 mg DAILYWBKFT PO Last administered on 05/29/20 08:02; Start 05/26/20 at 10:30 Amlodipine Besylate (Norvasc) 10 mg DAILY PO Last administered on 05/29/20 08:06; Start 05/27/20 at 09:00 Clopidogrel Bisulfate (Plavix) 75 mg DAILY PO ; Start 05/27/20 at 09:00; Status UNV Diphenhydramine HCl (Benadryl) 25 mg PRN DAILY PRN PO ALLERGIES; Start 05/26/20 at 10:00 Hydralazine HCl (Apresoline) 25 mg TID PO Last administered on 05/29/20 08:07; Start 05/26/20 at 14:00 Methylprednisolone (Medrol) 4 mg BID PO Last administered on 05/29/20at 08:03; Start 05/26/20 at 11:00 Metoclopramide HCl (Reglan) 10 mg PRN TID PRN PO NAUSEA, 3RD CHOICE Last administered on 05/28/20at 17:27; Start 05/26/20 at 10:00 Nitroglycerin (Nitrostat) 0.4 mg PRN Q5MIN PRN SL CHEST PAIN; Start 05/26/20 at 10:00 Potassium Chloride (Klor-Con) 20 meq DAILYWBKFT PO Last administered on 05/26/20at 11:33; Start 05/26/20 at 11:00; Stop 05/26/20 at 15:09; Status DC Torsemide (Demadex) 60 mg DAILY PO Last administered on 05/29/20at 08:07; Start 05/26/20 at 11:00 Carvedilol (Coreg) 12.5 mg BIDWMEALS PO Last administered on 05/29/20at 08:07; Start 05/26/20 at 11:00 Isosorbide Mononitrate (Ismo) 20 mg BID92 PO Last administered on 05/29/20at 08:03; Start 05/26/20 at 14:00 Ondansetron HCl (Zofran Odt) 8 mg PRN Q6HRS PRN PO NAUSEA/VOMITING Last administered on 05/27/20at 09:49; Start 05/26/20 at 10:00 Oxycodone HCl (Roxicodone) 10 mg PRN Q6HRS PRN PO PAIN; Start 05/26/20 at 10:00; Stop 05/27/20 at 09:04; Status DC Non-Formulary Medication 1 ea QHS PO Last administered on 05/28/20at 20:30; Start 05/26/20 at 21:00 Cefdinir (Omnicef) 300 mg BID PO Last administered on 05/29/20 08:03; Start 05/26/20 at 21:00 Potassium Chloride (Klor-Con) 20 meq TIDWMEALS PO Last administered on 05/29/20at 11:16; Start 05/26/20 at 17:00 Lactobacillus Rhamnosus (Culturelle) 1 cap BID PO ; Start 05/27/20 at 21:00; Status Cancel Methylnaltrexone [place] (Relistor) 12 mg 1X ONCE SQ ; Start 05/27/20 at 20:00; Stop 05/27/20 at 20:01; Status DC Polyethylene Glycol (miraLAX PACKET) 17 gm DAILY PO Last administered on 05/29/20at 08:08; Start 05/28/20 at 09:00 Docusate Sodium (Colace) 100 mg BID PO Last administered on 05/29/20at 08:04; Start 05/27/20 at 21:00 Magnesium Citrate (Citroma) 296 ml PRN 1X PRN PO CONSTIPATION; Start 05/27/20 at 19:30 Methylnaltrexone [place] (Relistor) 12 mg 1X ONCE SQ ; Start 05/28/20 at 09:45; Stop 05/28/20 at 09:46; Status DC Lactobacillus Rhamnosus (Culturelle) 1 cap BID PO ; Start 05/28/20 at 21:00; Stop 05/28/20 at 12:38; Status DC Active Scripts Active Medrol (Methylprednisolone) 4 Mg Tablet 4 Mg PO BID 7 Days Reglan (Metoclopramide Hcl) 10 Mg Tablet 1 Tab PO TID PRN 5 Days before food and bedtime Klor-Con M20 (Potassium Chloride) 20 Meq Tab.er.prt 20 Meq PO DAILYWBKFT 30 Days Zofran (Ondansetron Hcl) 8 Mg Tablet 1 Tab PO Q8HRS Reported Tylenol (Acetaminophen) 325 Mg Tablet 500 Mg PO PRN Q4-6HRS PRN Oxycodone Hcl Immed.release (Oxycodone Hcl) 10 Mg Tablet 1 Tab PO QIDPRN PRN MDD 4 Tablet(s) 30 Days Clopidogrel (Clopidogrel Bisulfate) 75 Mg Tablet 75 Mg PO DAILY HOLD til 05/25 Aspirin 81 Mg Tab.chew 1 Tab PO DAILY HOLD til 05/25 NITROGLYCERIN SubLingual (Nitroglycerin) 0.4 Mg Tab.subl 0.4 Mg SL PRN Q5MIN PRN Hydralazine Hcl 25 Mg Tablet 1 Tab PO TID Diphenhydramine Hcl 25 Mg Capsule 1 Tab PO PRN DAILY PRN Amlodipine Besylate 5 Mg Tablet 10 Mg PO DAILY Isosorbide Mononitrate Er (Isosorbide Mononitrate) 60 Mg Tab.er.24h 1 Tab PO DAILY Torsemide 20 Mg Tablet 60 Mg PO DAILY Crestor (Rosuvastatin Calcium) 20 Mg Tablet 2 Tab PO DAILY Carvedilol 25 Mg Tablet 2 Tab PO BID Vitals/I & O Vital Sign - Last 24 Hours 05/28/20 05/28/20 05/28/20 05/28/20 13:30 14:07 14:11 14:11 Pulse 75 75 Resp 18 B/P (MAP) 126/90 126/90 Pulse Ox 100 O2 Delivery Nasal Cannula Nasal Cannula O2 Flow Rate 2.0 2.0 05/28/20 05/28/20 05/28/20 05/28/20 14:32 14:37 15:00 15:32 Temp 97.6 97.6 Pulse 80 Resp 18 18 16 18 B/P (MAP) 120/82 (95) Pulse Ox 100 100 100 100 O2 Delivery Nasal Cannula Room Air Nasal Cannula Room Air O2 Flow Rate 2.0 2.0 2.0 2.0 05/28/20 05/28/20 05/28/20 05/28/20 17:26 17:27 17:56 18:42 Temp 98.6 98.6 Pulse 80 87 Resp 18 18 16 B/P (MAP) 120/82 107/70 (82) Pulse Ox 100 100 96 O2 Delivery Room Air Room Air Nasal Cannula O2 Flow Rate 2.0 2.0 05/28/20 05/28/20 05/28/20 05/28/20 20:00 20:29 20:33 20:59 Pulse 87 Resp 16 B/P (MAP) 122/91 Pulse Ox 96 98 O2 Delivery Room Air Room Air Room Air 05/28/20 05/28/20 05/29/20 05/29/20 21:57 22:57 00:21 00:24 Temp 98.5 98.5 Pulse 81 Resp 16 16 16 16 B/P (MAP) 111/81 (91) Pulse Ox 98 98 98 98 O2 Delivery Room Air Room Air Room Air Room Air 05/29/20 05/29/20 05/29/20 05/29/20 00:51 03:37 03:46 04:37 Temp 98.3 98.3 Pulse 79 Resp 16 16 16 16 B/P (MAP) 131/91 (104) Pulse Ox 98 98 98 98 O2 Delivery Room Air Room Air Room Air Room Air 05/29/20 05/29/20 05/29/20 05/29/20 07:00 08:00 08:00 08:03 Temp 98.3 98.3 Pulse 76 75 Resp 16 18 B/P (MAP) 137/92 (107) 137/92 Pulse Ox 95 98 O2 Delivery Room Air Nasal Cannula Nasal Cannula O2 Flow Rate 2.0 2.0 05/29/20 05/29/20 05/29/20 05/29/20 08:06 08:07 08:07 08:30 Pulse 75 75 75 Resp 18 B/P (MAP) 137/92 137/92 137/92 Pulse Ox 98 O2 Delivery Nasal Cannula O2 Flow Rate 2.0 05/29/20 05/29/20 10:56 11:14 Temp 98.0 98.0 Pulse 77 Resp 16 18 B/P (MAP) 123/72 (89) Pulse Ox 98 98 O2 Delivery Room Air Nasal Cannula O2 Flow Rate 2.0 Intake and Output 05/28/20 05/28/20 05/29/20 15:00 23:00 07:00 Intake Total 237 ml 260 ml Output Total 650 ml 1250 ml Balance -650 ml -1013 ml 260 ml Justicifation of Admission Dx: Justifications for Admission: Justification of Admission Dx: Yes Nutrition Consultation Dietary Evaluation: Recommendations by RD: Dietary education by RD Comments: rec diet as tolerated Expected Outcomes/Goals: to meet > 50% est nutr needs via po intake- not met, goal ongoing Malnutrition Findings: Food and Nutrition Intake (Mod: <75% est energy req 7days Weight Status: Appropriate SANDRA PRESCOTT MD May 29, 2020 11:42
--- NOTE | 2020-05-29 17:30 | PDOC ---
PULMONARY PROGRESS NOTES Subjective Patient not more short of air, wants to go home, not interested in rehab Vitals Vital Signs Date Time Temp Pulse Resp B/P (MAP) Pulse Ox O2 Delivery O2 Flow Rate FiO2 05/29/20 16:14 18 98 Nasal Cannula 2.0 05/29/20 15:00 98.2 86 115/81 (92) 98.2 ROS: No Chest Pain, No Abdominal Pain, No Increase Cough General: Alert, No acute distress HEENT: Other (nc at perrl ) Lungs: Clear Cardiovascular: S1, S2 Abdomen: Soft Neuro Exam: Alert Extremities: No Edema Skin: Warm Labs Laboratory Tests Test 05/28/20 05:00 05/29/20 06:00 Sodium Level 140 mmol/L (136-145) 140 mmol/L (136-145) Potassium Level 4.0 mmol/L (3.5-5.1) 4.0 mmol/L (3.5-5.1) Chloride Level 103 mmol/L (98-107) 101 mmol/L (98-107) Carbon Dioxide Level 28 mmol/L (21-32) 32 mmol/L (21-32) Anion Gap 9 (6-14) 7 (6-14) Blood Urea Nitrogen 23 mg/dL (7-20) 28 mg/dL (7-20) Creatinine 1.5 mg/dL (0.6-1.0) 1.5 mg/dL (0.6-1.0) Estimated GFR (Cockcroft-Gault) 44.0 44.0 Glucose Level 117 mg/dL (70-99) 104 mg/dL (70-99) Calcium Level 8.7 mg/dL (8.5-10.1) 8.6 mg/dL (8.5-10.1) White Blood Count 5.6 x10^3/uL (4.0-11.0) Red Blood Count 4.19 x10^6/uL (3.50-5.40) Hemoglobin 10.4 g/dL (12.0-15.5) Hematocrit 32.6 % (36.0-47.0) Mean Corpuscular Volume 78 fL (79-100) Mean Corpuscular Hemoglobin 25 pg (25-35) Mean Corpuscular Hemoglobin Concent 32 g/dL (31-37) Red Cell Distribution Width 19.4 % (11.5-14.5) Platelet Count 193 x10^3/uL (140-400) BUN/Creatinine Ratio 19 (6-20) Total Bilirubin 0.3 mg/dL (0.2-1.0) Aspartate Amino Transf (AST/SGOT) 12 U/L (15-37) Alanine Aminotransferase (ALT/SGPT) 14 U/L (14-59) Alkaline Phosphatase 94 U/L (46-116) Total Protein 7.8 g/dL (6.4-8.2) Albumin 2.8 g/dL (3.4-5.0) Albumin/Globulin Ratio 0.6 (1.0-1.7) Laboratory Tests Test 05/29/20 06:00 White Blood Count 5.6 x10^3/uL (4.0-11.0) Red Blood Count 4.19 x10^6/uL (3.50-5.40) Hemoglobin 10.4 g/dL (12.0-15.5) Hematocrit 32.6 % (36.0-47.0) Mean Corpuscular Volume 78 fL (79-100) Mean Corpuscular Hemoglobin 25 pg (25-35) Mean Corpuscular Hemoglobin Concent 32 g/dL (31-37) Red Cell Distribution Width 19.4 % (11.5-14.5) Platelet Count 193 x10^3/uL (140-400) Sodium Level 140 mmol/L (136-145) Potassium Level 4.0 mmol/L (3.5-5.1) Chloride Level 101 mmol/L (98-107) Carbon Dioxide Level 32 mmol/L (21-32) Anion Gap 7 (6-14) Blood Urea Nitrogen 28 mg/dL (7-20) Creatinine 1.5 mg/dL (0.6-1.0) Estimated GFR (Cockcroft-Gault) 44.0 BUN/Creatinine Ratio 19 (6-20) Glucose Level 104 mg/dL (70-99) Calcium Level 8.6 mg/dL (8.5-10.1) Total Bilirubin 0.3 mg/dL (0.2-1.0) Aspartate Amino Transf (AST/SGOT) 12 U/L (15-37) Alanine Aminotransferase (ALT/SGPT) 14 U/L (14-59) Alkaline Phosphatase 94 U/L (46-116) Total Protein 7.8 g/dL (6.4-8.2) Albumin 2.8 g/dL (3.4-5.0) Albumin/Globulin Ratio 0.6 (1.0-1.7) Medications Active Scripts Medications Dose Route/Sig Max Daily Dose Days Date Category Dose Instructions Medrol (Methylprednisolone) 4 Mg Tablet 4 Mg PO BID 7 05/05/20 Rx Tylenol (Acetaminophen) 325 Mg Tablet 500 Mg PO PRN Q4-6HRS PRN 04/25/20 Reported Oxycodone Hcl Immed.release (Oxycodone Hcl) 10 Mg Tablet 1 Tab PO QIDPRN PRN MDD 4 Tablet(s) 30 04/25/20 Reported Reglan (Metoclopramide Hcl) 10 Mg Tablet 1 Tab PO TID PRN 5 04/08/20 Rx before food and bedtime Klor-Con M20 (Potassium Chloride) 20 Meq Tab.er.prt 20 Meq PO DAILYWBKFT 30 04/05/20 Rx Zofran (Ondansetron Hcl) 8 Mg Tablet 1 Tab PO Q8HRS 04/05/20 Rx Clopidogrel (Clopidogrel Bisulfate) 75 Mg Tablet 75 Mg PO DAILY 03/15/20 Reported HOLD til 05/25 Aspirin 81 Mg Tab.chew 1 Tab PO DAILY 03/15/20 Reported HOLD til 05/25 NITROGLYCERIN SubLingual (Nitroglycerin) 0.4 Mg Tab.subl 0.4 Mg SL PRN Q5MIN PRN 02/28/20 Reported Hydralazine Hcl 25 Mg Tablet 1 Tab PO TID 02/28/20 Reported Diphenhydramine Hcl 25 Mg Capsule 1 Tab PO PRN DAILY PRN 02/28/20 Reported Amlodipine Besylate 5 Mg Tablet 10 Mg PO DAILY 02/28/20 Reported Isosorbide Mononitrate Er (Isosorbide Mononitrate) 60 Mg Tab.er.24h 1 Tab PO DAILY 02/27/20 Reported Torsemide 20 Mg Tablet 60 Mg PO DAILY 02/27/20 Reported Crestor (Rosuvastatin Calcium) 20 Mg Tablet 2 Tab PO DAILY 03/16/17 Reported Carvedilol 25 Mg Tablet 2 Tab PO BID 08/07/15 Reported Impression . IMPRESSION: 1. Progressive dyspnea, hypoxemia multifactorial secondary to stage 4 lung cancer with metastasis to the adrenal gland. 2. Possible new metastases to the right lower lobe. 3. Intractable nausea, vomiting, requiring IV antiemetics, IV fluids. 4. Progressive dyspnea with CT showing no evidence of pulmonary emboli, now revealing cavitation of the left upper lobe with known lung mass. 5. Multiple other comorbidities including hypertension, previous myocardial infarction, hyperlipidemia and coronary artery disease. 6. Acute cerebral infarct MRI of the brain IMPRESSION: 1. Moderate to large area of acute infarct in the right cerebellum and to lesser extent along the medial aspect of the left cerebellum. No acute hemorrhage. Edema and mass effect with partial effacement of the fourth ventricle. Lateral and third ventricles are not dilated. 2. Abnormal signal in the vertebral and basilar arteries, which may indicate slow flow or occlusion. CTA head and neck is recommended. 3. Multiple additional chronic bilateral cerebellar lacunar infarcts. 4. No evidence of intracranial metastatic disease. Plan . 6-minute walk, Discharge home per PCP with home health RAJAN SALAZAR MD May 29, 2020 17:30
[2020-05-29] MEDS: ROSUVASTATIN 40MG PO SCH (21:17)
[2020-05-30] MEDS: oxyCODONE IR 5 MG TABLET PO PRN ×2 (03:12→08:21)
[2020-05-30 03:13] VITALS: BP 136/104
[2020-05-30 07:00] VITALS: BP 120/79
[2020-05-30] MEDS: CEFDINIR 300 MG CAPSULE PO SCH (08:21)
[2020-05-30] MEDS: ISOSORBIDE MONONITRATE 20 MG TABLET PO SCH (08:21)
[2020-05-30] MEDS: methylPREDNISolone 4 MG TABLET. PO SCH (08:21)
[2020-05-30] MEDS: amLODIPine BESYLATE 10 MG TABLET PO SCH (08:22)
[2020-05-30] MEDS: POTASSIUM CHLORIDE 20 MEQ TABLET.ER. PO SCH (08:22)
[2020-05-30] MEDS: CLOPIDOGREL BISULFATE 75 MG TABLET PO SCH (08:22)
[2020-05-30] MEDS: CARVEDILOL 12.5 MG TABLET. PO SCH (08:22)
[2020-05-30 08:23] VITALS: BP 120/79
[2020-05-30] MEDS: DOCUSATE SODIUM 100 MG CAPSULE. PO SCH (08:23)
[2020-05-30] MEDS: ASPIRIN ENTERIC COATED 325 MG TABLET.DR. PO SCH (08:23)
[2020-05-30] MEDS: TORSEMIDE 20 MG TABLET. PO SCH (08:23)
[2020-05-30] MEDS: hydrALAZINE 25 MG TABLET PO SCH (08:23)
[2020-05-30] MEDS: POLYETHYLENE GLYCOL 3350 17 GM PACKET. PO SCH (08:24)
--- NOTE | 2020-05-30 10:00 | PDOC ---
PROGRESS NOTES Subjective Subjective ready to go home Objective Objective Vital Signs Date Time Temp Pulse Resp B/P (MAP) Pulse Ox O2 Delivery O2 Flow Rate FiO2 05/30/20 08:23 83 120/79 05/30/20 08:21 18 98 Nasal Cannula 2.0 05/30/20 07:00 98.3 98.3 Intake and Output 05/30/20 07:00 Intake Total 625 ml Output Total 1800 ml Balance -1175 ml Intake Oral 625 ml Output Urine Total 1800 ml # Voids 2 Physical Exam Abdomen: Normal bowel sounds, Soft Heart: Regular rate, No murmurs Extremities: No edema General: Alert, Oriented X3 HEENT: Atraumatic Lungs: Clear to auscultation MUSCULOSKELETAL: No joint tenderness Neck: Supple Neuro: Other (Not assessed today) Psych/Mental Status: Mental status NL Skin: No rashes Diagnosis Problem List Problems Medical Problems: (1) Intractable nausea and vomiting Status: Acute (2) Metastatic squamous cell carcinoma Status: Acute Assessment Assessment Problems Medical Problems: (1) Intractable nausea and vomiting Status: Acute (2) Metastatic squamous cell carcinoma Status: Acute ASSESSMENT: 1. Stage 4 lung cancer, metastasis to the left adrenal gland on the right lower lobe. 2. 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 3. Severe vertebrobasilar atherosclerotic disease. 4. Hypertension. 5. Coronary artery disease, status post PCI with stent deployment. 6. Hyperlipidemia. 7. Severe opioid-induced constipation. 8. Normochromic normocytic anemia. 9. Urinary tract infection with growth of more than 100,000 colony forming units per mL of Escherichia coli, treated initially with Rocephin and now she is on oral cefdinir. PLAN: d/c home today with home health spoke with pts daughter at bedside next immune treatment friday. 6 mts walk no desaturation labs cr 1.5 stable. recommended hospice ,pt not interested yet at this time. poor prognosis Plan Plan of Care Problems Medical Problems: (1) Intractable nausea and vomiting Status: Acute (2) Metastatic squamous cell carcinoma Status: Acute Comment Review of Relevant I have reviewed the following items dina (where applicable) has been applied. Labs Microbiology 05/23/20 Urine Culture - Final, Complete 05/23/20 Antimicrobic Susceptibility - Final, Complete Vitals/I & O Vital Sign - Last 24 Hours 05/29/20 05/29/20 05/29/20/20/20 10:56 11:14 11:44 14:46 Temp 98.0 98.0 Pulse 77 87 Resp 16 18 18 B/P (MAP) 123/72 (89) 115/81 Pulse Ox 98 98 98 O2 Delivery Room Air Nasal Cannula Nasal Cannula O2 Flow Rate 2.0 2.0 05/29/20 05/29/20 05/29/20 05/29/20 14:46 14:47 15:00 15:17 Temp 98.2 98.2 Pulse 87 86 Resp 18 16 18 B/P (MAP) 115/81 115/81 (92) Pulse Ox 98 97 98 O2 Delivery Nasal Cannula Room Air Nasal Cannula O2 Flow Rate 2.0 2.0 05/29/20 05/29/20 05/29/20 05/29/20 16:14 16:44 17:40 18:01 Pulse 86 Resp 18 18 18 B/P (MAP) 115/81 Pulse Ox 98 98 98 O2 Delivery Nasal Cannula Nasal Cannula Nasal Cannula O2 Flow Rate 2.0 2.0 2.0 05/29/20 05/29/20 05/29/20 05/29/20 19:00 19:01 20:00 21:19 Temp 98.3 98.3 Pulse 79 87 Resp 17 16 B/P (MAP) 100/64 (76) 116/80 Pulse Ox 98 98 O2 Delivery Room Air Nasal Cannula Nasal Cannula O2 Flow Rate 2.0 2.0 05/29/20 05/29/20 05/29/20 05/30/20 21:27 21:57 23:00 03:12 Temp 98.4 98.4 Pulse 80 Resp 16 16 17 16 B/P (MAP) 112/74 (87) Pulse Ox 98 98 98 98 O2 Delivery Room Air Nasal Cannula Room Air Nasal Cannula O2 Flow Rate 2.0 2.0 05/30/20 05/30/20 05/30/20 05/30/20 03:13 04:12 07:00 08:21 Temp 98.2 98.3 98.2 98.3 Pulse 80 77 Resp 16 18 B/P (MAP) 136/104 (115) 120/79 (93) Pulse Ox 98 98 99 98 O2 Delivery Nasal Cannula Nasal Cannula Nasal Cannula Nasal Cannula O2 Flow Rate 2.0 2.0 2.0 2.0 05/30/20 05/30/20 05/30/20 05/30/20 08:21 08:22 08:22 08:23 Pulse 83 83 83 83 B/P (MAP) 120/79 120/79 120/79 120/79 Intake and Output 05/29/20 05/29/20 05/30/20 15:00 23:00 07:00 Intake Total 425 ml 200 ml 0 ml Output Total 1800 ml Balance 425 ml -1600 ml 0 ml Justicifation of Admission Dx: Justifications for Admission: Justification of Admission Dx: Yes Nutrition Consultation Dietary Evaluation: Recommendations by RD: Dietary education by RD, Increase Calorie Intake Comments: continue w/cardiac diet as ordered, honor food preferences, and provide snacks/supplements prn Expected Outcomes/Goals: to meet > 50% est nutr needs via po intake- met at times, goal ongoing Malnutrition Findings: Food and Nutrition Intake (Mod: <75% est energy req 7days Weight Status: Appropriate SHARMAINE SAEED MD May 30, 2020 10:00
--- NOTE | 2020-05-30 10:05 | SNU/HH DC ---
DISCHARGE WITH HOME HEALTH DISCHARGE INFORMATION: Discharge Date: May 30, 2020 Final Diagnosis: Problems Medical Problems: (1) Intractable nausea and vomiting Status: Acute (2) Metastatic squamous cell carcinoma Status: Acute Condition on Discharge: Stable CODE STATUS: Code Status: Full HOME HEALTH: Face to Face: I certify this patient is under my care and that I, or a nurse practitioner or physician's special education educational assistant working with me, had a face to face encounter that meets the physician face to face encounter requirements with this patient on []. Medical Complications: Other (stage 4 lung cancer) RN For Eval/Treatment: Yes Physical Therapy For: Evalulation/Treatment Home Health Aide For: Self-care FORESTRY WORKER For: Community Resources Pt Meets Homebound Status: Poor coordination w/ amb. POST DISCHARGE ORDERS: Activity Instructions for Disc: Activity as tolerated Weight Bearing Status after Di: As tolerated DIET AFTER DISCHARGE: Cardiac Wound/Incision Care: Keep wound/cast CDI CHECKS AFTER DISCHARGE: Checks after discharge: Check blood press - daily TREATMENT/EQUIPMENT ORDERS: Adaptive Equipment Issued: None CERTIFICATION STATEMENT: Certification Statement: Certification Statement: Based on the above finding, I certify that this patient is confined to the home and needs intermittent retirement care, physical therapy and/or speech therapy, or continues to need occupational therapy.~ This patient is under my care, and I have initiated the establishment of the plan of care.~ This patient will be followed by myself or a community physician who will periodically review the plan of care. Home Meds Active Scripts Metoclopramide Hcl (REGLAN) 10 Mg Tablet, 1 TAB PO TID PRN for NAUSEA for 5 Days, #15 TAB 0 Refills before food and bedtime Prov:REECE BUSH Jr. DO 04/08/20 Potassium Chloride (KLOR-CON M20) 20 Meq Tab.er.prt, 20 MEQ PO DAILYWBKFT for low pot for 30 Days, #30 TAB.SR Prov:SHARMAINE SAEED MD 04/05/20 Ondansetron Hcl (ZOFRAN) 8 Mg Tablet, 1 TAB PO Q8HRS for n/v, #30 TAB 1 Refill Prov:SHARMAINE SAEED MD 04/05/20 Reported Medications Oxycodone Hcl (OXYCODONE HCL IMMED.RELEASE) 10 Mg Tablet, 1 TAB PO QIDPRN PRN for pain MDD 4 Tablet(s) for 30 Days, #120 TAB 0 Refills 04/25/20 Clopidogrel Bisulfate (CLOPIDOGREL) 75 Mg Tablet, 75 MG PO DAILY for TO PREVENT BLOOD CLOTS, #30 TAB 0 Refills HOLD til 05/2503/15/20 Aspirin (ASPIRIN) 81 Mg Tab.chew, 1 TAB PO DAILY for , #90 TAB 3 Refills HOLD til 05/2503/15/20 Nitroglycerin (NITROGLYCERIN SubLingual) 0.4 Mg Tab.subl, 0.4 MG SL PRN Q5MIN PRN for CHEST PAIN, BOTTLE 02/28/20 Hydralazine Hcl (HYDRALAZINE HCL) 25 Mg Tablet, 1 TAB PO TID for blood pressure 02/28/20 Diphenhydramine Hcl (DIPHENHYDRAMINE HCL) 25 Mg Capsule, 1 TAB PO PRN DAILY PRN for ALLERGIES 02/28/20 Amlodipine Besylate (AMLODIPINE BESYLATE) 5 Mg Tablet, 10 MG PO DAILY for blood pressure 02/28/20 Isosorbide Mononitrate (ISOSORBIDE MONONITRATE ER) 60 Mg Tab.er.24h, 1 TAB PO DAILY for blood pressure 02/27/20 Torsemide (TORSEMIDE) 20 Mg Tablet, 60 MG PO DAILY for blood pressure 02/27/20 Rosuvastatin Calcium (CRESTOR) 20 Mg Tablet, 2 TAB PO DAILY for cholesterol, #30 TAB 5 Refills 03/16/17 Carvedilol (CARVEDILOL) 25 Mg Tablet, 2 TAB PO BID for heart, #180 TAB 1 Refill 08/07/15 Discontinued Reported Medications Acetaminophen (TYLENOL) 325 Mg Tablet, 500 MG PO PRN Q4-6HRS PRN for PAIN, TAB 04/25/20 Discontinued Scripts Methylprednisolone (MEDROL) 4 Mg Tablet, 4 MG PO BID for pain for 7 Days, #14 TAB Prov:SHARMAINE SAEED MD 05/05/20 SHARMAINE SAEED MD May 30, 2020 10:05
--- NOTE | 2020-05-30 10:52 | NUR ---
Discharge Note: VENU PALMER Discharge instructions and discharge home medications reviewed with Patient and a copy given. All questions have been answered and understanding verbalized. The following instructions and handouts were given: abd pain and malnutrition. Port de-assessed gauge with tape applied. Patient discharged to home with home-health via daughter.
--- NOTE | 2020-05-30 11:05 | PDOC ---
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 Plan Plavix, aspirin, and statin Rehabilitation modalities Okay to go home, patient does not want hospice Subjective Nausea better Objective Vital Signs Date Time Temp Pulse Resp B/P (MAP) Pulse Ox O2 Delivery O2 Flow Rate FiO2 05/30/20 08:23 83 120/79 05/30/20 08:21 18 98 Nasal Cannula 2.0 05/30/20 07:00 98.3 98.3 Intake and Output 05/30/20 07:00 Intake Total 625 ml Output Total 1800 ml Balance -1175 ml Intake Oral 625 ml Output Urine Total 1800 ml # Voids 2 PHYSICAL EXAM Alert. Oriented to time, place and person. PERRL. EOMI. CN: no focal findings. Muscle tone: normal. Muscle strength: DTR: 2+ Plantar reflex: flexor Gait: not examined. Sensory exam: no abnormal findings. No cerebellar signs elicited. Review of Relevant I have reviewed the following items dina (where applicable) has been applied. Labs Laboratory Tests Test 05/29/20 06:00 White Blood Count 5.6 x10^3/uL (4.0-11.0) Red Blood Count 4.19 x10^6/uL (3.50-5.40) Hemoglobin 10.4 g/dL (12.0-15.5) Hematocrit 32.6 % (36.0-47.0) Mean Corpuscular Volume 78 fL (79-100) Mean Corpuscular Hemoglobin 25 pg (25-35) Mean Corpuscular Hemoglobin Concent 32 g/dL (31-37) Red Cell Distribution Width 19.4 % (11.5-14.5) Platelet Count 193 x10^3/uL (140-400) Sodium Level 140 mmol/L (136-145) Potassium Level 4.0 mmol/L (3.5-5.1) Chloride Level 101 mmol/L (98-107) Carbon Dioxide Level 32 mmol/L (21-32) Anion Gap 7 (6-14) Blood Urea Nitrogen 28 mg/dL (7-20) Creatinine 1.5 mg/dL (0.6-1.0) Estimated GFR (Cockcroft-Gault) 44.0 BUN/Creatinine Ratio 19 (6-20) Glucose Level 104 mg/dL (70-99) Calcium Level 8.6 mg/dL (8.5-10.1) Total Bilirubin 0.3 mg/dL (0.2-1.0) Aspartate Amino Transf (AST/SGOT) 12 U/L (15-37) Alanine Aminotransferase (ALT/SGPT) 14 U/L (14-59) Alkaline Phosphatase 94 U/L (46-116) Total Protein 7.8 g/dL (6.4-8.2) Albumin 2.8 g/dL (3.4-5.0) Albumin/Globulin Ratio 0.6 (1.0-1.7) Microbiology 05/23/20 Urine Culture - Final, Complete 05/23/20 Antimicrobic Susceptibility - Final, Complete Medications Current Medications Sodium Chloride 1,000 ml @ 1,000 mls/hr 1X ONCE IV Last administered on 05/22/20at 16:47; Start 05/22/20 at 16:00; Stop 05/22/20 at 16:59; Status DC Famotidine (Pepcid Vial) 20 mg 1X ONCE IVP Last administered on 05/22/20at 16:47; Start 05/22/20 at 16:15; Stop 05/22/20 at 16:16; Status DC Metoclopramide HCl (Reglan Vial) 10 mg 1X ONCE IVP Last administered on 05/22/20at 16:47; Start 05/22/20 at 16:15; Stop 05/22/20 at 16:16; Status DC Diphenhydramine HCl (Benadryl) 25 mg 1X ONCE IVP Last administered on 05/22/20at 16:47; Start 05/22/20 at 16:15; Stop 05/22/20 at 16:16; Status DC Hydromorphone HCl (Dilaudid) 0.5 mg 1X ONCE IV Last administered on 05/22/20at 16:48; Start 05/22/20 at 16:45; Stop 05/22/20 at 16:46; Status DC Ondansetron HCl (Zofran) 4 mg PRN Q8HRS PRN IV NAUSEA/VOMITING; Start 05/22/20 at 17:45; Stop 05/23/20 at 10:51; Status DC Hydromorphone HCl (Dilaudid) 0.5 mg PRN Q4HRS PRN IV PAIN Last administered on 05/22/20at 22:34; Start 05/22/20 at 17:45; Stop 05/22/20 at 22:51; Status DC Sodium Chloride 1,000 ml @ 100 mls/hr 1X ONCE IV Last administered on 05/22/20at 18:31; Start 05/22/20 at 18:30; Stop 05/23/20 at 04:29; Status DC Hydralazine HCl (Apresoline Inj) 10 mg PRN Q4HRS PRN IVP ELEVATED BP, SEE COMMENTS Last administered on 05/25/20at 17:46; Start 05/22/20 at 22:45; Stop 05/30/20 at 10:51; Status DC Hydromorphone HCl (Dilaudid) 0.5 mg PRN Q3HRS PRN IV PAIN Last administered on 05/23/20at 11:10; Start 05/22/20 at 23:00; Stop 05/23/20 at 12:42; Status DC Hydralazine HCl (Apresoline Inj) 20 mg PRN Q4HRS PRN IVP ELEVATED BP, SEE COMMENTS Last administered on 05/24/20at 09:50; Start 05/23/20 at 08:45; Stop 05/24/20 at 13:02; Status DC Ondansetron HCl (Zofran) 4 mg PRN Q4HRS PRN IV NAUSEA/VOMITING 1ST CHOICE Last administered on 05/24/20at 23:03; Start 05/23/20 at 11:00; Stop 05/30/20 at 10:51; Status DC Prochlorperazine Edisylate (Compazine) 10 mg PRN Q6HRS PRN IV NAUSEA/VOMITING 2ND CHOICE Last administered on 05/23/20at 20:39; Start 05/23/20 at 11:00; Stop 05/30/20 at 10:51; Status DC Fluticasone Propionate (Flonase) 2 spray PRN DAILY PRN NS ALLERGIES; Start 05/23/20 at 12:15; Stop 05/30/20 at 10:51; Status DC Docusate Sodium (Enemeez) 283 mg 1X PRN MO CONSTIPATION; Start 05/23/20 at 12:15; Stop 05/30/20 at 10:51; Status DC Ceftriaxone Sodium (Rocephin) 1 gm Q24H IVP Last administered on 05/26/20at 12:50; Start 05/23/20 at 12:45; Stop 05/26/20 at 15:03; Status DC Hydromorphone HCl (Dilaudid) 1 mg PRN Q3HRS PRN IV PAIN Last administered on 05/25/20at 19:14; Start 05/23/20 at 12:45; Stop 05/25/20 at 20:07; Status DC Amino Acids/ Glycerin/ Electrolytes 1,000 ml @ 80 mls/hr [id number] IV Last administered on 05/24/20at 12:47; Start 05/23/20 at 13:00; Stop 05/24/20 at 13:09; Status DC Iohexol (Omnipaque 350 Mg/ml) 100 ml 1X ONCE IV Last administered on 05/23/20at 13:13; Start 05/23/20 at 13:00; Stop 05/23/20 at 13:03; Status DC Methylnaltrexone [place] (Relistor) 12 mg PRN 1X ONCE SQ Last administered on 05/23/20at 16:27; Start 05/23/20 at 16:30; Stop 05/23/20 at 16:31; Status DC Clonidine HCl (Catapres Tts-2) 1 patch WEEKLY TD Last administered on 05/24/20at 14:07; Start 05/24/20 at 09:00; Stop 05/25/20 at 14:32; Status DC Potassium Chloride/Dextrose/ Sod Cl 1,000 ml @ 100 mls/hr Q10H IV Last administered on 05/25/20at 09:25; Start 05/24/20 at 14:00; Stop 05/26/20 at 15:03; Status DC Potassium Chloride (Klor-Con) 40 meq 1X ONCE PO Last administered on 05/24/20at 15:29; Start 05/24/20 at 15:00; Stop 05/24/20 at 15:05; Status DC Gadoterate Meglumine (Dotarem) 15 ml 1X ONCE IVP Last administered on 05/25/20at 14:43; Start 05/25/20 at 15:00; Stop 05/25/20 at 15:01; Status DC Clonidine HCl (Catapres Tts-3) 1 patch WEEKLY TD Last administered on 05/25/20at 15:10; Start 05/25/20 at 15:00; Stop 05/30/20 at 10:51; Status DC Amlodipine Besylate (Norvasc) 5 mg 1X ONCE PO Last administered on 05/25/20at 15:10; Start 05/25/20 at 15:00; Stop 05/25/20 at 15:01; Status DC Amlodipine Besylate (Norvasc) 5 mg DAILY PO Last administered on 05/26/20at 08:45; Start 05/26/20 at 09:00; Stop 05/26/20 at 10:14; Status DC Sodium Chloride 1,000 ml @ 100 mls/hr Q10H IV Last administered on 05/26/20at 11:34; Start 05/25/20 at 16:00; Stop 05/26/20 at 15:03; Status DC Acetaminophen (Tylenol) 650 mg PRN Q6HRS PRN PO TEMP > 100.4F Last administered on 05/25/20at 17:45; Start 05/25/20 at 15:30; Stop 05/30/20 at 10:51; Status DC Acetaminophen (Tylenol Supp) 650 mg PRN Q4HRS PRN MO TEMP > 100.4F; Start 05/25/20 at 15:30; Stop 05/30/20 at 10:51; Status DC Aspirin (Ecotrin) 325 mg DAILYWBKFT PO Last administered on 05/30/20at 08:23; Start 05/25/20 at 16:00; Stop 05/30/20 at 10:51; Status DC Aspirin (Aspirin Rectal Supp) 300 mg PRN DAILY PRN MO IF UNABLE TO TAKE PO; Start 05/25/20 at 15:30; Stop 05/30/20 at 10:51; Status DC Iohexol (Omnipaque 350 Mg/ml) 60 ml 1X ONCE IV Last administered on 05/25/20at 16:00; Start 05/25/20 at 16:00; Stop 05/25/20 at 16:06; Status DC Info (CONTRAST GIVEN -- Rx MONITORING) 1 each PRN DAILY PRN MC SEE COMMENTS; Start 05/25/20 at 16:15; Stop 05/27/20 at 16:14; Status DC Lactobacillus Rhamnosus (Culturelle) 1 cap BID PO Last administered on 05/26/20at 08:45; Start 05/25/20 at 21:00; Stop 05/26/20 at 15:56; Status DC Hydromorphone HCl (Dilaudid) 2 mg PRN Q3HRS PRN IV PAIN Last administered on 05/29/20at 21:27; Start 05/25/20 at 22:15; Stop 05/30/20 at 10:51; Status DC Oxycodone HCl (Roxicodone) 10 mg PRN Q6HRS PRN PO PAIN Last administered on 05/30/20at 08:21; Start 05/25/20 at 20:15; Stop 05/30/20 at 10:51; Status DC Clopidogrel Bisulfate (Plavix) 75 mg DAILYWBKFT PO Last administered on 05/30/20at 08:22; Start 05/26/20 at 10:30; Stop 05/30/20 at 10:51; Status DC Amlodipine Besylate (Norvasc) 10 mg DAILY PO Last administered on 05/30/20at 08:22; Start 05/27/20 at 09:00; Stop 05/30/20 at 10:51; Status DC Clopidogrel Bisulfate (Plavix) 75 mg DAILY PO ; Start 05/27/20 at 09:00; Status UNV Diphenhydramine HCl (Benadryl) 25 mg PRN DAILY PRN PO ALLERGIES; Start 05/26/20 at 10:00; Stop 05/30/20 at 10:51; Status DC Hydralazine HCl (Apresoline) 25 mg TID PO Last administered on 05/30/20at 08:23; Start 05/26/20 at 14:00; Stop 05/30/20 at 10:51; Status DC Methylprednisolone (Medrol) 4 mg BID PO Last administered on 05/30/20at 08:21; Start 05/26/20 at 11:00; Stop 05/30/20 at 10:51; Status DC Metoclopramide HCl (Reglan) 10 mg PRN TID PRN PO NAUSEA, 3RD CHOICE Last administered on 05/28/20at 17:27; Start 05/26/20 at 10:00; Stop 05/30/20 at 10:51; Status DC Nitroglycerin (Nitrostat) 0.4 mg PRN Q5MIN PRN SL CHEST PAIN; Start 05/26/20 at 10:00; Stop 05/30/20 at 10:51; Status DC Potassium Chloride (Klor-Con) 20 meq DAILYWBKFT PO Last administered on 05/26/20at 11:33; Start 05/26/20 at 11:00; Stop 05/26/20 at 15:09; Status DC Torsemide (Demadex) 60 mg DAILY PO Last administered on 05/30/20at 08:23; Start 05/26/20 at 11:00; Stop 05/30/20 at 10:51; Status DC Carvedilol (Coreg) 12.5 mg BIDWMEALS PO Last administered on 05/30/20at 08:22; Start 05/26/20 at 11:00; Stop 05/30/20 at 10:51; Status DC Isosorbide Mononitrate (Ismo) 20 mg BID92 PO Last administered on 05/30/20at 08:21; Start 05/26/20 at 14:00; Stop 05/30/20 at 10:51; Status DC Ondansetron HCl (Zofran Odt) 8 mg PRN Q6HRS PRN PO NAUSEA/VOMITING Last administered on 05/27/20at 09:49; Start 05/26/20 at 10:00; Stop 05/30/20 at 10:51; Status DC Oxycodone HCl (Roxicodone) 10 mg PRN Q6HRS PRN PO PAIN; Start 05/26/20 at 10:00; Stop 05/27/20 at 09:04; Status DC Non-Formulary Medication 1 ea QHS PO Last administered on 05/29/20at 21:17; Start 05/26/20 at 21:00; Stop 05/30/20 at 10:51; Status DC Cefdinir (Omnicef) 300 mg BID PO Last administered on 05/30/20at 08:21; Start 05/26/20 at 21:00; Stop 05/30/20 at 10:51; Status DC Potassium Chloride (Klor-Con) 20 meq TIDWMEALS PO Last administered on 05/30/20at 08:22; Start 05/26/20 at 17:00; Stop 05/30/20 at 10:51; Status DC Lactobacillus Rhamnosus (Culturelle) 1 cap BID PO ; Start 05/27/20 at 21:00; Status Cancel Methylnaltrexone [place] (Relistor) 12 mg 1X ONCE SQ ; Start 05/27/20 at 20:00; Stop 05/27/20 at 20:01; Status DC Polyethylene Glycol (miraLAX PACKET) 17 gm DAILY PO Last administered on 05/30/20at 08:24; Start 05/28/20 at 09:00; Stop 05/30/20 at 10:51; Status DC Docusate Sodium (Colace) 100 mg BID PO Last administered on 05/30/20at 08:23; Start 05/27/20 at 21:00; Stop 05/30/20 at 10:51; Status DC Magnesium Citrate (Citroma) 296 ml PRN 1X PRN PO CONSTIPATION; Start 05/27/20 at 19:30; Stop 05/30/20 at 10:51; Status DC Methylnaltrexone [place] (Relistor) 12 mg 1X ONCE SQ ; Start 05/28/20 at 09:45; Stop 05/28/20 at 09:46; Status DC Lactobacillus Rhamnosus (Culturelle) 1 cap BID PO ; Start 05/28/20 at 21:00; Stop 05/28/20 at 12:38; Status DC Active Scripts Active Reglan (Metoclopramide Hcl) 10 Mg Tablet 1 Tab PO TID PRN 5 Days before food and bedtime Klor-Con M20 (Potassium Chloride) 20 Meq Tab.er.prt 20 Meq PO DAILYWBKFT 30 Days Zofran (Ondansetron Hcl) 8 Mg Tablet 1 Tab PO Q8HRS Reported Oxycodone Hcl Immed.release (Oxycodone Hcl) 10 Mg Tablet 1 Tab PO QIDPRN PRN MDD 4 Tablet(s) 30 Days Clopidogrel (Clopidogrel Bisulfate) 75 Mg Tablet 75 Mg PO DAILY HOLD til 05/25 Aspirin 81 Mg Tab.chew 1 Tab PO DAILY HOLD til 05/25 NITROGLYCERIN SubLingual (Nitroglycerin) 0.4 Mg Tab.subl 0.4 Mg SL PRN Q5MIN PRN Hydralazine Hcl 25 Mg Tablet 1 Tab PO TID Diphenhydramine Hcl 25 Mg Capsule 1 Tab PO PRN DAILY PRN Amlodipine Besylate 5 Mg Tablet 10 Mg PO DAILY Isosorbide Mononitrate Er (Isosorbide Mononitrate) 60 Mg Tab.er.24h 1 Tab PO DAILY Torsemide 20 Mg Tablet 60 Mg PO DAILY Crestor (Rosuvastatin Calcium) 20 Mg Tablet 2 Tab PO DAILY Carvedilol 25 Mg Tablet 2 Tab PO BID Vitals/I & O Vital Sign - Last 24 Hours 05/29/20 05/29/20 05/29/20 05/29/20 11:14 11:44 14:46 14:46 Pulse 87 87 Resp 18 18 B/P (MAP) 115/81 115/81 Pulse Ox 98 98 O2 Delivery Nasal Cannula Nasal Cannula O2 Flow Rate 2.0 2.0 05/29/20 05/29/20 05/29/20 05/29/20 14:47 15:00 15:17 16:14 Temp 98.2 98.2 Pulse 86 Resp 18 16 18 18 B/P (MAP) 115/81 (92) Pulse Ox 98 97 98 98 O2 Delivery Nasal Cannula Room Air Nasal Cannula Nasal Cannula O2 Flow Rate 2.0 2.0 2.0 05/29/20 05/29/20 05/29/20 05/29/20 16:44 17:40 18:01 19:00 Temp 98.3 98.3 Pulse 86 79 Resp 18 18 17 B/P (MAP) 115/81 100/64 (76) Pulse Ox 98 98 98 O2 Delivery Nasal Cannula Nasal Cannula Room Air O2 Flow Rate 2.0 2.0 05/29/20 05/29/20 05/29/20 05/29/20 19:01 20:00 21:19 21:27 Pulse 87 Resp 16 16 B/P (MAP) 116/80 Pulse Ox 98 98 O2 Delivery Nasal Cannula Nasal Cannula Room Air O2 Flow Rate 2.0 2.0 05/29/20 05/29/20 05/30/20 05/30/20 21:57 23:00 03:12 03:13 Temp 98.4 98.2 98.4 98.2 Pulse 80 80 Resp 16 17 16 B/P (MAP) 112/74 (87) 136/104 (115) Pulse Ox 98 98 98 98 O2 Delivery Nasal Cannula Room Air Nasal Cannula Nasal Cannula O2 Flow Rate 2.0 2.0 2.0 05/30/20 05/30/20 05/30/20 05/30/20 04:12 07:00 08:00 08:21 Temp 98.3 98.3 Pulse 77 Resp 16 18 B/P (MAP) 120/79 (93) Pulse Ox 98 99 98 O2 Delivery Nasal Cannula Nasal Cannula Nasal Cannula Nasal Cannula O2 Flow Rate 2.0 2.0 2.0 2.0 05/30/20 05/30/20 05/30/20 05/30/20 08:21 08:22 08:22 08:23 Pulse 83 83 83 83 B/P (MAP) 120/79 120/79 120/79 120/79 Intake and Output 05/29/20 05/29/20 05/30/20 15:00 23:00 07:00 Intake Total 425 ml 200 ml 0 ml Output Total 1800 ml Balance 425 ml -1600 ml 0 ml Justicifation of Admission Dx: Justifications for Admission: Justification of Admission Dx: Yes YEFRI KERN MD May 30, 2020 11:05
--- NOTE | 2020-06-06 10:11 | PDOC ---
Provider Note Provider Note Discharge summary dictated.#[id number]. Justicifation of Admission Dx: Justifications for Admission: Justification of Admission Dx: Yes SHARMAINE SAEED MD Jun 06, 2020 10:11
--- NOTE | 2020-06-06 10:30 | DS ---
DATE OF DISCHARGE: 05/30/2020 REASON FOR ADMISSION TO THE HOSPITAL: 1. Nausea, vomiting. 2. Urinary tract infection. 3. Metastatic lung cancer. CONSULTATIONS: Cheko Kim MD, Neurology; Jose Miguel Sandhu MD, Pulmonology; Sujey Turner MD, Hematology. PROCEDURES DONE: Echocardiogram; brain MRI; CT head and neck, chest. HISTORY OF PRESENT ILLNESS: The patient is a 55-year-old female patient presented with weakness and she has a history of stage 4 squamous cell lung CA and had finished radiation and chemo and she is on immune treatment. She was found to have a stroke. Brain MRI shows moderate to large area of acute infarct of right cerebellum and also left cerebellum. Echocardiogram shows no thrombosis. The patient had a CT angiogram of the neck. The patient has a complete occlusion of the basilar artery and the patient had a CT chest, which shows interval development of right lower lobe nodule. She had a left upper lobe mass extending and large left adrenal mass. The patient was seen by Pulmonology, Neurology and Hematology/Oncology. The patient was treated with antibiotics for UTI, which shows E. coli sensitive to cephalosporins. The patient was treated with Rocephin. FINAL DIAGNOSES: 1. New cerebrovascular accident, cerebellar infarct. 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 3. Stage 4 metastatic lung carcinoma, progression to the right lung from the left upper lung and also left adrenal. 4. Coronary artery disease. 5. Hypertension. 6. Diabetes. 7. Urinary tract infection with Escherichia coli. DISPOSITION: Home. PROGNOSIS: Poor. The patient does not want to consider hospice. She was getting immune treatment with outpatient infusions weekly. SHARMAINE SAEED MD DR: YURIY/trent JOB#: [id number] / [id number] RUPESH Amezcua
== END 2020-05-30 10:40 | disposition home health service (06) | DRG 64 ==
LOC: ER 15:49 → ED HOLD 17:28 → 4 NORTH 18:58 → 2 NORTH 05-25 16:54
PROVIDERS: ADMIT Internal Medicine; ATTEND Internal Medicine
DX: I63.9 Cerebral infarction, unspecified (principal); E43 Unspecified severe protein-calorie malnutrition; N39.0 Urinary tract infection, site not specified; C79.72 Secondary malignant neoplasm of left adrenal gland; C34.12 Malignant neoplasm of upper lobe, left bronchus or lung; I25.10 Atherosclerotic heart disease of native coronary artery without angina pectoris; E78.00 Pure hypercholesterolemia, unspecified; I11.0 Hypertensive heart disease with heart failure; I50.9 Heart failure, unspecified; E78.5 Hyperlipidemia, unspecified; J44.9 Chronic obstructive pulmonary disease, unspecified; K21.9 Gastro-esophageal reflux disease without esophagitis; M19.90 Unspecified osteoarthritis, unspecified site; K59.03 Drug induced constipation; E86.0 Dehydration; T40.2X5A Adverse effect of other opioids, initial encounter; I95.1 Orthostatic hypotension; I65.1 Occlusion and stenosis of basilar artery; D64.9 Anemia, unspecified; R09.02 Hypoxemia; B96.20 Unspecified Escherichia coli [E. coli] as the cause of diseases classified elsewhere; Z95.5 Presence of coronary angioplasty implant and graft; Z68.31 Body mass index [BMI] 31.0-31.9, adult; Z88.5 Allergy status to narcotic agent; Z87.891 Personal history of nicotine dependence; I25.2 Old myocardial infarction; Z88.8 Allergy status to other drugs, medicaments and biological substances; Z87.11 Personal history of peptic ulcer disease; Z85.528 Personal history of other malignant neoplasm of kidney; Z74.01 Bed confinement status; Y92.89 Other specified places as the place of occurrence of the external cause; Z92.3 Personal history of irradiation; Z80.6 Family history of leukemia; Z80.3 Family history of malignant neoplasm of breast; Z82.49 Family history of ischemic heart disease and other diseases of the circulatory system; Z98.51 Tubal ligation status
CPT/HCPCS: 36415; 70496; 70498; 70553; 71275; 80048; 80053; 80061; 81001; 82533; 82553; 83690; 83735; 84484; 85025; 85027; 85610; 85730; 87086; 93005; 93306; 94618; 96361; 96374; 96375; 99285; A9575; J0360; J0696; J0780; J1170; J1200; J2212; J2405; J2765; J3480; J3490; J7030; J7509; Q9967; 92610-GN; 97110-GP; 97116-GP; 97530-GO; 97530-GP; G0378

== ENCOUNTER → 2020-05-22 | Outpatient (CLI) | payer MEDICARE, OTHER ==
[2020-05-09 15:18] VITALS: BP 96/64
[2020-05-22 12:44] LABS: CALCIUM 8.9 mg/dL (8.5-10.1); CREATININE 1.2 mg/dL (0.6-1.0); GFR 56.9; POTASSIUM 3.7 mmol/L (3.5-5.1)
[2020-05-22 12:50] LABS: BASO # 0.1 x10^3/uL (0.0-0.2); BASO % 1 % (0-3); EOS # 0.1 x10^3/uL (0.0-0.7); EOS % 1 % (0-3); HEMATOCRIT 36.1 % (36.0-47.0); HEMOGLOBIN 11.8 g/dL (12.0-15.5); LYMPH % 14 % (24-48); MEAN CORPUSCULAR HEMOGLOBIN 25 pg (25-35); MEAN CORPUSCULAR HGB CONC 33 g/dL (31-37); MEAN CORPUSCULAR VOLUME 77 fL (79-100); MONO # 0.8 x10^3/uL (0.0-1.1); MONO % 11 % (0-9); NEUT # 5.3 x10^3/uL (1.8-7.7); NEUT % 73 % (31-73); PLATELET COUNT 183 x10^3/uL (140-400); RED BLOOD COUNT 4.68 x10^6/uL (3.50-5.40); RED CELL DISTRIBUTION WIDTH 18.5 % (11.5-14.5); WHITE BLOOD COUNT 7.3 x10^3/uL (4.0-11.0)
== END ==
LOC: ONCLAB 12:08
PROVIDERS: ATTEND Internal Medicine Hematology & Oncology
DX: C79.72 Secondary malignant neoplasm of left adrenal gland (principal); D89.2 Hypergammaglobulinemia, unspecified
CPT/HCPCS: 36415; 80048; 85025

== ENCOUNTER 2020-05-30 15:23 | Observation (INO) | payer MEDICARE, OTHER ==
[~2020-05-30] VITALS: Ht 180.3 cm; Wt 71.5 kg
[~2020-05-30 15:23] MED LIST changes: +OXYC-411 PO; -OXYC1TAB20 PO
--- NOTE | 2020-05-30 16:11 | EKG ---
[facility] [address] [place] [address] Test Date: 2020-05-30 Test Time: 15:42:14 Pat Name: VENU PALMER Department: Room: Gender: F [employer]izer: : 1965 Requested By: CHERI HUFFMAN Order Number: [id number] Reading MD: Measurements Intervals [place] Rate: 86 P: 21 MI: 160 QRS: -20 QRSD: 146 T: 121 QT: 370 QTc: 446 Interpretive Statements SINUS RHYTHM LEFT ATRIAL ABNORMALITY LEFTWARD AXIS NON SPECIFIC INTRAVENTRICULAR BLOCK ABNORMAL ECG RI6.02 No previous ECG available for comparison
--- NOTE | 2020-05-30 16:25 | RAD ---
Examination: ACUTE ABDOMEN SERIES History: rectal pain, constipation Comparison/Correlation: 05/09/2020 obstruction series, 04/29/2020 CT abdomen and pelvis with contrast Findings: Portable upright frontal view of the chest was obtained. Supine and upright views of the abdomen were provided. Right-sided infusion port catheter tip was overlying superior vena cava. Heart size is normal. No pneumothorax. Patchy infiltrate involving the left perihilar region noted. No definite effusion. Moderate quantity of stool is noted throughout the colon. No definite suspicious calcifications. Calcific densities at the mid abdomen are present similar to previous exam. Impression: Left upper lung field infiltrates are again seen. No new infiltrate. No significant change in pulmonary aeration. No bowel obstruction. Electronically signed by: Osito Martinez MD (05/30/2020 4:22 PM) [id number]
--- NOTE | 2020-05-30 16:39 | PHYS DOC ---
Past Medical History Past Medical History: CAD, Cancer, CHF, High Cholesterol, Hypertension Additional Past Medical Histor: DJD. CARDIAC STENTS X 5, LUNG AND ADRENAL CANCER, ON IMMUNO.THERAPY Past Surgical History: Other Additional Past Surgical Histo: cardiac stent, PORT Smoking Status: Former Smoker Alcohol Use: None Drug Use: None General Adult EDM: Chief Complaint: SHORTNESS OF BREATH HPI: HPI: Patient is a 55 year old AA female who presents to the emergency department with complaints of continued shortness of breath and rectal pressure after being discharged from this facility at approximately 9 AM. Patient states that she has lung cancer and she was recently admitted for her shortness of breath but was sent home this morning after being admitted for a week. She reports that she does not feel like she is able to care for herself at home. She reports having a small bowel movement yesterday but denies any blood in her stool. She states that she has pain in her rectum at this time. She currently complains of abdominal discomfort that she describes as pressure and rates a 5 out of 10 on the pain scale, she denies any radiation of the pain. She denies any alleviating or exacerbating factors. Review of Systems: Review of Systems: Constitutional: Denies fever or chills. [] Eyes: Denies change in visual acuity. [] HENT: Denies nasal congestion or sore throat. [] Respiratory: Denies cough; see HPI Cardiovascular: Denies chest pain or edema. [] GI: See HPI : Denies dysuria. [] Musculoskeletal: Denies back pain or joint pain. [] Integument: Denies rash. [] Neurologic: Denies headache Psychiatric: Denies depression or anxiety. [] Heart Score: Risk Factors: Risk Factors: DM, Current or recent (<one month) smoker, HTN, HLP, family history of CAD, obesity. Risk Scores: Score 0 - 3: 2.5% MACE over next 6 weeks - Discharge Home Score 4 - 6: 20.3% MACE over next 6 weeks - Admit for Clinical Observation Score 7 - 10: 72.7% MACE over next 6 weeks - Early Invasive Strategies Allergies: Allergies: Allergies Coded Allergies Type Severity Reaction Last Updated Verified atorvastatin Allergy Intermediate 04/03/20 Yes codeine Allergy Intermediate 04/03/20 Yes heparin Allergy Intermediate 04/03/20 Yes morphine Allergy Intermediate 04/03/20 Yes spironolactone Allergy Intermediate 04/03/20 Yes fentanyl Adverse Reaction Intermediate "makes me burn" 04/03/20 Yes Physical Exam: PE: Constitutional: Well developed, well nourished, no acute distress, non-toxic heaven earance. [] HENT: Normocephalic, atraumatic, bilateral external ears normal, nose normal. [] Eyes: PERRLA, EOMI, conjunctiva normal, no discharge. [] Neck: Normal range of motion, no stridor. [] Cardiovascular:Heart rate regular rhythm Lungs & Thorax: Respirations even and unlabored, no retractions, no respiratory distress, lungs clear but diminished posteriorly Abdomen: soft, no tenderness Rectal Exam: Normal tone, No mass, Positive control Marlys RN at bedside for real estate services administrator Stool: none present Back: No bony tenderness Skin: Warm, dry, no erythema, no rash. [] Extremities: No cyanosis, ROM intact, no edema. [] Neurologic: Alert and oriented X 3, no focal deficits noted. [] Psychologic: Affect normal, judgement normal, mood normal. [] Current Patient Data: Vital Signs: Vital Signs Date Time Temp Pulse Resp B/P (MAP) Pulse Ox O2 Delivery O2 Flow Rate FiO2 05/30/20 15:53 98.0 94 22 136/99 (111) 97 Room Air 98.0 EKG: EKG: [] Radiology/Procedures: Radiology/Procedures: PROCEDURE: ACUTE ABDOMEN SERIES Examination: ACUTE ABDOMEN SERIES History: rectal pain, constipation Comparison/Correlation: 05/09/2020 obstruction series, 04/29/2020 CT abdomen and pelvis with contrast Findings: Portable upright frontal view of the chest was obtained. Supine and upright views of the abdomen were provided. Right-sided infusion port catheter tip was overlying superior vena cava. Heart size is normal. No pneumothorax. Patchy infiltrate involving the left perihilar region noted. No definite effusion. Moderate quantity of stool is noted throughout the colon. No definite suspicious calcifications. Calcific densities at the mid abdomen are present similar to previous exam. Impression: Left upper lung field infiltrates are again seen. No new infiltrate. No significant change in pulmonary aeration. No bowel obstruction.[] Course & Med Decision Making: Course & Med Decision Making Pertinent Labs and Imaging studies reviewed. (See chart for details) [id number]-spoke with Dr. CORTES who is the admitting physician, and care was assumed following discussion of patient. Will admit patient for continued shortness of breath, and rectal pain with need for social science professor consult for [facility] facility placement. Per Dr. Cortes, do not repeat labs as patient was discharged this morning. 1550- Fay with social science professor at bedside, will order COVID-19 swab for possible SNF placement. Patient's vital signs stable. Patient remains afebrile, appears nontoxic, respirations even and unlabored. Patient will be admitted to the tele floor. Dragon Disclaimer: Dragon Disclaimer: This electronic medical record was generated, in whole or in part, using a voice recognition dictation system. Departure Departure Impression: Primary Impression: Shortness of breath Additional Impression: Person under investigation for COVID-19 Disposition: ADMITTED INPATIENT Admitting Physician: [facility] ([facility]) Condition: STABLE Referrals: SHARMAINE CORTES MD (PCP) Justicifation of Admission Dx: Justifications for Admission: Justification of Admission Dx: Yes Comments: OBS for SOA, PUI, [facility] home placement assistance CHERI HUFFMAN APRN May 30, 2020 16:38
[2020-05-30] MEDS ORDERED: MAGNESIUM CITRATE 296 ML SOLUTION. PO ONE (17:00)
[2020-05-30] MEDS ORDERED: SODIUM PHOSPHATES 19/7GM 133 ML ENEMA. PR ONE (17:00)
[2020-05-30] MEDS ORDERED: HYDROcodone/APAP 5/325MG 1 TAB TABLET PO ONE (17:15)
[2020-05-30] MEDS ORDERED: ONDANSETRON PF 4 MG/2 ML VIAL. IVP PRN (19:45)
[2020-05-30] MEDS ORDERED: NITROGLYCERIN SUBLINGUAL 0.4 MG BOTTLE OF 25. SL PRN (20:00)
[2020-05-30] MEDS ORDERED: METOCLOPRAMIDE 10 MG TABLET. PO PRN (20:00)
[2020-05-30] MEDS ORDERED: ONDANSETRON ODT 4 MG TAB.RAPDIS. PO PRN (20:15)
[2020-05-30 20:22] VITALS: BP 147/104
[2020-05-30] MEDS ORDERED: ROSUVASTATIN 40MG PO SCH (21:00)
[2020-05-30] MEDS: oxyCODONE IR 5 MG TABLET PO PRN (21:12)
[2020-05-30] MEDS: hydrALAZINE 25 MG TABLET PO SCH (21:13)
[2020-05-30 23:41] VITALS: BP 119/84
[2020-05-31] MEDS ORDERED: ONDANSETRON ODT 4 MG TAB.RAPDIS. PO PRN
[2020-05-31 03:00] VITALS: BP 118/80
[2020-05-31 07:10] VITALS: BP 112/75
[2020-05-31] MEDS ORDERED: CARVEDILOL 12.5 MG TABLET. PO SCH (08:00)
[2020-05-31] MEDS ORDERED: POTASSIUM CHLORIDE 20 MEQ TABLET.ER. PO SCH (08:00)
[2020-05-31] MEDS ORDERED: CLOPIDOGREL BISULFATE 75 MG TABLET PO SCH (09:00)
[2020-05-31] MEDS ORDERED: ASPIRIN CHEWABLE 81 MG TABLET. PO SCH (09:00)
[2020-05-31] MEDS ORDERED: ISOSORBIDE MONONITRATE 20 MG TABLET PO SCH (09:00)
[2020-05-31] MEDS ORDERED: TORSEMIDE 20 MG TABLET. PO SCH (09:00)
[2020-05-31] MEDS: hydrALAZINE 25 MG TABLET PO SCH (09:09)
[2020-05-31] MEDS: oxyCODONE IR 5 MG TABLET PO PRN (09:16)
--- NOTE | 2020-05-31 10:21 | SNU/HH DC ---
DISCHARGE WITH HOME HEALTH DISCHARGE INFORMATION: Discharge Date: May 31, 2020 Final Diagnosis: Problems Medical Problems: (1) Person under investigation for COVID-19 Status: Acute (2) Shortness of breath Status: Acute Condition on Discharge: Stable CODE STATUS: Code Status: Full HOME HEALTH: Face to Face: I certify this patient is under my care and that I, or a nurse practitioner or physician's bacteriology research assistant working with me, had a face to face encounter that meets the physician face to face encounter requirements with this patient on []. Medical Complications: CVA, Other RN For Eval/Treatment: Yes Physical Therapy For: Evalulation/Treatment BEAM BUILDER For: Community Resources Pt Meets Homebound Status: Poor coordination w/ amb. POST DISCHARGE ORDERS: Activity Instructions for Disc: Activity as tolerated Weight Bearing Status after Di: As tolerated DIET AFTER DISCHARGE: Cardiac Wound/Incision Care: Keep wound/cast CDI CHECKS AFTER DISCHARGE: Checks after discharge: Check blood press - daily TREATMENT/EQUIPMENT ORDERS: Adaptive Equipment Issued: None CERTIFICATION STATEMENT: Certification Statement: Certification Statement: Based on the above finding, I certify that this patient is confined to the home and needs intermittent mcc care, physical therapy and/or speech therapy, or continues to need occupational therapy.~ This patient is under my care, and I have initiated the establishment of the plan of care.~ This patient will be followed by myself or a community physician who will periodically review the plan of care. Home Meds Active Scripts Metoclopramide Hcl (REGLAN) 10 Mg Tablet, 1 TAB PO TID PRN for NAUSEA for 5 Days, #15 TAB 0 Refills before food and bedtime Prov:REECE BUSH Jr. DO 04/08/20 Potassium Chloride (KLOR-CON M20) 20 Meq Tab.er.prt, 20 MEQ PO DAILYWBKFT for low pot for 30 Days, #30 TAB.SR Prov:SHARMAINE SAEED MD 04/05/20 Ondansetron Hcl (ZOFRAN) 8 Mg Tablet, 1 TAB PO Q8HRS for n/v, #30 TAB 1 Refill Prov:SHARMAINE SAEED MD 04/05/20 Reported Medications Oxycodone Hcl (OXYCODONE HCL IMMED.RELEASE) 10 Mg Tablet, 1 TAB PO QIDPRN PRN for pain MDD 4 Tablet(s) for 30 Days, #120 TAB 0 Refills 04/25/20 Clopidogrel Bisulfate (CLOPIDOGREL) 75 Mg Tablet, 75 MG PO DAILY for TO PREVENT BLOOD CLOTS, #30 TAB 0 Refills HOLD til 05/2503/15/20 Aspirin (ASPIRIN) 81 Mg Tab.chew, 1 TAB PO DAILY for , #90 TAB 3 Refills HOLD til 05/2503/15/20 Nitroglycerin (NITROGLYCERIN SubLingual) 0.4 Mg Tab.subl, 0.4 MG SL PRN Q5MIN PRN for CHEST PAIN, BOTTLE 02/28/20 Hydralazine Hcl (HYDRALAZINE HCL) 25 Mg Tablet, 1 TAB PO TID for blood pressure 02/28/20 Diphenhydramine Hcl (DIPHENHYDRAMINE HCL) 25 Mg Capsule, 1 TAB PO PRN DAILY PRN for ALLERGIES 02/28/20 Amlodipine Besylate (AMLODIPINE BESYLATE) 5 Mg Tablet, 10 MG PO DAILY for blood pressure 02/28/20 Isosorbide Mononitrate (ISOSORBIDE MONONITRATE ER) 60 Mg Tab.er.24h, 1 TAB PO DAILY for blood pressure 02/27/20 Torsemide (TORSEMIDE) 20 Mg Tablet, 60 MG PO DAILY for blood pressure 02/27/20 Rosuvastatin Calcium (CRESTOR) 20 Mg Tablet, 2 TAB PO DAILY for cholesterol, #30 TAB 5 Refills 03/16/17 Carvedilol (CARVEDILOL) 25 Mg Tablet, 2 TAB PO BID for heart, #180 TAB 1 Refill 08/07/15 Discontinued Reported Medications Acetaminophen (TYLENOL) 325 Mg Tablet, 500 MG PO PRN Q4-6HRS PRN for PAIN, TAB 04/25/20 Discontinued Scripts Methylprednisolone (MEDROL) 4 Mg Tablet, 4 MG PO BID for pain for 7 Days, #14 TAB Prov:SHARMAINE SAEED MD 05/05/20 SHARMAINE SAEED MD May 31, 2020 10:21
--- NOTE | 2020-05-31 10:29 | PDOC ---
Provider Note Provider Note Pt seen .H&P dictated.#[id number]. Justicifation of Admission Dx: Justifications for Admission: Justification of Admission Dx: Yes SHARMAINE SAEED MD May 31, 2020 10:29
--- NOTE | 2020-05-31 11:01 | HP ---
ADMIT DATE: HISTORY AND PHYSICAL AND DISCHARGE SUMMARY DATE OF DISCHARGE: 05/31/2020 REASON FOR ADMISSION TO THE HOSPITAL: Abdominal pain, shortness of breath, and fecal impaction. HISTORY OF PRESENT ILLNESS: The patient is a 55-year-old female with history of stage 4 metastatic lung cancer and she also recently was admitted to the hospital a week ago, was discharged yesterday for a cerebellar CVA. The patient was having panic attack. She was having constipation, short of breath, and was brought to the hospital. KUB shows some fecal impaction, was given Fleet Enema, there is some improvement with that. The patient's oxygen stays more than 90. She was given oxygen for comfort and she feels better. Otherwise, the patient is back to her baseline. PAST MEDICAL HISTORY: History of coronary artery disease, previous cardiac stents, recent CVA, and lung cancer stage 4. ALLERGIES: ATORVASTATIN, CODEINE, FENTANYL, HEPARIN, MORPHINE, AND SPIRONOLACTONE. MEDICATIONS AT HOME: She is on amlodipine 5 mg, Benadryl 25 mg, aspirin 81 mg, Coreg 25 mg twice a day, Plavix 75 mg daily, hydralazine 25 mg 3 times daily, isosorbide 60 mg daily, Reglan 10 mg t.i.d., sublingual nitro, Zofran 8 mg daily, oxycodone 10 mg q.6 hour, potassium 20 mEq daily, torsemide 60 mg daily, and Crestor 20 mg daily. PERSONAL HISTORY: smoker, she quit recently and denies alcohol or street drugs. SOCIAL HISTORY: Lives at home. PHYSICAL EXAMINATION: GENERAL: The patient has lost a lot of weight. VITAL SIGNS: Temperature 98, pulse 74, respirations 12, blood pressure 119/84, and saturating 99 on 2 liters. HEENT: Head is atraumatic. Pupils equal. Oral cavity: No congestion. NECK: Supple. Thyroid not enlarged. JVD not elevated. CHEST: Symmetrical. CARDIOVASCULAR: S1, S2. LUNGS: Few crackles at the base. ABDOMEN: Soft. No mass palpable. EXTERNAL GENITALIA: No De Souza. RECTAL: Deferred. EXTREMITIES: No calf tenderness, no edema. NEUROLOGIC: The patient has weakness of lower extremities from recent CVA. DIAGNOSTIC STUDIES: KUB shows some fecal impaction: FINAL IMPRESSION: 1. Abdominal pain secondary to fecal impaction. 2. Fecal impaction secondary to chronic narcotic pain medication. 3. Metastatic stage 4 lung cancer, squamous cell mediastinum as well as to the Left adrenal gland. 4. Coronary artery disease, previous stents. 5. General debility, decline. PLAN: At this time, the patient is discharged home. The patient does not want hospice at this time. We will try to arrange for oxygen, nebulizer machine and she is also on OxyContin for pain. Recommend MiraLax twice daily, Senna S twice daily and p.r.n. suppositories. The patient's prognosis is poor. Discussed hospice, the patient declined. Chance of readmission to the hospital is high. The patient is declining rapidly. She is going to get infusion outpatient [facility]. SHARMAINE SAEED MD DR: YURIY/trent JOB#: [id number] / [id number] GARO
[2020-05-31 11:07] VITALS: BP 90/72
--- NOTE | 2020-05-31 14:10 | NUR ---
Discharge Note: VENU PALMER [facility] Discharge instructions and discharge home medications reviewed with Patient and a copy given. All questions have been answered and understanding verbalized. Patient vital signs stable upon discharge, no complaints of shortness of breath at this time. The following instructions and handouts were given: shortness of breath Patient discharged to Home with services with Self via Wheelchair
--- NOTE | 2020-05-31 17:11 | NUR ---
SW following. Spoke with RN and reviewed chart. Coordinated care with Dr. Cortes and pt's daughter. Pt to discharge home today with [facility], , (fax). [facility] phoned and faxed discharge orders Lydia confirmed they were received. Pt does not qualify for 02 with insurance per 6 min walks done on 05/30/2020 and 05/31/2020. MERCEDES did phone and fax 02 orders to [facility], , (fax) and dtr can decide if she wants to pay for 02 for pt. MERCEDES provided contact information for [facility] to daughter. Patient Choice of Vendor form completed. No further SW needs at this time.
== END 2020-05-31 14:10 | disposition home health service (06) ==
LOC: ER 15:23 → OBSVTOIN 17:47 → INTOOBSV 17:47 → 6 SOUTH 17:47
PROVIDERS: ADMIT Internal Medicine; ATTEND Internal Medicine
DX: K56.41 Fecal impaction (principal); Z20.828 Contact with and (suspected) exposure to other viral communicable diseases; I11.0 Hypertensive heart disease with heart failure; I50.9 Heart failure, unspecified; C34.90 Malignant neoplasm of unspecified part of unspecified bronchus or lung; E78.00 Pure hypercholesterolemia, unspecified; F41.0 Panic disorder [episodic paroxysmal anxiety]; I25.10 Atherosclerotic heart disease of native coronary artery without angina pectoris; Z85.858 Personal history of malignant neoplasm of other endocrine glands; Z86.73 Personal history of transient ischemic attack (TIA), and cerebral infarction without residual deficits; Z87.891 Personal history of nicotine dependence; Z95.5 Presence of coronary angioplasty implant and graft
CPT/HCPCS: 74022; 93005; 94618; 99284; G0378; U0003; G0379

== ENCOUNTER → 2020-06-08 | Outpatient (CLI) | payer MEDICARE, OTHER ==
[2020-05-31 11:07] VITALS: BP 90/72
[~2020-06-08] MED LIST changes: -OXYC-411 PO; +OXYC1TAB20 PO
[2020-06-08 09:19] LABS: BASO # 0.1 x10^3/uL (0.0-0.2); BASO % 2 % (0-3); EOS # 0.1 x10^3/uL (0.0-0.7); EOS % 1 % (0-3); HEMATOCRIT 31.3 % (36.0-47.0); HEMOGLOBIN 9.9 g/dL (12.0-15.5); LYMPH # 0.8 x10^3/uL (1.0-4.8); LYMPH % 15 % (24-48); MEAN CORPUSCULAR HEMOGLOBIN 25 pg (25-35); MEAN CORPUSCULAR HGB CONC 32 g/dL (31-37); MEAN CORPUSCULAR VOLUME 78 fL (79-100); MONO # 0.6 x10^3/uL (0.0-1.1); MONO % 13 % (0-9); NEUT # 3.5 x10^3/uL (1.8-7.7); NEUT % 69 % (31-73); PLATELET COUNT 140 x10^3/uL (140-400); RED BLOOD COUNT 4.03 x10^6/uL (3.50-5.40); RED CELL DISTRIBUTION WIDTH 19.2 % (11.5-14.5)
[2020-06-08 09:36] LABS: CREATININE 1.4 mg/dL (0.6-1.0); GFR 47.6; POTASSIUM 3.6 mmol/L (3.5-5.1)
[2020-06-08 09:44] LABS: ALBUMIN 2.6 g/dL (3.4-5.0); ALBUMIN/GLOBULIN RATIO 0.5 (1.0-1.7); TOTAL BILIRUBIN 0.4 mg/dL (0.2-1.0); TOTAL PROTEIN 7.5 g/dL (6.4-8.2)
== END | disposition home or self-care (01) ==
LOC: ONCLAB 09:00
PROVIDERS: ATTEND Internal Medicine Hematology & Oncology
DX: C34.82 Malignant neoplasm of overlapping sites of left bronchus and lung (principal)
CPT/HCPCS: 36415; 80053; 85025

== ENCOUNTER 2020-06-15 08:12 | Outpatient (CLI) | payer MEDICARE, OTHER ==
[~2020-06-15] VITALS: Ht 180.3 cm; Wt 77.1 kg
[2020-06-15 09:09] VITALS: BP 116/85
[2020-06-15 09:23] LABS: BASO % 1 % (0-3); EOS # 0.1 x10^3/uL (0.0-0.7); EOS % 1 % (0-3); HEMATOCRIT 31.6 % (36.0-47.0); HEMOGLOBIN 10.2 g/dL (12.0-15.5); LYMPH # 0.8 x10^3/uL (1.0-4.8); LYMPH % 16 % (24-48); MEAN CORPUSCULAR HEMOGLOBIN 25 pg (25-35); MEAN CORPUSCULAR HGB CONC 32 g/dL (31-37); MEAN CORPUSCULAR VOLUME 78 fL (79-100); MONO # 0.6 x10^3/uL (0.0-1.1); MONO % 11 % (0-9); NEUT # 3.8 x10^3/uL (1.8-7.7); NEUT % 72 % (31-73); PLATELET COUNT 194 x10^3/uL (140-400); RED BLOOD COUNT 4.08 x10^6/uL (3.50-5.40); WHITE BLOOD COUNT 5.3 x10^3/uL (4.0-11.0)
[2020-06-15] MEDS ORDERED: MIDAZOLAM HCL/PF 2 MG/2 ML VIAL. ONE (09:34)
[2020-06-15 09:38] LABS: PROTHROMBIN TIME PATIENT 12.9 SEC (11.7-14.0)
[2020-06-15] MEDS ORDERED: LIDOCAINE WITH 8.4% SOD BICARB 3 ML DISP.SYRIN. ONE ×2 (09:39→09:54)
[2020-06-15] MEDS ORDERED: LIDOCAINE WITH 8.4% SOD BICARB 3 ML DISP.SYRIN. IJ ONE (09:45)
[2020-06-15 09:58] VITALS: BP 145/91
[2020-06-15 10:03] VITALS: BP 130/87
[2020-06-15 10:08] VITALS: BP 133/90
[2020-06-15 10:15] VITALS: BP 118/91
[2020-06-15 10:30] VITALS: BP 118/88
--- NOTE | 2020-06-15 10:45 | NUR ---
Discharge Note: VENU PALMER Discharge instructions and discharge home medications reviewed with Patient and a copy given. All questions have been answered and understanding verbalized. Dressing site to R thigh clean and dry The following instructions and handouts were given: incision site and biopsy Discontinued lines and drains: Port A Cath intact. Patient discharged to Home or Self Care with Family Member via Wheelchair OTONIEL HERNÁNDEZ Addendum: 06/15/20 at 1101 by SABA PALOMINO RN Amended: Links added.
--- NOTE | 2020-06-15 11:45 | RAD ---
Procedure: Ultrasound-guided biopsy of a right thigh lesion Clinical Indication: 55-year-old female with subcutaneous nodule in the right thigh suspicious for neoplasm. Sedation: Local anesthesia only Antibiotics: None Sterility: The procedure was performed in its entirety using appropriate elements of sterile technique. Consent: The procedure was explained in its entirety to the patient or the patients designated hvac sales representative by a member of the treatment team, including a discussion of the risks, benefits and commonly accepted alternatives to the procedure, as well as the expected consequences of no therapy whatsoever. Discussion of the risks included, but was not limited to, those that are most frequent and those that are rare but possibly severe or life-threatening, as well as the possibility of unforeseen complications. Technique and Findings: Following informed consent, the patient was prepped and draped in usual sterile fashion. Ultrasound interrogation of the area of interest was performed demonstrating a lobular hypoechoic soft tissue mass within the subcutis tissues. 1% lidocaine was used to achieve local anesthesia. A small dermatotomy was made. Under ultrasound guidance, an 18-gauge needle was advanced into the lesion and 5 separate 18-gauge core biopsy specimens were obtained and preserved in formalin. Hemostasis was achieved with manual compression following removal needle for final time. Complications: No immediate Impression: 1. Ultrasound-guided biopsy of a right thigh soft tissue lesion as described.
== END 2020-06-15 10:45 | disposition home or self-care (01) ==
LOC: INTRAD 08:12
PROVIDERS: ATTEND Internal Medicine Hematology & Oncology
DX: R22.41 Localized swelling, mass and lump, right lower limb (principal); Z88.5 Allergy status to narcotic agent; Z79.82 Long term (current) use of aspirin; Z87.891 Personal history of nicotine dependence; Z79.899 Other long term (current) drug therapy; Z88.8 Allergy status to other drugs, medicaments and biological substances; Z79.01 Long term (current) use of anticoagulants
CPT/HCPCS: 20206; 36415; 76942; 85025; 85610; J3490

== ENCOUNTER 2020-06-17 13:37 | Emergency (ER) | payer MEDICARE, OTHER ==
[~2020-06-17] VITALS: Ht 180.3 cm; Wt 80.0 kg
[2020-06-17] MEDS ORDERED: HYDROmorphone 2 MG/ML VIAL IM ONE (14:00)
--- NOTE | 2020-06-17 14:19 | PHYS DOC ---
Past Medical History Past Medical History: CAD, Cancer, CHF, High Cholesterol, Hypertension Additional Past Medical Histor: DJD. CARDIAC STENTS X 5, LUNG AND ADRENAL CANCER, ON IMMUNO.THERAPY Past Surgical History: Other Additional Past Surgical Histo: cardiac stent, PORT Smoking Status: Former Smoker Alcohol Use: None Drug Use: None General Adult EDM: Chief Complaint: LOWER EXT PAIN HPI: HPI: Patient is a 55 year old female with history of hypertension, high cholesterol, lung cancer, and renal cancer currently on chemotherapy every 2 weeks last treatment 2 weeks ago who presents to the ED today complaining of 10 out of 10 right thigh pain, symptoms began yesterday after having a biopsy. Patient reports she has pain oxycodone at home, she states unfortunately an outpatient nurse dropped on her medicines on the ground and scooped them and put them back on her medicine bottle. She states she cannot consciously take medicines that were scooped from the ground. She states she was not able to get hold of the cancer doctor that prescribed the medicines. Review of Systems: Review of Systems: Constitutional: Denies fever or chills. [] Eyes: Denies change in visual acuity. [] HENT: Denies nasal congestion or sore throat. [] Respiratory: Denies cough or shortness of breath. [] Cardiovascular: Denies chest pain or edema. [] GI: Denies abdominal pain, nausea, vomiting, bloody stools or diarrhea. [] : Denies dysuria. [] Musculoskeletal: Reports right lower extremity pain from a biopsy site. Denies back pain or joint pain. [] Integument: Denies rash. [] Neurologic: Denies headache, focal weakness or sensory changes. [] Psychiatric: Denies depression or anxiety. [] Heart Score: Risk Factors: Risk Factors: DM, Current or recent (<one month) smoker, HTN, HLP, family history of CAD, obesity. Risk Scores: Score 0 - 3: 2.5% MACE over next 6 weeks - Discharge Home Score 4 - 6: 20.3% MACE over next 6 weeks - Admit for Clinical Observation Score 7 - 10: 72.7% MACE over next 6 weeks - Early Invasive Strategies Current Medications: Current Medications Medications (Trade) Dose Ordered Sig/Santos Start Time Stop Time Status Last Admin Dose Admin Hydromorphone HCl (Dilaudid) 1 mg 1X ONCE 06/17/20 14:00 06/17/20 14:01 [place] Allergies: Allergies: Allergies Coded Allergies Type Severity Reaction Last Updated Verified atorvastatin Allergy Intermediate 04/03/20 Yes codeine Allergy Intermediate 04/03/20 Yes heparin Allergy Intermediate 04/03/20 Yes morphine Allergy Intermediate 04/03/20 Yes spironolactone Allergy Intermediate 04/03/20 Yes fentanyl Adverse Reaction Intermediate "makes me burn" 04/03/20 Yes Physical Exam: PE: Constitutional: Well developed, well nourished, no acute distress, non-toxic appearance. [] HENT: Normocephalic, atraumatic, bilateral external ears normal, oropharynx moist, no oral exudates, nose normal. [] Eyes: PERRLA, EOMI, conjunctiva normal, no discharge. [] Neck: Normal range of motion, no tenderness, supple, no stridor. [] Cardiovascular:Heart rate regular rhythm, no murmur [] Lungs & Thorax: Bilateral breath sounds clear to auscultation [] Abdomen: Bowel sounds normal, soft, no tenderness, no masses, no pulsatile masses. [] Skin: Warm, dry, no erythema, no rash. [] Back: No tenderness, no CVA tenderness. [] Extremities: Right ventral thigh with an OpSite dressing clean and dry. No signs of infection on the biopsy site. Negative Homans sign to the right lower extremity. +2 right pedal pulse. Range of motion intact to the right lower extremity. No edema. [] Neurologic: Alert and oriented X 3, normal motor function, normal sensory fun ction, no focal deficits noted. [] Psychologic: Affect normal, judgement normal, mood normal. [] EKG: EKG: [] Radiology/Procedures: Radiology/Procedures: []PROCEDURE: VENOUS LOWER EXTREMITY RIGHT VENOUS LOWER EXTREMITY RIGHT 06/17/2020 1:55 PM Clinical Information: Right lower extremity pain post biopsy. Comparison: None. Technique: Multiple grayscale, color Doppler, and spectral Doppler sonographic images of the lower extremity venous structures were obtained. Findings: The right common femoral, femoral, and popliteal veins exhibit normal compression, respiratory phasicity, and augmentation. No intraluminal thrombi are identified. Color Doppler flow is demonstrated in the right posterior tibial veins. Greater saphenous vein patent at the saphenofemoral junction. No suspicious fluid collection within the lateral thigh in the area of biopsy. Impression: 1. No evidence of deep venous thrombosis. Electronically signed by: Brayan Wu MD (06/17/2020 2:51 PM) [facility] [place] DICTATED and SIGNED BY: BRAYAN WU MD DATE: 06/17/20 1451 Course & Med Decision Making: Course & Med Decision Making Pertinent Labs and Imaging studies reviewed. (See chart for details) This is a 55-year-old female patient presenting to the ED today complaining of pain on the right thigh biopsy site. Biopsy was done yesterday. Patient has oxycodone at home but unfortunately it was dropped on the floor yesterday when she was in an outpatient region. She has been unable to get hold of the cancer doctor that prescribed it because it is a weekend. She also wanted to make sure there is no acute cause of the pain to the right thigh. Venous Doppler of the right lower extremity was ordered. Patient was given pain medicine in the ED. venous Doppler of the right lower extremity is negative for any acute findings, discharge to home. Considering her history of cancer and trust what she is saying that her prescriptions were destroyed I wrote her prescription for pain medicine to use for a few days. Dragon Disclaimer: Dragon Disclaimer: This electronic medical record was generated, in whole or in part, using a voice recognition dictation system. Departure Departure Impression: Primary Impression: Right leg pain Disposition: HOME, SELF-CARE Condition: STABLE Referrals: SHARMAINE SAEED MD (PCP) Follow-up next week. Patient Instructions: Musculoskeletal Pain Additional Instructions: Your ultrasound of the right lower extremity is negative. Take the prescribed pain medicine as needed for pain. Contact your oncologist on Friday next week and follow-up for pain management. Scripts Oxycodone Hcl (OXYCODONE HCL) 5 Mg Capsule 10 MG PO PRN Q6HRS PRN for PAIN, #40 TAB 0 Refills Prov: CHARLENE LU APRN 06/17/20 Justicifation of Admission Dx: Justifications for Admission: Justification of Admission Dx: N/A CHARLENE LU APRN Jun 17, 2020 14:19
[2020-06-17] MEDS ORDERED: HYDROmorphone 2 MG/ML VIAL IV ONE ×3 (14:30→15:45)
--- NOTE | 2020-06-17 14:54 | RAD ---
VENOUS LOWER EXTREMITY RIGHT 06/17/2020 1:55 PM Clinical Information: Right lower extremity pain post biopsy. Comparison: None. Technique: Multiple grayscale, color Doppler, and spectral Doppler sonographic images of the lower extremity venous structures were obtained. Findings: The right common femoral, femoral, and popliteal veins exhibit normal compression, respiratory phasicity, and augmentation. No intraluminal thrombi are identified. Color Doppler flow is demonstrated in the right posterior tibial veins. Greater saphenous vein patent at the saphenofemoral junction. No suspicious fluid collection within the lateral thigh in the area of biopsy. Impression: 1. No evidence of deep venous thrombosis. Electronically signed by: Christin Wu MD (06/17/2020 2:51 PM) [facility]
[2020-06-17] MEDS ORDERED: OXYC5CAP PO (15:23)
[2020-06-17 15:35] VITALS: BP 122/72
[2020-07-18] MEDS ORDERED: POTA20TA4 PO (20:44)
[2020-07-18] MEDS ORDERED: POLY17PO28 PO (20:44)
[2020-07-18] MEDS ORDERED: HYDR4TAB45 PO (20:44)
[2020-07-18] MEDS ORDERED: BISA10SU4 PR (20:44)
[2020-07-18] MEDS ORDERED: HYDR-2869 PO (20:44)
== END 2020-06-17 16:06 | disposition home or self-care (01) ==
LOC: ER 13:37
DX: M79.604 Pain in right leg (principal); M79.651 Pain in right thigh; I11.0 Hypertensive heart disease with heart failure; I50.9 Heart failure, unspecified; E78.00 Pure hypercholesterolemia, unspecified; I25.10 Atherosclerotic heart disease of native coronary artery without angina pectoris; Z87.891 Personal history of nicotine dependence; Z95.5 Presence of coronary angioplasty implant and graft; Z88.5 Allergy status to narcotic agent; Z88.4 Allergy status to anesthetic agent; Z88.8 Allergy status to other drugs, medicaments and biological substances
CPT/HCPCS: 93971; 96374; 96376; 99285; J1170

== ENCOUNTER → 2020-06-22 | Outpatient (CLI) | payer MEDICARE, OTHER ==
[2020-06-17 15:35] VITALS: BP 122/72
[~2020-06-22] MED LIST changes: +OXYC5CAP PO
[2020-06-22 08:39] LABS: BASO # 0.1 x10^3/uL (0.0-0.2); BASO % 1 % (0-3); EOS # 0.1 x10^3/uL (0.0-0.7); EOS % 2 % (0-3); HEMATOCRIT 33.2 % (36.0-47.0); HEMOGLOBIN 10.5 g/dL (12.0-15.5); LYMPH # 0.9 x10^3/uL (1.0-4.8); LYMPH % 17 % (24-48); MEAN CORPUSCULAR HEMOGLOBIN 25 pg (25-35); MEAN CORPUSCULAR HGB CONC 32 g/dL (31-37); MEAN CORPUSCULAR VOLUME 79 fL (79-100); MONO # 0.6 x10^3/uL (0.0-1.1); MONO % 12 % (0-9); NEUT # 3.6 x10^3/uL (1.8-7.7); NEUT % 68 % (31-73); PLATELET COUNT 211 x10^3/uL (140-400); RED BLOOD COUNT 4.22 x10^6/uL (3.50-5.40); RED CELL DISTRIBUTION WIDTH 20.4 % (11.5-14.5); WHITE BLOOD COUNT 5.3 x10^3/uL (4.0-11.0)
[2020-06-22 08:50] LABS: CALCIUM 8.6 mg/dL (8.5-10.1); CREATININE 1.5 mg/dL (0.6-1.0); POTASSIUM 3.6 mmol/L (3.5-5.1)
[2020-06-22 08:56] LABS: ALBUMIN 2.8 g/dL (3.4-5.0); ALBUMIN/GLOBULIN RATIO 0.6 (1.0-1.7); TOTAL BILIRUBIN 0.4 mg/dL (0.2-1.0); TOTAL PROTEIN 7.8 g/dL (6.4-8.2)
[2020-06-22 10:15] LABS: ANISOCYTOSIS PRESENT; PLT ESTIMATE ADEQUATE (ADEQUATE)
== END | disposition home or self-care (01) ==
LOC: ONCLAB 08:15
PROVIDERS: ATTEND Internal Medicine Hematology & Oncology
DX: C79.72 Secondary malignant neoplasm of left adrenal gland (principal)
CPT/HCPCS: 36415; 80053; 85025

== ENCOUNTER → 2020-07-06 | Outpatient (CLI) | payer MEDICARE, OTHER ==
[2020-06-17 15:35] VITALS: BP 122/72
[2020-07-06 08:38] LABS: BASO % 1 % (0-3); EOS % 1 % (0-3); HEMATOCRIT 33.1 % (36.0-47.0); HEMOGLOBIN 10.6 g/dL (12.0-15.5); LYMPH # 0.8 x10^3/uL (1.0-4.8); LYMPH % 11 % (24-48); MEAN CORPUSCULAR HEMOGLOBIN 26 pg (25-35); MEAN CORPUSCULAR HGB CONC 32 g/dL (31-37); MEAN CORPUSCULAR VOLUME 80 fL (79-100); MONO # 0.6 x10^3/uL (0.0-1.1); MONO % 8 % (0-9); NEUT # 5.4 x10^3/uL (1.8-7.7); NEUT % 79 % (31-73); PLATELET COUNT 204 x10^3/uL (140-400); RED BLOOD COUNT 4.16 x10^6/uL (3.50-5.40); RED CELL DISTRIBUTION WIDTH 21.4 % (11.5-14.5); WHITE BLOOD COUNT 6.8 x10^3/uL (4.0-11.0)
[2020-07-06 08:52] LABS: CALCIUM 8.5 mg/dL (8.5-10.1); CREATININE 1.2 mg/dL (0.6-1.0); GFR 56.9; POTASSIUM 3.6 mmol/L (3.5-5.1)
[2020-07-06 09:05] LABS: ALBUMIN 2.6 g/dL (3.4-5.0); ALBUMIN/GLOBULIN RATIO 0.5 (1.0-1.7); TOTAL BILIRUBIN 0.4 mg/dL (0.2-1.0); TOTAL PROTEIN 7.6 g/dL (6.4-8.2)
== END | disposition home or self-care (01) ==
LOC: ONCLAB 08:13
PROVIDERS: ATTEND Internal Medicine Hematology & Oncology
DX: C79.72 Secondary malignant neoplasm of left adrenal gland (principal); C34.82 Malignant neoplasm of overlapping sites of left bronchus and lung; Z79.899 Other long term (current) drug therapy
CPT/HCPCS: 36415; 80053; 84443; 85025

== ENCOUNTER 2020-07-12 12:00 | Inpatient (IN) | payer MEDICARE, OTHER ==
[~2020-07-12] VITALS: Ht 180.3 cm; Wt 78.2 kg
[2020-07-12 12:40] LABS: BASO # 0.1 x10^3/uL (0.0-0.2); BASO % 1 % (0-3); EOS # 0.1 x10^3/uL (0.0-0.7); EOS % 2 % (0-3); HEMATOCRIT 33.7 % (36.0-47.0); LYMPH # 0.8 x10^3/uL (1.0-4.8); LYMPH % 11 % (24-48); MEAN CORPUSCULAR HEMOGLOBIN 26 pg (25-35); MEAN CORPUSCULAR HGB CONC 33 g/dL (31-37); MEAN CORPUSCULAR VOLUME 80 fL (79-100); MONO # 0.6 x10^3/uL (0.0-1.1); MONO % 9 % (0-9); NEUT # 5.3 x10^3/uL (1.8-7.7); NEUT % 78 % (31-73); PLATELET COUNT 232 x10^3/uL (140-400); RED BLOOD COUNT 4.23 x10^6/uL (3.50-5.40); RED CELL DISTRIBUTION WIDTH 22.8 % (11.5-14.5); WHITE BLOOD COUNT 6.8 x10^3/uL (4.0-11.0)
[2020-07-12 12:43] LABS: ANION GAP 11 (6-14); BLOOD UREA NITROGEN 13 mg/dL (7-20); BUN/CREATININE RATIO 12 (6-20); CALCIUM 8.7 mg/dL (8.5-10.1); CARBON DIOXIDE 25 mmol/L (21-32); CHLORIDE 102 mmol/L (98-107); CREATININE 1.1 mg/dL (0.6-1.0); GFR 62.9; GLUCOSE 104 mg/dL (70-99); POTASSIUM 3.5 mmol/L (3.5-5.1); SODIUM 138 mmol/L (136-145)
[2020-07-12] MEDS ORDERED: HYDROmorphone 2 MG/ML VIAL IVP ONE ×3 (12:45→17:15)
[2020-07-12 12:49] LABS: ALBUMIN 2.6 g/dL (3.4-5.0); ALBUMIN/GLOBULIN RATIO 0.5 (1.0-1.7); ALK PHOS 83 U/L (46-116); AST (SGOT) 10 U/L (15-37); LIPASE 65 U/L (73-393); TOTAL BILIRUBIN 0.5 mg/dL (0.2-1.0); TOTAL PROTEIN 7.4 g/dL (6.4-8.2)
--- NOTE | 2020-07-12 12:51 | RAD ---
PORTABLE CHEST 1V 07/12/2020 12:18 PM INDICATION: Chest pain COMPARISON: 02/27/2020 TECHNIQUE: Portable frontal view of the chest is provided. FINDINGS: The cardiomediastinal silhouette is similar in appearance. Right chest wall infusion port catheter is identified with the distal tip projecting over the distal superior vena cava. Left suprahilar opacity appears similar compared to prior examination. No new airspace consolidation. There are no significant pleural effusions. There is no pulmonary vascular congestion. No pneumothorax. No suspicious osseous abnormality. IMPRESSION: Right chest wall infusion port catheter is identified with the distal tip projecting over the distal superior vena cava. Similar appearance of a left suprahilar mass like area of consolidation. Electronically signed by: Christin Wu MD (07/12/2020 12:48 PM) [id number]
[2020-07-12 12:52] LABS: ALT (SGPT) < 6 U/L (14-59)
--- NOTE | 2020-07-12 13:21 | EKG ---
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
[2020-07-12 13:42] LABS: ANISOCYTOSIS MOD; HYPOCHROMIA SLIGHT; PLT ESTIMATE ADEQUATE (ADEQUATE)
--- NOTE | 2020-07-12 13:54 | PHYS DOC ---
Past Medical History Past Medical History: CAD, Cancer, CHF, High Cholesterol, Hypertension Additional Past Medical Histor: DJD. CARDIAC STENTS X 5, LUNG AND ADRENAL CANCER, ON IMMUNO.THERAPY Past Surgical History: Other Additional Past Surgical Histo: cardiac stent, PORT Smoking Status: Former Smoker Alcohol Use: None Drug Use: None General Adult EDM: Chief Complaint: PAIN CONTROL HPI: HPI: Patient is a 55 year old female with history of lung cancer that metastasized to her renal glands, presented to ER today for evaluation diffuse pain on her ar m, her back, her [place] her chest area. Patient denies any fever, no trouble breathing. Patient has been taking her pain medication at home but she still in pain so she called her family doctor who told to come to ER for pain control. Review of Systems: Review of Systems: Constitutional: Denies fever or chills. [] Eyes: Denies change in visual acuity. [] HENT: Denies nasal congestion or sore throat. [] Respiratory: Denies cough or shortness of breath. [] Cardiovascular: Denies chest pain or edema. [] GI: Denies abdominal pain, nausea, vomiting, bloody stools or diarrhea. [] : Denies dysuria. [] Musculoskeletal: Positive for back pain or joint pain. [] Integument: Denies rash. [] Neurologic: Denies headache, focal weakness or sensory changes. [] Endocrine: Denies polyuria or polydipsia. [] Lymphatic: Denies swollen glands. [] Psychiatric: Denies depression or anxiety. [] Heart Score: Risk Factors: Risk Factors: DM, Current or recent (<one month) smoker, HTN, HLP, family history of CAD, obesity. Risk Scores: Score 0 - 3: 2.5% MACE over next 6 weeks - Discharge Home Score 4 - 6: 20.3% MACE over next 6 weeks - Admit for Clinical Observation Score 7 - 10: 72.7% MACE over next 6 weeks - Early Invasive Strategies Current Medications: Current Medications Medications (Trade) Dose Ordered Sig/Santos Start Time Stop Time Status Last Admin Dose Admin Hydromorphone HCl (Dilaudid) 2 mg 1X ONCE 07/12/20 13:00 07/12/20 13:01 [place] 07/12/20 13:04 2 MG Oxycodone HCl (Roxicodone) 10 mg 1X ONCE 07/12/20 14:00 07/12/20 14:01 Allergies: Allergies: Allergies Coded Allergies Type Severity Reaction Last Updated Verified atorvastatin Allergy Intermediate 04/03/20 Yes codeine Allergy Intermediate 04/03/20 Yes heparin Allergy Intermediate 04/03/20 Yes morphine Allergy Intermediate 04/03/20 Yes spironolactone Allergy Intermediate 04/03/20 Yes fentanyl Adverse Reaction Intermediate "makes me burn" 04/03/20 Yes Physical Exam: PE: Constitutional: Well developed, well nourished, no acute distress, non-toxic appearance. [] HENT: Normocephalic, atraumatic, bilateral external ears normal, oropharynx moist, no oral exudates, nose normal. [] Eyes: PERRLA, EOMI, conjunctiva normal, no discharge. [] Neck: Normal range of motion, no tenderness, supple, no stridor. [] Cardiovascular:Heart rate regular rhythm, no murmur [] Lungs & Thorax: Bilateral breath sounds clear to auscultation [] Abdomen: Bowel sounds normal, soft, no tenderness, no masses, no pulsatile masses. [] Skin: Warm, dry, no erythema, no rash. [] Back: No tenderness, no CVA tenderness. [] Extremities: No tenderness, no cyanosis, no clubbing, ROM intact, no edema. [] Neurologic: Alert and oriented X 3, normal motor function, normal sensory function, no focal deficits noted. [] Psychologic: Affect normal, judgement normal, mood normal. [] Current Patient Data: Labs: Laboratory Tests Test 07/12/20 12:23 White Blood Count 6.8 x10^3/uL (4.0-11.0) Red Blood Count 4.23 x10^6/uL (3.50-5.40) Hemoglobin 11.0 g/dL (12.0-15.5) L Hematocrit 33.7 % (36.0-47.0) L Mean Corpuscular Volume 80 fL (79-100) Mean Corpuscular Hemoglobin 26 pg (25-35) Mean Corpuscular Hemoglobin Concent 33 g/dL (31-37) Red Cell Distribution Width 22.8 % (11.5-14.5) H Platelet Count 232 x10^3/uL (140-400) Neutrophils (%) (Auto) 78 % (31-73) H Lymphocytes (%) (Auto) 11 % (24-48) L Monocytes (%) (Auto) 9 % (0-9) Eosinophils (%) (Auto) 2 % (0-3) Basophils (%) (Auto) 1 % (0-3) Neutrophils # (Auto) 5.3 x10^3/uL (1.8-7.7) Lymphocytes # (Auto) 0.8 x10^3/uL (1.0-4.8) L Monocytes # (Auto) 0.6 x10^3/uL (0.0-1.1) Eosinophils # (Auto) 0.1 x10^3/uL (0.0-0.7) Basophils # (Auto) 0.1 x10^3/uL (0.0-0.2) Platelet Estimate Adequate (ADEQUATE) Hypochromasia Slight Anisocytosis Mod Prothrombin Time 13.0 SEC (11.7-14.0) Prothrombin Time INR 1.0 (0.8-1.1) Activated Partial Thromboplast Time 31 SEC (24-38) Sodium Level 138 mmol/L (136-145) Potassium Level 3.5 mmol/L (3.5-5.1) Chloride Level 102 mmol/L (98-107) Carbon Dioxide Level 25 mmol/L (21-32) Anion Gap 11 (6-14) Blood Urea Nitrogen 13 mg/dL (7-20) Creatinine 1.1 mg/dL (0.6-1.0) H Estimated GFR (Cockcroft-Gault) 62.9 BUN/Creatinine Ratio 12 (6-20) Glucose Level 104 mg/dL (70-99) H Calcium Level 8.7 mg/dL (8.5-10.1) Magnesium Level 2.0 mg/dL (1.8-2.4) Total Bilirubin 0.5 mg/dL (0.2-1.0) Aspartate Amino Transferase (AST) 10 U/L (15-37) L Alanine Aminotransferase (ALT) < 6 U/L (14-59) L Alkaline Phosphatase 83 U/L (46-116) Troponin I Quantitative < 0.017 ng/mL (0.000-0.055) AB-Ixs-M-Type Natriuretic Peptide 2594 pg/mL (0-124) H Total Protein 7.4 g/dL (6.4-8.2) Albumin 2.6 g/dL (3.4-5.0) L Albumin/Globulin Ratio 0.5 (1.0-1.7) L Lipase 65 U/L (73-393) L Laboratory Tests 07/12/20 12:23 Laboratory Tests 07/12/20 12:23 Vital Signs: Vital Signs Date Time Temp Pulse Resp B/P (MAP) Pulse Ox O2 Delivery O2 Flow Rate FiO2 07/12/20 12:26 97.5 95 16 187/123 (144) 96 Room Air 97.5 EKG: EKG: EKG was done at 1210, heart rate of 94 bpm, sinus rhythm, no ST segment elevation. Radiology/Procedures: Radiology/Procedures: [] Course & Med Decision Making: Course & Med Decision Making Pertinent Labs and Imaging studies reviewed. (See chart for details) Patient is a 54-year-old female with lung cancer that metastasized to her renal gland, presented to ER with diffuse pain, patient was given pain medication in the ER, but she continued to have pain. Discussed with her family physician who will admit her to hospital for pain control. Dragon Disclaimer: Dragon Disclaimer: This electronic medical record was generated, in whole or in part, using a voice recognition dictation system. Departure Departure Impression: Primary Impression: Generalized pain Additional Impression: Lung cancer Disposition: ADMITTED INPATIENT Admitting Physician: Shilpa Cortes Condition: STABLE Referrals: SHILPA CORTES MD (PCP) Justicifation of Admission Dx: Justifications for Admission: Justification of Admission Dx: N/A ELAINE HAMILTON DO Jul 12, 2020 13:54
[2020-07-12] MEDS ORDERED: oxyCODONE IR 5 MG TABLET PO ONE (14:00)
[2020-07-12] MEDS ORDERED: ONDANSETRON PF 4 MG/2 ML VIAL. IV PRN (14:45)
[2020-07-12 15:06] VITALS: BP 179/142
[2020-07-12] MEDS ORDERED: METOCLOPRAMIDE 10 MG TABLET. PO PRN (15:30)
[2020-07-12] MEDS ORDERED: NITROGLYCERIN SUBLINGUAL 0.4 MG BOTTLE OF 25. SL PRN (15:30)
[2020-07-12] MEDS ORDERED: NON FORMULARY ITEM (Oxycodone Hcl (Oxycodone Hcl Immed.release) 1 TAB) PO PRN (15:30)
[2020-07-12] MEDS ORDERED: LACTULOSE 20 GM/30 ML SOLUTION. PO PRN (15:30)
[2020-07-12] MEDS ORDERED: MAGNESIUM HYDROXIDE 2,400 MG/30 ML ORAL.SUSP. PO PRN (15:30)
[2020-07-12] MEDS ORDERED: BISACODYL 10 MG SUPP.RECT. PR PRN (15:30)
[2020-07-12] MEDS ORDERED: ENOXAPARIN 40 MG/0.4 ML SYRINGE. SQ SCH (16:00)
[2020-07-12] MEDS: CARVEDILOL 12.5 MG TABLET. PO SCH (16:21)
[2020-07-12] MEDS: hydrALAZINE 25 MG TABLET PO SCH ×2 (16:22→20:24)
[2020-07-12] MEDS: oxyCODONE IR 5 MG TABLET PO PRN (16:22)
[2020-07-12] MEDS: CLOPIDOGREL BISULFATE 75 MG TABLET PO SCH (16:23)
[2020-07-12] MEDS: ASPIRIN CHEWABLE 81 MG TABLET. PO SCH (16:23)
[2020-07-12] MEDS ORDERED: HYDROmorphone 2 MG/ML VIAL IVP PRN (17:15)
[2020-07-12] MEDS: HYDROmorphone 2 MG/ML VIAL IVP PRN ×2 (17:38→20:24)
[2020-07-12 19:00] VITALS: BP 118/83
[2020-07-12] MEDS: ONDANSETRON ODT 4 MG TAB.RAPDIS. PO SCH (22:00)
[2020-07-12 23:00] VITALS: BP 140/96
[2020-07-13] MEDS: HYDROmorphone 2 MG/ML VIAL IVP PRN ×3 (00:13→06:17)
[2020-07-13 03:00] VITALS: BP 160/112
[2020-07-13] MEDS: ONDANSETRON ODT 4 MG TAB.RAPDIS. PO SCH ×3 (06:00→22:00)
[2020-07-13 07:00] VITALS: BP 152/113
[2020-07-13] MEDS: IV NORMAL SALINE 1000ML BAG 1,000 ML IV SCH (08:46)
--- NOTE | 2020-07-13 08:48 | PDOC ---
Provider Note Date of Service: DATE: 07/13/20 TIME: 08:47 Provider Note Pt seen .H&P dictated #[id number] . Cancer pain on TELEVISION NEWS REPORTER for pain control. Justifications for Admission Other Justification SHARMAINE SAEED MD Jul 13, 2020 08:48
[2020-07-13] MEDS ORDERED: ROSUVASTATIN CALCIUM PO SCH (09:00)
[2020-07-13] MEDS ORDERED: HYDROmorphone 12mg/30ml PCA 30 ML IV PRN ×3 (09:00→20:00)
[2020-07-13] MEDS ORDERED: NALOXONE 0.4 MG/ML VIAL. IV PRN (09:00)
[2020-07-13] MEDS ORDERED: IOHEXOL 300 MG/ML 100ML VIAL. IV ONE (09:30)
[2020-07-13] MEDS ORDERED: CONTRAST GIVEN. MC PRN (09:30)
[2020-07-13] MEDS ORDERED: IOHEXOL 240 MG/ML 50ML VIAL. PO ONE (09:30)
--- NOTE | 2020-07-13 09:55 | HP ---
ADMIT DATE: 07/13/2020 REASON FOR ADMISSION TO THE HOSPITAL: Stage IV lung cancer, pain management. HISTORY OF PRESENT ILLNESS: The patient is a 55-year-old female. The patient has history of stage IV lung cancer with metastases to the adrenal gland and the patient had seen Oncology in the past. The patient had chemotherapy and radiation treatment and in spite of that, was progressive disease. The patient is getting immune modulation treatments at [facility] every week with infusions. She was having more pain and she is on OxyContin 10 mg every 4 hours and she was in lot of pain and declining. The patient was admitted to the hospital for pain control. PAST MEDICAL HISTORY: She has a history of as mentioned lung cancer, had coronary artery disease, previous stents; has CVA recently, hypertension, and hyperlipidemia. PAST SURGICAL HISTORY: Had cardiac stents. ALLERGIES: ATORVASTATIN, CODEINE, FENTANYL, HEPARIN, MORPHINE, AND SPIRONOLACTONE. MEDICATIONS: Amlodipine 5 mg, Benadryl, aspirin 81 mg, Coreg 25 mg twice a day, Plavix 75 daily, hydralazine 25 mg 3 times a day, I believe it was stopped by Cardiology; isosorbide 60 mg daily, Reglan 10 mg 3 times daily, Zofran, oxycodone 10 mg q.6 hours, potassium 20 mEq daily, torsemide 60 mg daily, and Crestor 20 mg daily. PERSONAL HISTORY: Smoker, quit recently. Denies alcohol or street drugs. SOCIAL HISTORY: She lives at home with her daughter. She is at wheelchair level activity now. REVIEW OF SYMPTOMS: Complains of pain all over the body, especially in the left flank area. Has some nausea, some vomiting, but says the pain is too much for her to take care at home. PHYSICAL EXAMINATION: GENERAL: The patient has lost significant weight, looks weak and pain. VITAL SIGNS: Temperature 98, pulse 80, respirations 17, blood pressure 160/112, and saturating 94 on room air. HEENT: Head is atraumatic. Pupils equal. Oral cavity dry. NECK: Supple. Thyroid not enlarged. CHEST: Has a Port-A-Cath for chemo. LUNGS: Clear to auscultation. CARDIOVASCULAR: S1, S2. ABDOMEN: Soft, bowel sounds present, no mass palpable. EXTERNAL GENITALIA: No De Souza. RECTAL: Deferred. EXTREMITIES: No calf tenderness, no edema. Pulses 1+. NEUROLOGIC: The patient has weak lower extremities, moving upper extremities. LABORATORY DATA: Shows a white count of 7, hemoglobin 11, and platelets 232. INR is 1.0. Electrolytes, sodium 138, potassium 3.5, chloride 102, bicarbonate 25, BUN 13, creatinine 1.1, and glucose 104. Magnesium 2. LFTs normal. Troponin negative. BNP 2594. Chest x-ray, left suprahilar mass. FINAL IMPRESSION: 1. 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 2. Coronary artery disease, history of previous stents. 3. Recent cerebrovascular accident. 4. General decline and debility. 5. Hypertension. 6. Hyperlipidemia. 7. Pain not controlled as outpatient. PLAN: At this time, the patient was admitted to the hospital, was given Dilaudid 2 mg every 3, in spite of that, is not improving. We will change it to INTERMEDIATE DESIGNER. We will also have Oncology followup. The patient's long-term prognosis is poor because of the stage IV. The patient is not interested in hospice at the present time. We will give Lovenox for deep venous thrombosis prevention. SHARMAINE SAEED MD DR: YURIY/trent JOB#: [id number] / [id number]
[2020-07-13 11:00] VITALS: BP 181/126
[2020-07-13] MEDS: hydrALAZINE 25 MG TABLET PO SCH ×3 (12:10→21:11)
[2020-07-13] MEDS: ASPIRIN CHEWABLE 81 MG TABLET. PO SCH (12:10)
[2020-07-13] MEDS: oxyCODONE IR 5 MG TABLET PO PRN ×2 (12:11→18:11)
[2020-07-13] MEDS: CARVEDILOL 12.5 MG TABLET. PO SCH ×2 (12:12→17:39)
[2020-07-13] MEDS: CLOPIDOGREL BISULFATE 75 MG TABLET PO SCH (12:12)
[2020-07-13] MEDS: ISOSORBIDE MONONITRATE ER 30 MG TAB.ER.24H PO SCH (12:13)
--- NOTE | 2020-07-13 12:46 | NUR ---
SW following. Spoke with RN and reviewed chart. Pt from home. Pt on room air and IV pain medication. Pt has lung cancer. SW following for potential referral to hospice.
--- NOTE | 2020-07-13 13:00 | PDOC2 ---
CONSULT Date of Consult Date of Consult DATE: 07/13/20 TIME: 12:52 Reason for Consult Reason for Consult: Metastatic lung cancer with worsening pain Referring Physician Referring Physician: Dr. Cortes Source Source: Chart review, Patient History of Present Illness Reason for Visit: Sarah Gorman is a 55-year-old -[place] female with metastatic non- small cell lung cancer who has been admitted to the hospital with worsening pain. Patient follows with [facility] for management of her metastatic lung cancer. She is currently on systemic therapy with ipilimumab and nivolumab. Her most recent day of treatment was last week. During her visit with me last week, she reported worsening pain from subcutaneous metastasis. Due to concern for progressive disease, we had requested CT of the chest abdomen and pelvis and these are due to be performed today. Sarah reports that her pain had continued to worsen since her visit with me. She had been taking oxycodone 20 mg by mouth every 4 hours as needed for pain. She notes that this was not providing sufficient duration of pain relief. She denies any other new symptoms. She denies fever, chills, chest pain, nausea, vomiting, diarrhea, hematemesis, melena. She denies headache or double vision. She reports improved pain control following her hospitalization. 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 Past Medical History Cardiovascular: CAD, CHF, HTN, Hyperlipidemia Pulmonary: COPD CENTRAL NERVOUS SYSTEM: Other GI: GERD, Peptic Ulcer disease Heme/Onc: Cancer Hepatobiliary: No pertinent hx Psych: No pertinent hx Musculoskeletal: low back pain, Osteoarthritis, Other Rheumatologic: No pertinent hx Renal/: UTI, Renal Ca. Endocrine: Other Past Surgical History Past Surgical History: , Tubal Ligation, Other Family History Family History: Coronary Artery Disease Social History ALCOHOL: none Drugs: None Lives: with Family Domestic Violence: Neg Current Problem List Problem List Problems Medical Problems: (1) Generalized pain Status: Acute (2) Lung cancer Status: Acute Current Medications Current Medications Current Medications Hydromorphone HCl (Dilaudid) 1 mg 1X ONCE IVP Last administered on 07/12/20at 12:44; Start 07/12/20 at 12:45; Stop 07/12/20 at 12:46; Status DC Hydromorphone HCl (Dilaudid) 2 mg 1X ONCE IVP Last administered on 07/12/20at 13:04; Start 07/12/20 at 13:00; Stop 07/12/20 at 13:01; Status DC Oxycodone HCl (Roxicodone) 10 mg 1X ONCE PO Last administered on 07/12/20at 13:56; Start 07/12/20 at 14:00; Stop 07/12/20 at 14:01; Status DC Ondansetron HCl (Zofran) 4 mg PRN Q8HRS PRN IV NAUSEA/VOMITING Last administered on 07/12/20at 17:42; Start 07/12/20 at 14:45; Stop 07/13/20 at 14:44 Aspirin (Aspirin Chewable) 81 mg DAILY PO Last administered on 07/13/20at 12:10; Start 07/12/20 at 16:00 Clopidogrel Bisulfate (Plavix) 75 mg DAILY PO Last administered on 07/13/20at 12:12; Start 07/12/20 at 16:00 Diphenhydramine HCl (Benadryl) 25 mg PRN DAILY PRN PO ALLERGIES; Start 07/12/20 at 15:30 Hydralazine HCl (Apresoline) 25 mg TID PO Last administered on 07/13/20 12:10; Start 07/12/20 at 16:00 Metoclopramide HCl (Reglan) 10 mg PRN TID PRN PO NAUSEA; Start 07/12/20 at 15:30 Nitroglycerin (Nitrostat) 0.4 mg PRN Q5MIN PRN SL CHEST PAIN; Start 07/12/20 at 15:30 Carvedilol (Coreg) 25 mg BIDWMEALS PO Last administered on 07/13/20at 12:12; Start 07/12/20 at 17:00 Isosorbide Mononitrate (Imdur) 60 mg DAILY PO Last administered on 07/13/20 12:13; Start 07/13/20 at 09:00 Ondansetron HCl (Zofran Odt) 8 mg Q8HRS PO ; Start 07/12/20 at 22:00 Oxycodone HCl (Roxicodone) 10 mg PRN Q6HRS PRN PO PAIN Last administered on 07/13/20at 12:11; Start 07/12/20 at 15:45 Non-Formulary Medication (Oxycodone Hcl (Oxycodone Hcl Immed.release)) 1 tab QIDPRN PRN PO pain; Start 07/12/20 at 15:30; Status UNV Non-Formulary Medication (Rosuvastatin Calcium (Crestor)) 2 tab DAILY PO ; Start 07/13/20 at 09:00; Status UNV Potassium Chloride/Sodium Chloride 1,000 ml @ 100 mls/hr Q10H IV Last administered on 07/13/20at 04:07; Start 07/12/20 at 16:00 Magnesium Hydroxide (Milk Of Magnesia) 2,400 mg PRN Q12HR PRN PO CONSTIPATION; Start 07/12/20 at 15:30 Lactulose (Lactulose) 20 gm PRN Q12HR PRN PO CONSTIPATION- 2ND CHOICE; Start 07/12/20 at 15:30 Bisacodyl (Dulcolax Supp) 10 mg PRN DAILY PRN MS CONSTIPATION; Start 07/12/20 at 15:30 Enoxaparin Sodium (Lovenox 40mg Syringe) 40 mg Q24H SQ ; Start 07/12/20 at 16:00; Status UNV Hydromorphone HCl (Dilaudid) 1 mg PRN Q3HRS ONCE IVP ; Start 07/12/20 at 17:15; Stop 07/12/20 at 17:16; Status Cancel Hydromorphone HCl (Dilaudid) 2 mg PRN Q3HRS PRN IVP PAIN Last administered on 07/13/20at 06:17; Start 07/12/20 at 17:15; Stop 07/13/20 at 08:49; Status DC Hydromorphone HCl (Dilaudid) 1 mg PRN Q3HRS PRN IVP MODERATE PAIN 4-6; Start 07/12/20 at 17:15; Stop 07/13/20 at 08:49; Status DC Naloxone HCl (Narcan) 0.4 mg PRN Q2MIN PRN IV SEE INSTRUCTIONS; Start 07/13/20 at 09:00 Sodium Chloride 1,000 ml @ 25 mls/hr Q24H IV ; Start 07/13/20 at 08:46 Hydromorphone HCl 30 ml @ 0 mls/hr CONT PRN PRN IV PER PROTOCOL Last administered on 07/13/20at 09:47; Start 07/13/20 at 09:00 Iohexol (Omnipaque 240 Mg/ml) 30 ml 1X ONCE PO Last administered on 07/13/20at 09:30; Start 07/13/20 at 09:30; Stop 07/13/20 at 09:31; Status DC Iohexol (Omnipaque 300 Mg/ml) 75 ml 1X ONCE IV Last administered on 07/13/20at 11:00; Start 07/13/20 at 09:30; Stop 07/13/20 at 09:31; Status DC Info (CONTRAST GIVEN -- Rx MONITORING) 1 each PRN DAILY PRN MC SEE COMMENTS; Start 07/13/20 at 09:30; Stop 07/15/20 at 09:29 Active Scripts Active Oxycodone Hcl 5 Mg Capsule 10 Mg PO PRN Q6HRS PRN Reglan (Metoclopramide Hcl) 10 Mg Tablet 1 Tab PO TID PRN 5 Days before food and bedtime Klor-Con M20 (Potassium Chloride) 20 Meq Tab.er.prt 20 Meq PO DAILYWBKFT 30 Days Zofran (Ondansetron Hcl) 8 Mg Tablet 1 Tab PO Q8HRS Reported Oxycodone Hcl Immed.release (Oxycodone Hcl) 10 Mg Tablet 1 Tab PO QIDPRN PRN MDD 4 Tablet(s) 30 Days Clopidogrel (Clopidogrel Bisulfate) 75 Mg Tablet 75 Mg PO DAILY HOLD til 7/16 Aspirin 81 Mg Tab.chew 1 Tab PO DAILY HOLD til 7/16 NITROGLYCERIN SubLingual (Nitroglycerin) 0.4 Mg Tab.subl 0.4 Mg SL PRN Q5MIN PRN Hydralazine Hcl 25 Mg Tablet 1 Tab PO TID Diphenhydramine Hcl 25 Mg Capsule 1 Tab PO PRN DAILY PRN Isosorbide Mononitrate Er (Isosorbide Mononitrate) 60 Mg Tab.er.24h 1 Tab PO DAILY Torsemide 20 Mg Tablet 60 Mg PO DAILY Crestor (Rosuvastatin Calcium) 20 Mg Tablet 2 Tab PO DAILY Carvedilol 25 Mg Tablet 2 Tab PO BID Allergies Allergies: Coded Allergies: atorvastatin (Verified Allergy, Intermediate, 04/03/20) codeine (Verified Allergy, Intermediate, 04/03/20) heparin (Verified Allergy, Intermediate, 04/03/20) morphine (Verified Allergy, Intermediate, 04/03/20) Tolerates hydromorphone spironolactone (Verified Allergy, Intermediate, 04/03/20) fentanyl (Verified Adverse Reaction, Intermediate, "makes me burn", 04/03/20) ROS General: YES: Fatigue; No: Chills, Night Sweats PSYCHOLOGICAL ROS: No: Anxiety, Hallucinations Eyes: No Blurry vision, No Decreased vision HEENT: No: Oral lesions, Sinus pain ALLERGY AND IMMUNOLOGY: No: Nasal Congestion, Post Nasal Drip Hematological and Lymphatic: No: Brusing, Night Sweats ENDOCRINE: YES: Malaise/lethargy, Palpitations; No: Mood Swings Breast: No New/Changing Breast Lumps Respiratory: No: Cough, Hemoptysis, Pleuritic Pain, Shortness of breath Cardiovascular: No Chest Pain, No Palpitations Gastrointestinal: No Nausea, No Vomiting Genitourinary: No Dysuria, No Flank Pain Musculoskeletal: Yes Pain In: (Subcutaneous metastasis in the right arm, right thigh and left thigh) Skin: No Dry Skin, No Rash Physical Exam General: Alert, Oriented X3 HEENT: Atraumatic, PERRLA Lungs: Clear to auscultation Heart: Regular rate, Normal S1 Abdomen: Normal bowel sounds, Soft, No hepatosplenomegaly Skin: No rashes, Other (No significant change in subcutaneous metastasis compared to exam last week.) Neuro: Normal speech, Strength at 5/5 X4 ext Psych/Mental Status: Mental status NL MUSCULOSKELETAL: No joint tenderness Vitals VITALS Vital Signs Date Time Temp Pulse Resp B/P (MAP) Pulse Ox O2 Delivery O2 Flow Rate FiO2 07/13/20 12:13 82 181/126 07/13/20 11:00 98.9 17 98 Room Air 98.9 Labs Labs Laboratory Tests Test 07/12/20 12:23 07/12/20 16:15 07/12/20 18:00 White Blood Count 6.8 x10^3/uL (4.0-11.0) Red Blood Count 4.23 x10^6/uL (3.50-5.40) Hemoglobin 11.0 g/dL (12.0-15.5) Hematocrit 33.7 % (36.0-47.0) Mean Corpuscular Volume 80 fL (79-100) Mean Corpuscular Hemoglobin 26 pg (25-35) Mean Corpuscular Hemoglobin Concent 33 g/dL (31-37) Red Cell Distribution Width 22.8 % (11.5-14.5) Platelet Count 232 x10^3/uL (140-400) Neutrophils (%) (Auto) 78 % (31-73) Lymphocytes (%) (Auto) 11 % (24-48) Monocytes (%) (Auto) 9 % (0-9) Eosinophils (%) (Auto) 2 % (0-3) Basophils (%) (Auto) 1 % (0-3) Neutrophils # (Auto) 5.3 x10^3/uL (1.8-7.7) Lymphocytes # (Auto) 0.8 x10^3/uL (1.0-4.8) Monocytes # (Auto) 0.6 x10^3/uL (0.0-1.1) Eosinophils # (Auto) 0.1 x10^3/uL (0.0-0.7) Basophils # (Auto) 0.1 x10^3/uL (0.0-0.2) Platelet Estimate Adequate (ADEQUATE) Hypochromasia Slight Anisocytosis Mod Prothrombin Time 13.0 SEC (11.7-14.0) Prothromb Time International Ratio 1.0 (0.8-1.1) Activated Partial Thromboplast Time 31 SEC (24-38) Sodium Level 138 mmol/L (136-145) Potassium Level 3.5 mmol/L (3.5-5.1) Chloride Level 102 mmol/L (98-107) Carbon Dioxide Level 25 mmol/L (21-32) Anion Gap 11 (6-14) Blood Urea Nitrogen 13 mg/dL (7-20) Creatinine 1.1 mg/dL (0.6-1.0) Estimated GFR (Cockcroft-Gault) 62.9 BUN/Creatinine Ratio 12 (6-20) Glucose Level 104 mg/dL (70-99) Calcium Level 8.7 mg/dL (8.5-10.1) Magnesium Level 2.0 mg/dL (1.8-2.4) Total Bilirubin 0.5 mg/dL (0.2-1.0) Aspartate Amino Transf (AST/SGOT) 10 U/L (15-37) Alanine Aminotransferase (ALT/SGPT) < 6 U/L (14-59) Alkaline Phosphatase 83 U/L (46-116) Troponin I Quantitative < 0.017 ng/mL (0.000-0.055) < 0.017 ng/mL (0.000-0.055) < 0.017 ng/mL (0.000-0.055) DB-Tyd-N-Type Natriuretic Peptide 2594 pg/mL (0-124) Total Protein 7.4 g/dL (6.4-8.2) Albumin 2.6 g/dL (3.4-5.0) Albumin/Globulin Ratio 0.5 (1.0-1.7) Lipase 65 U/L (73-393) Laboratory Tests Test 07/12/20 16:15 07/12/20 18:00 Troponin I Quantitative < 0.017 ng/mL (0.000-0.055) < 0.017 ng/mL (0.000-0.055) Assessment/Plan Assessment/Plan Assessment: Metastatic lung adenocarcinoma on first-line systemic therapy with ipilimumab and nivolumab Cancer related pain Subcutaneous metastasis with worsening symptoms Recent stroke Coronary artery disease Hypertension Recommendations: -Due to concern for progressive disease from increased pain of subcutaneous metastasis, I recommended and ordered CT scan of the chest, abdomen and pelvis -I will follow-up on results of CT and discuss with the patient -Progressive disease is noted, I would recommend palliative chemotherapy with carboplatin and pemetrexed. She has previously been reluctant to take chemotherapy -Continue with pain control per Dr Cortes -Continue bowel regimen given significant pain medication needs -Would benefit from starting long-acting opiate at the time of dismissal. She has a pain management agreement with me and I would be happy to prescribe this for her based on her opiate needs during her hospital stay Venancio Prescott MD Medical Oncology/Hematology Ph: [phone] SANDRA PRESCOTT MD Jul 13, 2020 13:00
[2020-07-13 14:40] VITALS: BP 121/82
--- NOTE | 2020-07-13 16:19 | RAD ---
EXAM: CT Chest, Abdomen, and Pelvis with IV contrast INDICATION: Reason: Metastatic lung cancer with worsening pain. Eval for progression / Spl. Instructions: INJ 75ML OMNI 300 30 ML OMNI 240 PO / History: TECHNIQUE: Multi-detector row CT images were acquired from the thoracic inlet through the ischial tuberosities with the use of IV contrast. Sagittal and coronal images were acquired from the transaxial data. All CT scans performed at this facility utilize dose optimization techniques as appropriate to the exam, including the following: Automated exposure control and adjustment of the mA and/or KV according to patient size (this includes techniques or standardized protocols for targeted exams where dose is indication/reason for exam). IV CONTRAST: Administered ORAL CONTRAST: Administered COMPARISON: CT angiogram chest of 05/23/[address] abdomen and pelvis with IV contrast 05/01/2020 FINDINGS: CHEST: CARDIOVASCULAR: Stable ectasia of the ascending thoracic aorta measuring 4.3 cm this exam. Right IJ approach tunneled central venous chest port remains present. Dense multivessel coronary calcifications. Mildly enlarged heart, especially the left ventricle. MEDIASTINUM & BRYSON: Slight interval enlargement of a centrally hypodense anterior mediastinal mass now measuring 2.2 x 2.0 cm compared with 1.7 x 1.6 cm most recently (image 25 of series 2 this exam compared with image 64 of series 3 on 05/23/2020). There persists abnormal soft tissue thickening around the left mainstem bronchus and left hilum as well as mild enlargement of mediastinal lymph nodes. The left hilar adenopathy is slightly less bulky than before. Stable diffuse enlargement of the thyroid gland with multiple nodules. LUNGS: Slight interval decrease in size of the spiculated left upper lobe lung mass with mild cavitation, now measuring 2.1 x 2.0 x 2.4 cm, compared with 2.3 x 2.4 x 3.1 cm at the comparable levels (axial image 19 of series 2 this exam and image 15 of series 5, compared with image 48 of series 3 and image 21 of series 5 on the more recent comparison prior study). Reticular densities in the dependent subpleural right lower lobe are new and nonspecific. PLEURAL SPACE: No pleural effusions or pneumothorax. OSSEOUS & SOFT TISSUE: Unremarkable ABDOMEN/PELVIS: LIVER: Unremarkable BILIARY SYSTEM: Gallbladder is unremarkable. Bile ducts are not dilated. PANCREAS: Unremarkable SPLEEN: Unremarkable ADRENALS: The right adrenal gland is normal. The left adrenal gland is replaced by a heterogeneously enhancing mass measuring 8.0 x 5.6 x 9.3 cm, essentially unchanged in the interval but there is more apparent layering density that could represent internal hemorrhage. KIDNEYS & URETERS: Unremarkable BLADDER: Mild diffuse bladder wall thickening. REPRODUCTIVE ORGANS: Unremarkable GASTROINTESTINAL: The stomach, small bowel, and colon are unremarkable. Appendix is not well seen but there are no findings of acute appendicitis. MESENTERY/PERITONEUM/RETROPERITONEUM: Right retroperitoneal soft tissue mass 2.2 cm in diameter with ring enhancement (image 48 of series 4) has developed since the last exam, where it is subtly visible 8 mm nodule was present at the same location on 05/01/2020, not fully included in the [id number] on 05/23/2020. There is associated surrounding soft tissue stranding. Interval development of a 4.3 x 3.2 x 4.4 cm mass in the left knee show rectal fossa (image 86 of series 4 and image 31 of series 9), representing an increase in size of a slightly visible 1.5 x 1.3 x 1.7 cm nodule on the 05/01/2020 comparison study. VASCULAR: Infrarenal abdominal aortic aneurysm measuring 4.1 cm AP by 4.1 cm transverse is essentially unchanged from 05/01/20. No periaortic soft tissue stranding or fluid suspicious for aneurysmal leak or rupture. LYMPH NODES: No adenopathy OSSEOUS & SOFT TISSUES: Unremarkable IMPRESSION: 1. Gradual progression of disease in the chest, abdomen and pelvis as demonstrated by slight interval enlargement in anterior mediastinal, right perirenal, and left ischiorectal fossa masses as described. There may also be hemorrhage into the dominant metastatic deposit in the left adrenal gland. 2. The primary lung malignancy in the left upper lobe appears to have decreased slightly in size along with the associated ipsilateral hilar adenopathy. 3. Interval development of reticular densities in the dependent right lung. This is nonspecific. Consider medication related pneumonitis among the diagnostic possibilities. Electronically signed by: Avel Hernandez MD (07/13/2020 4:16 PM) [id number]
[2020-07-13 19:00] VITALS: BP 113/77
--- NOTE | 2020-07-13 22:40 | NUR ---
THREAD CLIPPER amp wasted at 2230 with 0.5 ml. EDGAR kelly
[2020-07-13 23:00] VITALS: BP 130/87
[2020-07-14] MEDS: oxyCODONE IR 5 MG TABLET PO PRN ×3 (01:52→17:28)
[2020-07-14 03:00] VITALS: BP 119/52
[2020-07-14] MEDS: ONDANSETRON ODT 4 MG TAB.RAPDIS. PO SCH ×3 (06:00→22:00)
[2020-07-14 07:15] VITALS: BP 163/108
[2020-07-14] MEDS: HYDROmorphone 12mg/30ml PCA 30 ML IV PRN ×2 (08:47→17:38)
[2020-07-14] MEDS: hydrALAZINE 25 MG TABLET PO SCH ×3 (08:48→22:09)
[2020-07-14] MEDS: CLOPIDOGREL BISULFATE 75 MG TABLET PO SCH (08:48)
[2020-07-14] MEDS: ASPIRIN CHEWABLE 81 MG TABLET. PO SCH (08:50)
[2020-07-14] MEDS: CARVEDILOL 12.5 MG TABLET. PO SCH ×2 (08:50→17:27)
[2020-07-14] MEDS: ISOSORBIDE MONONITRATE ER 30 MG TAB.ER.24H PO SCH (08:50)
--- NOTE | 2020-07-14 08:59 | PDOC ---
PROGRESS NOTES Date of Service DATE: 07/14/20 TIME: 08:50 Subjective Subjective Sarah was seen in a follow-up visit today. She reports no new symptoms today. She continues to have pain in her back and in her right knee. She denies fever or chills. We discussed results of her CT scans. 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 Objective Objective Vital Signs Date Time Temp Pulse Resp B/P (MAP) Pulse Ox O2 Delivery O2 Flow Rate FiO2 07/14/20 07:15 98.5 80 16 163/108 (126) 96 Room Air 98.5 Intake and Output 07/14/20 07:00 Intake Total 300 ml Balance 300 ml Intake Oral 300 ml Physical Exam Abdomen: Normal bowel sounds, Soft Heart: Regular rate, Normal S1, Normal S2 Extremities: No clubbing General: Alert, Oriented X3 HEENT: Atraumatic Lungs: Clear to auscultation MUSCULOSKELETAL: Other (Bilateral lower extremity edema noted) Neck: Supple Neuro: Normal speech Psych/Mental Status: Mental status NL Skin: No rashes Assessment Assessment Metastatic lung adenocarcinoma on first-line systemic therapy with ipilimumab and nivolumab Cancer related pain Subcutaneous metastasis with worsening symptoms Recent stroke Coronary artery disease Hypertension Plan Plan of Care -I recommended and requested CT of the chest, abdomen and pelvis due to worsening pain from subcutaneous metastasis. -I reviewed the results of CT scans today with Sarah. These show progressive disease. -I discussed with her that given radiographic progression associated with clinical symptoms, I would recommend switching to an alternative therapy at this time. -Given first-line therapy with ipilimumab and nivolumab, I recommended chemotherapy as a second line treatment. She has reservations regarding chemotherapy at this time due to concerns for nausea. I discussed with her the preventive measures for nausea as well as antiemetic options that are available for patients who take chemotherapy. -She will be seen in follow-up next week to further discuss chemotherapy and begin systemic therapy. Adenosquamous histology, can consider carboplatin and paclitaxel or carboplatin and pemetrexed or single agent docetaxel -I also discussed optimizing her pain management today and recommended starting an extended release opiate. She is hesitant to do so at this time and would like to discuss further with her daughter. -Her stated outpatient pain medication regimen that controlled pain was oxycodone 30 mg every 4 hours equating to 180 mg daily dose of oxycodone. Would plan on starting OxyContin 20 mg twice daily and continue with current oxycodone 30 mg every 4 hours as needed -Continue with pain control per Dr Cortes while inpatient. 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 Please call me if she is discharged on the weekend and needs a new prescription. Venancio Prescott MD Medical Oncology/Hematology Ph: [phone] Comment Review of Relevant I have reviewed the following items dina (where applicable) has been applied. Labs Laboratory Tests Test 07/12/20 12:23 07/12/20 16:15 07/12/20 18:00 White Blood Count 6.8 x10^3/uL (4.0-11.0) Red Blood Count 4.23 x10^6/uL (3.50-5.40) Hemoglobin 11.0 g/dL (12.0-15.5) Hematocrit 33.7 % (36.0-47.0) Mean Corpuscular Volume 80 fL (79-100) Mean Corpuscular Hemoglobin 26 pg (25-35) Mean Corpuscular Hemoglobin Concent 33 g/dL (31-37) Red Cell Distribution Width 22.8 % (11.5-14.5) Platelet Count 232 x10^3/uL (140-400) Neutrophils (%) (Auto) 78 % (31-73) Lymphocytes (%) (Auto) 11 % (24-48) Monocytes (%) (Auto) 9 % (0-9) Eosinophils (%) (Auto) 2 % (0-3) Basophils (%) (Auto) 1 % (0-3) Neutrophils # (Auto) 5.3 x10^3/uL (1.8-7.7) Lymphocytes # (Auto) 0.8 x10^3/uL (1.0-4.8) Monocytes # (Auto) 0.6 x10^3/uL (0.0-1.1) Eosinophils # (Auto) 0.1 x10^3/uL (0.0-0.7) Basophils # (Auto) 0.1 x10^3/uL (0.0-0.2) Platelet Estimate Adequate (ADEQUATE) Hypochromasia Slight Anisocytosis Mod Prothrombin Time 13.0 SEC (11.7-14.0) Prothromb Time International Ratio 1.0 (0.8-1.1) Activated Partial Thromboplast Time 31 SEC (24-38) Sodium Level 138 mmol/L (136-145) Potassium Level 3.5 mmol/L (3.5-5.1) Chloride Level 102 mmol/L (98-107) Carbon Dioxide Level 25 mmol/L (21-32) Anion Gap 11 (6-14) Blood Urea Nitrogen 13 mg/dL (7-20) Creatinine 1.1 mg/dL (0.6-1.0) Estimated GFR (Cockcroft-Gault) 62.9 BUN/Creatinine Ratio 12 (6-20) Glucose Level 104 mg/dL (70-99) Calcium Level 8.7 mg/dL (8.5-10.1) Magnesium Level 2.0 mg/dL (1.8-2.4) Total Bilirubin 0.5 mg/dL (0.2-1.0) Aspartate Amino Transf (AST/SGOT) 10 U/L (15-37) Alanine Aminotransferase (ALT/SGPT) < 6 U/L (14-59) Alkaline Phosphatase 83 U/L (46-116) Troponin I Quantitative < 0.017 ng/mL (0.000-0.055) < 0.017 ng/mL (0.000-0.055) < 0.017 ng/mL (0.000-0.055) YT-Vsi-C-Type Natriuretic Peptide 2594 pg/mL (0-124) Total Protein 7.4 g/dL (6.4-8.2) Albumin 2.6 g/dL (3.4-5.0) Albumin/Globulin Ratio 0.5 (1.0-1.7) Lipase 65 U/L (73-393) Medications Current Medications Hydromorphone HCl (Dilaudid) 1 mg 1X ONCE IVP Last administered on 07/12/20at 12:44; Start 07/12/20 at 12:45; Stop 07/12/20 at 12:46; Status DC Hydromorphone HCl (Dilaudid) 2 mg 1X ONCE IVP Last administered on 07/12/20at 13:04; Start 07/12/20 at 13:00; Stop 07/12/20 at 13:01; Status DC Oxycodone HCl (Roxicodone) 10 mg 1X ONCE PO Last administered on 07/12/20at 13:56; Start 07/12/20 at 14:00; Stop 07/12/20 at 14:01; Status DC Ondansetron HCl (Zofran) 4 mg PRN Q8HRS PRN IV NAUSEA/VOMITING Last administered on 07/12/20at 17:42; Start 07/12/20 at 14:45; Stop 07/13/20 at 14:44; Status DC Aspirin (Aspirin Chewable) 81 mg DAILY PO Last administered on 07/13/20at 12:10; Start 07/12/20 at 16:00 Clopidogrel Bisulfate (Plavix) 75 mg DAILY PO Last administered on 07/13/20at 12:12; Start 07/12/20 at 16:00 Diphenhydramine HCl (Benadryl) 25 mg PRN DAILY PRN PO ALLERGIES; Start 07/12/20 at 15:30 Hydralazine HCl (Apresoline) 25 mg TID PO Last administered on 07/13/20at 21:11; Start 07/12/20 at 16:00 Metoclopramide HCl (Reglan) 10 mg PRN TID PRN PO NAUSEA; Start 07/12/20 at 15:30 Nitroglycerin (Nitrostat) 0.4 mg PRN Q5MIN PRN SL CHEST PAIN; Start 07/12/20 at 15:30 Carvedilol (Coreg) 25 mg BIDWMEALS PO Last administered on 07/13/20at 17:39; Start 07/12/20 at 17:00 Isosorbide Mononitrate (Imdur) 60 mg DAILY PO Last administered on 07/13/20at 12:13; Start 07/13/20 at 09:00 Ondansetron HCl (Zofran Odt) 8 mg Q8HRS PO ; Start 07/12/20 at 22:00 Oxycodone HCl (Roxicodone) 10 mg PRN Q6HRS PRN PO PAIN Last administered on 07/14/20at 01:52; Start 07/12/20 at 15:45 Non-Formulary Medication (Oxycodone Hcl (Oxycodone Hcl Immed.release)) 1 tab QIDPRN PRN PO pain; Start 07/12/20 at 15:30; Status UNV Non-Formulary Medication (Rosuvastatin Calcium (Crestor)) 2 tab DAILY PO ; Start 07/13/20 at 09:00; Status UNV Potassium Chloride/Sodium Chloride 1,000 ml @ 100 mls/hr Q10H IV Last admi nistered on 07/13/20at 23:31; Start 07/12/20 at 16:00 Magnesium Hydroxide (Milk Of Magnesia) 2,400 mg PRN Q12HR PRN PO CONSTIPATION; Start 07/12/20 at 15:30 Lactulose (Lactulose) 20 gm PRN Q12HR PRN PO CONSTIPATION- 2ND CHOICE; Start 07/12/20 at 15:30 Bisacodyl (Dulcolax Supp) 10 mg PRN DAILY PRN AR CONSTIPATION; Start 07/12/20 at 15:30 Enoxaparin Sodium (Lovenox 40mg Syringe) 40 mg Q24H SQ ; Start 07/12/20 at 16:00; Status UNV Hydromorphone HCl (Dilaudid) 1 mg PRN Q3HRS ONCE IVP ; Start 07/12/20 at 17:15; Stop 07/12/20 at 17:16; Status Cancel Hydromorphone HCl (Dilaudid) 2 mg PRN Q3HRS PRN IVP PAIN Last administered on 07/13/20at 06:17; Start 07/12/20 at 17:15; Stop 07/13/20 at 08:49; Status DC Hydromorphone HCl (Dilaudid) 1 mg PRN Q3HRS PRN IVP MODERATE PAIN 4-6; Start 07/12/20 at 17:15; Stop 07/13/20 at 08:49; Status DC Naloxone HCl (Narcan) 0.4 mg PRN Q2MIN PRN IV SEE INSTRUCTIONS; Start 07/13/20 at 09:00 Sodium Chloride 1,000 ml @ 25 mls/hr Q24H IV ; Start 07/13/20 at 08:46 Hydromorphone HCl 30 ml @ 0 mls/hr CONT PRN PRN IV PER PROTOCOL Last administered on 07/13/20at 09:47; Start 07/13/20 at 09:00; Stop 07/13/20 at 15:24; Status DC Iohexol (Omnipaque 240 Mg/ml) 30 ml 1X ONCE PO Last administered on 07/13/20at 09:30; Start 07/13/20 at 09:30; Stop 07/13/20 at 09:31; Status DC Iohexol (Omnipaque 300 Mg/ml) 75 ml 1X ONCE IV Last administered on 07/13/20at 11:00; Start 07/13/20 at 09:30; Stop 07/13/20 at 09:31; Status DC Info (CONTRAST GIVEN -- Rx MONITORING) 1 each PRN DAILY PRN MC SEE COMMENTS; Start 07/13/20 at 09:30; Stop 07/15/20 at 09:29 Hydromorphone HCl 30 ml @ 0 mls/hr CONT PRN PRN IV PER PROTOCOL; Start 07/13/20 at 15:30; Stop 07/13/20 at 19:57; Status DC Hydromorphone HCl 30 ml @ 0 mls/hr CONT PRN PRN IV PER PROTOCOL Last administered on 07/13/20at 22:26; Start 07/13/20 at 20:00; Stop 07/14/20 at 07:57; Status DC Hydromorphone HCl 30 ml @ 0 mls/hr CONT PRN PRN IV PER PROTOCOL; Start 07/14/20 at 08:00 Active Scripts Active Oxycodone Hcl 5 Mg Capsule 10 Mg PO PRN Q6HRS PRN Reglan (Metoclopramide Hcl) 10 Mg Tablet 1 Tab PO TID PRN 5 Days before food and bedtime Klor-Con M20 (Potassium Chloride) 20 Meq Tab.er.prt 20 Meq PO DAILYWBKFT 30 Days Zofran (Ondansetron Hcl) 8 Mg Tablet 1 Tab PO Q8HRS Reported Oxycodone Hcl Immed.release (Oxycodone Hcl) 10 Mg Tablet 1 Tab PO QIDPRN PRN MDD 4 Tablet(s) 30 Days Clopidogrel (Clopidogrel Bisulfate) 75 Mg Tablet 75 Mg PO DAILY HOLD til 7/16 Aspirin 81 Mg Tab.chew 1 Tab PO DAILY HOLD til 7/16 NITROGLYCERIN SubLingual (Nitroglycerin) 0.4 Mg Tab.subl 0.4 Mg SL PRN Q5MIN PRN Hydralazine Hcl 25 Mg Tablet 1 Tab PO TID Diphenhydramine Hcl 25 Mg Capsule 1 Tab PO PRN DAILY PRN Isosorbide Mononitrate Er (Isosorbide Mononitrate) 60 Mg Tab.er.24h 1 Tab PO DAILY Torsemide 20 Mg Tablet 60 Mg PO DAILY Crestor (Rosuvastatin Calcium) 20 Mg Tablet 2 Tab PO DAILY Carvedilol 25 Mg Tablet 2 Tab PO BID Vitals/I & O Vital Sign - Last 24 Hours 07/13/20 07/13/20 07/13/20 07/13/20 11:00 12:10 12:12 12:13 Temp 98.9 98.9 Pulse 82 82 82 82 Resp 17 B/P (MAP) 181/126 (144) 181/126 181/126 181/126 Pulse Ox 98 O2 Delivery Room Air 07/13/20 07/13/20 07/13/20 07/13/20 14:40 14:40 17:39 19:00 Temp 98.8 98.4 98.8 98.4 Pulse 80 83 83 99 Resp 18 17 B/P (MAP) 121/82 121/82 (95) 121/82 113/77 (89) Pulse Ox 97 96 O2 Delivery Room Air Room Air 07/13/20 07/13/20 07/13/20 07/13/20 19:11 20:05 21:11 22:26 Pulse 99 Resp 16 B/P (MAP) 113/77 Pulse Ox 97 97 O2 Delivery Room Air Room Air Room Air 07/13/20 07/13/20 07/14/20 07/14/20 22:56 23:00 01:52 02:52 Temp 98.0 98.0 Pulse 82 Resp 17 17 18 16 B/P (MAP) 130/87 (101) Pulse Ox 97 96 96 96 O2 Delivery Room Air Room Air Room Air Room Air 07/14/20 07/14/20 03:00 07:15 Temp 98.2 98.5 98.2 98.5 Pulse 80 80 Resp 17 16 B/P (MAP) 119/52 (74) 163/108 (126) Pulse Ox 94 96 O2 Delivery Room Air Room Air Intake and Output 07/13/20 07/13/20 07/14/20 15:00 23:00 07:00 Intake Total 50 ml 250 ml Balance 50 ml 250 ml Justifications for Admission Other Justification SANDRA PRESCOTT MD Jul 14, 2020 08:58
--- NOTE | 2020-07-14 09:27 | PDOC ---
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 Objective Objective Vital Signs Date Time Temp Pulse Resp B/P (MAP) Pulse Ox O2 Delivery O2 Flow Rate FiO2 07/14/20 08:50 80 163/108 07/14/20 07:15 98.5 16 96 Room Air 98.5 Intake and Output 07/14/20 07:00 Intake Total 300 ml Balance 300 ml Intake Oral 300 ml Physical Exam Abdomen: Normal bowel sounds, Soft Heart: Regular rate, Normal S1, Normal S2 Extremities: No clubbing General: Alert, Oriented X3 HEENT: Atraumatic Lungs: Clear to auscultation MUSCULOSKELETAL: Other (Bilateral lower extremity edema noted) Neck: Supple Neuro: Normal speech Psych/Mental Status: Mental status NL Skin: No rashes Diagnosis Problem List Problems Medical Problems: (1) Generalized pain Status: Acute (2) Lung cancer Status: Acute Assessment Assessment Problems Medical Problems: (1) Generalized pain Status: Acute (2) Lung cancer Status: Acute FINAL IMPRESSION: 1. 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 2. Coronary artery disease, history of previous stents. 3. Recent cerebrovascular accident. 4. General decline and debility. 5. Hypertension. 6. Hyperlipidemia. 7. Pain not controlled as outpatient. PLAN: CT scan shows progression of disease. 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 We will change it to LEAD SOFTWARE DEVELOPER. We will also have Oncology followup. The patient's long-term prognosis is poor because of the stage IV. The patient is not interested in hospice at the present time. We will give Lovenox for deep venous thrombosis prevention. Plan Plan of Care Problems Medical Problems: (1) Generalized pain Status: Acute (2) Lung cancer Status: Acute Comment Review of Relevant I have reviewed the following items dina (where applicable) has been applied. Medications Current Medications Hydromorphone HCl 30 ml @ 0 mls/hr CONT PRN PRN IV PER PROTOCOL; Start 07/13/20 at 15:30; Stop 07/13/20 at 19:57; Status DC Hydromorphone HCl 30 ml @ 0 mls/hr CONT PRN PRN IV PER PROTOCOL Last administered on 07/13/20at 22:26; Start 07/13/20 at 20:00; Stop 07/14/20 at 07:57; Status DC Hydromorphone HCl 30 ml @ 0 mls/hr CONT PRN PRN IV PER PROTOCOL Last administered on 07/14/20at 08:47; Start 07/14/20 at 08:00 Info (CONTRAST GIVEN -- Rx MONITORING) 1 each PRN DAILY PRN MC SEE COMMENTS; Start 07/13/20 at 09:30; Stop 07/15/20 at 09:29 Iohexol (Omnipaque 240 Mg/ml) 30 ml 1X ONCE PO Last administered on 07/13/20at 09:30; Start 07/13/20 at 09:30; Stop 07/13/20 at 09:31; Status DC Iohexol (Omnipaque 300 Mg/ml) 75 ml 1X ONCE IV Last administered on 07/13/20at 11:00; Start 07/13/20 at 09:30; Stop 07/13/20 at 09:31; Status DC Vitals/I & O Vital Sign - Last 24 Hours 07/13/20 07/13/20 07/13/20 07/13/20 11:00 12:10 12:12 12:13 Temp 98.9 98.9 Pulse 82 82 82 82 Resp 17 B/P (MAP) 181/126 (144) 181/126 181/126 181/126 Pulse Ox 98 O2 Delivery Room Air 07/13/20 07/13/20 07/13/20 07/13/20 14:40 14:40 17:39 19:00 Temp 98.8 98.4 98.8 98.4 Pulse 80 83 83 99 Resp 18 17 B/P (MAP) 121/82 121/82 (95) 121/82 113/77 (89) Pulse Ox 97 96 O2 Delivery Room Air Room Air 07/13/20 07/13/20 07/13/20 07/13/20 19:11 20:05 21:11 22:26 Pulse 99 Resp 16 B/P (MAP) 113/77 Pulse Ox 97 97 O2 Delivery Room Air Room Air Room Air 07/13/20 07/13/20 07/14/20 07/14/20 22:56 23:00 01:52 02:52 Temp 98.0 98.0 Pulse 82 Resp 17 17 18 16 B/P (MAP) 130/87 (101) Pulse Ox 97 96 96 96 O2 Delivery Room Air Room Air Room Air Room Air 07/14/20 07/14/20 07/14/20 07/14/20 03:00 07:15 08:48 08:50 Temp 98.2 98.5 98.2 98.5 Pulse 80 80 80 80 Resp 17 16 B/P (MAP) 119/52 (74) 163/108 (126) 163/108 163/108 Pulse Ox 94 96 O2 Delivery Room Air Room Air 07/14/20 08:50 Pulse 80 B/P (MAP) 163/108 Intake and Output 07/13/20 07/13/20 07/14/20 15:00 23:00 07:00 Intake Total 50 ml 250 ml Balance 50 ml 250 ml Justifications for Admission Other Justification SHARMAINE SAEED MD Jul 14, 2020 09:27
[2020-07-14 11:00] VITALS: BP 128/89
[2020-07-14 15:00] VITALS: BP 132/91
--- NOTE | 2020-07-14 15:31 | NUR ---
SW following. Spoke with RN and reviewed chart. Pt from home. Pt on room air and IV pain medication. Pt has lung cancer. Pt plans to start chemo and is not interested in hospice at this time. Pt to discharge home self-care. No further SW needs identified.
--- NOTE | 2020-07-14 16:59 | RAD ---
EXAM: Bilateral upper extremity venous Doppler. HISTORY: Right arm swelling. Patient has a known history of metastatic lung cancer. COMPARISON: Chest abdomen pelvis CT with IV contrast of 07/13/2020 FINDINGS: Grayscale and Doppler analysis of the right and left upper extremity deep venous systems was performed with graded compression and augmentation. The internal jugular, subclavian, axillary, brachial, basilic, radial and ulnar veins were assessed. There is no evidence of deep venous thrombosis. A superficial solid oval 2.3 x 1.6 x 1.8 cm mass with internal blood flow is present in the area of palpable concern in the upper right arm. IMPRESSION: 1. No evidence of deep venous thrombosis. 2. Solid mass in the superficial right upper extremity correlates with the area of palpable concern and is suspicious for a metastatic deposit in light of patient's clinical history. Electronically signed by: Avel Hernandez MD (07/14/2020 4:56 PM) [id number]
[2020-07-14] MEDS: IV NORMAL SALINE 1000ML BAG 1,000 ML IV SCH (17:28)
[2020-07-14 19:00] VITALS: BP 140/102
[2020-07-14 23:00] VITALS: BP 151/97
[2020-07-15] VITALS (7 sets, daily range): BP systolic 156–176; BP diastolic 97–118
[2020-07-15] MEDS: HYDROmorphone 12mg/30ml PCA 30 ML IV PRN ×4 (03:07→20:27)
[2020-07-15] MEDS: ONDANSETRON ODT 4 MG TAB.RAPDIS. PO SCH ×3 (06:00→19:50)
[2020-07-15] MEDS: CARVEDILOL 12.5 MG TABLET. PO SCH ×2 (09:39→18:21)
[2020-07-15] MEDS: ASPIRIN CHEWABLE 81 MG TABLET. PO SCH (09:39)
[2020-07-15] MEDS: hydrALAZINE 25 MG TABLET PO SCH ×3 (09:40→21:19)
[2020-07-15] MEDS: CLOPIDOGREL BISULFATE 75 MG TABLET PO SCH (09:40)
[2020-07-15] MEDS: ISOSORBIDE MONONITRATE ER 30 MG TAB.ER.24H PO SCH (09:41)
--- NOTE | 2020-07-15 10:15 | PDOC ---
PROGRESS NOTES Date of Service: DATE: 07/15/20 TIME: 10:12 Subjective Subjective rt knee swelling and pain Objective Objective Vital Signs Date Time Temp Pulse Resp B/P (MAP) Pulse Ox O2 Delivery O2 Flow Rate FiO2 07/15/20 09:41 86 171/105 07/15/20 07:59 98.6 16 96 Room Air 98.6 Intake and Output 07/15/20 07:00 Intake Total 120 ml Balance 120 ml Intake Oral 120 ml # Voids 3 Physical Exam Abdomen: Normal bowel sounds, Soft Heart: Regular rate, Normal S1, Normal S2 Extremities: No clubbing General: Alert, Oriented X3 HEENT: Atraumatic Lungs: Clear to auscultation MUSCULOSKELETAL: Other (Bilateral lower extremity edema noted) Neck: Supple Neuro: Normal speech Psych/Mental Status: Mental status NL Skin: No rashes COMMENT upper extremity swelling both Diagnosis Problem List Problems Medical Problems: (1) Generalized pain Status: Acute (2) Lung cancer Status: Acute Assessment Assessment Problems Medical Problems: (1) Generalized pain Status: Acute (2) Lung cancer Status: Acute FINAL IMPRESSION: 1. 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 2. Coronary artery disease, history of previous stents. 3. Recent cerebrovascular accident. 4. General decline and debility. 5. Hypertension. 6. Hyperlipidemia. 7. Pain not controlled as outpatient. PLAN: venous doppler upper extremities neg for DVT CT scan shows progression of disease. ELECTION WATCHER for pain control , inc basal rate Chemo recomended , pt going to talk to her daughter spoke with oncology yesterday cortisone inj to rt knee At this time, the patient was admitted to the hospital, was given Dilaudid 2 mg every 3, in spite of that, is not improving. We will change it to ELECTION WATCHER. We will also have Oncology followup. The patient's long-term prognosis is poor because of the stage IV. The patient is not interested in hospice at the present time. We will give Lovenox for deep venous thrombosis prevention. Plan Plan of Care Problems Medical Problems: (1) Generalized pain Status: Acute (2) Lung cancer Status: Acute Comment Review of Relevant I have reviewed the following items dina (where applicable) has been applied. Vitals/I & O Vital Sign - Last 24 Hours 07/14/20 07/14/20 07/14/20 07/14/20 11:00 13:54 15:00 17:27 Temp 98.3 98.4 98.3 98.4 Pulse 81 81 83 83 Resp 16 16 B/P (MAP) 128/89 (102) 128/89 132/91 (105) 132/91 Pulse Ox 97 97 O2 Delivery Room Air Room Air 07/14/20 07/14/20 07/14/20 07/14/20 19:00 20:08 22:09 23:00 Temp 98.6 98.8 98.6 98.8 Pulse 83 83 87 Resp 18 16 B/P (MAP) 140/102 (115) 140/102 151/97 (115) Pulse Ox 98 97 O2 Delivery Room Air 07/15/20 07/15/20 07/15/20 07/15/20 03:00 03:07 03:40 07:59 Temp 98.9 98.6 98.9 98.6 Pulse 83 86 Resp 16 16 16 16 B/P (MAP) 162/108 (126) 171/105 (127) Pulse Ox 96 97 97 96 O2 Delivery Room Air Room Air Room Air 07/15/20 07/15/20 07/15/20 09:39 09:40 09:41 Pulse 86 86 86 B/P (MAP) 171/105 171/105 171/105 Intake and Output 07/14/20 07/14/20 07/15/20 15:00 23:00 07:00 Intake Total 120 ml Balance 120 ml Justifications for Admission Other Justification Nutrition Consultation Dietary Evaluation: Recommendations by RD: Dietary education by RD Comments: honor food preferences , offer snacks/ supplements from unit prn Expected Outcomes/Goals: to meet >75% est nutr needs Interpretation of weight loss: >10% in 6 months Malnutrition Findings: Weight Status: Appropriate SHARMAINE SAEED MD Jul 15, 2020 10:15
--- NOTE | 2020-07-15 11:32 | RAD ---
KNEE STANDING BILAT AP 07/15/2020 10:49 AM INDICATION: Right knee joint pain and swelling COMPARISON: None available. TECHNIQUE: Single standing AP view of the knees are provided. FINDINGS/ IMPRESSION: Mild bilateral medial femorotibial joint space narrowing. No significant marginal osteophytosis or subcortical sclerosis. No acute fractures identified. No significant asymmetric soft tissue swelling. Electronically signed by: Christin Wu MD (07/15/2020 11:29 AM) GAB[facility]EAL
[2020-07-15] MEDS: DICLOFENAC SODIUM 1% TOPICAL GEL 100GM TUBE. TP SCH ×2 (12:00→21:19)
--- NOTE | 2020-07-15 13:38 | CONS ---
DATE OF CONSULTATION: LOCATION: She is in room 506. ATTENDING PHYSICIAN: Shilpa Cortes MD REASON FOR CONSULTATION: The patient was seen at the request of Dr. Cortes for rehab evaluation. HISTORY OF PRESENT ILLNESS: This is a 55-year-old female with stage 4 lung carcinoma with metastasis to the adrenal gland, being followed by Oncology, had chemotherapy, radiation treatment with progression of the disease, getting immune modulation treatment at this medical center every week with infusions having increasing pain and had been taking oxycodone 10 mg every 4 hours and still having lots of pain and declining, admitted with back and right knee pain without any specific injury or accident. She had CT scan of her chest, abdomen and pelvis, which revealed gradual progression of the disease in the chest, abdomen and pelvis, slight interval enlargement in anterior mediastinal, right perirenal and left ischiorectal fossa masses, may be hemorrhage into the dominant metastatic deposit in the left adrenal gland, primary lung malignancy in the left upper lobe appears to have decreased slightly in size along with associated ipsilateral hilar adenopathy, interval development of reticular densities in the dependent right lung, nonspecific related pneumonitis among possibilities. She had Doppler studies of her right upper extremity, which revealed solid mass in the superficial right upper extremity correlates with the area of palpable concern and is suspicious for a metastatic deposit in the light of patient's clinical history. No evidence of any deep vein thrombosis was noted. Chest x-ray revealed right chest wall infusion port catheter identified with the distal tip projecting over the distal superior vena cava, similar appearance of left suprahilar mass-like area of consolidation. The patient also with known coronary artery disease, previous stents, had cerebrovascular accident recently, hypertension, hyperlipidemia. Known ALLERGIC TO ATORVASTATIN, CODEINE, FENTANYL, HEPARIN, MORPHINE, AND SPIRONOLACTONE. The patient lives with her daughter, had a wheelchair level activity at present time. The patient complains of pain all over, especially left upper back and right knee having too much pain for her to be taken care of at home, also having some nausea and vomiting. The patient apparently lost some weight recently and feels weak. PHYSICAL EXAMINATION: Physical examination today revealed a middle-aged female. She is alert, oriented to time, place, person and circumstance and follows commands appropriately, moves all 4 extremities voluntarily where she had 5/5 grade muscle strength except she is protecting her right knee to some extent. She had crepitus on range of motion of both knee joints with knee joint effusion, right side more than left side, tenderness to palpation over medial knee joint line and also over left lumbar paraspinal muscle area. No significant tenderness to palpation over cervical, thoracic or lumbar spine area. She had tenderness around small lesion over lateral aspect of right arm. The patient had 1 to 2+ deep tendon reflexes and they are symmetrical and she had equal perception of touch and pinprick sensation bilaterally. I have not tested her mobility skills at present time. Straight leg raising test is negative bilaterally. She had painful range of motion of both hip joints. ASSESSMENT: A middle-aged female with degenerative joint disease of both knees with right knee joint effusion and pain. The patient with stage 4 lung carcinoma with progression of the disease with associated metastasis to adrenal gland and to right arm, coronary artery disease, status post stenting, hypertension, hyperlipidemia, recent cerebrovascular accident without any residual deficits, right upper extremity edema. RECOMMENDATION: I have suggested injecting her right knee joint with Depo-Medrol and Marcaine. She would like to wait to try diclofenac cream to her knees to obtain x-rays of her knees to obtain hinged knee brace for her to use it while up. Dr. Cortes, I appreciate asking me to participate in the care of this interesting patient. I will be glad to follow her with you as needed for her rehabilitation. ROBBIE GUZMAN MD DR: ANTONIO/trent JOB#: [id number] / [id number]
[2020-07-15] MEDS: oxyCODONE IR 5 MG TABLET PO PRN (15:05)
[2020-07-15] MEDS: IV NORMAL SALINE 1000ML BAG 1,000 ML IV SCH (20:32)
[2020-07-16] MEDS: HYDROmorphone 12mg/30ml PCA 30 ML IV PRN ×4 (02:33→20:23)
[2020-07-16 03:06] VITALS: BP 157/103
[2020-07-16] MEDS: ONDANSETRON ODT 4 MG TAB.RAPDIS. PO SCH ×4 (05:19→21:49)
[2020-07-16 06:14] LABS: BASO % 1 % (0-3); EOS % 1 % (0-3); HEMATOCRIT 27.5 % (36.0-47.0); HEMOGLOBIN 8.8 g/dL (12.0-15.5); LYMPH # 0.7 x10^3/uL (1.0-4.8); LYMPH % 15 % (24-48); MEAN CORPUSCULAR HEMOGLOBIN 26 pg (25-35); MEAN CORPUSCULAR HGB CONC 32 g/dL (31-37); MEAN CORPUSCULAR VOLUME 82 fL (79-100); MONO # 0.5 x10^3/uL (0.0-1.1); MONO % 12 % (0-9); NEUT # 3.2 x10^3/uL (1.8-7.7); NEUT % 72 % (31-73); PLATELET COUNT 163 x10^3/uL (140-400); RED BLOOD COUNT 3.35 x10^6/uL (3.50-5.40); RED CELL DISTRIBUTION WIDTH 23.4 % (11.5-14.5); WHITE BLOOD COUNT 4.4 x10^3/uL (4.0-11.0)
[2020-07-16 06:24] LABS: CALCIUM 8.4 mg/dL (8.5-10.1); CREATININE 0.9 mg/dL (0.6-1.0); GFR 79.3; POTASSIUM 4.1 mmol/L (3.5-5.1)
[2020-07-16 07:00] VITALS: BP 165/116
[2020-07-16] MEDS: ISOSORBIDE MONONITRATE ER 30 MG TAB.ER.24H PO SCH (08:50)
[2020-07-16] MEDS: CARVEDILOL 12.5 MG TABLET. PO SCH ×2 (08:50→17:00)
[2020-07-16] MEDS: ASPIRIN CHEWABLE 81 MG TABLET. PO SCH (08:50)
[2020-07-16] MEDS: hydrALAZINE 25 MG TABLET PO SCH ×3 (08:51→20:19)
[2020-07-16] MEDS: CLOPIDOGREL BISULFATE 75 MG TABLET PO SCH (08:51)
[2020-07-16] MEDS: DICLOFENAC SODIUM 1% TOPICAL GEL 100GM TUBE. TP SCH ×2 (09:00→20:27)
--- NOTE | 2020-07-16 10:00 | PDOC ---
PROGRESS NOTES Date of Service: DATE: 07/16/20 TIME: 09:57 Subjective Subjective STILL IN PAIN ON SUPERINTENDENT GENERAL Objective Objective Vital Signs Date Time Temp Pulse Resp B/P (MAP) Pulse Ox O2 Delivery O2 Flow Rate FiO2 07/16/20 09:06 19 94 Room Air 07/16/20 08:51 81 165/116 07/16/20 07:00 98.6 98.6 Intake and Output 07/16/20 07:00 Intake Total 250 ml Output Total 500 ml Balance -250 ml Intake Oral 250 ml Output Urine Total 500 ml # Voids 3 Physical Exam Abdomen: Normal bowel sounds, Soft Heart: Regular rate, Normal S1, Normal S2 Extremities: No clubbing General: Alert, Oriented X3 HEENT: Atraumatic Lungs: Clear to auscultation MUSCULOSKELETAL: Other (Bilateral lower extremity edema noted) Neck: Supple Neuro: Normal speech Psych/Mental Status: Mental status NL Skin: No rashes COMMENT upper extremity swelling both Diagnosis Problem List Problems Medical Problems: (1) Generalized pain Status: Acute (2) Lung cancer Status: Acute Assessment Assessment Problems Medical Problems: (1) Generalized pain Status: Acute (2) Lung cancer Status: Acute FINAL IMPRESSION:Pain issues 1. 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 2. Coronary artery disease, history of previous stents. 3. Recent cerebrovascular accident. 4. General decline and debility. 5. Hypertension. 6. Hyperlipidemia. 7. Pain not controlled as outpatient. PLAN:inc SUPERINTENDENT GENERAL to 2 mg /hour basal from 1 mg+bolus venous doppler upper extremities neg for DVT CT scan shows progression of disease. SUPERINTENDENT GENERAL for pain control , inc basal rate Chemo recomended , pt going to talk to her daughter spoke with oncology yesterday cortisone inj to rt knee, pending. compression wraps resumed toresmide+pot hb 8.6. bnp ok At this time, the patient was admitted to the hospital, was given Dilaudid 2 mg every 3, in spite of that, is not improving. We will change it to SUPERINTENDENT GENERAL. We will also have Oncology followup. The patient's long-term prognosis is poor because of the stage IV. The patient is not interested in hospice at the present time. We will give Lovenox for deep venous thrombosis prevention. Plan Plan of Care Problems Medical Problems: (1) Generalized pain Status: Acute (2) Lung cancer Status: Acute Comment Review of Relevant I have reviewed the following items dina (where applicable) has been applied. Labs Laboratory Tests Test 07/16/20 05:50 White Blood Count 4.4 x10^3/uL (4.0-11.0) Red Blood Count 3.35 x10^6/uL (3.50-5.40) Hemoglobin 8.8 g/dL (12.0-15.5) Hematocrit 27.5 % (36.0-47.0) Mean Corpuscular Volume 82 fL (79-100) Mean Corpuscular Hemoglobin 26 pg (25-35) Mean Corpuscular Hemoglobin Concent 32 g/dL (31-37) Red Cell Distribution Width 23.4 % (11.5-14.5) Platelet Count 163 x10^3/uL (140-400) Neutrophils (%) (Auto) 72 % (31-73) Lymphocytes (%) (Auto) 15 % (24-48) Monocytes (%) (Auto) 12 % (0-9) Eosinophils (%) (Auto) 1 % (0-3) Basophils (%) (Auto) 1 % (0-3) Neutrophils # (Auto) 3.2 x10^3/uL (1.8-7.7) Lymphocytes # (Auto) 0.7 x10^3/uL (1.0-4.8) Monocytes # (Auto) 0.5 x10^3/uL (0.0-1.1) Eosinophils # (Auto) 0.0 x10^3/uL (0.0-0.7) Basophils # (Auto) 0.0 x10^3/uL (0.0-0.2) Sodium Level 142 mmol/L (136-145) Potassium Level 4.1 mmol/L (3.5-5.1) Chloride Level 109 mmol/L (98-107) Carbon Dioxide Level 23 mmol/L (21-32) Anion Gap 10 (6-14) Blood Urea Nitrogen 9 mg/dL (7-20) Creatinine 0.9 mg/dL (0.6-1.0) Estimated GFR (Cockcroft-Gault) 79.3 Glucose Level 96 mg/dL (70-99) Calcium Level 8.4 mg/dL (8.5-10.1) Medications Current Medications Diclofenac Sodium (Voltaren) 1 heaven BID TP Last administered on 07/15/20at 21:19; Start 07/15/20 at 12:00 Vitals/I & O Vital Sign - Last 24 Hours 07/15/20 07/15/20 07/15/20 07/15/20 11:59 12:29 13:00 15:00 Temp 98.8 98.0 98.8 98.0 Pulse 84 82 Resp 16 19 20 20 B/P (MAP) 161/113 (129) 156/108 (124) Pulse Ox 98 93 94 97 O2 Delivery Room Air Room Air Room Air 07/15/20 07/15/20 07/15/20 07/15/20 15:03 15:05 16:10 17:59 Pulse 82 Resp 20 20 B/P (MAP) 156/108 Pulse Ox 97 95 95 O2 Delivery Room Air Room Air Room Air 07/15/20 07/15/20 07/15/20 07/15/20 18:19 18:21 19:00 19:49 Temp 98.9 99.6 98.9 99.6 Pulse 90 90 85 Resp 20 18 18 B/P (MAP) 176/118 (137) 176/118 159/97 (117) Pulse Ox 98 99 99 O2 Delivery Room Air Room Air Room Air 07/15/20 07/15/20 07/15/20 07/15/20 20:08 20:27 21:17 21:19 Pulse 85 Resp 18 18 B/P (MAP) 159/97 Pulse Ox 99 O2 Delivery Room Air Room Air Room Air 07/15/20 07/16/20 07/16/20 07/16/20 23:01 02:33 03:06 03:11 Temp 98.4 98.8 98.4 98.8 Pulse 83 80 Resp 18 18 18 18 B/P (MAP) 164/102 (122) 157/103 (121) Pulse Ox 98 98 98 98 O2 Delivery Room Air Room Air Room Air Room Air 07/16/20 07/16/20 07/16/20 07/16/20 07:00 08:50 08:50 08:51 Temp 98.6 98.6 Pulse 81 81 81 81 Resp 19 B/P (MAP) 165/116 (132) 165/116 165/116 165/116 Pulse Ox 96 O2 Delivery Room Air 07/16/20 09:06 Resp 19 Pulse Ox 94 O2 Delivery Room Air Intake and Output 07/15/20 07/15/20 07/16/20 15:00 23:00 07:00 Intake Total 250 ml Output Total 200 ml 300 ml Balance -200 ml -50 ml Justifications for Admission Other Justification Nutrition Consultation Dietary Evaluation: Recommendations by RD: Dietary education by RD Comments: honor food preferences , offer snacks/ supplements from unit prn Expected Outcomes/Goals: to meet >75% est nutr needs Interpretation of weight loss: >10% in 6 months Malnutrition Findings: Weight Status: Appropriate SHARMAINE SAEED MD Jul 16, 2020 10:00
[2020-07-16 10:30] VITALS: BP 152/89
[2020-07-16] MEDS: TORSEMIDE 20 MG TABLET. PO SCH (13:21)
[2020-07-16] MEDS: POTASSIUM CHLORIDE 20 MEQ TABLET.ER. PO SCH (13:22)
[2020-07-16] MEDS: ENOXAPARIN 40 MG/0.4 ML SYRINGE. SQ SCH (13:22)
[2020-07-16 15:00] VITALS: BP 145/102
--- NOTE | 2020-07-16 16:15 | NUR ---
PATIENTS' LIBAN CATH ACCESS DISLODGED ACCIDENTALLY BYB THE PATIENT, REACCESSED PER THIS MACHINIST INSTRUCTOR WITH A 20GX1.0 MORSE NEEDLE, STERILE TECHNIQUE USED, PATIENT TOLERATED PROCEDURE WITHOUT COMPLAINTS, GOOD BLOOD RETURN GIVEN, FLUSHED WITH 10CC NS. Addendum: 07/16/20 at 2034 by MYRA FRANCO RN Amended: Links added.
[2020-07-16 19:00] VITALS: BP 148/107
[2020-07-16] MEDS: IV NORMAL SALINE 1000ML BAG 1,000 ML IV SCH (20:18)
[2020-07-16] MEDS: oxyCODONE IR 5 MG TABLET PO PRN (20:19)
[2020-07-16 23:04] VITALS: BP 156/110
[2020-07-17] MEDS: HYDROmorphone 12mg/30ml PCA 30 ML IV PRN ×4 (02:21→20:51)
[2020-07-17] MEDS: oxyCODONE IR 5 MG TABLET PO PRN ×3 (02:49→14:52)
[2020-07-17 03:16] VITALS: BP 154/113
[2020-07-17] MEDS: ONDANSETRON ODT 4 MG TAB.RAPDIS. PO SCH ×3 (05:29→20:12)
[2020-07-17 07:00] VITALS: BP 157/107
[2020-07-17] MEDS: IV NORMAL SALINE 1000ML BAG 1,000 ML IV SCH ×2 (08:46→20:10)
[2020-07-17] MEDS: CLOPIDOGREL BISULFATE 75 MG TABLET PO SCH (08:58)
[2020-07-17] MEDS: POTASSIUM CHLORIDE 20 MEQ TABLET.ER. PO SCH (08:58)
[2020-07-17] MEDS: TORSEMIDE 20 MG TABLET. PO SCH ×2 (08:58→09:00)
[2020-07-17] MEDS: CARVEDILOL 12.5 MG TABLET. PO SCH ×2 (08:59→17:39)
[2020-07-17] MEDS: ASPIRIN CHEWABLE 81 MG TABLET. PO SCH (08:59)
[2020-07-17] MEDS: ISOSORBIDE MONONITRATE ER 30 MG TAB.ER.24H PO SCH (09:00)
[2020-07-17] MEDS: DICLOFENAC SODIUM 1% TOPICAL GEL 100GM TUBE. TP SCH ×2 (09:01→20:12)
[2020-07-17] MEDS: hydrALAZINE 25 MG TABLET PO SCH (09:01)
[2020-07-17] MEDS: ENOXAPARIN 40 MG/0.4 ML SYRINGE. SQ SCH (09:05)
[2020-07-17 11:00] VITALS: BP 140/102
--- NOTE | 2020-07-17 11:47 | PDOC ---
PROGRESS NOTES Date of Service DATE: 07/17/20 TIME: 11:45 Subjective Subjective She admits some help with diclofenac gel to her right knee pain and not decided on knee joint injection. 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 She continues with DJD changes in both knees. Assessment Assessment Problems Medical Problems: (1) Generalized pain Status: Acute (2) Lung cancer Status: Acute Plan Plan of Care To consider right knee joint injection if she agrees. Comment Review of Relevant I have reviewed the following items dina (where applicable) has been applied. Labs Laboratory Tests Test 07/16/20 05:50 White Blood Count 4.4 x10^3/uL (4.0-11.0) Red Blood Count 3.35 x10^6/uL (3.50-5.40) Hemoglobin 8.8 g/dL (12.0-15.5) Hematocrit 27.5 % (36.0-47.0) Mean Corpuscular Volume 82 fL (79-100) Mean Corpuscular Hemoglobin 26 pg (25-35) Mean Corpuscular Hemoglobin Concent 32 g/dL (31-37) Red Cell Distribution Width 23.4 % (11.5-14.5) Platelet Count 163 x10^3/uL (140-400) Neutrophils (%) (Auto) 72 % (31-73) Lymphocytes (%) (Auto) 15 % (24-48) Monocytes (%) (Auto) 12 % (0-9) Eosinophils (%) (Auto) 1 % (0-3) Basophils (%) (Auto) 1 % (0-3) Neutrophils # (Auto) 3.2 x10^3/uL (1.8-7.7) Lymphocytes # (Auto) 0.7 x10^3/uL (1.0-4.8) Monocytes # (Auto) 0.5 x10^3/uL (0.0-1.1) Eosinophils # (Auto) 0.0 x10^3/uL (0.0-0.7) Basophils # (Auto) 0.0 x10^3/uL (0.0-0.2) Sodium Level 142 mmol/L (136-145) Potassium Level 4.1 mmol/L (3.5-5.1) Chloride Level 109 mmol/L (98-107) Carbon Dioxide Level 23 mmol/L (21-32) Anion Gap 10 (6-14) Blood Urea Nitrogen 9 mg/dL (7-20) Creatinine 0.9 mg/dL (0.6-1.0) Estimated GFR (Cockcroft-Gault) 79.3 Glucose Level 96 mg/dL (70-99) Calcium Level 8.4 mg/dL (8.5-10.1) Medications Current Medications Hydromorphone HCl (Dilaudid) 1 mg 1X ONCE IVP Last administered on 07/12/20at 12:44; Start 07/12/20 at 12:45; Stop 07/12/20 at 12:46; Status DC Hydromorphone HCl (Dilaudid) 2 mg 1X ONCE IVP Last administered on 07/12/20at 13:04; Start 07/12/20 at 13:00; Stop 07/12/20 at 13:01; Status DC Oxycodone HCl (Roxicodone) 10 mg 1X ONCE PO Last administered on 07/12/20at 13:56; Start 07/12/20 at 14:00; Stop 07/12/20 at 14:01; Status DC Ondansetron HCl (Zofran) 4 mg PRN Q8HRS PRN IV NAUSEA/VOMITING Last administered on 07/12/20at 17:42; Start 07/12/20 at 14:45; Stop 07/13/20 at 14:44; Status DC Aspirin (Aspirin Chewable) 81 mg DAILY PO Last administered on 07/17/20at 08:59; Start 07/12/20 at 16:00 Clopidogrel Bisulfate (Plavix) 75 mg DAILY PO Last administered on 07/17/20at 08:58; Start 07/12/20 at 16:00 Diphenhydramine HCl (Benadryl) 25 mg PRN DAILY PRN PO ALLERGIES; Start 07/12/20 at 15:30 Hydralazine HCl (Apresoline) 25 mg TID PO Last administered on 07/17/20 09:01; Start 07/12/20 at 16:00 Metoclopramide HCl (Reglan) 10 mg PRN TID PRN PO NAUSEA Last administered on at 13:24; Start 07/12/20 at 15:30 Nitroglycerin (Nitrostat) 0.4 mg PRN Q5MIN PRN SL CHEST PAIN; Start 07/12/20 at 15:30 Carvedilol (Coreg) 25 mg BIDWMEALS PO Last administered on 07/17/20at 08:59; Start 07/12/20 at 17:00 Isosorbide Mononitrate (Imdur) 60 mg DAILY PO Last administered on 07/17/20at 09:00; Start 07/13/20 at 09:00 Ondansetron HCl (Zofran Odt) 8 mg Q8HRS PO ; Start 07/12/20 at 22:00 Oxycodone HCl (Roxicodone) 10 mg PRN Q6HRS PRN PO PAIN Last administered on 07/17/20at 09:00; Start 07/12/20 at 15:45 Non-Formulary Medication (Oxycodone Hcl (Oxycodone Hcl Immed.release)) 1 tab QIDPRN PRN PO pain; Start 07/12/20 at 15:30; Status UNV Non-Formulary Medication (Rosuvastatin Calcium (Crestor)) 2 tab DAILY PO ; Start 07/13/20 at 09:00; Status UNV Potassium Chloride/Sodium Chloride 1,000 ml @ 100 mls/hr Q10H IV Last administered on 07/15/20at 21:20; Start 07/12/20 at 16:00; Stop 07/16/20 at 10:05; Status DC Magnesium Hydroxide (Milk Of Magnesia) 2,400 mg PRN Q12HR PRN PO CONSTIPATION Last administered on 07/17/20at 08:58; Start 07/12/20 at 15:30 Lactulose (Lactulose) 20 gm PRN Q12HR PRN PO CONSTIPATION- 2ND CHOICE; Start 07/12/20 at 15:30 Bisacodyl (Dulcolax Supp) 10 mg PRN DAILY PRN ND CONSTIPATION; Start 07/12/20 at 15:30 Enoxaparin Sodium (Lovenox 40mg Syringe) 40 mg Q24H SQ ; Start 07/12/20 at 16:00; Status UNV Hydromorphone HCl (Dilaudid) 1 mg PRN Q3HRS ONCE IVP ; Start 07/12/20 at 17:15; Stop 07/12/20 at 17:16; Status Cancel Hydromorphone HCl (Dilaudid) 2 mg PRN Q3HRS PRN IVP PAIN Last administered on 07/13/20at 06:17; Start 07/12/20 at 17:15; Stop 07/13/20 at 08:49; Status DC Hydromorphone HCl (Dilaudid) 1 mg PRN Q3HRS PRN IVP MODERATE PAIN 4-6; Start 07/12/20 at 17:15; Stop 07/13/20 at 08:49; Status DC Naloxone HCl (Narcan) 0.4 mg PRN Q2MIN PRN IV SEE INSTRUCTIONS; Start 07/13/20 at 09:00 Sodium Chloride 1,000 ml @ 25 mls/hr Q24H IV Last administered on 07/16/20at 20:18; Start 07/13/20 at 08:46 Hydromorphone HCl 30 ml @ 0 mls/hr CONT PRN PRN IV PER PROTOCOL Last administered on 07/13/20at 09:47; Start 07/13/20 at 09:00; Stop 07/13/20 at 15:24; Status DC Iohexol (Omnipaque 240 Mg/ml) 30 ml 1X ONCE PO Last administered on 07/13/20at 09:30; Start 07/13/20 at 09:30; Stop 07/13/20 at 09:31; Status DC Iohexol (Omnipaque 300 Mg/ml) 75 ml 1X ONCE IV Last administered on 07/13/20at 11:00; Start 07/13/20 at 09:30; Stop 07/13/20 at 09:31; Status DC Info (CONTRAST GIVEN -- Rx MONITORING) 1 each PRN DAILY PRN MC SEE COMMENTS; Start 07/13/20 at 09:30; Stop 07/15/20 at 09:29; Status DC Hydromorphone HCl 30 ml @ 0 mls/hr CONT PRN PRN IV PER PROTOCOL; Start 07/13/20 at 15:30; Stop 07/13/20 at 19:57; Status DC Hydromorphone HCl 30 ml @ 0 mls/hr CONT PRN PRN IV PER PROTOCOL Last administered on 07/13/20at 22:26; Start 07/13/20 at 20:00; Stop 07/14/20 at 07:57; Status DC Hydromorphone HCl 30 ml @ 0 mls/hr CONT PRN PRN IV PER PROTOCOL Last administered on 07/17/20at 08:57; Start 07/14/20 at 08:00 Diclofenac Sodium (Voltaren) 1 heaven BID TP Last administered on 07/17/20at 09:01; Start 07/15/20 at 12:00 Potassium Chloride (Klor-Con) 20 meq DAILYWBKFT PO Last administered on 07/17/20at 08:58; Start 07/16/20 at 10:00 Torsemide (Demadex) 60 mg DAILY PO Last administered on 07/16/20at 13:21; Start 07/16/20 at 10:00 Enoxaparin Sodium (Lovenox 40mg Syringe) 40 mg Q24H SQ Last administered on 07/17/20at 09:05; Start 07/16/20 at 10:00 Active Scripts Active Oxycodone Hcl 5 Mg Capsule 10 Mg PO PRN Q6HRS PRN Reglan (Metoclopramide Hcl) 10 Mg Tablet 1 Tab PO TID PRN 5 Days before food and bedtime Klor-Con M20 (Potassium Chloride) 20 Meq Tab.er.prt 20 Meq PO DAILYWBKFT 30 Days Zofran (Ondansetron Hcl) 8 Mg Tablet 1 Tab PO Q8HRS Reported Oxycodone Hcl Immed.release (Oxycodone Hcl) 10 Mg Tablet 1 Tab PO QIDPRN PRN MDD 4 Tablet(s) 30 Days Clopidogrel (Clopidogrel Bisulfate) 75 Mg Tablet 75 Mg PO DAILY HOLD til 7 Aspirin 81 Mg Tab.chew 1 Tab PO DAILY HOLD til 716 NITROGLYCERIN SubLingual (Nitroglycerin) 0.4 Mg Tab.subl 0.4 Mg SL PRN Q5MIN PRN Hydralazine Hcl 25 Mg Tablet 1 Tab PO TID Diphenhydramine Hcl 25 Mg Capsule 1 Tab PO PRN DAILY PRN Isosorbide Mononitrate Er (Isosorbide Mononitrate) 60 Mg Tab.er.24h 1 Tab PO DAILY Torsemide 20 Mg Tablet 60 Mg PO DAILY Crestor (Rosuvastatin Calcium) 20 Mg Tablet 2 Tab PO DAILY Carvedilol 25 Mg Tablet 2 Tab PO BID Vitals/I & O Vital Sign - Last 24 Hours 07/16/20 07/16/20 07/16/20 07/16/20 14:29 15:00 17:00 17:00 Temp 98.9 98.9 Pulse 84 84 84 Resp 19 19 B/P (MAP) 145/102 (116) 145/102 145/102 Pulse Ox 93 97 O2 Delivery Room Air Room Air 07/16/20 07/16/20 07/16/20 07/16/20 19:00 19:50 20:01 20:19 Temp 98.6 98.6 Pulse 85 85 Resp 18 B/P (MAP) 148/107 (121) 148/107 Pulse Ox 98 98 O2 Delivery Room Air Room Air Room Air 07/16/20 07/16/20 07/16/20 07/16/20 20:19 20:23 21:48 21:48 Resp 18 18 18 Pulse Ox 98 98 98 98 O2 Delivery Room Air Room Air Room Air Room Air 07/16/20 07/17/20 07/17/20 07/17/20 23:04 02:21 02:49 02:54 Temp 98.8 98.8 Pulse 84 Resp 18 18 18 B/P (MAP) 156/110 (125) Pulse Ox 98 98 98 98 O2 Delivery Room Air Room Air Room Air Room Air 07/17/20 07/17/20 07/17/20 07/17/20 03:16 04:20 07:00 08:59 Temp 98.6 98.3 98.6 98.3 Pulse 81 95 81 Resp 18 18 16 B/P (MAP) 154/113 (127) 157/107 (124) 154/113 Pulse Ox 97 97 95 O2 Delivery Room Air Room Air Room Air 07/17/20 07/17/20 09:00 09:01 Pulse 81 81 B/P (MAP) 154/113 154/113 Intake and Output 07/16/20 07/16/20 07/17/20 15:00 23:00 07:00 Intake Total 500 ml Output Total 500 ml 900 ml Balance 0 ml -900 ml Justifications for Admission Other Justification Nutrition Consultation Dietary Evaluation: Recommendations by RD: Dietary education by RD Comments: honor food preferences , offer snacks/ supplements from unit prn Expected Outcomes/Goals: to meet >75% est nutr needs Interpretation of weight loss: >10% in 6 months Malnutrition Findings: Weight Status: Appropriate ROBBIE GUZMAN MD Jul 17, 2020 11:47
--- NOTE | 2020-07-17 12:32 | PDOC ---
IM PROGRESS NOTES- Subjective Subjective Complaints of low back pain. Denies any dyspnea. Objective Vitals/I&O Vital Signs Date Time Temp Pulse Resp B/P (MAP) Pulse Ox O2 Delivery O2 Flow Rate FiO2 07/17/20 11:00 98.6 86 16 140/102 (115) 96 Room Air 98.6 I & O 07/16/20 07/16/20 07/17/20 15:00 23:00 07:00 Intake Total 500 ml Output Total 500 ml 900 ml Balance 0 ml -900 ml Physical Exam Physical Exam General appearance - alert, chronically ill appearing, and in no distress and oriented to person, place, and time Mental Status - alert, oriented to person, place, and time, affect appropriate to mood Head - normal Chest -creased breath sounds at bases Heart - S1 and S2 normal Abdomen - soft, nontender Neurological - alert and oriented Patient has pain with movement of her back. Extremities - no pedal edema Skin - warm and dry Assessment Assessment Problems Medical Problems: (1) Generalized pain Status: Acute (2) Lung cancer Status: Acute FINAL IMPRESSION:Pain issues 1. 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 2. Coronary artery disease, history of previous stents. 3. Recent cerebrovascular accident. 4. General decline and debility. 5. Hypertension. 6. Hyperlipidemia. 7. Pain not controlled as outpatient. 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 Anemia- recheck labs in a.m. Hypertension-not controlled. This may be due to pain. Increase hydralazine to 100 mg 3 times a day. Low back pain-patient does not want any muscle relaxers Check labs in a.m. Prognosis is very poor Plan Plan For more details regarding further plans, please refer to the orders. Justifications for Admission Other Justification Nutrition Consultation Dietary Evaluation: Recommendations by RD: Dietary education by RD Comments: honor food preferences , offer snacks/ supplements from unit prn Expected Outcomes/Goals: to meet >75% est nutr needs Interpretation of weight loss: >10% in 6 months Malnutrition Findings: Weight Status: Appropriate BRENTON VALENTIN MD Jul 17, 2020 12:32
--- NOTE | 2020-07-17 14:58 | NUR ---
Pt did not want 100mg of Hydralazine, only wanted to take 25 mg. 25 mg administered by RN.
[2020-07-17 15:00] VITALS: BP 122/91
[2020-07-17 19:00] VITALS: BP 119/85
[2020-07-17] MEDS ORDERED: POLYETHYLENE GLYCOL 3350 17 GM PACKET. PO PRN (19:30)
[2020-07-17 23:00] VITALS: BP 116/83
[2020-07-18] MEDS: HYDROmorphone 12mg/30ml PCA 30 ML IV PRN (02:41)
[2020-07-18 03:00] VITALS: BP 136/98
[2020-07-18 03:41] LABS: BASO % 1 % (0-3); EOS # 0.1 x10^3/uL (0.0-0.7); EOS % 2 % (0-3); HEMOGLOBIN 8.4 g/dL (12.0-15.5); LYMPH # 0.7 x10^3/uL (1.0-4.8); LYMPH % 18 % (24-48); MEAN CORPUSCULAR HEMOGLOBIN 26 pg (25-35); MEAN CORPUSCULAR HGB CONC 32 g/dL (31-37); MEAN CORPUSCULAR VOLUME 82 fL (79-100); MONO # 0.6 x10^3/uL (0.0-1.1); MONO % 14 % (0-9); NEUT # 2.7 x10^3/uL (1.8-7.7); NEUT % 66 % (31-73); PLATELET COUNT 171 x10^3/uL (140-400); RED BLOOD COUNT 3.19 x10^6/uL (3.50-5.40); RED CELL DISTRIBUTION WIDTH 23.2 % (11.5-14.5); WHITE BLOOD COUNT 4.1 x10^3/uL (4.0-11.0)
[2020-07-18 03:50] LABS: CALCIUM 8.2 mg/dL (8.5-10.1); CREATININE 1.1 mg/dL (0.6-1.0); GFR 62.9; POTASSIUM 3.4 mmol/L (3.5-5.1)
[2020-07-18] MEDS: ONDANSETRON ODT 4 MG TAB.RAPDIS. PO SCH ×3 (06:00→22:00)
[2020-07-18 07:00] VITALS: BP 157/108
--- NOTE | 2020-07-18 08:34 | PDOC ---
PROGRESS NOTES Date of Service: DATE: 07/18/20 TIME: 08:33 Subjective Subjective want to try po meds today Objective Objective Vital Signs Date Time Temp Pulse Resp B/P (MAP) Pulse Ox O2 Delivery O2 Flow Rate FiO2 07/18/20 03:11 17 97 Room Air 07/18/20 03:00 98.9 83 136/98 (111) 98.9 Intake and Output 07/18/20 07:00 # Voids 1 Physical Exam Abdomen: Normal bowel sounds, Soft Heart: Regular rate, Normal S1, Normal S2 Extremities: No clubbing General: Alert, Oriented X3 HEENT: Atraumatic Lungs: Clear to auscultation MUSCULOSKELETAL: Other (Bilateral lower extremity edema noted) Neck: Supple Neuro: Normal speech Psych/Mental Status: Mental status NL Skin: No rashes COMMENT upper extremity swelling both Diagnosis Problem List Problems Medical Problems: (1) Generalized pain Status: Acute (2) Lung cancer Status: Acute Assessment Assessment Problems Medical Problems: (1) Generalized pain Status: Acute (2) Lung cancer Status: Acute FINAL IMPRESSION:Pain issues 1. 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 2. Coronary artery disease, history of previous stents. 3. Recent cerebrovascular accident. 4. General decline and debility. 5. Hypertension. 6. Hyperlipidemia. 7. Pain not controlled as outpatient. Plan Try dilaudid oi for pain Patient is on IV Dilaudid RN OUTPATIENT SURGERY for pain management. Anemia- recheck labs in a.m. Hypertension-not controlled. This may be due to pain. Increase hydralazine to 100 mg 3 times a day. Low back pain-patient does not want any muscle relaxers Check labs, pot 3.4 Prognosis is very poor Plan Plan of Care Problems Medical Problems: (1) Generalized pain Status: Acute (2) Lung cancer Status: Acute Comment Review of Relevant I have reviewed the following items dina (where applicable) has been applied. Labs Laboratory Tests Test 07/18/20 03:30 White Blood Count 4.1 x10^3/uL (4.0-11.0) Red Blood Count 3.19 x10^6/uL (3.50-5.40) Hemoglobin 8.4 g/dL (12.0-15.5) Hematocrit 26.0 % (36.0-47.0) Mean Corpuscular Volume 82 fL (79-100) Mean Corpuscular Hemoglobin 26 pg (25-35) Mean Corpuscular Hemoglobin Concent 32 g/dL (31-37) Red Cell Distribution Width 23.2 % (11.5-14.5) Platelet Count 171 x10^3/uL (140-400) Neutrophils (%) (Auto) 66 % (31-73) Lymphocytes (%) (Auto) 18 % (24-48) Monocytes (%) (Auto) 14 % (0-9) Eosinophils (%) (Auto) 2 % (0-3) Basophils (%) (Auto) 1 % (0-3) Neutrophils # (Auto) 2.7 x10^3/uL (1.8-7.7) Lymphocytes # (Auto) 0.7 x10^3/uL (1.0-4.8) Monocytes # (Auto) 0.6 x10^3/uL (0.0-1.1) Eosinophils # (Auto) 0.1 x10^3/uL (0.0-0.7) Basophils # (Auto) 0.0 x10^3/uL (0.0-0.2) Sodium Level 142 mmol/L (136-145) Potassium Level 3.4 mmol/L (3.5-5.1) Chloride Level 108 mmol/L (98-107) Carbon Dioxide Level 29 mmol/L (21-32) Anion Gap 5 (6-14) Blood Urea Nitrogen 11 mg/dL (7-20) Creatinine 1.1 mg/dL (0.6-1.0) Estimated GFR (Cockcroft-Gault) 62.9 Glucose Level 101 mg/dL (70-99) Calcium Level 8.2 mg/dL (8.5-10.1) Medications Current Medications Hydralazine HCl (Apresoline) 100 mg TID PO Last administered on 07/17/20at 20:10; Start 07/17/20 at 14:00 Polyethylene Glycol (miraLAX PACKET) 17 gm PRN DAILY PRN PO CONSTIPATION, 1ST CHOICE; Start 07/17/20 at 19:30 Vitals/I & O Vital Sign - Last 24 Hours 07/17/20 07/17/20 07/17/20 07/17/20 08:59 09:00 09:01 11:00 Temp 98.6 98.6 Pulse 81 81 81 86 Resp 16 B/P (MAP) 154/113 154/113 154/113 140/102 (115) Pulse Ox 96 O2 Delivery Room Air 07/17/20 07/17/20 07/17/20 07/17/20 14:55 15:00 17:39 19:00 Temp 98.0 98.6 98.0 98.6 Pulse 83 84 84 Resp 16 18 B/P (MAP) 140/98 122/91 (101) 151/111 119/85 (96) Pulse Ox 95 96 O2 Delivery Room Air Room Air 07/17/20 07/17/20 07/17/20 07/17/20 20:00 20:10 20:51 21:21 Pulse 84 Resp 18 B/P (MAP) 119/85 Pulse Ox 96 97 O2 Delivery Room Air Room Air Room Air 07/17/20 07/18/20 07/18/20 07/18/20 23:00 02:41 03:00 03:11 Temp 98.3 98.9 98.3 98.9 Pulse 84 83 Resp 18 18 17 17 B/P (MAP) 116/83 (94) 136/98 (111) Pulse Ox 97 97 96 97 O2 Delivery Room Air Room Air Room Air Room Air Justifications for Admission Other Justification Nutrition Consultation Dietary Evaluation: Recommendations by RD: Dietary education by RD Comments: honor food preferences , offer snacks/ supplements from unit prn Expected Outcomes/Goals: to meet >75% est nutr needs Interpretation of weight loss: >10% in 6 months Malnutrition Findings: Weight Status: Appropriate SHARMAINE SAEED MD Jul 18, 2020 08:34
--- NOTE | 2020-07-18 08:53 | PDOC ---
PROGRESS NOTES Date of Service DATE: 07/18/20 TIME: 08:51 Subjective Subjective She admits continues right knee pain and stiffness. Objective Objective Vital Signs Date Time Temp Pulse Resp B/P (MAP) Pulse Ox O2 Delivery O2 Flow Rate FiO2 07/18/20 03:11 17 97 Room Air 07/18/20 03:00 98.9 83 136/98 (111) 98.9 Intake and Output 07/18/20 07:00 # Voids 1 Physical Exam Physical Exam She is alert,sitting in bed and she continues with crepitus and pain on ROM of right knee joint with associated effusion. She is still hesitant to have injection. Assessment Assessment Problems Medical Problems: (1) Generalized pain Status: Acute (2) Lung cancer Status: Acute Plan Plan of Care To get her up as tolerated. Comment Review of Relevant I have reviewed the following items dian (where applicable) has been applied. Labs Laboratory Tests Test 07/18/20 03:30 White Blood Count 4.1 x10^3/uL (4.0-11.0) Red Blood Count 3.19 x10^6/uL (3.50-5.40) Hemoglobin 8.4 g/dL (12.0-15.5) Hematocrit 26.0 % (36.0-47.0) Mean Corpuscular Volume 82 fL (79-100) Mean Corpuscular Hemoglobin 26 pg (25-35) Mean Corpuscular Hemoglobin Concent 32 g/dL (31-37) Red Cell Distribution Width 23.2 % (11.5-14.5) Platelet Count 171 x10^3/uL (140-400) Neutrophils (%) (Auto) 66 % (31-73) Lymphocytes (%) (Auto) 18 % (24-48) Monocytes (%) (Auto) 14 % (0-9) Eosinophils (%) (Auto) 2 % (0-3) Basophils (%) (Auto) 1 % (0-3) Neutrophils # (Auto) 2.7 x10^3/uL (1.8-7.7) Lymphocytes # (Auto) 0.7 x10^3/uL (1.0-4.8) Monocytes # (Auto) 0.6 x10^3/uL (0.0-1.1) Eosinophils # (Auto) 0.1 x10^3/uL (0.0-0.7) Basophils # (Auto) 0.0 x10^3/uL (0.0-0.2) Sodium Level 142 mmol/L (136-145) Potassium Level 3.4 mmol/L (3.5-5.1) Chloride Level 108 mmol/L (98-107) Carbon Dioxide Level 29 mmol/L (21-32) Anion Gap 5 (6-14) Blood Urea Nitrogen 11 mg/dL (7-20) Creatinine 1.1 mg/dL (0.6-1.0) Estimated GFR (Cockcroft-Gault) 62.9 Glucose Level 101 mg/dL (70-99) Calcium Level 8.2 mg/dL (8.5-10.1) Laboratory Tests Test 07/18/20 03:30 White Blood Count 4.1 x10^3/uL (4.0-11.0) Red Blood Count 3.19 x10^6/uL (3.50-5.40) Hemoglobin 8.4 g/dL (12.0-15.5) Hematocrit 26.0 % (36.0-47.0) Mean Corpuscular Volume 82 fL (79-100) Mean Corpuscular Hemoglobin 26 pg (25-35) Mean Corpuscular Hemoglobin Concent 32 g/dL (31-37) Red Cell Distribution Width 23.2 % (11.5-14.5) Platelet Count 171 x10^3/uL (140-400) Neutrophils (%) (Auto) 66 % (31-73) Lymphocytes (%) (Auto) 18 % (24-48) Monocytes (%) (Auto) 14 % (0-9) Eosinophils (%) (Auto) 2 % (0-3) Basophils (%) (Auto) 1 % (0-3) Neutrophils # (Auto) 2.7 x10^3/uL (1.8-7.7) Lymphocytes # (Auto) 0.7 x10^3/uL (1.0-4.8) Monocytes # (Auto) 0.6 x10^3/uL (0.0-1.1) Eosinophils # (Auto) 0.1 x10^3/uL (0.0-0.7) Basophils # (Auto) 0.0 x10^3/uL (0.0-0.2) Sodium Level 142 mmol/L (136-145) Potassium Level 3.4 mmol/L (3.5-5.1) Chloride Level 108 mmol/L (98-107) Carbon Dioxide Level 29 mmol/L (21-32) Anion Gap 5 (6-14) Blood Urea Nitrogen 11 mg/dL (7-20) Creatinine 1.1 mg/dL (0.6-1.0) Estimated GFR (Cockcroft-Gault) 62.9 Glucose Level 101 mg/dL (70-99) Calcium Level 8.2 mg/dL (8.5-10.1) Medications Current Medications Hydromorphone HCl (Dilaudid) 1 mg 1X ONCE IVP Last administered on 07/12/20at 12:44; Start 07/12/20 at 12:45; Stop 07/12/20 at 12:46; Status DC Hydromorphone HCl (Dilaudid) 2 mg 1X ONCE IVP Last administered on 07/12/20at 13:04; Start 07/12/20 at 13:00; Stop 07/12/20 at 13:01; Status DC Oxycodone HCl (Roxicodone) 10 mg 1X ONCE PO Last administered on 07/12/20at 13:56; Start 07/12/20 at 14:00; Stop 07/12/20 at 14:01; Status DC Ondansetron HCl (Zofran) 4 mg PRN Q8HRS PRN IV NAUSEA/VOMITING Last administered on 07/12/20at 17:42; Start 07/12/20 at 14:45; Stop 07/13/20 at 14:44; Status DC Aspirin (Aspirin Chewable) 81 mg DAILY PO Last administered on 07/17/20at 08:59; Start 07/12/20 at 16:00 Clopidogrel Bisulfate (Plavix) 75 mg DAILY PO Last administered on 07/17/20at 08:58; Start 07/12/20 at 16:00 Diphenhydramine HCl (Benadryl) 25 mg PRN DAILY PRN PO ALLERGIES; Start 07/12/20 at 15:30 Hydralazine HCl (Apresoline) 25 mg TID PO Last administered on 07/17/20at 09:01; Start 07/12/20 at 16:00; Stop 07/17/20 at 12:29; Status DC Metoclopramide HCl (Reglan) 10 mg PRN TID PRN PO NAUSEA Last administered on 07/16/20at 13:24; Start 07/12/20 at 15:30 Nitroglycerin (Nitrostat) 0.4 mg PRN Q5MIN PRN SL CHEST PAIN; Start 07/12/20 at 15:30 Carvedilol (Coreg) 25 mg BIDWMEALS PO Last administered on 07/17/20at 17:39; Start 07/12/20 at 17:00 Isosorbide Mononitrate (Imdur) 60 mg DAILY PO Last administered on 07/17/20at 09:00; Start 07/13/20 at 09:00 Ondansetron HCl (Zofran Odt) 8 mg Q8HRS PO ; Start 07/12/20 at 22:00 Oxycodone HCl (Roxicodone) 10 mg PRN Q6HRS PRN PO PAIN Last administered on 07/17/20at 14:52; Start 07/12/20 at 15:45 Non-Formulary Medication (Oxycodone Hcl (Oxycodone Hcl Immed.release)) 1 tab QIDPRN PRN PO pain; Start 07/12/20 at 15:30; Status UNV Non-Formulary Medication (Rosuvastatin Calcium (Crestor)) 2 tab DAILY PO ; Start 07/13/20 at 09:00; Status UNV Potassium Chloride/Sodium Chloride 1,000 ml @ 100 mls/hr Q10H IV Last administered on 07/15/20at 21:20; Start 07/12/20 at 16:00; Stop 07/16/20 at 10:05; Status DC Magnesium Hydroxide (Milk Of Magnesia) 2,400 mg PRN Q12HR PRN PO CONSTIPATION, 2ND CHOICE Last administered on 07/17/20at 08:58; Start 07/12/20 at 15:30 Lactulose (Lactulose) 20 gm PRN Q12HR PRN PO CONSTIPATION- 2ND CHOICE; Start 07/12/20 at 15:30 Bisacodyl (Dulcolax Supp) 10 mg PRN DAILY PRN MA CONSTIPATION; Start 07/12/20 at 15:30 Enoxaparin Sodium (Lovenox 40mg Syringe) 40 mg Q24H SQ ; Start 07/12/20 at 16:00; Status UNV Hydromorphone HCl (Dilaudid) 1 mg PRN Q3HRS ONCE IVP ; Start 07/12/20 at 17:15; Stop 07/12/20 at 17:16; Status Cancel Hydromorphone HCl (Dilaudid) 2 mg PRN Q3HRS PRN IVP PAIN Last administered on 07/13/20at 06:17; Start 07/12/20 at 17:15; Stop 07/13/20 at 08:49; Status DC Hydromorphone HCl (Dilaudid) 1 mg PRN Q3HRS PRN IVP MODERATE PAIN 4-6; Start 07/12/20 at 17:15; Stop 07/13/20 at 08:49; Status DC Naloxone HCl (Narcan) 0.4 mg PRN Q2MIN PRN IV SEE INSTRUCTIONS; Start 07/13/20 at 09:00 Sodium Chloride 1,000 ml @ 25 mls/hr Q24H IV Last administered on 07/17/20at 20:10; Start 07/13/20 at 08:46 Hydromorphone HCl 30 ml @ 0 mls/hr CONT PRN PRN IV PER PROTOCOL Last administered on 07/13/20at 09:47; Start 07/13/20 at 09:00; Stop 07/13/20 at 15:24; Status DC Iohexol (Omnipaque 240 Mg/ml) 30 ml 1X ONCE PO Last administered on 07/13/20at 09:30; Start 07/13/20 at 09:30; Stop 07/13/20 at 09:31; Status DC Iohexol (Omnipaque 300 Mg/ml) 75 ml 1X ONCE IV Last administered on 07/13/20at 11:00; Start 07/13/20 at 09:30; Stop 07/13/20 at 09:31; Status DC Info (CONTRAST GIVEN -- Rx MONITORING) 1 each PRN DAILY PRN MC SEE COMMENTS; Start 07/13/20 at 09:30; Stop 07/15/20 at 09:29; Status DC Hydromorphone HCl 30 ml @ 0 mls/hr CONT PRN PRN IV PER PROTOCOL; Start 07/13/20 at 15:30; Stop 07/13/20 at 19:57; Status DC Hydromorphone HCl 30 ml @ 0 mls/hr CONT PRN PRN IV PER PROTOCOL Last administered on 07/13/20at 22:26; Start 07/13/20 at 20:00; Stop 07/14/20 at 07:57; Status DC Hydromorphone HCl 30 ml @ 0 mls/hr CONT PRN PRN IV PER PROTOCOL Last administered on 07/18/20at 02:41; Start 07/14/20 at 08:00 Diclofenac Sodium (Voltaren) 1 heaven BID TP Last administered on 07/17/20at 20:12; Start 07/15/20 at 12:00 Potassium Chloride (Klor-Con) 20 meq DAILYWBKFT PO Last administered on 07/17/20at 08:58; Start 07/16/20 at 10:00; Stop 07/18/20 at 08:39; Status DC Torsemide (Demadex) 60 mg DAILY PO Last administered on 07/16/20at 13:21; Start 07/16/20 at 10:00 Enoxaparin Sodium (Lovenox 40mg Syringe) 40 mg Q24H SQ Last administered on 07/17/20at 09:05; Start 07/16/20 at 10:00 Hydralazine HCl (Apresoline) 100 mg TID PO Last administered on 07/17/20at 20:10; Start 07/17/20 at 14:00 Polyethylene Glycol (miraLAX PACKET) 17 gm PRN DAILY PRN PO CONSTIPATION, 1ST C HOICE; Start 07/17/20 at 19:30 Potassium Chloride (Klor-Con) 20 meq 1X ONCE PO ; Start 07/18/20 at 09:00; Stop 07/18/20 at 09:01 Hydromorphone HCl (Dilaudid) 4 mg PRN Q4HRS PRN PO PAIN; Start 07/18/20 at 08:45 Hydromorphone HCl (Dilaudid) 2 mg PRN Q4HRS PRN IVP PAIN; Start 07/18/20 at 08:45 Potassium Chloride (Klor-Con) 40 meq DAILYWBKFT PO ; Start 07/19/20 at 08:00 Active Scripts Active Oxycodone Hcl 5 Mg Capsule 10 Mg PO PRN Q6HRS PRN Reglan (Metoclopramide Hcl) 10 Mg Tablet 1 Tab PO TID PRN 5 Days before food and bedtime Klor-Con M20 (Potassium Chloride) 20 Meq Tab.er.prt 20 Meq PO DAILYWBKFT 30 Days Zofran (Ondansetron Hcl) 8 Mg Tablet 1 Tab PO Q8HRS Reported Oxycodone Hcl Immed.release (Oxycodone Hcl) 10 Mg Tablet 1 Tab PO QIDPRN PRN MDD 4 Tablet(s) 30 Days Clopidogrel (Clopidogrel Bisulfate) 75 Mg Tablet 75 Mg PO DAILY HOLD til 05/25 Aspirin 81 Mg Tab.chew 1 Tab PO DAILY HOLD til 05/25 NITROGLYCERIN SubLingual (Nitroglycerin) 0.4 Mg Tab.subl 0.4 Mg SL PRN Q5MIN PRN Hydralazine Hcl 25 Mg Tablet 1 Tab PO TID Diphenhydramine Hcl 25 Mg Capsule 1 Tab PO PRN DAILY PRN Isosorbide Mononitrate Er (Isosorbide Mononitrate) 60 Mg Tab.er.24h 1 Tab PO DAILY Torsemide 20 Mg Tablet 60 Mg PO DAILY Crestor (Rosuvastatin Calcium) 20 Mg Tablet 2 Tab PO DAILY Carvedilol 25 Mg Tablet 2 Tab PO BID Vitals/I & O Vital Sign - Last 24 Hours 07/17/20 07/17/20 07/17/20 07/17/20 08:59 09:00 09:01 11:00 Temp 98.6 98.6 Pulse 81 81 81 86 Resp 16 B/P (MAP) 154/113 154/113 154/113 140/102 (115) Pulse Ox 96 O2 Delivery Room Air 07/17/20 07/17/20 07/17/20 07/17/20 14:55 15:00 17:39 19:00 Temp 98.0 98.6 98.0 98.6 Pulse 83 84 84 Resp 16 18 B/P (MAP) 140/98 122/91 (101) 151/111 119/85 (96) Pulse Ox 95 96 O2 Delivery Room Air Room Air 07/17/20 07/17/20 07/17/20 07/17/20 20:00 20:10 20:51 21:21 Pulse 84 Resp 18 B/P (MAP) 119/85 Pulse Ox 96 97 O2 Delivery Room Air Room Air Room Air 07/17/20 07/18/20 07/18/208/20 23:00 02:41 03:00 03:11 Temp 98.3 98.9 98.3 98.9 Pulse 84 83 Resp 18 18 17 17 B/P (MAP) 116/83 (94) 136/98 (111) Pulse Ox 97 97 96 97 O2 Delivery Room Air Room Air Room Air Room Air Justifications for Admission Other Justification Nutrition Consultation Dietary Evaluation: Recommendations by RD: Dietary education by RD Comments: honor food preferences , offer snacks/ supplements from unit prn Expected Outcomes/Goals: to meet >75% est nutr needs Interpretation of weight loss: >10% in 6 months Malnutrition Findings: Weight Status: Appropriate ROBBIE GUZMAN MD Jul 18, 2020 08:53
[2020-07-18] MEDS: ASPIRIN CHEWABLE 81 MG TABLET. PO SCH (08:59)
[2020-07-18] MEDS ORDERED: POTASSIUM CHLORIDE 20 MEQ TABLET.ER. PO ONE (09:00)
[2020-07-18] MEDS: oxyCODONE IR 5 MG TABLET PO PRN ×2 (09:00→15:21)
[2020-07-18] MEDS: HYDROmorphone 4 MG TABLET PO PRN ×4 (09:02→22:21)
[2020-07-18] MEDS: CARVEDILOL 12.5 MG TABLET. PO SCH ×2 (09:04→17:43)
[2020-07-18] MEDS: TORSEMIDE 20 MG TABLET. PO SCH (09:05)
[2020-07-18] MEDS: CLOPIDOGREL BISULFATE 75 MG TABLET PO SCH (09:05)
[2020-07-18] MEDS: POTASSIUM CHLORIDE 20 MEQ TABLET.ER. PO SCH (09:06)
[2020-07-18] MEDS: ISOSORBIDE MONONITRATE ER 30 MG TAB.ER.24H PO SCH (09:07)
[2020-07-18] MEDS: ENOXAPARIN 40 MG/0.4 ML SYRINGE. SQ SCH (09:09)
[2020-07-18] MEDS: DICLOFENAC SODIUM 1% TOPICAL GEL 100GM TUBE. TP SCH ×2 (09:09→22:16)
[2020-07-18 11:00] VITALS: BP 106/76
[2020-07-18] MEDS: HYDROmorphone 2 MG/ML VIAL IVP PRN ×3 (11:05→20:31)
--- NOTE | 2020-07-18 11:37 | NUR ---
SW following. Spoke with RN and reviewed chart. Pt from home with daughter. Spoke with pt and discharge plan remains home self-care with out-patient follow up to oncology. Pt will likely discharge tomorrow, 07/19. No further SW needs identified.
--- NOTE | 2020-07-18 12:35 | PDOC ---
PROGRESS NOTES Date of Service DATE: 07/18/20 TIME: 12:26 Subjective Subjective Sarah was seen in a follow-up visit today. She reports that her pain has improved. She is interested in trying oral Dilaudid pills today. She denies fever or chills or chest pain or shortness of breath. Objective Objective Vital Signs Date Time Temp Pulse Resp B/P (MAP) Pulse Ox O2 Delivery O2 Flow Rate FiO2 07/18/20 11:00 98.3 84 18 106/76 (86) 97 98.3 07/18/20 08:00 Room Air Intake and Output 07/18/20 07:00 # Voids 1 Physical Exam Abdomen: Normal bowel sounds, Soft Heart: Regular rate, Normal S1, Normal S2 Extremities: No clubbing General: Alert, Oriented X3 HEENT: Atraumatic Lungs: Clear to auscultation MUSCULOSKELETAL: No swelling Neck: Supple Neuro: Normal gait, Normal speech Psych/Mental Status: Mental status NL Skin: No rashes Assessment Assessment Metastatic lung adenocarcinoma on first-line systemic therapy with ipilimumab and nivolumab Cancer related pain Subcutaneous metastasis with worsening symptoms Recent stroke Coronary artery disease Hypertension Plan Plan of Care -I previously reviewed the results of CT scans of the abdomen, chest and pelvis which showed progressive non-small cell lung cancer -Previously discussed switching systemic therapy from ipilimumab and nivolumab to a chemotherapy-based regimen. Sarah has not decided if she would like to pursue this further and plans on discussing with her daughter, Tasha -She will be seen in follow-up immediately following discharge to further discuss chemotherapy and begin systemic therapy. Adenosquamous histology, can consider carboplatin and paclitaxel or carboplatin and pemetrexed or single agent docetaxel -Continue optimizing her pain management today and I once again recommended starting an extended release opiate. She is hesitant to do so at this time and would like to discuss further with her daughter. -Her stated outpatient pain medication regimen that controlled pain was oxycodone 30 mg every 4 hours equating to 180 mg daily dose of oxycodone. Would plan on starting OxyContin 20 mg twice daily and continue with current oxycodone 30 mg every 4 hours as needed -Continue with pain control per Dr Cortes while inpatient. She is on a [employer] with Dilaudid and oral Dilaudid has been added as well. -Continue bowel regimen given significant pain medication needs -She has a pain management agreement with me and I would be happy to prescribe her pain medications at the time of discharge Venancio Prescott MD Medical Oncology/Hematology Ph: [phone] Comment Review of Relevant I have reviewed the following items dina (where applicable) has been applied. Labs Laboratory Tests Test 07/18/20 03:30 White Blood Count 4.1 x10^3/uL (4.0-11.0) Red Blood Count 3.19 x10^6/uL (3.50-5.40) Hemoglobin 8.4 g/dL (12.0-15.5) Hematocrit 26.0 % (36.0-47.0) Mean Corpuscular Volume 82 fL (79-100) Mean Corpuscular Hemoglobin 26 pg (25-35) Mean Corpuscular Hemoglobin Concent 32 g/dL (31-37) Red Cell Distribution Width 23.2 % (11.5-14.5) Platelet Count 171 x10^3/uL (140-400) Neutrophils (%) (Auto) 66 % (31-73) Lymphocytes (%) (Auto) 18 % (24-48) Monocytes (%) (Auto) 14 % (0-9) Eosinophils (%) (Auto) 2 % (0-3) Basophils (%) (Auto) 1 % (0-3) Neutrophils # (Auto) 2.7 x10^3/uL (1.8-7.7) Lymphocytes # (Auto) 0.7 x10^3/uL (1.0-4.8) Monocytes # (Auto) 0.6 x10^3/uL (0.0-1.1) Eosinophils # (Auto) 0.1 x10^3/uL (0.0-0.7) Basophils # (Auto) 0.0 x10^3/uL (0.0-0.2) Sodium Level 142 mmol/L (136-145) Potassium Level 3.4 mmol/L (3.5-5.1) Chloride Level 108 mmol/L (98-107) Carbon Dioxide Level 29 mmol/L (21-32) Anion Gap 5 (6-14) Blood Urea Nitrogen 11 mg/dL (7-20) Creatinine 1.1 mg/dL (0.6-1.0) Estimated GFR (Cockcroft-Gault) 62.9 Glucose Level 101 mg/dL (70-99) Calcium Level 8.2 mg/dL (8.5-10.1) Laboratory Tests Test 07/18/20 03:30 White Blood Count 4.1 x10^3/uL (4.0-11.0) Red Blood Count 3.19 x10^6/uL (3.50-5.40) Hemoglobin 8.4 g/dL (12.0-15.5) Hematocrit 26.0 % (36.0-47.0) Mean Corpuscular Volume 82 fL (79-100) Mean Corpuscular Hemoglobin 26 pg (25-35) Mean Corpuscular Hemoglobin Concent 32 g/dL (31-37) Red Cell Distribution Width 23.2 % (11.5-14.5) Platelet Count 171 x10^3/uL (140-400) Neutrophils (%) (Auto) 66 % (31-73) Lymphocytes (%) (Auto) 18 % (24-48) Monocytes (%) (Auto) 14 % (0-9) Eosinophils (%) (Auto) 2 % (0-3) Basophils (%) (Auto) 1 % (0-3) Neutrophils # (Auto) 2.7 x10^3/uL (1.8-7.7) Lymphocytes # (Auto) 0.7 x10^3/uL (1.0-4.8) Monocytes # (Auto) 0.6 x10^3/uL (0.0-1.1) Eosinophils # (Auto) 0.1 x10^3/uL (0.0-0.7) Basophils # (Auto) 0.0 x10^3/uL (0.0-0.2) Sodium Level 142 mmol/L (136-145) Potassium Level 3.4 mmol/L (3.5-5.1) Chloride Level 108 mmol/L (98-107) Carbon Dioxide Level 29 mmol/L (21-32) Anion Gap 5 (6-14) Blood Urea Nitrogen 11 mg/dL (7-20) Creatinine 1.1 mg/dL (0.6-1.0) Estimated GFR (Cockcroft-Gault) 62.9 Glucose Level 101 mg/dL (70-99) Calcium Level 8.2 mg/dL (8.5-10.1) Medications Current Medications Hydromorphone HCl (Dilaudid) 1 mg 1X ONCE IVP Last administered on 07/12/20 12:44; Start 07/12/20 at 12:45; Stop 07/12/20 at 12:46; Status DC Hydromorphone HCl (Dilaudid) 2 mg 1X ONCE IVP Last administered on 07/12/20 13:04; Start 07/12/20 at 13:00; Stop 07/12/20 at 13:01; Status DC Oxycodone HCl (Roxicodone) 10 mg 1X ONCE PO Last administered on 07/12/20 13:56; Start 07/12/20 at 14:00; Stop 07/12/20 at 14:01; Status DC Ondansetron HCl (Zofran) 4 mg PRN Q8HRS PRN IV NAUSEA/VOMITING Last administered on 07/12/20 17:42; Start 07/12/20 at 14:45; Stop 07/13/20 at 14:44; Status DC Aspirin (Aspirin Chewable) 81 mg DAILY PO Last administered on 07/18/20 08:59; Start 07/12/20 at 16:00 Clopidogrel Bisulfate (Plavix) 75 mg DAILY PO Last administered on 07/18/20 09:05; Start 07/12/20 at 16:00 Diphenhydramine HCl (Benadryl) 25 mg PRN DAILY PRN PO ALLERGIES; Start 07/12/20 at 15:30 Hydralazine HCl (Apresoline) 25 mg TID PO Last administered on 07/17/20 09:01; Start 07/12/20 at 16:00; Stop 07/17/20 at 12:29; Status DC Metoclopramide HCl (Reglan) 10 mg PRN TID PRN PO NAUSEA Last administered on 07/16/20 13:24; Start 07/12/20 at 15:30 Nitroglycerin (Nitrostat) 0.4 mg PRN Q5MIN PRN SL CHEST PAIN; Start 07/12/20 at 15:30 Carvedilol (Coreg) 25 mg BIDWMEALS PO Last administered on 07/18/20 09:04; Start 07/12/20 at 17:00 Isosorbide Mononitrate (Imdur) 60 mg DAILY PO Last administered on 9/8/20at 09:07; Start 07/13/20 at 09:00 Ondansetron HCl (Zofran Odt) 8 mg Q8HRS PO ; Start 07/12/20 at 22:00 Oxycodone HCl (Roxicodone) 10 mg PRN Q6HRS PRN PO PAIN Last administered on 07/18/20at 09:00; Start 07/12/20 at 15:45 Non-Formulary Medication (Oxycodone Hcl (Oxycodone Hcl Immed.release)) 1 tab QIDPRN PRN PO pain; Start 07/12/20 at 15:30; Status UNV Non-Formulary Medication (Rosuvastatin Calcium (Crestor)) 2 tab DAILY PO ; Start 07/13/20 at 09:00; Status UNV Potassium Chloride/Sodium Chloride 1,000 ml @ 100 mls/hr Q10H IV Last administered on 07/15/20at 21:20; Start 07/12/20 at 16:00; Stop 07/16/20 at 10:05; Status DC Magnesium Hydroxide (Milk Of Magnesia) 2,400 mg PRN Q12HR PRN PO CONSTIPATION, 2ND CHOICE Last administered on 07/17/20at 08:58; Start 07/12/20 at 15:30 Lactulose (Lactulose) 20 gm PRN Q12HR PRN PO CONSTIPATION- 2ND CHOICE; Start 07/12/20 at 15:30 Bisacodyl (Dulcolax Supp) 10 mg PRN DAILY PRN WI CONSTIPATION; Start 07/12/20 at 15:30 Enoxaparin Sodium (Lovenox 40mg Syringe) 40 mg Q24H SQ ; Start 07/12/20 at 16:00; Status UNV Hydromorphone HCl (Dilaudid) 1 mg PRN Q3HRS ONCE IVP ; Start 07/12/20 at 17:15; Stop 07/12/20 at 17:16; Status Cancel Hydromorphone HCl (Dilaudid) 2 mg PRN Q3HRS PRN IVP PAIN Last administered on 07/13/20at 06:17; Start 07/12/20 at 17:15; Stop 07/13/20 at 08:49; Status DC Hydromorphone HCl (Dilaudid) 1 mg PRN Q3HRS PRN IVP MODERATE PAIN 4-6; Start 07/12/20 at 17:15; Stop 07/13/20 at 08:49; Status DC Naloxone HCl (Narcan) 0.4 mg PRN Q2MIN PRN IV SEE INSTRUCTIONS; Start 07/13/20 at 09:00; Stop 07/18/20 at 11:40; Status DC Sodium Chloride 1,000 ml @ 25 mls/hr Q24H IV Last administered on 07/17/20at 20:10; Start 07/13/20 at 08:46; Stop 07/18/20 at 11:40; Status DC Hydromorphone HCl 30 ml @ 0 mls/hr CONT PRN PRN IV PER PROTOCOL Last administered on 07/13/20at 09:47; Start 07/13/20 at 09:00; Stop 07/13/20 at 15:24; Status DC Iohexol (Omnipaque 240 Mg/ml) 30 ml 1X ONCE PO Last administered on 07/13/20at 09:30; Start 07/13/20 at 09:30; Stop 07/13/20 at 09:31; Status DC Iohexol (Omnipaque 300 Mg/ml) 75 ml 1X ONCE IV Last administered on 07/13/20at 11:00; Start 07/13/20 at 09:30; Stop 07/13/20 at 09:31; Status DC Info (CONTRAST GIVEN -- Rx MONITORING) 1 each PRN DAILY PRN MC SEE COMMENTS; Start 07/13/20 at 09:30; Stop 07/15/20 at 09:29; Status DC Hydromorphone HCl 30 ml @ 0 mls/hr CONT PRN PRN IV PER PROTOCOL; Start 07/13/20 at 15:30; Stop 07/13/20 at 19:57; Status DC Hydromorphone HCl 30 ml @ 0 mls/hr CONT PRN PRN IV PER PROTOCOL Last administered on 07/13/20at 22:26; Start 07/13/20 at 20:00; Stop 07/14/20 at 07:57; Status DC Hydromorphone HCl 30 ml @ 0 mls/hr CONT PRN PRN IV PER PROTOCOL Last administered on 07/18/20at 02:41; Start 07/14/20 at 08:00; Stop 07/18/20 at 11:40; Status DC Diclofenac Sodium (Voltaren) 1 heaven BID TP Last administered on 07/18/20at 09:09; Start 07/15/20 at 12:00 Potassium Chloride (Klor-Con) 20 meq DAILYWBKFT PO Last administered on 07/17/20at 08:58; Start 07/16/20 at 10:00; Stop 07/18/20 at 08:39; Status DC Torsemide (Demadex) 60 mg DAILY PO Last administered on 07/18/20at 09:05; Start 07/16/20 at 10:00 Enoxaparin Sodium (Lovenox 40mg Syringe) 40 mg Q24H SQ Last administered on 07/18/20at 09:09; Start 07/16/20 at 10:00 Hydralazine HCl (Apresoline) 100 mg TID PO Last administered on 07/18/20at 09:05; Start 07/17/20 at 14:00 Polyethylene Glycol (miraLAX PACKET) 17 gm PRN DAILY PRN PO CONSTIPATION, 1ST CHOICE Last administered on 07/18/20at 08:57; Start 07/17/20 at 19:30 Potassium Chloride (Klor-Con) 20 meq 1X ONCE PO Last administered on 07/18/20at 09:08; Start 07/18/20 at 09:00; Stop 07/18/20 at 09:08; Status DC Hydromorphone HCl (Dilaudid) 4 mg PRN Q4HRS PRN PO PAIN Last administered on 07/18/20at 09:02; Start 07/18/20 at 08:45 Hydromorphone HCl (Dilaudid) 2 mg PRN Q4HRS PRN IVP PAIN Last administered on 07/18/20at 11:05; Start 07/18/20 at 08:45 Potassium Chloride (Klor-Con) 40 meq DAILYWBKFT PO ; Start 07/19/20 at 08:00 Active Scripts Active Oxycodone Hcl 5 Mg Capsule 10 Mg PO PRN Q6HRS PRN Reglan (Metoclopramide Hcl) 10 Mg Tablet 1 Tab PO TID PRN 5 Days before food and bedtime Klor-Con M20 (Potassium Chloride) 20 Meq Tab.er.prt 20 Meq PO DAILYWBKFT 30 Days Zofran (Ondansetron Hcl) 8 Mg Tablet 1 Tab PO Q8HRS Reported Oxycodone Hcl Immed.release (Oxycodone Hcl) 10 Mg Tablet 1 Tab PO QIDPRN PRN MDD 4 Tablet(s) 30 Days Clopidogrel (Clopidogrel Bisulfate) 75 Mg Tablet 75 Mg PO DAILY HOLD til 05/25 Aspirin 81 Mg Tab.chew 1 Tab PO DAILY HOLD til 05/25 NITROGLYCERIN SubLingual (Nitroglycerin) 0.4 Mg Tab.subl 0.4 Mg SL PRN Q5MIN PRN Hydralazine Hcl 25 Mg Tablet 1 Tab PO TID Diphenhydramine Hcl 25 Mg Capsule 1 Tab PO PRN DAILY PRN Isosorbide Mononitrate Er (Isosorbide Mononitrate) 60 Mg Tab.er.24h 1 Tab PO DAILY Torsemide 20 Mg Tablet 60 Mg PO DAILY Crestor (Rosuvastatin Calcium) 20 Mg Tablet 2 Tab PO DAILY Carvedilol 25 Mg Tablet 2 Tab PO BID Vitals/I & O Vital Sign - Last 24 Hours 07/17/20 07/17/20 07/17/20 07/17/20 14:55 15:00 17:39 19:00 Temp 98.0 98.6 98.0 98.6 Pulse 83 84 84 Resp 16 18 B/P (MAP) 140/98 122/91 (101) 151/111 119/85 (96) Pulse Ox 95 96 O2 Delivery Room Air Room Air 07/17/20 07/17/20 07/17/20 07/17/20 20:00 20:10 20:51 21:21 Pulse 84 Resp 18 B/P (MAP) 119/85 Pulse Ox 96 97 O2 Delivery Room Air Room Air Room Air 07/17/20 07/18/20 07/18/20 07/18/20 23:00 02:41 03:00 03:11 Temp 98.3 98.9 98.3 98.9 Pulse 84 83 Resp 18 18 17 17 B/P (MAP) 116/83 (94) 136/98 (111) Pulse Ox 97 97 96 97 O2 Delivery Room Air Room Air Room Air Room Air 07/18/20 07/18/20 07/18/20 07/18/20 07:00 08:00 09:04 09:05 Temp 97.9 97.9 Pulse 80 88 80 Resp 18 B/P (MAP) 157/108 (124) 159/102 157/108 Pulse Ox 97 O2 Delivery Room Air 07/18/20 07/18/20 09:07 11:00 Temp 98.3 98.3 Pulse 88 84 Resp 18 B/P (MAP) 159/102 106/76 (86) Pulse Ox 97 Justifications for Admission Other Justification Nutrition Consultation Dietary Evaluation: Recommendations by RD: Dietary education by RD Comments: honor food preferences , offer snacks/ supplements from unit prn Expected Outcomes/Goals: to meet >75% est nutr needs Interpretation of weight loss: >10% in 6 months Malnutrition Findings: Weight Status: Appropriate SANDRA PRESCOTT MD Jul 18, 2020 12:35
[2020-07-18 15:00] VITALS: BP 139/88
[2020-07-18] MEDS: diphenhydrAMINE HCL 25 MG CAPSULE PO PRN (18:39)
[2020-07-18 19:00] VITALS: BP 132/73
[2020-07-18] MEDS ORDERED: POTA20TA4 PO (20:44)
[2020-07-18] MEDS ORDERED: HYDR-2869 PO (20:44)
[2020-07-18] MEDS ORDERED: POLY17PO28 PO (20:44)
[2020-07-18] MEDS ORDERED: BISA10SU4 PR (20:44)
[2020-07-18] MEDS ORDERED: HYDR4TAB45 PO (20:44)
[2020-07-18 23:00] VITALS: BP 135/99
[2020-07-19] MEDS: HYDROmorphone 2 MG/ML VIAL IVP PRN ×4 (00:50→21:19)
[2020-07-19 03:00] VITALS: BP 144/93
[2020-07-19] MEDS: ONDANSETRON ODT 4 MG TAB.RAPDIS. PO SCH ×3 (06:00→20:40)
[2020-07-19 07:00] VITALS: BP 157/108
[2020-07-19] MEDS: ASPIRIN CHEWABLE 81 MG TABLET. PO SCH (08:27)
[2020-07-19] MEDS: CLOPIDOGREL BISULFATE 75 MG TABLET PO SCH (08:29)
[2020-07-19] MEDS: ISOSORBIDE MONONITRATE ER 30 MG TAB.ER.24H PO SCH (08:29)
[2020-07-19] MEDS: POTASSIUM CHLORIDE 20 MEQ TABLET.ER. PO SCH (08:29)
[2020-07-19] MEDS: TORSEMIDE 20 MG TABLET. PO SCH (08:30)
[2020-07-19] MEDS: CARVEDILOL 12.5 MG TABLET. PO SCH ×2 (08:30→17:06)
[2020-07-19] MEDS: DICLOFENAC SODIUM 1% TOPICAL GEL 100GM TUBE. TP SCH ×2 (08:31→21:20)
--- NOTE | 2020-07-19 08:34 | PDOC ---
PROGRESS NOTES Date of Service: DATE: 07/19/20 TIME: 08:33 Subjective Subjective rt knee pain Objective Objective Vital Signs Date Time Temp Pulse Resp B/P (MAP) Pulse Ox O2 Delivery O2 Flow Rate FiO2 07/19/20 08:30 74 157/108 07/19/20 08:17 20 96 Room Air 07/19/20 03:00 98.7 98.7 Intake and Output 07/19/20 07:00 Intake Total 1540 ml Output Total 2000 ml Balance -460 ml Intake Oral 1540 ml Output Urine Total 2000 ml # Voids 4 Physical Exam Abdomen: Normal bowel sounds, Soft Heart: Regular rate, Normal S1, Normal S2 Extremities: No clubbing General: Alert, Oriented X3 HEENT: Atraumatic Lungs: Clear to auscultation MUSCULOSKELETAL: No swelling Neck: Supple Neuro: Normal gait, Normal speech Psych/Mental Status: Mental status NL Skin: No rashes COMMENT upper extremity swelling both Diagnosis Problem List Problems Medical Problems: (1) Generalized pain Status: Acute (2) Lung cancer Status: Acute Assessment Assessment Problems Medical Problems: (1) Generalized pain Status: Acute (2) Lung cancer Status: Acute FINAL IMPRESSION:Pain issues, rt knee pain 1. 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 2. Coronary artery disease, history of previous stents. 3. Recent cerebrovascular accident. 4. General decline and debility. 5. Hypertension. 6. Hyperlipidemia. 7. Pain not controlled as outpatient. Plan: cortisone inj to rt knee po dilaudid for pain, off GI TECH d/c home later today. Hypertension-not controlled. This may be due to pain. Increase hydralazine to 100 mg 3 times a day. Prognosis is very poor Plan Plan of Care Problems Medical Problems: (1) Generalized pain Status: Acute (2) Lung cancer Status: Acute Comment Review of Relevant I have reviewed the following items dina (where applicable) has been applied. Medications Current Medications Hydromorphone HCl (Dilaudid) 2 mg PRN Q4HRS PRN IVP PAIN Last administered on 07/19/20at 08:17; Start 07/18/20 at 08:45 Hydromorphone HCl (Dilaudid) 4 mg PRN Q4HRS PRN PO PAIN Last administered on 07/18/20at 22:21; Start 07/18/20 at 08:45 Potassium Chloride (Klor-Con) 20 meq 1X ONCE PO Last administered on 07/18/20at 09:08; Start 07/18/20 at 09:00; Stop 07/18/20 at 09:08; Status DC Potassium Chloride (Klor-Con) 40 meq DAILYWBKFT PO Last administered on 07/19/20at 08:29; Start 07/19/20 at 08:00 Vitals/I & O Vital Sign - Last 24 Hours 07/18/20 07/18/20 07/18/20 07/18/20 09:04 09:05 09:07 11:00 Temp 98.3 98.3 Pulse 88 80 88 84 Resp 18 B/P (MAP) 159/102 157/108 159/102 106/76 (86) Pulse Ox 97 07/18/20 07/18/20 07/18/20 07/18/20 13:39 15:00 17:43 19:00 Temp 98.6 98.6 98.6 98.6 Pulse 87 82 82 82 Resp 18 20 B/P (MAP) 142/88 139/88 (105) 139/88 132/73 (92) Pulse Ox 97 97 O2 Delivery Room Air 07/18/20 07/18/20 07/18/20 07/18/20 20:20 20:31 21:01 23:00 Temp 98.5 98.5 Pulse 81 Resp 18 18 20 B/P (MAP) 135/99 (111) Pulse Ox 97 O2 Delivery Room Air Room Air Room Air Room Air 07/19/20 07/19/20 07/19/20 07/19/20 00:50 03:00 08:17 08:26 Temp 98.7 98.7 Pulse 79 74 Resp 18 20 20 B/P (MAP) 144/93 (110) 157/108 Pulse Ox 96 96 O2 Delivery Room Air Room Air Room Air 07/19/20 07/19/20 08:29 08:30 Pulse 74 74 B/P (MAP) 157/108 157/108 Intake and Output 07/18/20 07/18/20 07/19/20 15:00 23:00 07:00 Intake Total 240 ml 800 ml 500 ml Output Total 2000 ml Balance 240 ml -1200 ml 500 ml Justifications for Admission Other Justification Nutrition Consultation Dietary Evaluation: Recommendations by RD: Dietary education by RD Comments: honor food preferences , offer snacks/ supplements from unit prn Expected Outcomes/Goals: to meet >75% est nutr needs Interpretation of weight loss: >10% in 6 months Malnutrition Findings: Weight Status: Appropriate SHARMAINE SAEED MD Jul 19, 2020 08:33
--- NOTE | 2020-07-19 08:51 | PDOC ---
PROGRESS NOTES Date of Service DATE: 07/19/20 TIME: 08:48 Subjective Subjective She admits continued right knee joint pain and agreed to have it injected. Objective Objective Vital Signs Date Time Temp Pulse Resp B/P (MAP) Pulse Ox O2 Delivery O2 Flow Rate FiO2 07/19/20 08:30 74 157/108 07/19/20 08:17 20 96 Room Air 07/19/20 07:00 98.0 98.0 Intake and Output 07/19/20 07:00 Intake Total 1540 ml Output Total 2000 ml Balance -460 ml Intake Oral 1540 ml Output Urine Total 2000 ml # Voids 4 Physical Exam Physical Exam She is sitting in bed and seems to be more comfortable and she is getting up with therapy. Assessment Assessment Problems Medical Problems: (1) Generalized pain Status: Acute (2) Lung cancer Status: Acute Plan Plan of Care To proceed with right knee joint injection and she has not received her right knee hinge brace yet. Comment Review of Relevant I have reviewed the following items dina (where applicable) has been applied. Labs Laboratory Tests Test 07/18/20 03:30 White Blood Count 4.1 x10^3/uL (4.0-11.0) Red Blood Count 3.19 x10^6/uL (3.50-5.40) Hemoglobin 8.4 g/dL (12.0-15.5) Hematocrit 26.0 % (36.0-47.0) Mean Corpuscular Volume 82 fL (79-100) Mean Corpuscular Hemoglobin 26 pg (25-35) Mean Corpuscular Hemoglobin Concent 32 g/dL (31-37) Red Cell Distribution Width 23.2 % (11.5-14.5) Platelet Count 171 x10^3/uL (140-400) Neutrophils (%) (Auto) 66 % (31-73) Lymphocytes (%) (Auto) 18 % (24-48) Monocytes (%) (Auto) 14 % (0-9) Eosinophils (%) (Auto) 2 % (0-3) Basophils (%) (Auto) 1 % (0-3) Neutrophils # (Auto) 2.7 x10^3/uL (1.8-7.7) Lymphocytes # (Auto) 0.7 x10^3/uL (1.0-4.8) Monocytes # (Auto) 0.6 x10^3/uL (0.0-1.1) Eosinophils # (Auto) 0.1 x10^3/uL (0.0-0.7) Basophils # (Auto) 0.0 x10^3/uL (0.0-0.2) Sodium Level 142 mmol/L (136-145) Potassium Level 3.4 mmol/L (3.5-5.1) Chloride Level 108 mmol/L (98-107) Carbon Dioxide Level 29 mmol/L (21-32) Anion Gap 5 (6-14) Blood Urea Nitrogen 11 mg/dL (7-20) Creatinine 1.1 mg/dL (0.6-1.0) Estimated GFR (Cockcroft-Gault) 62.9 Glucose Level 101 mg/dL (70-99) Calcium Level 8.2 mg/dL (8.5-10.1) Medications Current Medications Hydromorphone HCl (Dilaudid) 1 mg 1X ONCE IVP Last administered on 07/12/20at 12:44; Start 07/12/20 at 12:45; Stop 07/12/20 at 12:46; Status DC Hydromorphone HCl (Dilaudid) 2 mg 1X ONCE IVP Last administered on 07/12/20at 13:04; Start 07/12/20 at 13:00; Stop 07/12/20 at 13:01; Status DC Oxycodone HCl (Roxicodone) 10 mg 1X ONCE PO Last administered on 07/12/20at 13:56; Start 07/12/20 at 14:00; Stop 07/12/20 at 14:01; Status DC Ondansetron HCl (Zofran) 4 mg PRN Q8HRS PRN IV NAUSEA/VOMITING Last administered on 07/12/20at 17:42; Start 07/12/20 at 14:45; Stop 07/13/20 at 14:44; Status DC Aspirin (Aspirin Chewable) 81 mg DAILY PO Last administered on 07/19/20at 08:27; Start 07/12/20 at 16:00 Clopidogrel Bisulfate (Plavix) 75 mg DAILY PO Last administered on 07/19/20at 08:29; Start 07/12/20 at 16:00 Diphenhydramine HCl (Benadryl) 25 mg PRN DAILY PRN PO ALLERGIES Last adminis tered on 07/18/20 18:39; Start 07/12/20 at 15:30 Hydralazine HCl (Apresoline) 25 mg TID PO Last administered on 07/17/20 09:01; Start 07/12/20 at 16:00; Stop 07/17/20 at 12:29; Status DC Metoclopramide HCl (Reglan) 10 mg PRN TID PRN PO NAUSEA Last administered on 07/16/20at 13:24; Start 07/12/20 at 15:30 Nitroglycerin (Nitrostat) 0.4 mg PRN Q5MIN PRN SL CHEST PAIN; Start 07/12/20 at 15:30 Carvedilol (Coreg) 25 mg BIDWMEALS PO Last administered on 07/19/20at 08:30; Start 07/12/20 at 17:00 Isosorbide Mononitrate (Imdur) 60 mg DAILY PO Last administered on 07/19/20at 08:29; Start 07/13/20 at 09:00 Ondansetron HCl (Zofran Odt) 8 mg Q8HRS PO ; Start 07/12/20 at 22:00 Oxycodone HCl (Roxicodone) 10 mg PRN Q6HRS PRN PO PAIN Last administered on 07/18/20at 15:21; Start 07/12/20 at 15:45 Non-Formulary Medication (Oxycodone Hcl (Oxycodone Hcl Immed.release)) 1 tab QIDPRN PRN PO pain; Start 07/12/20 at 15:30; Status UNV Non-Formulary Medication (Rosuvastatin Calcium (Crestor)) 2 tab DAILY PO ; Start 07/13/20 at 09:00; Status UNV Potassium Chloride/Sodium Chloride 1,000 ml @ 100 mls/hr Q10H IV Last administered on 07/15/20 21:20; Start 07/12/20 at 16:00; Stop 07/16/20 at 10:05; Status DC Magnesium Hydroxide (Milk Of Magnesia) 2,400 mg PRN Q12HR PRN PO CONSTIPATION, 2ND CHOICE Last administered on 07/17/20at 08:58; Start 07/12/20 at 15:30 Lactulose (Lactulose) 20 gm PRN Q12HR PRN PO CONSTIPATION- 3RD CHOICE; Start 07/12/20 at 15:30 Bisacodyl (Dulcolax Supp) 10 mg PRN DAILY PRN [place] CONSTIPATION; Start 07/12/20 at 15:30 Enoxaparin Sodium (Lovenox 40mg Syringe) 40 mg Q24H SQ ; Start 07/12/20 at 16:00; Status UNV Hydromorphone HCl (Dilaudid) 1 mg PRN Q3HRS ONCE IVP ; Start 07/12/20 at 17:15; Stop 07/12/20 at 17:16; Status Cancel Hydromorphone HCl (Dilaudid) 2 mg PRN Q3HRS PRN IVP PAIN Last administered on 07/13/20at 06:17; Start 07/12/20 at 17:15; Stop 07/13/20 at 08:49; Status DC Hydromorphone HCl (Dilaudid) 1 mg PRN Q3HRS PRN IVP MODERATE PAIN 4-6; Start 07/12/20 at 17:15; Stop 07/13/20 at 08:49; Status DC Naloxone HCl (Narcan) 0.4 mg PRN Q2MIN PRN IV SEE INSTRUCTIONS; Start 07/13/20 at 09:00; Stop 07/18/20 at 11:40; Status DC Sodium Chloride 1,000 ml @ 25 mls/hr Q24H IV Last administered on 07/17/20at 20:10; Start 07/13/20 at 08:46; Stop 07/18/20 at 11:40; Status DC Hydromorphone HCl 30 ml @ 0 mls/hr CONT PRN PRN IV PER PROTOCOL Last administered on 07/13/20at 09:47; Start 07/13/20 at 09:00; Stop 07/13/20 at 15:24; Status DC Iohexol (Omnipaque 240 Mg/ml) 30 ml 1X ONCE PO Last administered on 07/13/20at 09:30; Start 07/13/20 at 09:30; Stop 07/13/20 at 09:31; Status DC Iohexol (Omnipaque 300 Mg/ml) 75 ml 1X ONCE IV Last administered on 07/13/20at 11:00; Start 07/13/20 at 09:30; Stop 07/13/20 at 09:31; Status DC Info (CONTRAST GIVEN -- Rx MONITORING) 1 each PRN DAILY PRN MC SEE COMMENTS; Start 07/13/20 at 09:30; Stop 07/15/20 at 09:29; Status DC Hydromorphone HCl 30 ml @ 0 mls/hr CONT PRN PRN IV PER PROTOCOL; Start 07/13/20 at 15:30; Stop 07/13/20 at 19:57; Status DC Hydromorphone HCl 30 ml @ 0 mls/hr CONT PRN PRN IV PER PROTOCOL Last administered on 07/13/20at 22:26; Start 07/13/20 at 20:00; Stop 07/14/20 at 07:57; Status DC Hydromorphone HCl 30 ml @ 0 mls/hr CONT PRN PRN IV PER PROTOCOL Last administered on 07/18/20at 02:41; Start 07/14/20 at 08:00; Stop 07/18/20 at 11:40; Status DC Diclofenac Sodium (Voltaren) 1 heaven BID TP Last administered on 07/19/20at 08:31; Start 07/15/20 at 12:00 Potassium Chloride (Klor-Con) 20 meq DAILYWBKFT PO Last administered on 07/17/20at 08:58; Start 07/16/20 at 10:00; Stop 07/18/20 at 08:39; Status DC Torsemide (Demadex) 60 mg DAILY PO Last administered on 07/18/20at 09:05; Start 07/16/20 at 10:00 Enoxaparin Sodium (Lovenox 40mg Syringe) 40 mg Q24H SQ Last administered on 07/18/20at 09:09; Start 07/16/20 at 10:00 Hydralazine HCl (Apresoline) 100 mg TID PO Last administered on 07/19/20at 08:26; Start 07/17/20 at 14:00 Polyethylene Glycol (miraLAX PACKET) 17 gm PRN DAILY PRN PO CONSTIPATION, 1ST CHOICE Last administered on 07/18/20at 08:57; Start 07/17/20 at 19:30 Potassium Chloride (Klor-Con) 20 meq 1X ONCE PO Last administered on 07/18/20at 09:08; Start 07/18/20 at 09:00; Stop 07/18/20 at 09:08; Status DC Hydromorphone HCl (Dilaudid) 4 mg PRN Q4HRS PRN PO PAIN Last administered on 07/18/20at 22:21; Start 07/18/20 at 08:45 Hydromorphone HCl (Dilaudid) 2 mg PRN Q4HRS PRN IVP PAIN Last administered on 07/19/20at 08:17; Start 07/18/20 at 08:45 Potassium Chloride (Klor-Con) 40 meq DAILYWBKFT PO Last administered on 07/19/20at 08:29; Start 07/19/20 at 08:00 Active Scripts Active Bisacodyl 10 Mg Supp.rect 10 Mg [place] PRN DAILY PRN 30 Days Dilaudid (Hydromorphone Hcl) 4 Mg Tablet 4 Mg PO PRN Q4HRS PRN 30 Days Klor-Con M20 (Potassium Chloride) 20 Meq Tab.er.prt 40 Meq PO DAILYWBKFT 30 Days Polyethylene Glycol 3350 17 Gm Powd.pack 17 Gm PO PRN DAILY PRN 30 Days Hydralazine Hcl 50 Mg Tablet 100 Mg PO TID 30 Days Reglan (Metoclopramide Hcl) 10 Mg Tablet 1 Tab PO TID PRN 5 Days before food and bedtime Zofran (Ondansetron Hcl) 8 Mg Tablet 1 Tab PO Q8HRS Reported Clopidogrel (Clopidogrel Bisulfate) 75 Mg Tablet 75 Mg PO DAILY HOLD til 716 Aspirin 81 Mg Tab.chew 1 Tab PO DAILY HOLD til 16 NITROGLYCERIN SubLingual (Nitroglycerin) 0.4 Mg Tab.subl 0.4 Mg SL PRN Q5MIN PRN Diphenhydramine Hcl 25 Mg Capsule 1 Tab PO PRN DAILY PRN Isosorbide Mononitrate Er (Isosorbide Mononitrate) 60 Mg Tab.er.24h 1 Tab PO DAILY Torsemide 20 Mg Tablet 60 Mg PO DAILY Crestor (Rosuvastatin Calcium) 20 Mg Tablet 2 Tab PO DAILY Carvedilol 25 Mg Tablet 2 Tab PO BID Vitals/I & O Vital Sign - Last 24 Hours 07/18/20 07/18/20 07/18/20 07/18/20 09:04 09:05 09:07 11:00 Temp 98.3 98.3 Pulse 88 80 88 84 Resp 18 B/P (MAP) 159/102 157/108 159/102 106/76 (86) Pulse Ox 97 07/18/20 07/18/20 07/18/20 07/18/20 13:39 15:00 17:43 19:00 Temp 98.6 98.6 98.6 98.6 Pulse 87 82 82 82 Resp 18 20 B/P (MAP) 142/88 139/88 (105) 139/88 132/73 (92) Pulse Ox 97 97 O2 Delivery Room Air 07/18/20 07/18/20 07/18/20 07/18/20 20:20 20:31 21:01 23:00 Temp 98.5 98.5 Pulse 81 Resp B/P (MAP) 135/99 (111) Pulse Ox 97 O2 Delivery Room Air Room Air Room Air Room Air 07/19/20 07/19/20 07/19/20 07/19/20 00:50 03:00 07:00 08:17 Temp 98.7 98.0 98.7 98.0 Pulse 79 76 Resp 18 18 20 B/P (MAP) 144/93 (110) 157/108 (124) Pulse Ox 96 100 96 O2 Delivery Room Air Room Air Room Air 07/19/20 07/19/20 07/19/20 08:26 08:29 08:30 Pulse 74 74 74 B/P (MAP) 157/108 157/108 157/108 Intake and Output 07/18/20 07/18/20 07/19/20 15:00 23:00 07:00 Intake Total 240 ml 800 ml 500 ml Output Total 2000 ml Balance 240 ml -1200 ml 500 ml Justifications for Admission Other Justification Nutrition Consultation Dietary Evaluation: Recommendations by RD: Dietary education by RD Comments: honor food preferences , offer snacks/ supplements from unit prn Expected Outcomes/Goals: to meet >75% est nutr needs Interpretation of weight loss: >10% in 6 months Malnutrition Findings: Weight Status: Appropriate ROBBIE GUZMAN MD Jul 19, 2020 08:51
[2020-07-19] MEDS ORDERED: methylPREDNISolone ACETATE 40 MG/ML VIAL. IM ONE (09:00)
--- NOTE | 2020-07-19 09:14 | PDOC4 ---
PROCEDURE Procedure At her request,I have injected her right knee joint under aseptic skin techn ique,with alcohol skin prep,using 2 ml of 0.25% marcaine solution mixed with 1 ml of depo-medrol 40 mg/ 1 ml solution and she tolerated the procedure satisfactorily without any side effects. ROBBIE GUZMAN MD Jul 19, 2020 09:14
[2020-07-19] MEDS: oxyCODONE IR 5 MG TABLET PO PRN (09:56)
[2020-07-19] MEDS: ENOXAPARIN 40 MG/0.4 ML SYRINGE. SQ SCH (10:00)
--- NOTE | 2020-07-19 10:40 | NUR ---
SW following. Spoke with RN and reviewed chart. Pt to discharge home today with family self-care. No further SW needs. Addendum: 07/20/20 at 1259 by [place] SW SW following. Spoke with RN and reviewed chart. Discharge held 07/19 per pain mgt needs per RN. Pt will likely discharge home today self-care. No further SW needs.
[2020-07-19 11:00] VITALS: BP 112/84
[2020-07-19] MEDS: HYDROmorphone 4 MG TABLET PO PRN (13:34)
[2020-07-19 15:00] VITALS: BP 143/97
[2020-07-19] MEDS: diphenhydrAMINE HCL 25 MG CAPSULE PO PRN (17:39)
[2020-07-19 19:00] VITALS: BP 131/94
[2020-07-19 22:36] VITALS: BP 145/96
[2020-07-20] MEDS: HYDROmorphone 2 MG/ML VIAL IVP PRN ×4 (01:06→13:20)
[2020-07-20 03:00] VITALS: BP 140/99
[2020-07-20] MEDS: ONDANSETRON ODT 4 MG TAB.RAPDIS. PO SCH ×2 (03:36→14:00)
[2020-07-20 07:00] VITALS: BP 154/103
[2020-07-20] MEDS: CARVEDILOL 12.5 MG TABLET. PO SCH (08:00)
[2020-07-20] MEDS: TORSEMIDE 20 MG TABLET. PO SCH (09:00)
[2020-07-20] MEDS: POTASSIUM CHLORIDE 20 MEQ TABLET.ER. PO SCH (09:04)
[2020-07-20] MEDS: ASPIRIN CHEWABLE 81 MG TABLET. PO SCH (09:04)
[2020-07-20] MEDS: ISOSORBIDE MONONITRATE ER 30 MG TAB.ER.24H PO SCH (09:05)
[2020-07-20] MEDS: CLOPIDOGREL BISULFATE 75 MG TABLET PO SCH (09:06)
[2020-07-20] MEDS: DICLOFENAC SODIUM 1% TOPICAL GEL 100GM TUBE. TP SCH (09:07)
[2020-07-20] MEDS: ENOXAPARIN 40 MG/0.4 ML SYRINGE. SQ SCH (09:08)
--- NOTE | 2020-07-20 09:45 | PDOC ---
PROGRESS NOTES Date of Service DATE: 07/20/20 TIME: 09:41 Subjective Subjective She admits continued right knee joint pain. Objective Objective Vital Signs Date Time Temp Pulse Resp B/P (MAP) Pulse Ox O2 Delivery O2 Flow Rate FiO2 07/20/20 09:21 20 98 Room Air 07/20/20 09:06 84 154/103 07/20/20 07:00 98.3 98.3 Intake and Output 07/20/20 07:00 Intake Total 120 ml Output Total 0 ml Balance 120 ml Intake Oral 120 ml Output Urine Total 0 ml # Voids 1 Physical Exam Physical Exam She is alert,supine in bed and continues with knee joint effusion and she is getting up with roller walker. Assessment Assessment Problems Medical Problems: (1) Generalized pain Status: Acute (2) Lung cancer Status: Acute Plan Plan of Care As she is hesitant for another knee joint injection and aspiration,to let her try hinge knee brace which she can get after discharge. Comment Review of Relevant I have reviewed the following items dina (where applicable) has been applied. Medications Current Medications Hydromorphone HCl (Dilaudid) 1 mg 1X ONCE IVP Last administered on 07/12/20at 12:44; Start 07/12/20 at 12:45; Stop 07/12/20 at 12:46; Status DC Hydromorphone HCl (Dilaudid) 2 mg 1X ONCE IVP Last administered on 07/12/20at 13:04; Start 07/12/20 at 13:00; Stop 07/12/20 at 13:01; Status DC Oxycodone HCl (Roxicodone) 10 mg 1X ONCE PO Last administered on 07/12/20at 13:56; Start 07/12/20 at 14:00; Stop 07/12/20 at 14:01; Status DC Ondansetron HCl (Zofran) 4 mg PRN Q8HRS PRN IV NAUSEA/VOMITING Last administered on 07/12/20at 17:42; Start 07/12/20 at 14:45; Stop 07/13/20 at 14:44; Status DC Aspirin (Aspirin Chewable) 81 mg DAILY PO Last administered on 07/20/20at 09:04; Start 07/12/20 at 16:00 Clopidogrel Bisulfate (Plavix) 75 mg DAILY PO Last administered on 07/20/20at 09:06; Start 07/12/20 at 16:00 Diphenhydramine HCl (Benadryl) 25 mg PRN DAILY PRN PO ALLERGIES Last administered on 07/19/20at 17:39; Start 07/12/20 at 15:30 Hydralazine HCl (Apresoline) 25 mg TID PO Last administered on 07/17/20at 09:01; Start 07/12/20 at 16:00; Stop 07/17/20 at 12:29; Status DC Metoclopramide HCl (Reglan) 10 mg PRN TID PRN PO NAUSEA Last administered on 07/16/20 13:24; Start 07/12/20 at 15:30 Nitroglycerin (Nitrostat) 0.4 mg PRN Q5MIN PRN SL CHEST PAIN; Start 07/12/20 at 15:30 Carvedilol (Coreg) 25 mg BIDWMEALS PO Last administered on 07/19/20at 17:06; Start 07/12/20 at 17:00 Isosorbide Mononitrate (Imdur) 60 mg DAILY PO Last administered on 07/20/20at 09:05; Start 07/13/20 at 09:00 Ondansetron HCl (Zofran Odt) 8 mg Q8HRS PO ; Start 07/12/20 at 22:00 Oxycodone HCl (Roxicodone) 10 mg PRN Q6HRS PRN PO MODERATE PAIN Last administered on 07/19/20at 09:56; Start 07/12/20 at 15:45 Non-Formulary Medication (Oxycodone Hcl (Oxycodone Hcl Immed.release)) 1 tab QIDPRN PRN PO pain; Start 07/12/20 at 15:30; Status UNV Non-Formulary Medication (Rosuvastatin Calcium (Crestor)) 2 tab DAILY PO ; Start 07/13/20 at 09:00; Status UNV Potassium Chloride/Sodium Chloride 1,000 ml @ 100 mls/hr Q10H IV Last administered on 07/15/20at 21:20; Start 07/12/20 at 16:00; Stop 07/16/20 at 10:05; Status DC Magnesium Hydroxide (Milk Of Magnesia) 2,400 mg PRN Q12HR PRN PO CONSTIPATION, 2ND CHOICE Last administered on 07/17/20at 08:58; Start 07/12/20 at 15:30 Lactulose (Lactulose) 20 gm PRN Q12HR PRN PO CONSTIPATION- 3RD CHOICE; Start 07/12/20 at 15:30 Bisacodyl (Dulcolax Supp) 10 mg PRN DAILY PRN [place] CONSTIPATION; Start 07/12/20 at 15:30 Enoxaparin Sodium (Lovenox 40mg Syringe) 40 mg Q24H SQ ; Start 07/12/20 at 16:00; Status UNV Hydromorphone HCl (Dilaudid) 1 mg PRN Q3HRS ONCE IVP ; Start 07/12/20 at 17:15; Stop 07/12/20 at 17:16; Status Cancel Hydromorphone HCl (Dilaudid) 2 mg PRN Q3HRS PRN IVP PAIN Last administered on 07/13/20at 06:17; Start 07/12/20 at 17:15; Stop 07/13/20 at 08:49; Status DC Hydromorphone HCl (Dilaudid) 1 mg PRN Q3HRS PRN IVP MODERATE PAIN 4-6; Start 07/12/20 at 17:15; Stop 07/13/20 at 08:49; Status DC Naloxone HCl (Narcan) 0.4 mg PRN Q2MIN PRN IV SEE INSTRUCTIONS; Start 07/13/20 at 09:00; Stop 07/18/20 at 11:40; Status DC Sodium Chloride 1,000 ml @ 25 mls/hr Q24H IV Last administered on 07/17/20at 20:10; Start 07/13/20 at 08:46; Stop 07/18/20 at 11:40; Status DC Hydromorphone HCl 30 ml @ 0 mls/hr CONT PRN PRN IV PER PROTOCOL Last administered on 07/13/20at 09:47; Start 07/13/20 at 09:00; Stop 07/13/20 at 15:24; Status DC Iohexol (Omnipaque 240 Mg/ml) 30 ml 1X ONCE PO Last administered on 07/13/20at 09:30; Start 07/13/20 at 09:30; Stop 07/13/20 at 09:31; Status DC Iohexol (Omnipaque 300 Mg/ml) 75 ml 1X ONCE IV Last administered on 07/13/20at 11:00; Start 07/13/20 at 09:30; Stop 07/13/20 at 09:31; Status DC Info (CONTRAST GIVEN -- Rx MONITORING) 1 each PRN DAILY PRN MC SEE COMMENTS; Start 07/13/20 at 09:30; Stop 07/15/20 at 09:29; Status DC Hydromorphone HCl 30 ml @ 0 mls/hr CONT PRN PRN IV PER PROTOCOL; Start 07/13/20 at 15:30; Stop 07/13/20 at 19:57; Status DC Hydromorphone HCl 30 ml @ 0 mls/hr CONT PRN PRN IV PER PROTOCOL Last administered on 07/13/20at 22:26; Start 07/13/20 at 20:00; Stop 07/14/20 at 07:57; Status DC Hydromorphone HCl 30 ml @ 0 mls/hr CONT PRN PRN IV PER PROTOCOL Last administered on 07/18/20at 02:41; Start 07/14/20 at 08:00; Stop 07/18/20 at 11:40; Status DC Diclofenac Sodium (Voltaren) 1 heaven BID TP Last administered on 07/20/20at 09:07; Start 07/15/20 at 12:00 Potassium Chloride (Klor-Con) 20 meq DAILYWBKFT PO Last administered on 07/17/20at 08:58; Start 07/16/20 at 10:00; Stop 07/18/20 at 08:39; Status DC Torsemide (Demadex) 60 mg DAILY PO Last administered on 07/18/20at 09:05; Start 07/16/20 at 10:00 Enoxaparin Sodium (Lovenox 40mg Syringe) 40 mg Q24H SQ Last administered on 07/20/20 09:08; Start 07/16/20 at 10:00 Hydralazine HCl (Apresoline) 100 mg TID PO Last administered on 07/20/20at 09:06; Start 07/17/20 at 14:00 Polyethylene Glycol (miraLAX PACKET) 17 gm PRN DAILY PRN PO CONSTIPATION, 1ST CHOICE Last administered on 07/18/20at 08:57; Start 07/17/20 at 19:30 Potassium Chloride (Klor-Con) 20 meq 1X ONCE PO Last administered on 07/18/20at 09:08; Start 07/18/20 at 09:00; Stop 07/18/20 at 09:08; Status DC Hydromorphone HCl (Dilaudid) 4 mg PRN Q4HRS PRN PO SEVERE PAIN Last administered on 07/19/20at 13:34; Start 07/18/20 at 08:45 Hydromorphone HCl (Dilaudid) 2 mg PRN Q4HRS PRN IVP PAIN Last administered on 07/20/20at 09:21; Start 07/18/20 at 08:45 Potassium Chloride (Klor-Con) 40 meq DAILYWBKFT PO Last administered on 07/20/20at 09:04; Start 07/19/20 at 08:00 Methylprednisolone Acetate (DEPO-Medrol 40MG VIAL) 40 mg 1X ONCE IM Last administered on 07/19/20at 09:00; Start 07/19/20 at 09:00; Stop 07/19/20 at 09:01; Status DC Active Scripts Active Bisacodyl 10 Mg Supp.rect 10 Mg [place] PRN DAILY PRN 30 Days Dilaudid (Hydromorphone Hcl) 4 Mg Tablet 4 Mg PO PRN Q4HRS PRN 30 Days Klor-Con M20 (Potassium Chloride) 20 Meq Tab.er.prt 40 Meq PO DAILYWBKFT 30 Days Polyethylene Glycol 3350 17 Gm Powd.pack 17 Gm PO PRN DAILY PRN 30 Days Hydralazine Hcl 50 Mg Tablet 100 Mg PO TID 30 Days Reglan (Metoclopramide Hcl) 10 Mg Tablet 1 Tab PO TID PRN 5 Days before food and bedtime Zofran (Ondansetron Hcl) 8 Mg Tablet 1 Tab PO Q8HRS Reported Clopidogrel (Clopidogrel Bisulfate) 75 Mg Tablet 75 Mg PO DAILY HOLD til 7 Aspirin 81 Mg Tab.chew 1 Tab PO DAILY HOLD til 716 NITROGLYCERIN SubLingual (Nitroglycerin) 0.4 Mg Tab.subl 0.4 Mg SL PRN Q5MIN PRN Diphenhydramine Hcl 25 Mg Capsule 1 Tab PO PRN DAILY PRN Isosorbide Mononitrate Er (Isosorbide Mononitrate) 60 Mg Tab.er.24h 1 Tab PO DAILY Torsemide 20 Mg Tablet 60 Mg PO DAILY Crestor (Rosuvastatin Calcium) 20 Mg Tablet 2 Tab PO DAILY Carvedilol 25 Mg Tablet 2 Tab PO BID Vitals/I & O Vital Sign - Last 24 Hours 07/19/20 07/19/20 07/19/20 07/19/20 09:56 10:56 11:00 15:00 Temp 98.3 98.4 98.3 98.4 Pulse 67 81 Resp 20 18 18 B/P (MAP) 112/84 (93) 143/97 (112) Pulse Ox 96 97 98 97 O2 Delivery Room Air Room Air 07/19/20 07/19/20 07/19/20 07/19/20 17:06 17:07 19:00 21:19 Temp 99.0 99.0 Pulse 81 80 Resp 18 24 20 B/P (MAP) 143/97 131/94 (106) Pulse Ox 97 96 O2 Delivery Room Air Room Air Room Air 07/19/20 07/19/20 07/20/20 07/20/20 21:49 22:36 01:06 03:00 Temp 97.9 98.3 97.9 98.3 Pulse 81 81 Resp 18 20 18 20 B/P (MAP) 145/96 (112) 140/99 (113) Pulse Ox 95 98 O2 Delivery Room Air Room Air Room Air Room Air 07/20/20 07/20/20 07/20/20 07/20/20 05:24 07:00 09:05 09:06 Temp 98.3 98.3 Pulse 84 84 84 Resp 20 18 B/P (MAP) 154/103 (120) 154/103 154/103 Pulse Ox 98 O2 Delivery Room Air 07/20/20 09:21 Resp 20 Pulse Ox 98 O2 Delivery Room Air Intake and Output 07/19/20 07/19/20 07/20/20 15:00 23:00 07:00 Intake Total 120 ml Output Total 0 ml 0 ml Balance 120 ml 0 ml 0 ml Justifications for Admission Other Justification Nutrition Consultation Dietary Evaluation: Recommendations by RD: Dietary education by RD Comments: honor food preferences , offer snacks/ supplements from unit prn Expected Outcomes/Goals: to meet >75% est nutr needs Interpretation of weight loss: >10% in 6 months Malnutrition Findings: Weight Status: Appropriate ROBBIE GUZMAN MD Jul 20, 2020 09:45
[2020-07-20 11:00] VITALS: BP 142/87
--- NOTE | 2020-07-20 11:18 | PDOC ---
PROGRESS NOTES Date of Service: DATE: 07/20/20 TIME: 11:16 Subjective Subjective back hurts Objective Objective Vital Signs Date Time Temp Pulse Resp B/P (MAP) Pulse Ox O2 Delivery O2 Flow Rate FiO2 07/20/20 11:00 98.3 77 18 142/87 (105) 96 98.3 07/20/20 09:21 Room Air Intake and Output 07/20/20 07:00 Intake Total 120 ml Output Total 0 ml Balance 120 ml Intake Oral 120 ml Output Urine Total 0 ml # Voids 1 Physical Exam Abdomen: Normal bowel sounds, Soft Heart: Regular rate, Normal S1, Normal S2 Extremities: No clubbing General: Alert, Oriented X3 HEENT: Atraumatic Lungs: Clear to auscultation MUSCULOSKELETAL: No swelling Neck: Supple Neuro: Normal gait, Normal speech Psych/Mental Status: Mental status NL Skin: No rashes COMMENT upper extremity swelling both Diagnosis Problem List Problems Medical Problems: (1) Generalized pain Status: Acute (2) Lung cancer Status: Acute Assessment Assessment Problems Medical Problems: (1) Generalized pain Status: Acute (2) Lung cancer Status: Acute FINAL IMPRESSION:Pain issues, rt knee pain 1. 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 2. Coronary artery disease, history of previous stents. 3. Recent cerebrovascular accident. 4. General decline and debility. 5. Hypertension. 6. Hyperlipidemia. 7. Pain not controlled as outpatient. Plan: d/c home doaty with po pain meds. cortisone inj to rt knee po dilaudid for pain, off [employer] d/c home later today. stage 4 lung cancer progressive ,pt donot want chemo. Prognosis is very poor chance of readmission high Plan Plan of Care Problems Medical Problems: (1) Generalized pain Status: Acute (2) Lung cancer Status: Acute Comment Review of Relevant I have reviewed the following items dina (where applicable) has been applied. Vitals/I & O Vital Sign - Last 24 Hours 07/19/20 07/19/20 07/19/20 07/19/20 15:00 17:06 17:07 19:00 Temp 98.4 99.0 98.4 99.0 Pulse 81 81 80 Resp 18 18 24 B/P (MAP) 143/97 (112) 143/97 131/94 (106) Pulse Ox 97 97 96 O2 Delivery Room Air Room Air 07/19/20 07/19/20 07/19/20 07/20/20 21:19 21:49 22:36 01:06 Temp 97.9 97.9 Pulse 81 Resp 18 B/P (MAP) 145/96 (112) Pulse Ox 95 O2 Delivery Room Air Room Air Room Air Room Air 07/20/20 07/20/20 07/20/20 07/20/20 03:00 05:24 07:00 08:00 Temp 98.3 98.3 98.3 98.3 Pulse 81 84 Resp 18 B/P (MAP) 140/99 (113) 154/103 (120) Pulse Ox 98 98 O2 Delivery Room Air Room Air Room Air 07/20/20 07/20/20 07/20/20 07/20/20 09:05 09:06 09:21 11:00 Temp 98.3 98.3 Pulse 84 84 77 Resp 18 B/P (MAP) 154/103 154/103 142/87 (105) Pulse Ox 98 96 O2 Delivery Room Air Intake and Output 07/19/20 07/19/20 07/20/20 15:00 23:00 07:00 Intake Total 120 ml Output Total 0 ml 0 ml Balance 120 ml 0 ml 0 ml Justifications for Admission Other Justification Nutrition Consultation Dietary Evaluation: Recommendations by RD: Dietary education by RD Comments: honor food preferences , offer snacks/ supplements from unit prn Expected Outcomes/Goals: to meet >75% est nutr needs Interpretation of weight loss: >10% in 6 months Malnutrition Findings: Weight Status: Appropriate SHARMAINE SAEED MD Jul 20, 2020 11:18
--- NOTE | 2020-07-20 11:38 | PDOC ---
PROGRESS NOTES Date of Service DATE: 07/20/20 TIME: 11:34 Subjective Subjective Sarah was seen in a follow-up visit today. She informs me that she will be discharged home today. She notes her pain is improved. She denies any new symptoms. Objective Objective Vital Signs Date Time Temp Pulse Resp B/P (MAP) Pulse Ox O2 Delivery O2 Flow Rate FiO2 07/20/20 11:00 98.3 77 18 142/87 (105) 96 98.3 07/20/20 09:21 Room Air Intake and Output 07/20/20 07:00 Intake Total 120 ml Output Total 0 ml Balance 120 ml Intake Oral 120 ml Output Urine Total 0 ml # Voids 1 Physical Exam Abdomen: Normal bowel sounds, Soft Heart: Regular rate, Normal S1, Normal S2 Extremities: No clubbing General: Alert, Oriented X3 HEENT: Atraumatic, PERRLA Lungs: Clear to auscultation MUSCULOSKELETAL: No joint tenderness, No deformity Neck: Supple, No JVD Neuro: Normal gait, Strength at 5/5 X4 ext Psych/Mental Status: Mental status NL Skin: No rashes Assessment Assessment Metastatic lung adenocarcinoma, with progression on on first-line systemic therapy with ipilimumab and nivolumab Cancer related pain Subcutaneous metastasis with worsening symptoms Recent stroke Coronary artery disease Hypertension Plan Plan of Care -I previously reviewed the results of CT scans of the abdomen, chest and pelvis which showed progressive non-small cell lung cancer -Previously discussed switching systemic therapy from ipilimumab and nivolumab to a chemotherapy-based regimen. Sarah has not decided if she would like to pursue this further and plans on discussing with her daughter, Tasha -She will be seen in follow-up on 07/24/2020 to further discuss chemotherapy and begin systemic therapy. Adenosquamous histology, can consider carboplatin and paclitaxel or carboplatin and pemetrexed or single agent docetaxel -Continue optimizing her pain management today and I once again recommended starting an extended release opiate. She is hesitant to do so at this time and would like to discuss further with her daughter. We will discuss this with her again during her follow-up visit with me in clinic -Her stated outpatient pain medication regimen that controlled pain was oxycodone 30 mg every 4 hours equating to 180 mg daily dose of oxycodone. Would plan on starting OxyContin 20 mg twice daily and continue with current oxycodone 30 mg every 4 hours as needed -Sent new prescription for oxycodone 15 mg tablets, 150 tablets. Take 30 mg every 4 hours as needed for pain. -Continue bowel regimen given significant pain medication needs -Discussed with Dr. Sebastian Prescott MD Medical Oncology/Hematology Ph: [phone] Comment Review of Relevant I have reviewed the following items dina (where applicable) has been applied. Medications Current Medications Hydromorphone HCl (Dilaudid) 1 mg 1X ONCE IVP Last administered on 07/12/20at 12:44; Start 07/12/20 at 12:45; Stop 07/12/20 at 12:46; Status DC Hydromorphone HCl (Dilaudid) 2 mg 1X ONCE IVP Last administered on 07/12/20 13:04; Start 07/12/20 at 13:00; Stop 07/12/20 at 13:01; Status DC Oxycodone HCl (Roxicodone) 10 mg 1X ONCE PO Last administered on 07/12/20 13:56; Start 07/12/20 at 14:00; Stop 07/12/20 at 14:01; Status DC Ondansetron HCl (Zofran) 4 mg PRN Q8HRS PRN IV NAUSEA/VOMITING Last admi nistered on 07/12/20 17:42; Start 07/12/20 at 14:45; Stop 07/13/20 at 14:44; Status DC Aspirin (Aspirin Chewable) 81 mg DAILY PO Last administered on 07/20/20 09:04; Start 07/12/20 at 16:00 Clopidogrel Bisulfate (Plavix) 75 mg DAILY PO Last administered on 07/20/20 09:06; Start 07/12/20 at 16:00 Diphenhydramine HCl (Benadryl) 25 mg PRN DAILY PRN PO ALLERGIES Last administered on 07/19/20 17:39; Start 07/12/20 at 15:30 Hydralazine HCl (Apresoline) 25 mg TID PO Last administered on 07/17/20 09:01; Start 07/12/20 at 16:00; Stop 07/17/20 at 12:29; Status DC Metoclopramide HCl (Reglan) 10 mg PRN TID PRN PO NAUSEA Last administered on 9 /6/20at 13:24; Start 07/12/20 at 15:30 Nitroglycerin (Nitrostat) 0.4 mg PRN Q5MIN PRN SL CHEST PAIN; Start 07/12/20 at 15:30 Carvedilol (Coreg) 25 mg BIDWMEALS PO Last administered on 07/19/20at 17:06; Start 07/12/20 at 17:00 Isosorbide Mononitrate (Imdur) 60 mg DAILY PO Last administered on 07/20/20at 09:05; Start 07/13/20 at 09:00 Ondansetron HCl (Zofran Odt) 8 mg Q8HRS PO ; Start 07/12/20 at 22:00 Oxycodone HCl (Roxicodone) 10 mg PRN Q6HRS PRN PO MODERATE PAIN Last administered on 07/19/20at 09:56; Start 07/12/20 at 15:45 Non-Formulary Medication (Oxycodone Hcl (Oxycodone Hcl Immed.release)) 1 tab QIDPRN PRN PO pain; Start 07/12/20 at 15:30; Status UNV Non-Formulary Medication (Rosuvastatin Calcium (Crestor)) 2 tab DAILY PO ; Start 07/13/20 at 09:00; Status UNV Potassium Chloride/Sodium Chloride 1,000 ml @ 100 mls/hr Q10H IV Last administered on 07/15/20at 21:20; Start 07/12/20 at 16:00; Stop 07/16/20 at 10:05; Status DC Magnesium Hydroxide (Milk Of Magnesia) 2,400 mg PRN Q12HR PRN PO CONSTIPATION, 2ND CHOICE Last administered on 07/17/20at 08:58; Start 07/12/20 at 15:30 Lactulose (Lactulose) 20 gm PRN Q12HR PRN PO CONSTIPATION- 3RD CHOICE; Start 07/12/20 at 15:30 Bisacodyl (Dulcolax Supp) 10 mg PRN DAILY PRN [place] CONSTIPATION; Start 07/12/20 at 15:30 Enoxaparin Sodium (Lovenox 40mg Syringe) 40 mg Q24H SQ ; Start 07/12/20 at 16:00; Status UNV Hydromorphone HCl (Dilaudid) 1 mg PRN Q3HRS ONCE IVP ; Start 07/12/20 at 17:15; Stop 07/12/20 at 17:16; Status Cancel Hydromorphone HCl (Dilaudid) 2 mg PRN Q3HRS PRN IVP PAIN Last administered on 07/13/20at 06:17; Start 07/12/20 at 17:15; Stop 07/13/20 at 08:49; Status DC Hydromorphone HCl (Dilaudid) 1 mg PRN Q3HRS PRN IVP MODERATE PAIN 4-6; Start 07/12/20 at 17:15; Stop 07/13/20 at 08:49; Status DC Naloxone HCl (Narcan) 0.4 mg PRN Q2MIN PRN IV SEE INSTRUCTIONS; Start 07/13/20 at 09:00; Stop 07/18/20 at 11:40; Status DC Sodium Chloride 1,000 ml @ 25 mls/hr Q24H IV Last administered on 07/17/20at 20:10; Start 07/13/20 at 08:46; Stop 07/18/20 at 11:40; Status DC Hydromorphone HCl 30 ml @ 0 mls/hr CONT PRN PRN IV PER PROTOCOL Last administered on 07/13/20at 09:47; Start 07/13/20 at 09:00; Stop 07/13/20 at 15:24; Status DC Iohexol (Omnipaque 240 Mg/ml) 30 ml 1X ONCE PO Last administered on 07/13/20at 09:30; Start 07/13/20 at 09:30; Stop 07/13/20 at 09:31; Status DC Iohexol (Omnipaque 300 Mg/ml) 75 ml 1X ONCE IV Last administered on 07/13/20at 11:00; Start 07/13/20 at 09:30; Stop 07/13/20 at 09:31; Status DC Info (CONTRAST GIVEN -- Rx MONITORING) 1 each PRN DAILY PRN MC SEE COMMENTS; Start 07/13/20 at 09:30; Stop 07/15/20 at 09:29; Status DC Hydromorphone HCl 30 ml @ 0 mls/hr CONT PRN PRN IV PER PROTOCOL; Start 07/13/20 at 15:30; Stop 07/13/20 at 19:57; Status DC Hydromorphone HCl 30 ml @ 0 mls/hr CONT PRN PRN IV PER PROTOCOL Last administered on 07/13/20 22:26; Start 07/13/20 at 20:00; Stop 07/14/20 at 07:57; Status DC Hydromorphone HCl 30 ml @ 0 mls/hr CONT PRN PRN IV PER PROTOCOL Last administered on 07/18/20at 02:41; Start 07/14/20 at 08:00; Stop 07/18/20 at 11:40; Status DC Diclofenac Sodium (Voltaren) 1 heaven BID TP Last administered on 07/20/20 09:07; Start 07/15/20 at 12:00 Potassium Chloride (Klor-Con) 20 meq DAILYWBKFT PO Last administered on 07/17/20 08:58; Start 07/16/20 at 10:00; Stop 07/18/20 at 08:39; Status DC Torsemide (Demadex) 60 mg DAILY PO Last administered on 07/18/20 09:05; Start 07/16/20 at 10:00 Enoxaparin Sodium (Lovenox 40mg Syringe) 40 mg Q24H SQ Last administered on 07/20/20 09:08; Start 07/16/20 at 10:00 Hydralazine HCl (Apresoline) 100 mg TID PO Last administered on 07/20/20 09:06; Start 07/17/20 at 14:00 Polyethylene Glycol (miraLAX PACKET) 17 gm PRN DAILY PRN PO CONSTIPATION, 1ST CHOICE Last administered on 07/18/20 08:57; Start 07/17/20 at 19:30 Potassium Chloride (Klor-Con) 20 meq 1X ONCE PO Last administered on 07/18/20 09:08; Start 07/18/20 at 09:00; Stop 07/18/20 at 09:08; Status DC Hydromorphone HCl (Dilaudid) 4 mg PRN Q4HRS PRN PO SEVERE PAIN Last administered on 07/19/20at 13:34; Start 07/18/20 at 08:45 Hydromorphone HCl (Dilaudid) 2 mg PRN Q4HRS PRN IVP PAIN Last administered on 07/20/20 09:21; Start 07/18/20 at 08:45 Potassium Chloride (Klor-Con) 40 meq DAILYWBKFT PO Last administered on 07/20/20at 09:04; Start 07/19/20 at 08:00 Methylprednisolone Acetate (DEPO-Medrol 40MG VIAL) 40 mg 1X ONCE IM Last administered on 07/19/20at 09:00; Start 07/19/20 at 09:00; Stop 07/19/20 at 09:01; Status DC Active Scripts Active Bisacodyl 10 Mg Supp.rect 10 Mg OH PRN DAILY PRN 30 Days Dilaudid (Hydromorphone Hcl) 4 Mg Tablet 4 Mg PO PRN Q4HRS PRN 30 Days Klor-Con M20 (Potassium Chloride) 20 Meq Tab.er.prt 40 Meq PO DAILYWBKFT 30 Days Polyethylene Glycol 3350 17 Gm Powd.pack 17 Gm PO PRN DAILY PRN 30 Days Hydralazine Hcl 50 Mg Tablet 100 Mg PO TID 30 Days Reglan (Metoclopramide Hcl) 10 Mg Tablet 1 Tab PO TID PRN 5 Days before food and bedtime Zofran (Ondansetron Hcl) 8 Mg Tablet 1 Tab PO Q8HRS Reported Clopidogrel (Clopidogrel Bisulfate) 75 Mg Tablet 75 Mg PO DAILY HOLD til 716 Aspirin 81 Mg Tab.chew 1 Tab PO DAILY HOLD til 716 NITROGLYCERIN SubLingual (Nitroglycerin) 0.4 Mg Tab.subl 0.4 Mg SL PRN Q5MIN PRN Diphenhydramine Hcl 25 Mg Capsule 1 Tab PO PRN DAILY PRN Isosorbide Mononitrate Er (Isosorbide Mononitrate) 60 Mg Tab.er.24h 1 Tab PO DAILY Torsemide 20 Mg Tablet 60 Mg PO DAILY Crestor (Rosuvastatin Calcium) 20 Mg Tablet 2 Tab PO DAILY Carvedilol 25 Mg Tablet 2 Tab PO BID Vitals/I & O Vital Sign - Last 24 Hours 07/19/20 07/19/20 07/19/20 07/19/20 15:00 17:06 17:07 19:00 Temp 98.4 99.0 98.4 99.0 Pulse 81 81 80 Resp 18 18 24 B/P (MAP) 143/97 (112) 143/97 131/94 (106) Pulse Ox 97 97 96 O2 Delivery Room Air Room Air 07/19/20 07/19/20 07/19/20/10/20 21:19 21:49 22:36 01:06 Temp 97.9 97.9 Pulse 81 Resp 20 18 B/P (MAP) 145/96 (112) Pulse Ox 95 O2 Delivery Room Air Room Air Room Air Room Air 07/20/20 07/20/20 07/20/20 07/20/20 03:00 05:24 07:00 08:00 Temp 98.3 98.3 98.3 98.3 Pulse 81 84 Resp 20 18 B/P (MAP) 140/99 (113) 154/103 (120) Pulse Ox 98 98 O2 Delivery Room Air Room Air Room Air 07/20/20 07/20/20 07/20/20 07/20/20 09:05 09:06 09:21 11:00 Temp 98.3 98.3 Pulse 84 84 77 Resp 18 B/P (MAP) 154/103 154/103 142/87 (105) Pulse Ox 98 96 O2 Delivery Room Air Intake and Output 07/19/20 07/19/20 07/20/20 15:00 23:00 07:00 Intake Total 120 ml Output Total 0 ml 0 ml Balance 120 ml 0 ml 0 ml Justifications for Admission Other Justification Nutrition Consultation Dietary Evaluation: Recommendations by RD: Dietary education by RD Comments: honor food preferences , offer snacks/ supplements from unit prn Expected Outcomes/Goals: to meet >75% est nutr needs Interpretation of weight loss: >10% in 6 months Malnutrition Findings: Weight Status: Appropriate SANDRA PRESCOTT MD Jul 20, 2020 11:38
--- NOTE | 2020-07-25 19:31 | PDOC ---
Provider Note Date of Service: DATE: 07/25/20 TIME: 19:30 Provider Note Discharge summary dictated.#[id number]. Justifications for Admission Other Justification SHARMAINE SAEED MD Jul 25, 2020 19:31
--- NOTE | 2020-07-25 21:18 | DS ---
DATE OF DISCHARGE: 07/20/2020 REASON FOR ADMISSION TO THE HOSPITAL: Pain control, stage 4 lung cancer, progressive lung disease, progressive lung cancer. CONSULTATIONS: Dr. Russ Rm, Oncology. Dr. Johnson. OTHER PROCEDURES DONE: CT of the chest, abdomen and pelvis. HOSPITAL COURSE: The patient is a 55-year-old female with history of stage IV non-small cell lung cancer. The patient had radiation treatment, had immunomodulation treatment from Oncology, Radiation Oncology. In spite of that, the patient's disease was progressing. She had a lot of pain and she had metastasis to the adrenals as well as under the skin, and the patient was admitted for pain control. She also has history of coronary artery disease, hypertension, hyperlipidemia, previous cardiac stents. The patient was seen by Oncology, had another workup done to see the extent of the disease. Had CT of the chest, abdomen and pelvis, which shows a gradual progression of the disease in the chest, abdomen and pelvis, in the mediastinum, perirenal, left ischiorectal fossa as well as left adrenal gland. The patient was seen by Oncology, was given Dilaudid pain medication by STAFFING RECRUITER. The patient had talks with Oncology and it was discussed about switching the systemic therapy from ipilimumab and nivolumab to chemotherapy-based regimen, but the patient is not ready for chemo. She wants to discuss with her daughter and let Oncology know as outpatient. The patient was given oxycodone 30 mg every 4 hours, OxyContin 20 mg twice a day, and the patient was discharged home. Follow up as outpatient with Oncology. The patient is not ready for hospice and then she has decided on chemotherapy. FINAL DIAGNOSES: 1. Progressive disease of the non-small cell lung carcinoma. 2. Metastatic stage 4 lung carcinoma. 3. Pain control issues. 4. Coronary artery disease, previous cardiac stents. 5. Hypertension. 6. Hyperlipidemia. 7. Has right knee swelling, was given cortisone injection by Dr. Johnson. DISPOSITION: Discharged home. PROGNOSIS: Poor. SHARMAINE SAEED MD DR: YURIY/trent JOB#: [id number] / [id number]
== END 2020-07-20 14:00 | disposition home or self-care (01) | DRG 947 ==
LOC: ER 12:00 → 5 NORTH 13:55 → OBSVTOIN 15:30
PROVIDERS: ADMIT Internal Medicine; ATTEND Internal Medicine
PROC: 3E0U33Z Introduction of Anti-inflammatory into Joints, Percutaneous Approach (ICD-10-PCS; principal; 2020-07-19)
PROC: 3E0U3BZ Introduction of Anesthetic Agent into Joints, Percutaneous Approach (ICD-10-PCS; 2020-07-19)
DX: G89.3 Neoplasm related pain (acute) (chronic) (principal); E43 Unspecified severe protein-calorie malnutrition; C34.90 Malignant neoplasm of unspecified part of unspecified bronchus or lung; C79.72 Secondary malignant neoplasm of left adrenal gland; E78.00 Pure hypercholesterolemia, unspecified; E78.5 Hyperlipidemia, unspecified; I11.0 Hypertensive heart disease with heart failure; I25.10 Atherosclerotic heart disease of native coronary artery without angina pectoris; I50.9 Heart failure, unspecified; J44.9 Chronic obstructive pulmonary disease, unspecified; M17.0 Bilateral primary osteoarthritis of knee; K21.9 Gastro-esophageal reflux disease without esophagitis; M19.90 Unspecified osteoarthritis, unspecified site; Z82.49 Family history of ischemic heart disease and other diseases of the circulatory system; Z86.73 Personal history of transient ischemic attack (TIA), and cerebral infarction without residual deficits; Z88.8 Allergy status to other drugs, medicaments and biological substances; Z92.3 Personal history of irradiation; Z92.21 Personal history of antineoplastic chemotherapy; Z95.5 Presence of coronary angioplasty implant and graft; Z87.891 Personal history of nicotine dependence; Z88.5 Allergy status to narcotic agent; Z68.24 Body mass index [BMI] 24.0-24.9, adult
CPT/HCPCS: 36415; 71045; 71260; 73565; 74177; 80048; 80053; 83690; 83735; 83880; 84484; 85025; 85610; 85730; 93005; 93970; 96374; 96376; G0378; G0379; J1030; J1170; J1650; J2405; J3480; J7030; Q9966; Q9967; 97110-GP; 97116-GP; 97530-GP; 99285-25; Q0163

== ENCOUNTER 2020-08-03 19:22 | Emergency (ER) | payer MEDICARE, OTHER ==
[~2020-08-03] VITALS: Ht 175.3 cm; Wt 74.0 kg
[~2020-08-03 19:22] MED LIST changes: +BISA10SU4 PR; +HYDR-2869 PO; +POLY17PO28 PO
[2020-08-03] MEDS ORDERED: HYDROmorphone 2 MG/ML VIAL IVP ONE ×3 (20:00→22:30)
[2020-08-03 20:42] LABS: BASO % 1 % (0-3); EOS # 0.1 x10^3/uL (0.0-0.7); EOS % 2 % (0-3); HEMATOCRIT 27.9 % (36.0-47.0); HEMOGLOBIN 9.1 g/dL (12.0-15.5); LYMPH # 0.7 x10^3/uL (1.0-4.8); LYMPH % 13 % (24-48); MEAN CORPUSCULAR HEMOGLOBIN 27 pg (25-35); MEAN CORPUSCULAR HGB CONC 33 g/dL (31-37); MEAN CORPUSCULAR VOLUME 83 fL (79-100); MONO # 0.6 x10^3/uL (0.0-1.1); MONO % 11 % (0-9); NEUT % 73 % (31-73); PLATELET COUNT 214 x10^3/uL (140-400); RED BLOOD COUNT 3.37 x10^6/uL (3.50-5.40); WHITE BLOOD COUNT 5.4 x10^3/uL (4.0-11.0)
[2020-08-03 20:51] LABS: CREATININE 1.5 mg/dL (0.6-1.0); POTASSIUM 3.2 mmol/L (3.5-5.1)
[2020-08-03 20:57] LABS: ALBUMIN 2.5 g/dL (3.4-5.0); ALBUMIN/GLOBULIN RATIO 0.5 (1.0-1.7); MAGNESIUM 1.7 mg/dL (1.8-2.4); TOTAL BILIRUBIN 0.6 mg/dL (0.2-1.0); TOTAL PROTEIN 7.1 g/dL (6.4-8.2)
--- NOTE | 2020-08-03 21:00 | RAD ---
Study: CR PORTABLE CHEST 1V Indication: Chest pain. Comparison: 07/12/2020 Findings: Unchanged positioning of a right chest wall Port-A-Cath. Coronary artery stents. No interval change in the configuration of the cardiomediastinal silhouette and joseph. Known left upper lung malignancy there is similar to the most recent radiographic comparison. No newly seen airspace opacity, layering effusion or pneumothorax. Soft tissue fullness at the lower neck was present on the recent CT. Unchanged osseous structures. Impression: 1. No acute radiographic abnormality of the chest. 2. Findings of known underlying malignancy, better characterized on the 07/31/2020 CT chest, appear no different from the most recent comparison. Electronically signed by: AISHWARYA GUERRA MD (08/03/2020 8:57 PM) [id number]
[2020-08-03 21:08] LABS: PLT ESTIMATE ADEQUATE (ADEQUATE)
[2020-08-03 21:09] LABS: ANISOCYTOSIS MOD
[2020-08-03] MEDS ORDERED: POTASSIUM BICARB 10 MEQ EFFERVESCENT TABLET. PO ONE (22:00)
--- NOTE | 2020-08-03 22:10 | PHYS DOC ---
Past Medical History Past Medical History: CAD, Cancer, CHF, High Cholesterol, Hypertension Additional Past Medical Histor: DJD. 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 Patient rates the pain as moderate. States this pain is chronic. States she has pain medicine at home but her breakthrough medication did not work this time and would like her pain managed. She was discharged from the hospital yesterday after being admitted for chest pain and had a negative work-up. Review of Systems: Review of Systems: Constitutional: Denies fever or chills. [] Eyes: Denies change in visual acuity. [] HENT: Denies nasal congestion or sore throat. [] Respiratory: Denies cough or shortness of breath. [] Cardiovascular: Reports chest pain GI: Denies abdominal pain, nausea, vomiting, bloody stools or diarrhea. [] : Denies dysuria. [] Musculoskeletal: Reports pain to the right upper extremity, right thigh. Integument: Denies rash. [] Neurologic: Denies headache, focal weakness or sensory changes. [] Psychiatric: Denies depression or anxiety. [] Heart Score: Risk Factors: Risk Factors: DM, Current or recent (<one month) smoker, HTN, HLP, family history of CAD, obesity. Risk Scores: Score 0 - 3: 2.5% MACE over next 6 weeks - Discharge Home Score 4 - 6: 20.3% MACE over next 6 weeks - Admit for Clinical Observation Score 7 - 10: 72.7% MACE over next 6 weeks - Early Invasive Strategies Current Medications: Current Medications Medications (Trade) Dose Ordered Sig/Santos Start Time Stop Time Status Last Admin Dose Admin Hydromorphone HCl (Dilaudid) 1 mg 1X ONCE 08/03/20 22:30 08/03/20 22:31 Potassium Bicarbonate (Potassium Effervescent Tablet) 40 meq 1X ONCE 08/03/20 22:00 08/03/20 22:01 DC Allergies: Allergies: Allergies Coded Allergies Type Severity Reaction Last Updated Verified atorvastatin Allergy Intermediate 04/03/20 Yes codeine Allergy Intermediate 04/03/20 Yes heparin Allergy Intermediate 08/01/20 Yes morphine Allergy Intermediate 04/03/20 Yes spironolactone Allergy Intermediate 04/03/20 Yes fentanyl Adverse Reaction Intermediate "makes me burn" 04/03/20 Yes Physical Exam: PE: Constitutional: Well developed, well nourished, no acute distress, non-toxic appearance. [] HENT: Normocephalic, atraumatic, bilateral external ears normal, oropharynx moist, no oral exudates, nose normal. [] Eyes: PERRLA, EOMI, conjunctiva normal, no discharge. [] Neck: Normal range of motion, no tenderness, supple, no stridor. [] Cardiovascular:Heart rate regular rhythm, no murmur [] Lungs & Thorax: Bilateral breath sounds clear to auscultation [] Abdomen: Bowel sounds normal, soft, no tenderness, no masses, no pulsatile masses. [] Skin: Warm, dry, no erythema, no rash. Edema to the right upper extremity with subcutaneous tumor, subcutaneous tumor noted on the thigh to the right thigh Back: No tenderness, no CVA tenderness. [] Extremities: No tenderness, no cyanosis, no clubbing, ROM intact, no edema. [] Neurologic: Alert and oriented X 3, normal motor function, normal sensory function, no focal deficits noted. [] Psychologic: Depressed mood Current Patient Data: Labs: Laboratory Tests Test 08/03/20 20:25 White Blood Count 5.4 x10^3/uL (4.0-11.0) Red Blood Count 3.37 x10^6/uL (3.50-5.40) L Hemoglobin 9.1 g/dL (12.0-15.5) L Hematocrit 27.9 % (36.0-47.0) L Mean Corpuscular Volume 83 fL (79-100) Mean Corpuscular Hemoglobin 27 pg (25-35) Mean Corpuscular Hemoglobin Concent 33 g/dL (31-37) Red Cell Distribution Width 22.0 % (11.5-14.5) H Platelet Count 214 x10^3/uL (140-400) Neutrophils (%) (Auto) 73 % (31-73) Lymphocytes (%) (Auto) 13 % (24-48) L Monocytes (%) (Auto) 11 % (0-9) H Eosinophils (%) (Auto) 2 % (0-3) Basophils (%) (Auto) 1 % (0-3) Neutrophils # (Auto) 4.0 x10^3/uL (1.8-7.7) Lymphocytes # (Auto) 0.7 x10^3/uL (1.0-4.8) L Monocytes # (Auto) 0.6 x10^3/uL (0.0-1.1) Eosinophils # (Auto) 0.1 x10^3/uL (0.0-0.7) Basophils # (Auto) 0.0 x10^3/uL (0.0-0.2) Platelet Estimate Adequate (ADEQUATE) Anisocytosis Mod Sodium Level 140 mmol/L (136-145) Potassium Level 3.2 mmol/L (3.5-5.1) L Chloride Level 101 mmol/L (98-107) Carbon Dioxide Level 31 mmol/L (21-32) Anion Gap 8 (6-14) Blood Urea Nitrogen 17 mg/dL (7-20) Creatinine 1.5 mg/dL (0.6-1.0) H Estimated GFR (Cockcroft-Gault) 44.0 BUN/Creatinine Ratio 11 (6-20) Glucose Level 88 mg/dL (70-99) Calcium Level 9.0 mg/dL (8.5-10.1) Magnesium Level 1.7 mg/dL (1.8-2.4) L Total Bilirubin 0.6 mg/dL (0.2-1.0) Aspartate Amino Transferase (AST) 11 U/L (15-37) L Alanine Aminotransferase (ALT) 7 U/L (14-59) L Alkaline Phosphatase 79 U/L (46-116) Troponin I Quantitative < 0.017 ng/mL (0.000-0.055) CQ-Lxl-V-Type Natriuretic Peptide 1278 pg/mL (0-124) H Total Protein 7.1 g/dL (6.4-8.2) Albumin 2.5 g/dL (3.4-5.0) L Albumin/Globulin Ratio 0.5 (1.0-1.7) L Thyroid Stimulating Hormone (TSH) 0.515 uIU/mL (0.358-3.74) Laboratory Tests 08/03/20 20:25 Laboratory Tests 08/03/20 20:25 Vital Signs: Vital Signs Date Time Temp Pulse Resp B/P (MAP) Pulse Ox O2 Delivery O2 Flow Rate FiO2 08/03/20 19:30 98.4 82 18 133/100 (111) 99 Room Air 98.4 EKG: EKG: [] Radiology/Procedures: Radiology/Procedures: [] Course & Med Decision Making: Course & Med Decision Making Pertinent Labs and Imaging studies reviewed. (See chart for details) This is a 55-year-old female patient with history of stage IV metastatic squamous cell lung ca, with progression to other sites including adrenals who presents to the ED today complaining of chronic pain and stating her breakthrough medications is not working. She was discharged from the hospital yesterday after having a negative work-up for her chronic chest pain. She was complaining of chest pain today. Her cardiac work-up is negative. We did manage her pain in the ED. She was discharged to home. Follow-up with her PCP in the course of this week as well as oncologist. Marialuisa Disclaimer: Marialuisa Disclaimer: This electronic medical record was generated, in whole or in part, using a voice recognition dictation system. Departure Departure Impression: Primary Impression: Chest pain Qualified Codes: R07.9 - Chest pain, unspecified Disposition: HOME, SELF-CARE Condition: STABLE Referrals: SHARMAINE SAEED MD (PCP) follow up in the course of this week Patient Instructions: Chest Pain (Nonspecific), [id number] Additional Instructions: You were evaluated in the emergency room. Please follow-up with your primary care doctor and oncologist in the course of this week. Justicifation of Admission Dx: Justifications for Admission: Justification of Admission Dx: N/A Angina: Cres[place] Worsening of Sym CHARLENE LU RESIDENTIAL TREATMENT SPECIALIST Aug 03, 2020 22:10
[2020-08-03 23:15] VITALS: BP 145/98
== END 2020-08-03 23:15 | disposition home or self-care (01) ==
LOC: ER 19:22
DX: R07.89 Other chest pain (principal); M79.601 Pain in right arm; G89.29 Other chronic pain; I11.0 Hypertensive heart disease with heart failure; I50.9 Heart failure, unspecified; E78.00 Pure hypercholesterolemia, unspecified; I25.10 Atherosclerotic heart disease of native coronary artery without angina pectoris; Z87.891 Personal history of nicotine dependence; Z95.5 Presence of coronary angioplasty implant and graft; Z88.4 Allergy status to anesthetic agent; Z88.5 Allergy status to narcotic agent; Z88.8 Allergy status to other drugs, medicaments and biological substances
CPT/HCPCS: 36415; 71045; 80053; 83735; 83880; 84443; 84484; 85025; 96374; 96376; 99285; J1170

== ENCOUNTER → 2020-08-08 | Outpatient (CLI) | payer MEDICARE, OTHER ==
[2020-08-03 23:15] VITALS: BP 145/98
[2020-08-08 13:11] LABS: BASO # 0.1 x10^3/uL (0.0-0.2); BASO % 1 % (0-3); EOS # 0.1 x10^3/uL (0.0-0.7); EOS % 2 % (0-3); HEMATOCRIT 32.8 % (36.0-47.0); HEMOGLOBIN 10.7 g/dL (12.0-15.5); LYMPH # 0.8 x10^3/uL (1.0-4.8); LYMPH % 13 % (24-48); MEAN CORPUSCULAR HEMOGLOBIN 27 pg (25-35); MEAN CORPUSCULAR HGB CONC 33 g/dL (31-37); MEAN CORPUSCULAR VOLUME 84 fL (79-100); MONO # 0.5 x10^3/uL (0.0-1.1); MONO % 8 % (0-9); NEUT # 4.7 x10^3/uL (1.8-7.7); NEUT % 76 % (31-73); PLATELET COUNT 225 x10^3/uL (140-400); RED BLOOD COUNT 3.91 x10^6/uL (3.50-5.40); RED CELL DISTRIBUTION WIDTH 21.9 % (11.5-14.5); WHITE BLOOD COUNT 6.2 x10^3/uL (4.0-11.0)
[2020-08-08 13:24] LABS: ANION GAP 13 (6-14); BLOOD UREA NITROGEN 17 mg/dL (7-20); BUN/CREATININE RATIO 13 (6-20); CALCIUM 9.2 mg/dL (8.5-10.1); CARBON DIOXIDE 27 mmol/L (21-32); CHLORIDE 98 mmol/L (98-107); CREATININE 1.3 mg/dL (0.6-1.0); GFR 51.8; GLUCOSE 106 mg/dL (70-99); POTASSIUM 3.5 mmol/L (3.5-5.1); SODIUM 138 mmol/L (136-145)
[2020-08-08 13:32] LABS: ALBUMIN 2.9 g/dL (3.4-5.0); ALBUMIN/GLOBULIN RATIO 0.6 (1.0-1.7); ALK PHOS 81 U/L (46-116); ALT (SGPT) < 6 U/L (14-59); AST (SGOT) 12 U/L (15-37); TOTAL BILIRUBIN 0.6 mg/dL (0.2-1.0)
== END | disposition home or self-care (01) ==
LOC: ONCLAB 12:57
PROVIDERS: ATTEND Internal Medicine Hematology & Oncology
DX: C34.82 Malignant neoplasm of overlapping sites of left bronchus and lung (principal)
CPT/HCPCS: 36415; 80053; 85025

== ENCOUNTER 2020-08-20 20:37 | Inpatient (IN) | payer MEDICARE, OTHER ==
[~2020-08-20] VITALS: Ht 175.3 cm; Wt 67.6 kg
[~2020-08-20 20:37] MED LIST changes: +AMLO-186 PO; -AMLO5TAB10 PO; +OLAN2.5T3 PO; +OXYC20TA42 PO; +OXYC30TA3 PO
[2020-08-20] MEDS ORDERED: ASPIRIN 325 MG TABLET PO ONE (21:00)
[2020-08-20] MEDS ORDERED: HYDROmorphone 2 MG/ML VIAL IVP ONE (21:00)
[2020-08-20 21:03] LABS: BASO % 1 % (0-3); EOS # 0.1 x10^3/uL (0.0-0.7); EOS % 1 % (0-3); HEMATOCRIT 28.6 % (36.0-47.0); HEMOGLOBIN 9.4 g/dL (12.0-15.5); LYMPH # 0.8 x10^3/uL (1.0-4.8); LYMPH % 15 % (24-48); MEAN CORPUSCULAR HEMOGLOBIN 28 pg (25-35); MEAN CORPUSCULAR HGB CONC 33 g/dL (31-37); MEAN CORPUSCULAR VOLUME 85 fL (79-100); MONO # 0.3 x10^3/uL (0.0-1.1); MONO % 6 % (0-9); NEUT # 4.4 x10^3/uL (1.8-7.7); NEUT % 78 % (31-73); PLATELET COUNT 157 x10^3/uL (140-400); RED BLOOD COUNT 3.38 x10^6/uL (3.50-5.40); WHITE BLOOD COUNT 5.7 x10^3/uL (4.0-11.0)
[2020-08-20 21:12] LABS: CALCIUM 9.2 mg/dL (8.5-10.1); GFR 70.2; POTASSIUM 3.7 mmol/L (3.5-5.1); PROTHROMBIN TIME PATIENT 12.4 SEC (11.7-14.0)
--- NOTE | 2020-08-20 21:14 | RAD ---
Exam: Chest one view INDICATION: Chest pain TECHNIQUE: Frontal view of the chest Comparisons: 08/03/2020 FINDINGS: Right anterior chest wall port with catheter tip at the atrial caval junction. Heart is mildly enlarged. Pulmonary vessels are within normal limits. The lung and pleural spaces are clear. IMPRESSION: No acute pulmonary process. Electronically signed by: Gunnar Garcia MD (08/20/2020 9:11 PM) [id number]
[2020-08-20 21:18] LABS: ALBUMIN 2.4 g/dL (3.4-5.0); ALBUMIN/GLOBULIN RATIO 0.5 (1.0-1.7); MAGNESIUM 1.7 mg/dL (1.8-2.4); TOTAL BILIRUBIN 0.5 mg/dL (0.2-1.0)
[2020-08-20 21:28] LABS: ANISOCYTOSIS MOD; PLT ESTIMATE ADEQUATE (ADEQUATE)
[2020-08-20 21:29] LABS: POIKILOCYTOSIS SLIGHT
[2020-08-20] MEDS ORDERED: NITROGLYCERIN OINT 1 GM PACKET. TP ONE (22:00)
--- NOTE | 2020-08-20 22:31 | PHYS DOC ---
Past Medical History Past Medical History: CAD, Cancer, CHF, High Cholesterol, Hypertension Additional Past Medical Histor: DJD. CARDIAC STENTS X 5, LUNG AND ADRENAL CANCER, ON IMMUNO.THERAPY Past Surgical History: Other Additional Past Surgical Histo: cardiac stent, PORT Smoking Status: Never Smoker Alcohol Use: None Drug Use: None General Adult EDM: Chief Complaint: CHEST PAIN HPI: HPI: Patient is a 55 year old [f__sex] who presents with [] Review of Systems: Review of Systems: Constitutional: Denies fever or chills. [] Eyes: Denies change in visual acuity. [] HENT: Denies nasal congestion or sore throat. [] Respiratory: Denies cough or shortness of breath. [] Cardiovascular: Denies chest pain or edema. [] GI: Denies abdominal pain, nausea, vomiting, bloody stools or diarrhea. [] : Denies dysuria. [] Musculoskeletal: Denies back pain or joint pain. [] Integument: Denies rash. [] Neurologic: Denies headache, focal weakness or sensory changes. [] Endocrine: Denies polyuria or polydipsia. [] Lymphatic: Denies swollen glands. [] Psychiatric: Denies depression or anxiety. [] Heart Score: Risk Factors: Risk Factors: DM, Current or recent (<one month) smoker, HTN, HLP, family history of CAD, obesity. Risk Scores: Score 0 - 3: 2.5% MACE over next 6 weeks - Discharge Home Score 4 - 6: 20.3% MACE over next 6 weeks - Admit for Clinical Observation Score 7 - 10: 72.7% MACE over next 6 weeks - Early Invasive Strategies Current Medications: Current Medications Medications (Trade) Dose Ordered Sig/[facility] Start Time Stop Time Status Last Admin Dose Admin Aspirin (Emilio Aspirin) 325 mg 1X ONCE 08/20/20 21:00 08/20/20 21:01 DC 08/20/20 21:00 325 MG Hydromorphone HCl (Dilaudid) 0.5 mg 1X ONCE 08/20/20 21:00 08/20/20 21:01 DC 08/20/20 21:00 0.5 MG Nitroglycerin (Nitro-Bid Oint) 1 inch 1X ONCE 08/20/20 22:00 08/20/20 22:01 DC 08/20/20 21:48 1 IN[facility] Allergies: Allergies: Allergies Coded Allergies Type Severity Reaction Last Updated Verified atorvastatin Allergy Intermediate 04/03/20 Yes codeine Allergy Intermediate 04/03/20 Yes heparin Allergy Intermediate 08/01/20 Yes morphine Allergy Intermediate 04/03/20 Yes spironolactone Allergy Intermediate 04/03/20 Yes fentanyl Adverse Reaction Intermediate "makes me burn" 04/03/20 Yes Physical Exam: PE: Constitutional: Well developed, well nourished, no acute distress, non-toxic appearance. [] HENT: Normocephalic, atraumatic, bilateral external ears normal, oropharynx moist, no oral exudates, nose normal. [] Eyes: PERRLA, EOMI, conjunctiva normal, no discharge. [] Neck: Normal range of motion, no tenderness, supple, no stridor. [] Cardiovascular:Heart rate regular rhythm, no murmur [] Lungs & Thorax: Bilateral breath sounds clear to auscultation [] Abdomen: Bowel sounds normal, soft, no tenderness, no masses, no pulsatile masses. [] Skin: Warm, dry, no erythema, no rash. [] Back: No tenderness, no CVA tenderness. [] Extremities: No tenderness, no cyanosis, no clubbing, ROM intact, no edema. [] Neurologic: Alert and oriented X 3, normal motor function, normal sensory function, no focal deficits noted. [] Psychologic: Affect normal, judgement normal, mood normal. [] Current Patient Data: Labs: Laboratory Tests Test 08/20/20 20:55 White Blood Count 5.7 x10^3/uL (4.0-11.0) Red Blood Count 3.38 x10^6/uL (3.50-5.40) L Hemoglobin 9.4 g/dL (12.0-15.5) L Hematocrit 28.6 % (36.0-47.0) L Mean Corpuscular Volume 85 fL (79-100) Mean Corpuscular Hemoglobin 28 pg (25-35) Mean Corpuscular Hemoglobin Concent 33 g/dL (31-37) Red Cell Distribution Width 21.0 % (11.5-14.5) H Platelet Count 157 x10^3/uL (140-400) Neutrophils (%) (Auto) 78 % (31-73) H Lymphocytes (%) (Auto) 15 % (24-48) L Monocytes (%) (Auto) 6 % (0-9) Eosinophils (%) (Auto) 1 % (0-3) Basophils (%) (Auto) 1 % (0-3) Neutrophils # (Auto) 4.4 x10^3/uL (1.8-7.7) Lymphocytes # (Auto) 0.8 x10^3/uL (1.0-4.8) L Monocytes # (Auto) 0.3 x10^3/uL (0.0-1.1) Eosinophils # (Auto) 0.1 x10^3/uL (0.0-0.7) Basophils # (Auto) 0.0 x10^3/uL (0.0-0.2) Platelet Estimate Adequate (ADEQUATE) Poikilocytosis Slight Anisocytosis Mod Prothrombin Time 12.4 SEC (11.7-14.0) Prothrombin Time INR 1.0 (0.8-1.1) Sodium Level 140 mmol/L (136-145) Potassium Level 3.7 mmol/L (3.5-5.1) Chloride Level 103 mmol/L (98-107) Carbon Dioxide Level 30 mmol/L (21-32) Anion Gap 7 (6-14) Blood Urea Nitrogen 16 mg/dL (7-20) Creatinine 1.0 mg/dL (0.6-1.0) Estimated GFR (Cockcroft-Gault) 70.2 BUN/Creatinine Ratio 16 (6-20) Glucose Level 107 mg/dL (70-99) H Calcium Level 9.2 mg/dL (8.5-10.1) Magnesium Level 1.7 mg/dL (1.8-2.4) L Total Bilirubin 0.5 mg/dL (0.2-1.0) Aspartate Amino Transferase (AST) 19 U/L (15-37) Alanine Aminotransferase (ALT) 7 U/L (14-59) L Alkaline Phosphatase 79 U/L (46-116) Troponin I Quantitative 0.532 ng/mL (0.000-0.055) Total Protein 7.0 g/dL (6.4-8.2) Albumin 2.4 g/dL (3.4-5.0) L Albumin/Globulin Ratio 0.5 (1.0-1.7) L Lipase 52 U/L (73-393) L Laboratory Tests 08/20/20 20:55 Laboratory Tests 08/20/20 20:55 Vital Signs: Vital Signs Date Time Temp Pulse Resp B/P (MAP) Pulse Ox O2 Delivery O2 Flow Rate FiO2 08/20/20 21:48 91 165/110 08/20/20 21:00 Room Air 08/20/20 20:39 99.0 13 100 99.0 EKG: EKG: @2045 NSR at 92bpm, NO ST elevation, t wave inversions I and aVL, compared to prior EKG per [facility] review from 08/03/20 without acute change from prior. Reviewed EMS transferred EKG from 2019, which noted Sinus tachycardia at 104bpm, ST prominence at III, ST depression in V2, t wave inversions in I and aVL Radiology/Procedures: Radiology/Procedures: PROCEDURE: CHEST AP ONLY Exam: Chest one view INDICATION: Chest pain TECHNIQUE: Frontal view of the chest Comparisons: 08/03/2020 FINDINGS: Right anterior chest wall port with catheter tip at the atrial caval junction. Heart is mildly enlarged. Pulmonary vessels are within normal limits. The lung and pleural spaces are clear. IMPRESSION: No acute pulmonary process. Electronically signed by: Gunnar Garcia MD (08/20/2020 9:11 PM) [id number] Course & Med Decision Making: Course & Med Decision Making Pertinent Labs and Imaging studies reviewed. (See chart for details) [] Dragon Disclaimer: Dragon Disclaimer: This electronic medical record was generated, in whole or in part, using a voice recognition dictation system. Departure Departure Referrals: SHARMAINE SAEED MD (PCP) LILIBETH HAYWOOD DO Aug 20, 2020 22:31
[2020-08-20] MEDS ORDERED: ACETAMINOPHEN 500 MG TABLET PO ONE (23:30)
[2020-08-20] MEDS: HYDROmorphone 2 MG/ML VIAL IVP PRN (23:35)
[2020-08-21] MEDS ORDERED: HYDROmorphone 2 MG/ML VIAL IVP ONE (01:30)
[2020-08-21] MEDS: HYDROmorphone 2 MG/ML VIAL IVP PRN ×7 (04:36→23:21)
[2020-08-21] MEDS ORDERED: HYDROmorphone 2 MG/ML VIAL IVP PRN (05:00)
[2020-08-21 06:50] LABS: BILIRUBIN,URINE SMALL (NEG); CLARITY,URINE CLOUDY; COLOR,URINE AMBER; NITRITE,URINE POSITIVE (NEG); PH,URINE 5.5 (<5.0-8.0); PROTEIN,URINE 30 mg/dL (NEG-TRACE)
[2020-08-21 07:09] LABS: BACTERIA,URINE MANY /HPF (0-FEW); RBC,URINE TNTC /HPF (0-2); WBC,URINE TNTC /HPF (0-4)
[2020-08-21 07:55] VITALS: BP 161/110
--- NOTE | 2020-08-21 08:30 | NUR ---
Received call from radiation/oncology nurse advising of plan to do radiation appointment today at 1030 for palliative radiation and appointment with hospice nurse. Spoke with primary who also confirmed that patient is leaning towards hospice care at this point.
--- NOTE | 2020-08-21 09:06 | PDOC ---
Provider Note Date of Service: DATE: 08/21/20 TIME: 09:05 Provider Note H&P dictated.#[id number]. Justifications for Admission Other Justification SHARMAINE SAEED MD Aug 21, 2020 09:06
--- NOTE | 2020-08-21 09:21 | HP ---
ADMIT DATE: 08/21/2020 REASON FOR ADMISSION TO THE HOSPITAL: Cancer pain, stage 4 lung cancer. 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 She was supposed to get an outpatient palliative radiation and go on hospice after that. In the meantime, she got sick yesterday, had some chest pain, came to the Emergency Room. Last admission a week ago, she had troponin went up to 7, seen by Cardiology, recommended conservative treatment. Now, the troponin is 0.5. The patient is admitted and getting high dose palliative radiation today. PAST MEDICAL HISTORY: As mentioned, has a stage 4 lung CA, had an immune treatment, but this has got progress now, she is in a palliation radiation and after that she will go up on hospice. She has a history of coronary artery disease, previous stents. She had a cerebellar stroke. She has hypertension and hyperlipidemia. PAST SURGICAL HISTORY: Cardiac stents and Port-A-Cath for chemo and she had a lung biopsy. ALLERGIES: ATORVASTATIN, CODEINE, FENTANYL, HEPARIN, MORPHINE, SPIRONOLACTONE. MEDICATIONS: Aspirin 81, Plavix, Dulcolax 10 mg, Plavix 75, Benadryl, hydralazine 100 mg three times daily, Dilaudid 4 mg, Zyprexa 2.5, oxycodone 30 mg, MiraLax 17 grams, potassium 20 mEq, Demadex and potassium which was on hold, Reglan 3 times a day, Coreg 25 mg twice a day, isosorbide 60 mg daily, oxycodone 20 mg twice a day, Crestor 20 mg daily. PERSONAL HISTORY: Ex-smoker, smoked for 30 years. Denies alcohol. FAMILY HISTORY: Hypertension, heart disease. SOCIAL HISTORY: She lives with her daughter. She is wheelchair level now because of extensive cancer PHYSICAL EXAMINATION: GENERAL: On examination, she looks cachectic, weight loss and she had a significant weakness. VITAL SIGNS: On examination seen in the Emergency Room shows temperature 97, pulse 84, respirations 12, blood pressure 161/110, 97 on room air. HEENT: Head is atraumatic. Pupils equal. Oral cavity: No congestion. NECK: Supple. Had a Port-A-Cath, right chest. CARDIOVASCULAR: S1, S2. LUNGS: Diminished breath sounds. ABDOMEN: Soft, no mass palpable. EXTERNAL GENITALIA: No De Souza. EXTREMITIES: 1+ edema. She has a foot drop on the right as well as significant weakness in the right leg, able to move upper extremities and left leg. LABORATORY DATA: White count 5.7, hemoglobin 9.4, platelets 157. INR 1.0. Electrolytes show sodium 130, potassium 3.7, chloride 103, bicarb 30, BUN 16, creatinine 1.0, glucose 107, magnesium 1.7. Troponin 0.5. Chest x-ray: No significant pneumonia. FINAL IMPRESSION: 1. Stage 4 lung cancer, metastasis to the spine, pelvis and to the perineum. 2. Coronary artery disease, non-ST segment elevation myocardial infarction. 3. History of previous cerebellar stroke. 4. Hypertension. 5. Hyperlipidemia. 6. Coronary artery disease, previous stents. 7. Right leg weakness secondary to metastasis. PLAN: At this time, the patient is admitted and will have Radiation Oncology for palliative radiation and she will go home on hospice. The patient's prognosis is poor. SHARMAINE SAEED MD DR: YURIY/trent JOB#: [id number] / [id number]
[2020-08-21 10:18] VITALS: BP 159/111
[2020-08-21] MEDS ORDERED: POLYETHYLENE GLYCOL 3350 17 GM PACKET. PO PRN (14:15)
[2020-08-21] MEDS ORDERED: BISACODYL 10 MG SUPP.RECT. PR PRN (14:15)
[2020-08-21] MEDS ORDERED: METOCLOPRAMIDE 10 MG TABLET. PO PRN (14:15)
[2020-08-21] MEDS ORDERED: diphenhydrAMINE HCL 25 MG CAPSULE PO PRN (14:15)
[2020-08-21] MEDS ORDERED: NITROGLYCERIN SUBLINGUAL 0.4 MG BOTTLE OF 25. SL PRN (14:15)
[2020-08-21 14:28] VITALS: BP 163/113
[2020-08-21 15:36] VITALS: BP 168/116
[2020-08-21] MEDS: CARVEDILOL 12.5 MG TABLET. PO SCH (16:33)
[2020-08-21] MEDS: HYDROmorphone 4 MG TABLET PO PRN (16:34)
--- NOTE | 2020-08-21 17:07 | EKG ---
[facility] [address] [place] [address] Test Date: 2020-08-20 Test Time: 20:45:34 Pat Name: VENU PALMER Department: Room: Gender: F Rod Puller: ALEJANDRA : 1965 Requested By: LILIBETH HAYWOOD Order Number: [id number] Reading MD: Measurements Intervals [place] Rate: 92 P: 7 CO: 148 QRS: -19 QRSD: 100 T: 115 QT: 338 QTc: 423 Interpretive Statements SINUS RHYTHM LEFT ATRIAL ABNORMALITY LEFTWARD AXIS LVH WITH REPOLARIZATION ABNORMALITY ABNORMAL ECG RI6.01 No previous ECG available for comparison
[2020-08-21 19:00] VITALS: BP 130/91
[2020-08-21] MEDS: ONDANSETRON ODT 4 MG TAB.RAPDIS. PO SCH (22:00)
[2020-08-21] MEDS: oxyCODONE ER 10 MG TAB.ER.12H PO SCH (22:23)
[2020-08-21 23:00] VITALS: BP 139/98
[2020-08-22] MEDS: HYDROmorphone 2 MG/ML VIAL IVP PRN ×6 (01:43→16:04)
[2020-08-22 03:00] VITALS: BP 141/102
[2020-08-22] MEDS: ONDANSETRON ODT 4 MG TAB.RAPDIS. PO SCH ×2 (06:00→14:00)
[2020-08-22 07:00] VITALS: BP 157/108
[2020-08-22] MEDS: CARVEDILOL 12.5 MG TABLET. PO SCH (08:08)
[2020-08-22] MEDS: HYDROmorphone 4 MG TABLET PO PRN (08:09)
--- NOTE | 2020-08-22 08:28 | PDOC ---
PROGRESS NOTES Date of Service: DATE: 08/22/20 TIME: 08:26 Subjective Subjective Pt had radiation treatment pallitive yesterday. home with hospice today Objective Objective Vital Signs Date Time Temp Pulse Resp B/P (MAP) Pulse Ox O2 Delivery O2 Flow Rate FiO2 08/22/20 08:08 78 141/69 08/22/20 08:00 Room Air 2.0 08/22/20 07:00 98.0 16 95 98.0 Intake and Output 08/22/20 07:00 Intake Total 124 ml Output Total 300 ml Balance -176 ml Intake Oral 124 ml Output Urine Total 300 ml Physical Exam Heart: Normal S1, Normal S2 General: Alert HEENT: Atraumatic MUSCULOSKELETAL: No deformity Neuro: Normal speech Skin: No rashes Assessment Assessment FINAL IMPRESSION: 1. Stage 4 lung cancer, metastasis to the spine, pelvis and to the perineum. 2. Coronary artery disease, non-ST segment elevation myocardial infarction. 3. History of previous cerebellar stroke. 4. Hypertension. 5. Hyperlipidemia. 6. Coronary artery disease, previous stents. 7. Right leg weakness secondary to metastasis. PLAN: had radiation palliative treatment x1 yesterday. home with hospice today. 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 At this time, the patient is admitted and will have Radiation Oncology for palliative radiation and she will go home on hospice. The patient's prognosis is poor. Comment Review of Relevant I have reviewed the following items dina (where applicable) has been applied. Medications Current Medications Aspirin (Aspirin Chewable) 81 mg DAILY PO ; Start 08/22/20 at 09:00 Bisacodyl (Dulcolax Supp) 10 mg PRN DAILY PRN NC CONSTIPATION; Start 08/21/20 at 14:15 Carvedilol (Coreg) 25 mg BIDWMEALS PO Last administered on 08/22/20at 08:08; Start 08/21/20 at 17:00 Clopidogrel Bisulfate (Plavix) 75 mg DAILY PO ; Start 08/22/20 at 09:00 Diphenhydramine HCl (Benadryl) 25 mg PRN DAILY PRN PO ALLERGIES; Start 08/21/20 at 14:15 Hydromorphone HCl (Dilaudid) 1 mg PRN Q2HR PRN IVP SEVERE PAIN 7-10 Last administered on 08/21/20at 13:19; Start 08/21/20 at 09:00; Stop 08/21/20 at 17:16; Status DC Hydromorphone HCl (Dilaudid) 2 mg PRN Q2HR PRN IVP PAIN Last administered on 08/22/20at 05:56; Start 08/21/20 at 17:15 Hydromorphone HCl (Dilaudid) 4 mg PRN Q4HRS PRN PO SEVERE PAIN Last administered on 08/22/20at 08:09; Start 08/21/20 at 14:15 Isosorbide Mononitrate (Imdur) 60 mg DAILY PO ; Start 08/22/20 at 09:00 Metoclopramide HCl (Reglan) 10 mg PRN TID PRN PO NAUSEA; Start 08/21/20 at 14:15 Nitroglycerin (Nitrostat) 0.4 mg PRN Q5MIN PRN SL CHEST PAIN; Start 08/21/20 at 14:15 Non-Formulary Medication (Rosuvastatin Calcium (Crestor)) 2 tab DAILY PO ; Start 08/22/20 at 09:00; Status UNV Olanzapine (ZyPREXA) 2.5 mg DAILY PO ; Start 08/22/20 at 09:00 Ondansetron HCl (Zofran Odt) 8 mg Q8HRS PO ; Start 08/21/20 at 22:00 Oxycodone HCl (OxyCONTIN) 20 mg Q12HR PO Last administered on 08/21/20at 22:23; Start 08/21/20 at 21:00 Oxycodone HCl (Roxicodone) 30 mg PRN Q4HRS PRN PO MODERATE PAIN Last administered on 08/22/20at 00:51; Start 08/21/20 at 14:15 Polyethylene Glycol (miraLAX PACKET) 17 gm PRN DAILY PRN PO CONSTIPATION, 1ST CHOICE Last administered on 08/21/20at 16:33; Start 08/21/20 at 14:15 Vitals/I & O Vital Sign - Last 24 Hours 08/21/20 08/21/20 08/21/20 08/21/20 09:14 09:44 10:18 10:55 Temp 98.1 98.1 Pulse 89 Resp 12 B/P (MAP) 159/111 (127) Pulse Ox 99 O2 Delivery Room Air Room Air Room Air Room Air 10/1208/21/20 08/21/20 08/21/20 13:19 13:49 14:28 14:35 Temp 98.3 98.3 Pulse 86 Resp 12 16 B/P (MAP) 163/113 (130) Pulse Ox 100 98 O2 Delivery Room Air Room Air Room Air Room Air 08/21/20 08/21/20 08/21/20 08/21/20 15:36 16:33 16:35 18:29 Temp 98.3 98.3 Pulse 61 61 Resp 18 B/P (MAP) 168/116 (133) 168/116 Pulse Ox 97 97 97 O2 Delivery Room Air Room Air Room Air 08/21/20 08/21/20 08/21/20 08/21/20 19:00 19:15 20:15 20:47 Temp 97.9 97.9 Pulse 86 Resp 16 18 18 B/P (MAP) 130/91 (104) Pulse Ox 95 94 O2 Delivery Room Air Room Air Room Air O2 Flow Rate 2.0 08/21/20 08/21/20 08/21/20 08/21/20 21:30 22:23 23:00 23:21 Temp 97.8 97.8 Pulse 85 Resp 20 16 18 B/P (MAP) 139/98 (112) Pulse Ox 93 94 O2 Delivery Room Air Room Air 08/21/20 08/22/20 08/22/20 08/22/20 23:59 00:51 01:43 02:00 Resp 18 18 18 20 Pulse Ox 94 93 O2 Delivery Room Air Room Air 08/22/20 08/22/20 08/22/20 08/22/20 02:30 02:30 03:00 03:46 Temp 98.0 98.0 Pulse 81 Resp 18 18 16 18 B/P (MAP) 141/102 (115) Pulse Ox 94 94 99 98 O2 Delivery Nasal Cannula Nasal Cannula O2 Flow Rate 2.0 2.0 08/22/20 08/22/20 08/22/20 08/22/20 04:30 05:56 06:30 07:00 Temp 98.0 98.0 Pulse 81 Resp 18 18 18 16 B/P (MAP) 157/108 (124) Pulse Ox 95 96 2 95 O2 Delivery Nasal Cannula Nasal Cannula Nasal Cannula Nasal Cannula O2 Flow Rate 2.0 2.0 2.0 08/22/20 08/22/20 08:00 08:08 Pulse 78 B/P (MAP) 141/69 O2 Delivery Room Air O2 Flow Rate 2.0 Intake and Output 08/21/20 08/21/20 08/22/20 15:00 23:00 07:00 Intake Total 0 ml 24 ml 100 ml Output Total 300 ml Balance 0 ml 24 ml -200 ml Justifications for Admission Other Justification SHARMAINE SAEED MD Aug 22, 2020 08:28
--- NOTE | 2020-08-22 08:35 | SNU/HH DC ---
DISCHARGE ORDERS DISCHARGE INFORMATION: DISCHARGE DATE: Aug 22, 2020 CONDITION ON DISCHARGE: Stable CODE STATUS: Code Status: Full HOSPICE: HOSPICE: Yes POST DISCHARGE ORDERS: ACTIVITY ORDERS: Activity as tolerated WEIGHT BEARING STATUS: As tolerated DIET AFTER DISCHARGE: Cardiac WOUND/INCISION CARE: No wound care needed CHECKS AFTER DISCHARGE: CHECKS AFTER DISCHARGE: Check blood press - daily TREATMENT/EQUIPMENT ORDERS: ADAPTIVE EQUIPMENT NEEDED: None Physical Therapy For: Evalulation/Treatment DISCHARGE MEDICATIONS: Home Meds Active Scripts Bisacodyl (BISACODYL) 10 Mg Supp.rect, 10 MG VT PRN DAILY PRN for CONSTIPATION for 30 Days, SUPP.RECT Prov:SHARMAINE SAEED MD 07/18/20 Hydromorphone Hcl (DILAUDID) 4 Mg Tablet, 4 MG PO PRN Q4HRS PRN for PAIN for 30 Days, TAB Prov:SHARMAINE SAEED MD 07/18/20 Polyethylene Glycol 3350 (POLYETHYLENE GLYCOL 3350) 17 Gm Powd.pack, 17 GM PO PRN DAILY PRN for CONSTIPATION, 1ST CHOICE for 30 Days, PKT Prov:SHARMAINE SAEED MD 07/18/20 Metoclopramide Hcl (REGLAN) 10 Mg Tablet, 1 TAB PO TID PRN for NAUSEA for 5 Days, #15 TAB 0 Refills before food and bedtime Prov:REECE BUSH Jr. DO 04/08/20 Ondansetron Hcl (ZOFRAN) 8 Mg Tablet, 1 TAB PO Q8HRS for n/v, #30 TAB 1 Refill Prov:SHARMAINE SAEED MD 04/05/20 Reported Medications Oxycodone HCl (Oxycodone HCl ER) 20 Mg Tab.er.12h, 20 MG PO Q12HR for chronic pain, TAB.SR 08/16/20 Oxycodone Hcl (OXYCODONE HCL IMMED.RELEASE ) 30 Mg Tablet, 30 MG PO PRN Q4HRS PRN for PAIN, TAB 0 Refills 08/16/20 Olanzapine (ZYPREXA) 2.5 Mg Tablet, 2.5 MG PO DAILY for anxiety, TAB 08/16/20 Clopidogrel Bisulfate (CLOPIDOGREL) 75 Mg Tablet, 75 MG PO DAILY for TO PREVENT BLOOD CLOTS, #30 TAB 0 Refills 03/15/20 Aspirin (ASPIRIN) 81 Mg Tab.chew, 81 MG PO DAILY for , #90 TAB 3 Refills 03/15/20 Nitroglycerin (NITROGLYCERIN SubLingual) 0.4 Mg Tab.subl, 0.4 MG SL PRN Q5MIN PRN for CHEST PAIN, BOTTLE 02/28/20 Diphenhydramine Hcl (DIPHENHYDRAMINE HCL) 25 Mg Capsule, 1 TAB PO PRN DAILY PRN for ALLERGIES 02/28/20 Isosorbide Mononitrate (ISOSORBIDE MONONITRATE ER) 60 Mg Tab.er.24h, 1 TAB PO DAILY for blood pressure 02/27/20 Rosuvastatin Calcium (CRESTOR) 20 Mg Tablet, 2 TAB PO DAILY for cholesterol, #30 TAB 5 Refills 03/16/17 Carvedilol (CARVEDILOL) 25 Mg Tablet, 2 TAB PO BID for heart, #180 TAB 1 Refill 08/07/15 Discontinued Reported Medications Torsemide (TORSEMIDE) 20 Mg Tablet, 60 MG PO DAILY for blood pressure 02/27/20 Discontinued Scripts Potassium Chloride (KLOR-CON M20) 20 Meq Tab.er.prt, 40 MEQ PO DAILYWBKFT for low pot for 30 Days, #60 TAB.SR Prov:SHARMAINE SAEED MD 07/18/20 Hydralazine Hcl (HYDRALAZINE HCL) 50 Mg Tablet, 100 MG PO TID for htn for 30 Days, #180 TAB Prov:SHARMAINE SAEED MD 07/18/20 SHARMAINE SAEED MD Aug 22, 2020 08:34
[2020-08-22] MEDS ORDERED: ASPIRIN CHEWABLE 81 MG TABLET. PO SCH (09:00)
[2020-08-22] MEDS ORDERED: ISOSORBIDE MONONITRATE ER 30 MG TAB.ER.24H PO SCH (09:00)
[2020-08-22] MEDS ORDERED: CLOPIDOGREL BISULFATE 75 MG TABLET PO SCH (09:00)
[2020-08-22] MEDS ORDERED: ROSUVASTATIN CALCIUM PO SCH (09:00)
[2020-08-22] MEDS ORDERED: OLANZapine 2.5 MG TABLET PO SCH (09:00)
[2020-08-22] MEDS: oxyCODONE ER 10 MG TAB.ER.12H PO SCH (09:00)
[2020-08-22 11:00] VITALS: BP 120/85
[2020-08-22 15:00] VITALS: BP 147/111
--- NOTE | 2020-08-22 17:08 | NUR ---
Pt discharged home with hospice care. Discharge instructions and prescriptions discussed. Pt assisted to stretcher and was taken by transportation.
== END 2020-08-22 16:40 | disposition hospice, home (50) | DRG 180 ==
LOC: ER 20:37 → ED HOLD 08-21 04:57 → 4 NORTH 08-21 15:52
PROVIDERS: ADMIT Internal Medicine; ATTEND Internal Medicine
DX: C34.90 Malignant neoplasm of unspecified part of unspecified bronchus or lung (principal); I21.4 Non-ST elevation (NSTEMI) myocardial infarction; C79.51 Secondary malignant neoplasm of bone; E78.00 Pure hypercholesterolemia, unspecified; E78.5 Hyperlipidemia, unspecified; I50.9 Heart failure, unspecified; I11.0 Hypertensive heart disease with heart failure; I25.10 Atherosclerotic heart disease of native coronary artery without angina pectoris; Z82.49 Family history of ischemic heart disease and other diseases of the circulatory system; Z85.118 Personal history of other malignant neoplasm of bronchus and lung; Z85.858 Personal history of malignant neoplasm of other endocrine glands; Z86.73 Personal history of transient ischemic attack (TIA), and cerebral infarction without residual deficits; Z95.5 Presence of coronary angioplasty implant and graft; M19.90 Unspecified osteoarthritis, unspecified site; Z88.5 Allergy status to narcotic agent; Z88.8 Allergy status to other drugs, medicaments and biological substances; Z87.891 Personal history of nicotine dependence
CPT/HCPCS: 36415; 71045; 80053; 81001; 83690; 83735; 84484; 85025; 85610; 87077; 87086; 87186; 93005; 96374; 99285; J1170; G0378